=== PATIENT | female | born 1945 | race Caucasian/White ===

== ENCOUNTER 2018-03-03 16:37 | Outpatient (CLI) | payer MEDICARE | END 2018-03-03 16:38 | disposition critical access hospital (66) | LOC: EMS 16:37 | PROVIDERS: ATTEND Surgery | DX: R53.1 Weakness (principal); R19.7 Diarrhea, unspecified; M54.9 Dorsalgia, unspecified | CPT/HCPCS: A0425; A0429 ==

== ENCOUNTER 2018-03-03 16:55 | Inpatient (IN) | payer MEDICARE ==
--- NOTE | 2018-03-03 17:08 | ED Physician Documentation ---
PD HPI Fall - Stated complaint Stated Complaint: WEAKNESS - History obtained from History obtained from: Patient, Family (son), EMS - History of Present Illness Mechanism of injury: Other (Feeling ill for a few days with mild cough. Fell today with Left chest wall pain. Noted to be febrile and hypoxic.) Review of Systems Ten Systems: 10 systems reviewed and negative Constitutional: reports: Fever, Chills, Fatigue Nose: denies: Rhinorrhea / runny nose, Congestion Cardiac: reports: Chest pain / pressure. denies: Palpitations Respiratory: reports: Dyspnea, Cough GI: denies: Abdominal Pain PD PAST MEDICAL HISTORY - Past Medical History Cardiovascular: Atrial fibrillation Endocrine/Autoimmune: HyPOthyroidism GI: GERD : Other Musculoskeletal: Scoliosis - Past Surgical History Past Surgical History: Yes General: Other HEENT: Tonsil/Adenoidectomy - Present Medications Home Medications: Ambulatory Orders Medication Instructions Recorded Confirmed Levothyroxine [Synthroid] 150 mcg PO QDAC 03/25/13 04/24/14 Omeprazole [PriLOSEC] 20 mg PO TID 03/25/13 04/24/14 Carbidopa/Levodopa 25/100 [Sinemet 25 mg ORAL DAILY 04/08/14 04/24/14 25 mg/100 mg] Cyclobenzaprine [Flexeril] 10 mg PO TID PRN #20 tablet 04/08/14 04/24/14 Ferrous Gluconate 54 mg ORAL TID 04/08/14 04/24/14 Furosemide 40 mg ORAL DAILY 04/08/14 04/24/14 Ipratropium/Albuterol Sulfate 3 ml INH DAILY PRN 04/08/14 04/24/14 [Combivent Respimat 20-100 Mcg] LORazepam [Ativan] 0.5 mg ORAL DAILY PRN 04/08/14 04/24/14 Metoprolol Succinate 25 mg ORAL DAILY 04/08/14 04/24/14 Potassium Chloride 10 meq ORAL DAILY 04/08/14 04/24/14 Tolterodine [Detrol LA] 2 mg ORAL DAILY 04/08/14 04/24/14 Warfarin Sodium 3 mg ORAL DAILY 04/08/14 04/24/14 diltiaZEM CD [Cardizem Cd] 180 mg ORAL DAILY 04/08/14 04/24/14 oxyCODONE [Roxicodone] 5 - 10 mg PO Q6H PRN #20 tablet 04/08/14 04/24/14 - Allergies Allergies/Adverse Reactions: Allergies Allergy/AdvReac Type Severity Reaction Status Date / Time strawberry [[place]] AdvReac Intermediate Rash Verified 04/24/14 04:48 hydrocodone bitartrate * AdvReac Emesis Verified 04/24/14 04:48 [From Vicodin] - Social History Does the pt smoke?: No Smoking Status: Never smoker Does the pt drink ETOH?: No Does the pt have substance abuse?: No - Immunizations Immunizations are current?: Yes - POLST Patient has POLST: Yes PD ED PE NORMAL - Vitals Vital signs reviewed: Yes - General General: Alert and oriented X 3, Other (She looks like she has a little bit of labored breathing and she is an incredibly poor dowagers hump.) - HEENT HEENT: PERRL, EOMI - Neck Neck: Supple, no meningeal sign, No bony TTP - Cardiac Cardiac: RRR, No murmur - Respiratory Respiratory: Other (Rhonchorous at the left base) - Abdomen Abdomen: Soft, Non tender - Back Back: No CVA TTP, No spinal TTP - Derm Derm: Normal color, Warm and dry - Extremities Extremities: No edema, No calf tenderness / cord - Neuro Neuro: Alert and oriented X 3, Normal speech Results - Vitals Vitals: Vital Signs - 24 hr 03/03/18 03/03/18 03/03/18 17:00 19:32 19:48 Temperature 38.3 C H 36.7 C Heart Rate 80 104 H 125 H Respiratory 14 29 H 26 H Rate Blood Pressure 114/81 H 90/69 106/69 O2 Saturation 92 94 94 03/03/18 19:56 Temperature Heart Rate 87 Respiratory 23 Rate Blood Pressure 90/75 O2 Saturation 94 Oxygen O2 Source [Without Activity] Nasal cannula O2 Source Nasal cannula - EKG (time done) 2130 Rate: Rate (enter#) (88) Rhythm: Atrial fibrillation Intervals: LBBB (LAFB) Ischemia: Normal ST segments Computer interpretation: Agree with computer - Labs Labs: Laboratory Tests 03/03/18 03/03/18 03/03/18 17:10 17:24 17:24 WBC 7.0 RBC 5.76 H Hgb 15.6 Hct 49.5 H MCV 86.0 MCH 27.1 MCHC 31.4 L RDW 18.4 H Plt Count 146 MPV 8.2 Neut # (Auto) 6.8 H Lymph # (Auto) 0.1 L Stokes # (Auto) 0.1 Eos # (Auto) 0.0 Baso # (Auto) 0.0 Absolute Nucleated RBC 0.01 Total Counted 100 Band Neuts % (Manual) 18 H Abnorm Lymph % (Manual) 0 Nucleated RBC % 0.1 Neutrophils # (Manual) 6.8 H Lymphocytes # (Manual) 0.1 L Monocytes # (Manual) 0.1 Eosinophils # (Manual) 0.1 Basophils # (Manual) 0.0 Platelet Estimate NORMAL (130-450,000) Platelet Morphology NORMAL APPEARANCE RBC Morph Micro Appear 2+ POIKILOCYTOSIS PT INR Sodium 142 Potassium 3.7 Chloride 106 Carbon Dioxide 29 Anion Gap 7.0 BUN 12 Creatinine 0.5 Estimated GFR (MDRD) 122 Glucose 95 Lactic Acid Calcium 10.1 Magnesium Total Bilirubin 2.1 H AST 12 ALT < 10 L Alkaline Phosphatase 52 Total Protein 6.1 L Albumin 3.6 Globulin 2.5 Albumin/Globulin Ratio 1.4 Lipase 19 L Urine Color Urine Clarity Urine pH Ur Specific [place] Urine Protein Urine Glucose (UA) Urine Ketones Urine Occult Blood Urine Nitrite Urine Bilirubin Urine Urobilinogen Ur Leukocyte Esterase Urine RBC Urine WBC Ur Squamous Epith Cells Urine Bacteria Ur Microscopic Review Urine Culture Comments Influenza A (Rapid) Negative Influenza B (Rapid) Negative 03/03/18 03/03/18 03/03/18 17:24 17:24 17:27 WBC RBC Hgb Hct MCV MCH MCHC RDW Plt Count MPV Neut # (Auto) Lymph # (Auto) Stokes # (Auto) Eos # (Auto) Baso # (Auto) Absolute Nucleated RBC Total Counted Band Neuts % (Manual) Abnorm Lymph % (Manual) Nucleated RBC % Neutrophils # (Manual) Lymphocytes # (Manual) Monocytes # (Manual) Eosinophils # (Manual) Basophils # (Manual) Platelet Estimate Platelet Morphology RBC Morph Micro Appear PT 38.6 H INR 3.5 H Sodium Potassium Chloride Carbon Dioxide Anion Gap BUN Creatinine Estimated GFR (MDRD) Glucose Lactic Acid 1.8 Calcium Magnesium 1.7 Total Bilirubin AST ALT Alkaline Phosphatase Total Protein Albumin Globulin Albumin/Globulin Ratio Lipase Urine Color Urine Clarity Urine pH Ur Specific [place] Urine Protein Urine Glucose (UA) Urine Ketones Urine Occult Blood Urine Nitrite Urine Bilirubin Urine Urobilinogen Ur Leukocyte Esterase Urine RBC Urine WBC Ur Squamous Epith Cells Urine Bacteria Ur Microscopic Review Urine Culture Comments Influenza A (Rapid) Influenza B (Rapid) 03/03/18 19:49 WBC RBC Hgb Hct MCV MCH MCHC RDW Plt Count MPV Neut # (Auto) Lymph # (Auto) Stokes # (Auto) Eos # (Auto) Baso # (Auto) Absolute Nucleated RBC Total Counted Band Neuts % (Manual) Abnorm Lymph % (Manual) Nucleated RBC % Neutrophils # (Manual) Lymphocytes # (Manual) Monocytes # (Manual) Eosinophils # (Manual) Basophils # (Manual) Platelet Estimate Platelet Morphology RBC Morph Micro Appear PT INR Sodium Potassium Chloride Carbon Dioxide Anion Gap BUN Creatinine Estimated GFR (MDRD) Glucose Lactic Acid Calcium Magnesium Total Bilirubin AST ALT Alkaline Phosphatase Total Protein Albumin Globulin Albumin/Globulin Ratio Lipase Urine Color DARK YELLOW Urine Clarity CLOUDY Urine pH 5.5 Ur Specific [place] 1.020 Urine Protein 30 H Urine Glucose (UA) NEGATIVE Urine Ketones TRACE Urine Occult Blood SMALL H Urine Nitrite POSITIVE H Urine Bilirubin SMALL H Urine Urobilinogen 2 H Ur Leukocyte Esterase MODERATE H Urine RBC 6-10 H Urine WBC 11-25 H Ur Squamous Epith Cells FEW Squamous Urine Bacteria Many H Ur Microscopic Review INDICATED Urine Culture Comments INDICATED Influenza A (Rapid) Influenza B (Rapid) - Rads (name of study) 2v chest Radiology: EMP read contemporaneously (Difficult study due to patient positioning from her kyphosis but possible retrocardiac infiltrates.) PD MEDICAL DECISION MAKING - ED course ED course: This is a 73-year-old who presents by EMS from home with a mild fall today and generalized weakness over a day with being febrile at home and she is in A. fib with RVR with heart rates up to 160 on arrival on the monitor. Labs suggest against sepsis, she was treated with divided doses of diltiazem with improvement in her rate heart rate down to the 90s. Found to have a UTI. Administered Rocephin. Spoke with Dr. Perkins for admission at 8:20 PM. Departure - Departure Disposition: [facility] DC/Xfer Clinical Impression: UTI (lower urinary tract infection), Atrial fibrillation with RVR, Supratherapeutic INR Back pain Qualifiers: Back pain location: thoracic back pain Chronicity: chronic Back pain laterality: midline Qualified Code(s): M54.6 - Pain in thoracic spine Condition: Stable
[2018-03-03] MEDS ORDERED: diltiaZEM INJ 5 MG/ML VIAL IVP STA ×2 (17:26→19:15)
[2018-03-03 17:34] LABS: BASOPHILS % (AUTO) 0.3 %; EOSINOPHILS % (AUTO) 0.2 %; HGB - HEMOGLOBIN 15.6 g/dL (12.0-16.0); LYMPHOCYTES # (AUTO) 0.1 10^3/uL (1.5-3.5); LYMPHOCYTES % (AUTO) 1.6 %; MEAN CORPUSCULAR HEMOGLOBIN 27.1 pg (27.0-31.0); MEAN CORPUSCULAR HGB CONC 31.4 g/dL (32.0-36.0); MEAN PLATELET VOLUME 8.2 fL (7.9-10.8); MONOCYTES # (AUTO) 0.1 10^3/uL (0.0-1.0); NEUTROPHILS # (AUTO) 6.8 10^3/uL (1.5-6.6); NEUTROPHILS % (AUTO) 96.9 %; PLT - PLATELET COUNT 146 10^3/uL (130-450); RED BLOOD COUNT 5.76 10^6/uL (4.20-5.40); RED CELL DISTRIBUTION WIDTH 18.4 % (12.0-15.0)
[2018-03-03 17:38] LABS: INR 3.5 (0.8-1.2); PT - PROTHROMBIN TIME 38.6 secs (9.9-12.6)
[2018-03-03 17:42] LABS: ABNORMAL LYMPHS % (MANUAL) 0 %
[2018-03-03 17:52] LABS: ALBUMIN 3.6 g/dL (3.2-5.5); ALBUMIN/GLOBULIN RATIO 1.4 (1.0-2.2); ALKALINE PHOSPHATASE 52 IU/L (42-121); ALT ALANINE AMINOTRANSFERASE < 10 IU/L (10-60); AST ASPARTATE AMINOTRANSFERASE 12 IU/L (10-42); BILIRUBIN,TOTAL 2.1 mg/dL (0.2-1.0); BUN - BLOOD UREA NITROGEN 12 mg/dL (6-20); CALCIUM 10.1 mg/dL (8.5-10.3); CARBON DIOXIDE - CO2 29 mmol/L (21-32); CHLORIDE 106 mmol/L (101-111); CREATININE 0.5 mg/dL (0.4-1.0); GFR - MDRD 122 (>89); GLUCOSE 95 mg/dL (70-100); LIPASE 19 U/L (22-51); SODIUM 142 mmol/L (135-145); TOTAL PROTEIN 6.1 g/dL (6.7-8.2)
[2018-03-03 17:59] LABS: BAND NEUTROPHILS % (MANUAL) 18 %; EOSINOPHILS # (MANUAL) 0.1 10^3/uL (0-0.7); LYMPHOCYTES # (MANUAL) 0.1 10^3/uL (1.5-3.5); LYMPHOCYTES % (MANUAL) 1 %; MONOCYTES # (MANUAL) 0.1 10^3/uL (0.0-1.0); NEUTROPHILS # (MANUAL) 6.8 10^3/uL (1.5-6.6); NEUTROPHILS % (MANUAL) 79 %
[2018-03-03 18:00] LABS: PLATELET ESTIMATE, MANUAL NORMAL (130-450,000) (NORMAL); PLATELET MORPHOLOGY NORMAL APPEARANCE (NORMAL)
--- NOTE | 2018-03-03 19:14 | XRAY Report ---
Reason: febrile, hypoxic Procedure Date: 03/03/2018 Accession Number: [id number] / [id number] Procedure: XR - Chest 2 View X-Ray CPT Code: 48274 FULL RESULT: EXAM: CHEST RADIOGRAPHY EXAM DATE: 03/03/2018 06:11 PM. CLINICAL HISTORY: Febrile, hypoxic. COMPARISON: ABDOMEN ACUTE 04/24/2014 5:40 AM. TECHNIQUE: 2 views. FINDINGS: Lungs/Pleura: Decreased lung volumes noted. Retrocardiac opacities are present. Mildly elevated right hemidiaphragm. No large effusions or pneumothorax. Evaluation of the lung apices is limited. Mediastinum: Mild cardiac enlargement noted. Atheromatous plaques of the thoracic arch is noted. Other: Patient's head and chin overlies the lung apex limiting the evaluation. Large paraesophageal hernia. IMPRESSION: 1. Suboptimal patient positioning. 2. Retrocardiac opacities could represent atelectasis or infiltrates. 3. Stable cardiac enlargement and esophageal hernia. RADIA
[2018-03-03 20:02] LABS: GLUCOSE, URINE (UA) NEGATIVE (NEGATIVE); KETONES,URINE (UA) TRACE mg/dL (NEGATIVE); LEUKOCYTE ESTERASE, URINE MODERATE (NEGATIVE); NITRITE,URINE POSITIVE (NEGATIVE); OCCULT BLOOD,URINE SMALL (NEGATIVE); PH,URINE 5.5 PH (5.0-7.5); PROTEIN,URINE 30 mg/dL (NEGATIVE); UROBILINOGEN,URINE 2 E.U./dL (NORMAL)
[2018-03-03 20:18] LABS: BACTERIA,URINE Many /HPF (None Seen); BILIRUBIN,URINE SMALL (NEGATIVE); CLARITY,URINE CLOUDY (CLEAR); ICTOTEST,URINE POSITIVE; SQUAMOUS EPITHELIAL CELL,UR FEW Squamous (<= Few)
[2018-03-03] MEDS ORDERED: cefTRIAXone 1 GM in SODIUM CHLORIDE 0.9% MINIBAG 100 ML IV STA (20:19)
[2018-03-03] MEDS ORDERED: PROCHLORPERAZINE 10 MG/2 ML VIAL IVP PRN (21:09)
[2018-03-03] MEDS ORDERED: CYCLOBENZAPRINE 10 MG TABLET PO PRN (21:12)
[2018-03-03] MEDS ORDERED: MORPHINE 2 MG/ML CARPUJECT IVP STA (21:12)
[2018-03-03] MEDS ORDERED: FERROUS GLUCONATE ORAL SCH (22:00)
[2018-03-03] MEDS: METOPROLOL SUCCINATE 25 MG TABLET PO SCH (22:06)
[2018-03-03] MEDS ORDERED: IPRATROPIUM/ALBUTEROL 3 ML NEB INH PRN (22:14)
[2018-03-03] MEDS: D5NS W/20 MEQ KCL 1,000 ML IV SCH (22:28)
[2018-03-03] MEDS ORDERED: LIDOCAINE PATCH 5% TOP PRN (23:20)
[2018-03-03] MEDS: oxyCODONE 5 MG TABLET PO PRN (23:52)
[2018-03-04] MEDS ORDERED: MIN OIL/DIMETHICON/COCONUT OIL 92 GM TUBE TOP PRN (00:38)
--- NOTE | 2018-03-04 01:13 | HISTORY & PHYSICAL EXAMINATION ---
DATE OF SERVICE: 03/03/2018 Physician: Veronica Perkins MD HISTORY OF PRESENT ILLNESS: This is a 73-year-old white female with a history of severe scoliosis, Parkinson's disease, hypothyroidism, chronic atrial fibrillation on Coumadin. Patient has felt weak and febrile for 1 day and suffered a fall without syncope onto the left side of her body because of the weakness. She was brought into the emergency room and found to have dehydration, urinary tract infection, and was complaining about pain in the areas where she had sustained the fall. X-rays showed no fracture. PAST MEDICAL HISTORY 1. Severe scoliosis. 2. Parkinson's. 3. Hypothyroidism. 4. Chronic atrial fibrillation, on Coumadin. ALLERGIES 1. STRAWBERRIES. 2. HYDROCODONE. MEDICATIONS 1. Oxycodone 5 mg 1-2 tabs q.6 h. p.r.n. pain. 2. Diltiazem CD 180 mg daily. 3. Warfarin 3 mg daily. 4. Detrol LA 2 mg daily. 5. Potassium 10 mEq daily. 6. Lasix 40 mg daily. 7. Prilosec 20 mg t.i.d. 8. Toprol-XL 25 mg daily. 9. Synthroid 150 mcg daily. 10. Ativan 0.5 mg daily p.r.n. 11. Combivent inhaler p.r.n. 12. Iron gluconate 54 mg t.i.d. 13. Flexeril 10 mg t.i.d. p.r.n. 14. Carbidopa/levodopa 25/100 daily. REVIEW OF SYSTEMS: A comprehensive review of systems was performed, and the pertinent positives are in the HPI. Patient is so weak that she answers with grunts or with 1- and 2-word answers only. It is not clear if this is her baseline. FAMILY HISTORY: No inherited diseases. SOCIAL HISTORY: Nonsmoker, nondrinker, no illicit drug use. PHYSICAL EXAMINATION GENERAL: Thin, elderly white female with severe scoliosis, giving her a dowager's hump, and her chin is nearly touching her umbilicus. She is in bed, pillows prop her up. VITAL SIGNS: Blood pressure 90/69, heart rate 104, in atrial fibrillation, fever on admission of 38.3, and O2 saturation 92% on room air. HEENT: Marked dryness of her mucosa. NECK: Probably no JVD, but because of her scoliosis, this is difficult to determine. CHEST: Clear at the anterior bases and lateral bases. HEART: Heart sounds have a 1-2/6 systolic murmur at the upper sternal border. ABDOMEN: Soft, nontender. EXTREMITIES: No edema. SKIN: Severe tenting. NEUROLOGIC: She is rigid, moving all extremities. Flat facies. LABORATORY STUDIES: Normal electrolytes. Normal BUN and creatinine. Lactic acid 1.8, magnesium 1.7, bilirubin 2.1. Normal liver tests. Troponin not detectable. INR excessive at 3.5. White blood count 7 with a left shift, hemoglobin 15.6, platelet count 146. Urinalysis showed specific gravity 1.02, pH of 5.5, small occult blood, positive nitrite, moderate leukocyte esterase, high white blood cells, and many bacteria. Her serology was negative for influenza A and B. CHEST X-RAY: No active disease. ELECTROCARDIOGRAM: Atrial fibrillation with a rapid rate, poor R wave progression. IMPRESSION/DIAGNOSES 1. Atrial fibrillation with rapid ventricular response. 2. Urinary tract infection. 3. Coumadin toxicity. 4. Fall at home. 5. Hypothyroidism history. 6. Parkinson's. 7. Scoliosis. PLAN: Admit patient to a medical/surgical bed on telemetry. Continue with management for rate control. She had received two IV diltiazem boluses in the ER, which have controlled her rate into the 90-110 range but also resulted in low blood pressures in the 90s systolic range. Continue with her oral Cardizem and increase beta trisha dose slightly if blood pressure can tolerate it, to twice a day. Continue with IV hydration for her significant dehydration. Continue with Rocephin, which was started for the UTI, and await urine and blood cultures. Check her INR daily, hold the Coumadin until the INR is below 3, and keep INR between 2 and 3. Check a TSH level regarding an adequate amount or excessive amount of thyroid replacement. Begin OT and PT when HR and BP have stabilized, and continue with pain medications. CODE STATUS: FULL CODE. DEEP VENOUS THROMBOSIS PROPHYLAXIS: Pharmacotherapy (on her Coumadin). ATTESTATION: Patient is expected to be discharged and transferred to another facility within 96 hours: Yes. TD: 03/04/2018 00:08 RACHELLE
[2018-03-04] MEDS: SODIUM CHLORIDE FLUSH 0.9% 10 ML SYRINGE IVP SCH ×3 (02:36→18:12)
[2018-03-04 02:50] LABS: INR 3.3 (0.8-1.2); PT - PROTHROMBIN TIME 36.8 secs (9.9-12.6)
[2018-03-04 03:02] LABS: CALCIUM 9.6 mg/dL (8.5-10.3); CREATININE 0.5 mg/dL (0.4-1.0)
[2018-03-04 03:09] LABS: BASOPHILS % (AUTO) 0.2 %; HGB - HEMOGLOBIN 14.4 g/dL (12.0-16.0); LYMPHOCYTES # (AUTO) 0.2 10^3/uL (1.5-3.5); LYMPHOCYTES % (AUTO) 1.7 %; MEAN CORPUSCULAR HEMOGLOBIN 27.4 pg (27.0-31.0); MEAN CORPUSCULAR HGB CONC 31.6 g/dL (32.0-36.0); MEAN CORPUSCULAR VOLUME 86.7 fL (81.0-99.0); MEAN PLATELET VOLUME 8.5 fL (7.9-10.8); MONOCYTES # (AUTO) 0.7 10^3/uL (0.0-1.0); NEUTROPHILS # (AUTO) 11.2 10^3/uL (1.5-6.6); NEUTROPHILS % (AUTO) 92.1 %; PLT - PLATELET COUNT 124 10^3/uL (130-450); RED BLOOD COUNT 5.27 10^6/uL (4.20-5.40); RED CELL DISTRIBUTION WIDTH 18.4 % (12.0-15.0); WHITE BLOOD COUNT 12.1 x10^3/uL (4.8-10.8)
[2018-03-04] MEDS: METOPROLOL SUCCINATE 25 MG TABLET PO SCH (05:55)
[2018-03-04] MEDS: PANTOPRAZOLE 40 MG TABLET PO SCH (06:49)
[2018-03-04] MEDS: D5NS W/20 MEQ KCL 1,000 ML IV SCH ×2 (06:49→18:12)
[2018-03-04] MEDS ORDERED: LEVOTHYROXINE 75 MCG TABLET PO SCH (07:00)
[2018-03-04] MEDS ORDERED: SODIUM CHLORIDE 0.9% 500 ML IV ONE (07:02)
[2018-03-04] MEDS ORDERED: diltiaZEM CD 180 MG CAPSULE PO SCH (09:00)
[2018-03-04] MEDS ORDERED: CARBIDOPA/LEVODOPA 25 MG/100 MG TABLET PO SCH (09:00)
[2018-03-04] MEDS ORDERED: LORazepam 0.5 MG TABLET PO PRN (09:00)
[2018-03-04] MEDS ORDERED: WARFARIN SODIUM 3 MG ORAL SCH ×2 (09:00→14:00)
[2018-03-04] MEDS: POLYETHYLENE GLYCOL 3350 17 GM PACKET PO SCH (09:12)
[2018-03-04] MEDS: FERROUS GLUCONATE 324 MG TABLET PO SCH ×3 (09:12→18:12)
[2018-03-04] MEDS: TOLTERODINE LA 2 MG CAPSULE PO SCH (09:12)
[2018-03-04] MEDS: oxyCODONE 5 MG TABLET PO PRN ×2 (09:18→20:46)
--- NOTE | 2018-03-04 11:44 | PROVIDER PROGRESS NOTE ---
Subjective - Prog Note Date Prog Note Date: 03/04/18 Prog Note Time: 11:44 - Subjective Pt reports feeling: Improved Subjective: [place] complains of discomfort in her anterior chest related to her fall prior to admission. She states that she is breathing well and can recognize all of her family members. She denies chest pressure, rashes, increased shortness of breath, fevers, chills, or a productive cough. Current Medications - Current Medications Current Medications: Active Medications: Acetaminophen (Tylenol) 650 mg PO Q4HR PRN Albuterol/Ipratropium (Duoneb) 3 ml INH Q4HR PRN Carbidopa/Levodopa (Sinemet 25 Mg/100 Mg) tab PO DAILY [facility] Cyclobenzaprine HCl (Flexeril) 10 mg PO TID PRN Diltiazem HCl (Cardizem Cd) 180 mg PO DAILY RICHIE Ferrous Gluconate (Fergon) 324 mg PO TIDWM RICHIE Cefepime HCl 1 gm/ Sodium (Chloride) 100 mls @ 200 mls/hr IV TID RICHIE Acetaminophen (Ofirmev) 100 mls @ 400 mls/hr IV Q6H RICHIE Potassium Chloride/Dextrose/Sod Cl () 1,000 mls @ 125 mls/hr IV .Q8H RICHIE Levothyroxine Sodium (Synthroid) 100 mcg PO QDAC [facility] Lidocaine (Lidoderm Patch) 1 patch TOP DAILY PRN Lorazepam (Ativan) 0.5 mg PO DAILY PRN Metoprolol Succinate (Toprol Xl) 25 mg PO BID [facility] Mineral Oil (Cavilon) 1 applic TOP PRN PRN Oxycodone HCl (Roxicodone) 5 mg PO Q6H PRN Pantoprazole Sodium (Protonix) 40 mg PO QDAC [facility] Polyethylene Glycol (Miralax) 17 gm PO DAILY [facility] Prochlorperazine Edisylate (Compazine Inj) 10 mg IVP Q6HR PRN Tolterodine Tartrate (Detrol La) 2 mg PO DAILY [facility] HOME meds: Omeprazole [PriLOSEC] 20 mg PO QDAC 03/25/13 Carbidopa/Levodopa 25/100 [Sinemet 25 mg/100 mg] 3 tab PO 0500,1000,1400 04/08/14 Furosemide 40 mg ORAL DAILY 04/08/14 Metoprolol Succinate 25 mg ORAL DAILY 04/08/14 Potassium Chloride 10 meq ORAL 1200 04/08/14 Tolterodine [Detrol LA] 2 mg ORAL DAILY 04/08/14 Warfarin Sodium 3 mg ORAL MOTUWETHFR@0900 04/08/14 diltiaZEM CD [Cardizem Cd] 180 mg ORAL DAILY 04/08/14 Cholecalciferol (Vitamin D3) [Vitamin D3] 3,000 units PO DAILY 03/04/18 Levothyroxine Sodium 100 mcg PO QDAC 03/04/18 Warfarin Sodium 4.5 mg PO SUSA@0900 03/04/18 Objective - Vital Signs/Intake & Output Reviewed Vital Signs: Yes Vital Signs: Vital Signs x48h Temp Pulse Resp BP Pulse Ox 03/04/18 08:04 37.3 C 99 18 103/74 96 03/04/18 05:15 36.9 C 98 16 97/71 95 Intake & Output: Intake & Output 03/01/18 03/02/18 03/03/18 03/04/18 23:59 23:59 23:59 23:59 Intake Total 120 1696.667 Output Total 15 1300 Balance 105 396.667 - Objective General Appearance: positive: Alert, Mild distress Eyes Bilateral: positive: PERRL Eyes: OU Lid inflammation ENT: positive: Pharynx nml, Dry mucous membranes Neck: positive: No JVD, Stiff neck, Other (hyperflexion as it bends forward permantently.) Respiratory: positive: Chest non-tender, No respiratory distress, Rhonchi Cardiovascular: positive: No gallop, Irregularly irregular, Tachycardia, Systolic murmur, Decreased pulse(s) Peripheral Pulses: 1+ Radial (R), 1+ Radial (L) Abdomen: positive: Non-tender, Nml bowel sounds Back: positive: Nml inspection Skin: positive: No rash, Warm, Dry, Pallor Extremities: positive: Pedal edema, Joint swelling Neurologic/Psychiatric: positive: Disoriented to time, Weakness, Sensory loss, Slurred/abnml speech (impaired speech due to body habitous), Depressed mood/affect, Other (baseline mild cognitive delay related to Parkinson's) Reflexes: Bicep (R): 3+, Bicep (L): 3+ - Lab Results Fish Bones: 03/04/18 02:34 03/04/18 02:34 Other Labs: Lab Results x24hrs 03/04/18 03/04/18 03/04/18 Range/Units 08:10 02:34 02:34 WBC 12.1 H (4.8-10.8) x10^3/uL RBC 5.27 (4.20-5.40) 10^6/uL Hgb 14.4 (12.0-16.0) g/dL Hct 45.7 (37.0-47.0) % MCV 86.7 (81.0-99.0) fL MCH 27.4 (27.0-31.0) pg MCHC 31.6 L (32.0-36.0) g/dL RDW 18.4 H (12.0-15.0) % Plt Count 124 L (130-450) 10^3/uL MPV 8.5 (7.9-10.8) fL Neut # (Auto) 11.2 H (1.5-6.6) 10^3/uL Lymph # (Auto) 0.2 L (1.5-3.5) 10^3/uL Boundary # (Auto) 0.7 (0.0-1.0) 10^3/uL Eos # (Auto) 0.0 (0.0-0.7) 10^3/uL Baso # (Auto) 0.0 (0.0-0.1) 10^3/uL Absolute Nucleated RBC 0.03 x10^3/uL Total Counted Band Neuts % (Manual) (0 - 10) % Abnorm Lymph % (Manual) % Nucleated RBC % 0.2 /100WBC Neutrophils # (Manual) (1.5-6.6) 10^3/uL Lymphocytes # (Manual) (1.5-3.5) 10^3/uL Monocytes # (Manual) (0.0-1.0) 10^3/uL Eosinophils # (Manual) (0-0.7) 10^3/uL Basophils # (Manual) (0-0.1) 10^3/uL Platelet Estimate (NORMAL) Platelet Morphology (NORMAL) RBC Morph Micro Appear (NORMAL) PT (9.9-12.6) secs INR (0.8-1.2) Sodium (135-145) mmol/L Potassium (3.5-5.0) mmol/L Chloride (101-111) mmol/L Carbon Dioxide (21-32) mmol/L Anion Gap (6-13) BUN (6-20) mg/dL Creatinine (0.4-1.0) mg/dL Estimated GFR (MDRD) (>89) Glucose (70-100) mg/dL Lactic Acid (0.5-2.2) mmol/L Calcium (8.5-10.3) mg/dL Magnesium (1.7-2.8) mg/dL Total Bilirubin (0.2-1.0) mg/dL AST (10-42) IU/L ALT (10-60) IU/L Alkaline Phosphatase (42-121) IU/L Troponin I 0.23 0.12 (<0.49) ng/mL Total Protein (6.7-8.2) g/dL Albumin (3.2-5.5) g/dL Globulin (2.1-4.2) g/dL Albumin/Globulin Ratio (1.0-2.2) Lipase (22-51) U/L TSH (0.34-5.60) uIU/mL Urine Color Urine Clarity (CLEAR) Urine pH (5.0-7.5) PH Ur Specific [place] (1.002-1.030) Urine Protein (NEGATIVE) mg/dL Urine Glucose (UA) (NEGATIVE) mg/dL Urine Ketones (NEGATIVE) mg/dL Urine Occult Blood (NEGATIVE) Urine Nitrite (NEGATIVE) Urine Bilirubin (NEGATIVE) Urine Urobilinogen (NORMAL) E.U./dL Ur Leukocyte Esterase (NEGATIVE) Urine RBC (0-5) /HPF Urine WBC (0-5) /HPF Ur Squamous Epith Cells (<= Few) Urine Bacteria (None Seen) /HPF Ur Microscopic Review Urine Culture Comments Influenza A (Rapid) (Negative) Influenza B (Rapid) (Negative) 03/04/18 03/04/18 03/03/18 Range/Units 02:34 02:34 Unknown WBC (4.8-10.8) x10^3/uL RBC (4.20-5.40) 10^6/uL Hgb (12.0-16.0) g/dL Hct (37.0-47.0) % MCV (81.0-99.0) fL MCH (27.0-31.0) pg MCHC (32.0-36.0) g/dL RDW (12.0-15.0) % Plt Count (130-450) 10^3/uL MPV (7.9-10.8) fL Neut # (Auto) (1.5-6.6) 10^3/uL Lymph # (Auto) (1.5-3.5) 10^3/uL Boundary # (Auto) (0.0-1.0) 10^3/uL Eos # (Auto) (0.0-0.7) 10^3/uL Baso # (Auto) (0.0-0.1) 10^3/uL Absolute Nucleated RBC x10^3/uL Total Counted Band Neuts % (Manual) (0 - 10) % Abnorm Lymph % (Manual) % Nucleated RBC % /100WBC Neutrophils # (Manual) (1.5-6.6) 10^3/uL Lymphocytes # (Manual) (1.5-3.5) 10^3/uL Monocytes # (Manual) (0.0-1.0) 10^3/uL Eosinophils # (Manual) (0-0.7) 10^3/uL Basophils # (Manual) (0-0.1) 10^3/uL Platelet Estimate (NORMAL) Platelet Morphology (NORMAL) RBC Morph Micro Appear (NORMAL) PT 36.8 H (9.9-12.6) secs INR 3.3 H (0.8-1.2) Sodium 144 (135-145) mmol/L Potassium 3.8 (3.5-5.0) mmol/L Chloride 108 (101-111) mmol/L Carbon Dioxide 31 (21-32) mmol/L Anion Gap 5.0 L (6-13) BUN 16 (6-20) mg/dL Creatinine 0.5 (0.4-1.0) mg/dL Estimated GFR (MDRD) 122 (>89) Glucose 125 H (70-100) mg/dL Lactic Acid (0.5-2.2) mmol/L Calcium 9.6 (8.5-10.3) mg/dL Magnesium (1.7-2.8) mg/dL Total Bilirubin (0.2-1.0) mg/dL AST (10-42) IU/L ALT (10-60) IU/L Alkaline Phosphatase (42-121) IU/L Troponin I (<0.49) ng/mL Total Protein (6.7-8.2) g/dL Albumin (3.2-5.5) g/dL Globulin (2.1-4.2) g/dL Albumin/Globulin Ratio (1.0-2.2) Lipase (22-51) U/L TSH 4.58 (0.34-5.60) uIU/mL Urine Color Urine Clarity (CLEAR) Urine pH (5.0-7.5) PH Ur Specific [place] (1.002-1.030) Urine Protein (NEGATIVE) mg/dL Urine Glucose (UA) (NEGATIVE) mg/dL Urine Ketones (NEGATIVE) mg/dL Urine Occult Blood (NEGATIVE) Urine Nitrite (NEGATIVE) Urine Bilirubin (NEGATIVE) Urine Urobilinogen (NORMAL) E.U./dL Ur Leukocyte Esterase (NEGATIVE) Urine RBC (0-5) /HPF Urine WBC (0-5) /HPF Ur Squamous Epith Cells (<= Few) Urine Bacteria (None Seen) /HPF Ur Microscopic Review Urine Culture Comments Influenza A (Rapid) (Negative) Influenza B (Rapid) (Negative) 03/03/18 03/03/18 03/03/18 Range/Units Unknown 19:49 17:27 WBC (4.8-10.8) x10^3/uL RBC (4.20-5.40) 10^6/uL Hgb (12.0-16.0) g/dL Hct (37.0-47.0) % MCV (81.0-99.0) fL MCH (27.0-31.0) pg MCHC (32.0-36.0) g/dL RDW (12.0-15.0) % Plt Count (130-450) 10^3/uL MPV (7.9-10.8) fL Neut # (Auto) (1.5-6.6) 10^3/uL Lymph # (Auto) (1.5-3.5) 10^3/uL Boundary # (Auto) (0.0-1.0) 10^3/uL Eos # (Auto) (0.0-0.7) 10^3/uL Baso # (Auto) (0.0-0.1) 10^3/uL Absolute Nucleated RBC x10^3/uL Total Counted Band Neuts % (Manual) (0 - 10) % Abnorm Lymph % (Manual) % Nucleated RBC % /100WBC Neutrophils # (Manual) (1.5-6.6) 10^3/uL Lymphocytes # (Manual) (1.5-3.5) 10^3/uL Monocytes # (Manual) (0.0-1.0) 10^3/uL Eosinophils # (Manual) (0-0.7) 10^3/uL Basophils # (Manual) (0-0.1) 10^3/uL Platelet Estimate (NORMAL) Platelet Morphology (NORMAL) RBC Morph Micro Appear (NORMAL) PT (9.9-12.6) secs INR (0.8-1.2) Sodium (135-145) mmol/L Potassium (3.5-5.0) mmol/L Chloride (101-111) mmol/L Carbon Dioxide (21-32) mmol/L Anion Gap (6-13) BUN (6-20) mg/dL Creatinine (0.4-1.0) mg/dL Estimated GFR (MDRD) (>89) Glucose (70-100) mg/dL Lactic Acid (0.5-2.2) mmol/L Calcium (8.5-10.3) mg/dL Magnesium 1.7 (1.7-2.8) mg/dL Total Bilirubin (0.2-1.0) mg/dL AST (10-42) IU/L ALT (10-60) IU/L Alkaline Phosphatase (42-121) IU/L Troponin I < 0.04 (<0.49) ng/mL Total Protein (6.7-8.2) g/dL Albumin (3.2-5.5) g/dL Globulin (2.1-4.2) g/dL Albumin/Globulin Ratio (1.0-2.2) Lipase (22-51) U/L TSH (0.34-5.60) uIU/mL Urine Color DARK YELLOW Urine Clarity CLOUDY (CLEAR) Urine pH 5.5 (5.0-7.5) PH Ur Specific [place] 1.020 (1.002-1.030) Urine Protein 30 H (NEGATIVE) mg/dL Urine Glucose (UA) NEGATIVE (NEGATIVE) mg/dL Urine Ketones TRACE (NEGATIVE) mg/dL Urine Occult Blood SMALL H (NEGATIVE) Urine Nitrite POSITIVE H (NEGATIVE) Urine Bilirubin SMALL H (NEGATIVE) Urine Urobilinogen 2 H (NORMAL) E.U./dL Ur Leukocyte Esterase MODERATE H (NEGATIVE) Urine RBC 6-10 H (0-5) /HPF Urine WBC 11-25 H (0-5) /HPF Ur Squamous Epith Cells FEW Squamous (<= Few) Urine Bacteria Many H (None Seen) /HPF Ur Microscopic Review INDICATED Urine Culture Comments INDICATED Influenza A (Rapid) (Negative) Influenza B (Rapid) (Negative) 03/03/18 03/03/18 03/03/18 Range/Units 17:24 17:24 17:24 WBC (4.8-10.8) x10^3/uL RBC (4.20-5.40) 10^6/uL Hgb (12.0-16.0) g/dL Hct (37.0-47.0) % MCV (81.0-99.0) fL MCH (27.0-31.0) pg MCHC (32.0-36.0) g/dL RDW (12.0-15.0) % Plt Count (130-450) 10^3/uL MPV (7.9-10.8) fL Neut # (Auto) (1.5-6.6) 10^3/uL Lymph # (Auto) (1.5-3.5) 10^3/uL Boundary # (Auto) (0.0-1.0) 10^3/uL Eos # (Auto) (0.0-0.7) 10^3/uL Baso # (Auto) (0.0-0.1) 10^3/uL Absolute Nucleated RBC x10^3/uL Total Counted Band Neuts % (Manual) (0 - 10) % Abnorm Lymph % (Manual) % Nucleated RBC % /100WBC Neutrophils # (Manual) (1.5-6.6) 10^3/uL Lymphocytes # (Manual) (1.5-3.5) 10^3/uL Monocytes # (Manual) (0.0-1.0) 10^3/uL Eosinophils # (Manual) (0-0.7) 10^3/uL Basophils # (Manual) (0-0.1) 10^3/uL Platelet Estimate (NORMAL) Platelet Morphology (NORMAL) RBC Morph Micro Appear (NORMAL) PT 38.6 H (9.9-12.6) secs INR 3.5 H (0.8-1.2) Sodium 142 (135-145) mmol/L Potassium 3.7 (3.5-5.0) mmol/L Chloride 106 (101-111) mmol/L Carbon Dioxide 29 (21-32) mmol/L Anion Gap 7.0 (6-13) BUN 12 (6-20) mg/dL Creatinine 0.5 (0.4-1.0) mg/dL Estimated GFR (MDRD) 122 (>89) Glucose 95 (70-100) mg/dL Lactic Acid 1.8 (0.5-2.2) mmol/L Calcium 10.1 (8.5-10.3) mg/dL Magnesium (1.7-2.8) mg/dL Total Bilirubin 2.1 H (0.2-1.0) mg/dL AST 12 (10-42) IU/L ALT < 10 L (10-60) IU/L Alkaline Phosphatase 52 (42-121) IU/L Troponin I (<0.49) ng/mL Total Protein 6.1 L (6.7-8.2) g/dL Albumin 3.6 (3.2-5.5) g/dL Globulin 2.5 (2.1-4.2) g/dL Albumin/Globulin Ratio 1.4 (1.0-2.2) Lipase 19 L (22-51) U/L TSH (0.34-5.60) uIU/mL Urine Color Urine Clarity (CLEAR) Urine pH (5.0-7.5) PH Ur Specific [place] (1.002-1.030) Urine Protein (NEGATIVE) mg/dL Urine Glucose (UA) (NEGATIVE) mg/dL Urine Ketones (NEGATIVE) mg/dL Urine Occult Blood (NEGATIVE) Urine Nitrite (NEGATIVE) Urine Bilirubin (NEGATIVE) Urine Urobilinogen (NORMAL) E.U./dL Ur Leukocyte Esterase (NEGATIVE) Urine RBC (0-5) /HPF Urine WBC (0-5) /HPF Ur Squamous Epith Cells (<= Few) Urine Bacteria (None Seen) /HPF Ur Microscopic Review Urine Culture Comments Influenza A (Rapid) (Negative) Influenza B (Rapid) (Negative) 12/21/18 12/21/18 Range/Units 17:24 17:10 WBC 7.0 (4.8-10.8) x10^3/uL RBC 5.76 H (4.20-5.40) 10^6/uL Hgb 15.6 (12.0-16.0) g/dL Hct 49.5 H (37.0-47.0) % MCV 86.0 (81.0-99.0) fL MCH 27.1 (27.0-31.0) pg MCHC 31.4 L (32.0-36.0) g/dL RDW 18.4 H (12.0-15.0) % Plt Count 146 (130-450) 10^3/uL MPV 8.2 (7.9-10.8) fL Neut # (Auto) 6.8 H (1.5-6.6) 10^3/uL Lymph # (Auto) 0.1 L (1.5-3.5) 10^3/uL Boundary # (Auto) 0.1 (0.0-1.0) 10^3/uL Eos # (Auto) 0.0 (0.0-0.7) 10^3/uL Baso # (Auto) 0.0 (0.0-0.1) 10^3/uL Absolute Nucleated RBC 0.01 x10^3/uL Total Counted 100 Band Neuts % (Manual) 18 H (0 - 10) % Abnorm Lymph % (Manual) 0 % Nucleated RBC % 0.1 /100WBC Neutrophils # (Manual) 6.8 H (1.5-6.6) 10^3/uL Lymphocytes # (Manual) 0.1 L (1.5-3.5) 10^3/uL Monocytes # (Manual) 0.1 (0.0-1.0) 10^3/uL Eosinophils # (Manual) 0.1 (0-0.7) 10^3/uL Basophils # (Manual) 0.0 (0-0.1) 10^3/uL Platelet Estimate NORMAL (130-450,000) (NORMAL) Platelet Morphology NORMAL APPEARANCE (NORMAL) RBC Morph Micro Appear 2+ POIKILOCYTOSIS (NORMAL) PT (9.9-12.6) secs INR (0.8-1.2) Sodium (135-145) mmol/L Potassium (3.5-5.0) mmol/L Chloride (101-111) mmol/L Carbon Dioxide (21-32) mmol/L Anion Gap (6-13) BUN (6-20) mg/dL Creatinine (0.4-1.0) mg/dL Estimated GFR (MDRD) (>89) Glucose (70-100) mg/dL Lactic Acid (0.5-2.2) mmol/L Calcium (8.5-10.3) mg/dL Magnesium (1.7-2.8) mg/dL Total Bilirubin (0.2-1.0) mg/dL AST (10-42) IU/L ALT (10-60) IU/L Alkaline Phosphatase (42-121) IU/L Troponin I (<0.49) ng/mL Total Protein (6.7-8.2) g/dL Albumin (3.2-5.5) g/dL Globulin (2.1-4.2) g/dL Albumin/Globulin Ratio (1.0-2.2) Lipase (22-51) U/L TSH (0.34-5.60) uIU/mL Urine Color Urine Clarity (CLEAR) Urine pH (5.0-7.5) PH Ur Specific [place] (1.002-1.030) Urine Protein (NEGATIVE) mg/dL Urine Glucose (UA) (NEGATIVE) mg/dL Urine Ketones (NEGATIVE) mg/dL Urine Occult Blood (NEGATIVE) Urine Nitrite (NEGATIVE) Urine Bilirubin (NEGATIVE) Urine Urobilinogen (NORMAL) E.U./dL Ur Leukocyte Esterase (NEGATIVE) Urine RBC (0-5) /HPF Urine WBC (0-5) /HPF Ur Squamous Epith Cells (<= Few) Urine Bacteria (None Seen) /HPF Ur Microscopic Review Urine Culture Comments Influenza A (Rapid) Negative (Negative) Influenza B (Rapid) Negative (Negative) ABX Reporting Has patient been on IV antibiotics over the past 48 hours?: Yes Sepsis Event Note (H) - Evaluation Current Stage of Sepsis: Septic shock Possible source of Sepsis: positive: Genitourinary - Sepsis Criteria Sepsis Criteria: Recorded Heart Rate greater than 90 bpm, Recorded Respiratory Rate greater than 20, WBC count greater than 12,000 or less than 4000, [employer]PORATE TRAVEL [employer]ORDINATOR: altered consciousness (unrelated to primary neuro pathology), SBP less than 90 mmHg, Renal: urine output less than 0.5ml/kg/hr for 2 hours or creatinine gr Assessment/Plan - Problem List (1) Infection due to gram-negative bacteria Impression: The patient's full set of blood cultures are positive showing gram negatives. Her preliminary urine culture indicates e. coli. The patient remains on IV treatment that (2) Complicated UTI (urinary tract infection) Impression: The patient is known to be incontinent at home and frequently has UTIs. She has become very weak at home and actually fell in her bathroom. Today her urine appears gadiel. Plan: Monitor urine output, provide Pure wick for comfort. (3) Anterior chest wall pain Impression: The patient and her family admit to an accidental fall in her bathroom of which she landed onto her anterior chest. Plan: Serial troponins, monitor for worsening. PT evaluation after medically stable. (4) Elevated troponin Impression: The patient is likely having a + troponin due to her RVR and cardiac strain. She has had an echocardiogram and preliminary results show no regional wall motion abnormalities. The patient states that she has anterior chest pain related to her fall, denies any radiation to her jaw, neck, shoulders, arms or posterior chest. She denies dizziness, or nausea today. Plan: Await troponin at 1600, and reorder for the AM. (5) Falls Impression: The patient has suffered from an increased number of falls without injury. For this fall, she landed on her anterior chest that is tender with palpation. Plan: Continue fall precautions. Qualifiers: Encounter type: subsequent encounter Qualified Code(s): W19.XXXD - Unspecified fall, subsequent encounter (6) Compression fracture Impression: The patient has known compression fractures that has sped up the progression of her profound kyphosis. 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 She now has profound kyphosis with evidence of progressive Parkinson's disease. Plan: Supportive cares, pain medications as needed. Scheduled IV tylenol while acutely ill. (7) Parkinson disease, symptomatic Impression: The patient's Parkinson's disease has more rapidly progressed (8) Hypotension Impression: The patient is prescribed lasix, diltiazem, and metoprolol at home, which has been continued here. Given her septic shock she has been barely WNLs with her blood pressure. B/P has been in the 90-100's systolic. Plan: Monitor vital signs, follow parameters. Consider digoxin if HR is still greater than 120. Qualifiers: Hypotension type: hypotension due to hypovolemia Qualified Code(s): I95.89 - Other hypotension; E86.1 - Hypovolemia
[2018-03-04] MEDS: ACETAMINOPHEN 325 MG TABLET PO PRN (14:32)
[2018-03-04] MEDS: CEFEPIME 1 GM in SODIUM CHLORIDE 0.9% MINIBAG 100 ML IV SCH ×2 (15:00→21:59)
[2018-03-04] MEDS ORDERED: ACETAMINOPHEN 1,000 MG/100 ML 100 ML IV SCH (17:00)
[2018-03-04] MEDS ORDERED: METOPROLOL SUCCINATE 25 MG TABLET PO SCH ×2 (20:13→21:00)
[2018-03-04] MEDS ORDERED: LEVALBUTEROL 1.25 MG/3 ML NEB INH PRN (20:14)
[2018-03-04] MEDS ORDERED: DIGOXIN 500 MCG/2 ML AMP IVP SCH ×2 (20:14→23:30)
[2018-03-04] MEDS: ACETAMINOPHEN 1,000 MG/100 ML 100 ML IV SCH (20:59)
[2018-03-04] MEDS ORDERED: cefTRIAXone 1 GM in SODIUM CHLORIDE 0.9% MINIBAG 100 ML IV SCH (21:00)
[2018-03-04] MEDS: SODIUM CHLORIDE FLUSH 0.9% 10 ML SYRINGE IVP PRN (22:50)
[2018-03-05] MEDS ORDERED: diltiaZEM INJ 5 MG/ML VIAL IVP SCH ×2 (00:31→08:00)
[2018-03-05] MEDS: SODIUM CHLORIDE FLUSH 0.9% 10 ML SYRINGE IVP SCH ×3 (00:50→17:06)
[2018-03-05] MEDS: SODIUM CHLORIDE FLUSH 0.9% 10 ML SYRINGE IVP PRN (01:02)
[2018-03-05] MEDS: ACETAMINOPHEN 1,000 MG/100 ML 100 ML IV SCH ×5 (03:18→21:00)
[2018-03-05] MEDS: D5NS W/20 MEQ KCL 1,000 ML IV SCH ×3 (03:18→16:05)
[2018-03-05] MEDS: ACETAMINOPHEN 325 MG TABLET PO PRN (05:35)
[2018-03-05 06:16] LABS: INR 2.3 (0.8-1.2); PT - PROTHROMBIN TIME 25.8 secs (9.9-12.6)
[2018-03-05 06:20] LABS: BASOPHILS % (AUTO) 0.2 %; EOSINOPHILS % (AUTO) 0.2 %; HGB - HEMOGLOBIN 14.1 g/dL (12.0-16.0); LYMPHOCYTES # (AUTO) 0.4 10^3/uL (1.5-3.5); LYMPHOCYTES % (AUTO) 5.4 %; MEAN CORPUSCULAR HEMOGLOBIN 27.6 pg (27.0-31.0); MEAN CORPUSCULAR HGB CONC 32.1 g/dL (32.0-36.0); MEAN CORPUSCULAR VOLUME 85.9 fL (81.0-99.0); MEAN PLATELET VOLUME 8.5 fL (7.9-10.8); MONOCYTES # (AUTO) 0.6 10^3/uL (0.0-1.0); MONOCYTES % (AUTO) 8.5 %; NEUTROPHILS # (AUTO) 6.5 10^3/uL (1.5-6.6); NEUTROPHILS % (AUTO) 85.7 %; PLT - PLATELET COUNT 78 10^3/uL (130-450); RED BLOOD COUNT 5.13 10^6/uL (4.20-5.40); RED CELL DISTRIBUTION WIDTH 18.2 % (12.0-15.0); WHITE BLOOD COUNT 7.5 x10^3/uL (4.8-10.8)
[2018-03-05 06:26] LABS: CALCIUM 9.6 mg/dL (8.5-10.3); CREATININE 0.6 mg/dL (0.4-1.0)
[2018-03-05 06:34] LABS: DIGOXIN 1.3 ng/mL
[2018-03-05] MEDS ORDERED: LEVOTHYROXINE 100 MCG TABLET PO SCH (07:00)
[2018-03-05] MEDS: CEFEPIME 1 GM in SODIUM CHLORIDE 0.9% MINIBAG 100 ML IV SCH (07:24)
[2018-03-05] MEDS: PANTOPRAZOLE 40 MG TABLET PO SCH (07:36)
[2018-03-05] MEDS ORDERED: METOPROLOL SUCCINATE 25 MG TABLET PO SCH (08:00)
[2018-03-05] MEDS ORDERED: CARBIDOPA/LEVODOPA 25 MG/100 MG TABLET PO SCH (09:00)
[2018-03-05] MEDS ORDERED: ONDANSETRON 4 MG/2 ML VIAL IVP PRN (09:26)
[2018-03-05] MEDS ORDERED: PROMETHAZINE 25 MG/1 ML VIAL IM PRN (09:26)
[2018-03-05] MEDS ORDERED: SODIUM CHLORIDE 0.9% 500 ML IV ONE (09:29)
[2018-03-05] MEDS: METOPROLOL 5 MG/5 ML VIAL IVP SCH ×3 (09:34→21:03)
[2018-03-05] MEDS: POLYETHYLENE GLYCOL 3350 17 GM PACKET PO SCH (09:36)
[2018-03-05] MEDS: SACCHAROMYCES BOULARDII 250 MG CAPSULE PO SCH ×2 (09:36→17:06)
[2018-03-05] MEDS: FERROUS GLUCONATE 324 MG TABLET PO SCH ×3 (09:36→17:05)
[2018-03-05] MEDS: TOLTERODINE LA 2 MG CAPSULE PO SCH (09:37)
[2018-03-05] MEDS ORDERED: diltiaZEM INJ 125 MG in DEXTROSE 5% 100 ML IV SCH (10:00)
[2018-03-05] MEDS: PIPERACILLIN/TAZOBACTAM 3.375 GM in SODIUM CHLORIDE 0.9% MINIBAG 100 ML IV SCH ×2 (12:40→17:15)
[2018-03-05] MEDS: CARBIDOPA/LEVODOPA 25 MG/100 MG TABLET PO SCH (14:32)
[2018-03-05] MEDS ORDERED: D5NS W/20 MEQ KCL 1,000 ML IV SCH (21:41)
[2018-03-05] MEDS ORDERED: METOPROLOL 5 MG/5 ML VIAL IVP SCH (22:00)
[2018-03-05] MEDS ORDERED: WARFARIN 5 MG TABLET PO ONE (22:00)
[2018-03-05] MEDS ORDERED: LORazepam 2 MG/ML VIAL IVP PRN (22:11)
[2018-03-05] MEDS: NYSTATIN POWDER 15 GM TOP SCH (22:29)
[2018-03-05] MEDS: PANTOPRAZOLE 40 MG VIAL IVP SCH (22:30)
[2018-03-06] MEDS: PIPERACILLIN/TAZOBACTAM 3.375 GM in SODIUM CHLORIDE 0.9% MINIBAG 100 ML IV SCH ×3 (00:10→12:41)
[2018-03-06] MEDS: SODIUM CHLORIDE FLUSH 0.9% 10 ML SYRINGE IVP SCH ×4 (00:10→23:09)
[2018-03-06] MEDS: CARBIDOPA/LEVODOPA 25 MG/100 MG TABLET PO SCH ×3 (04:40→14:04)
[2018-03-06 05:01] LABS: BASOPHILS % (AUTO) 0.4 %; EOSINOPHILS % (AUTO) 0.4 %; HGB - HEMOGLOBIN 13.7 g/dL (12.0-16.0); LYMPHOCYTES # (AUTO) 0.5 10^3/uL (1.5-3.5); LYMPHOCYTES % (AUTO) 8.5 %; MEAN CORPUSCULAR HEMOGLOBIN 27.5 pg (27.0-31.0); MEAN CORPUSCULAR HGB CONC 31.5 g/dL (32.0-36.0); MEAN CORPUSCULAR VOLUME 87.2 fL (81.0-99.0); MEAN PLATELET VOLUME 8.5 fL (7.9-10.8); MONOCYTES # (AUTO) 0.6 10^3/uL (0.0-1.0); MONOCYTES % (AUTO) 10.4 %; NEUTROPHILS # (AUTO) 4.4 10^3/uL (1.5-6.6); NEUTROPHILS % (AUTO) 80.3 %; PLT - PLATELET COUNT 84 10^3/uL (130-450); RED BLOOD COUNT 4.98 10^6/uL (4.20-5.40); RED CELL DISTRIBUTION WIDTH 17.6 % (12.0-15.0); WHITE BLOOD COUNT 5.4 x10^3/uL (4.8-10.8)
[2018-03-06 05:14] LABS: ALBUMIN 3.1 g/dL (3.2-5.5); ALBUMIN/GLOBULIN RATIO 1.2 (1.0-2.2); BILIRUBIN,TOTAL 1.8 mg/dL (0.2-1.0); CALCIUM 9.5 mg/dL (8.5-10.3); CREATININE 0.5 mg/dL (0.4-1.0); MAGNESIUM 1.6 mg/dL (1.7-2.8); PHOSPHORUS 1.7 mg/dL (2.5-4.6); TOTAL PROTEIN 5.7 g/dL (6.7-8.2)
[2018-03-06] MEDS ORDERED: MAGNESIUM SULFATE 2 GRAM 2 GM/50 ML BAG IV ONE (06:00)
[2018-03-06] MEDS ORDERED: LEVOTHYROXINE 100 MCG VIAL IVP SCH (07:00)
[2018-03-06] MEDS: ACETAMINOPHEN 1,000 MG/100 ML 100 ML IV SCH (07:59)
[2018-03-06] MEDS ORDERED: POTASSIUM PHOSPHATE 15 MMOL in SODIUM CHLORIDE 0.9% 250 ML IV ONE (08:00)
[2018-03-06] MEDS: PANTOPRAZOLE 40 MG VIAL IVP SCH (08:26)
[2018-03-06] MEDS ORDERED: diltiaZEM INJ 125 MG in DEXTROSE 5% 100 ML IV SCH (09:00)
[2018-03-06] MEDS ORDERED: ENOXAPARIN 60 MG/0.6 ML SYRINGE SUBQ SCH (09:00)
--- NOTE | 2018-03-06 09:05 | XRAY Report ---
Reason: Eval for CHF Procedure Date: 03/06/2018 Accession Number: [id number] / [id number] Procedure: XR - Chest 1 View X-Ray CPT Code: 11365 FULL RESULT: EXAM: CHEST RADIOGRAPHY EXAM DATE: 03/06/2018 08:42 AM. CLINICAL HISTORY: Evaluate for CHF. COMPARISON: 03/03/2018. TECHNIQUE: 1 view. FINDINGS: This study is markedly limited by positioning and greater than 50% of lung is obscured by overlying structures. Lungs/Pleura: The visualized portions of the left upper lung demonstrate no large pneumothorax or consolidation. Small or moderate-sized pleural effusion cannot be assessed. The right lung is not visualized. Mediastinum: Within the meaningful limitations of this radiograph the cardiomediastinal silhouette appears unchanged. Other: None. IMPRESSION: Limited radiograph with no meaningful interval change. RADIA
[2018-03-06] MEDS ORDERED: METOPROLOL SUCCINATE 50 MG TABLET PO SCH (11:00)
[2018-03-06] MEDS: diltiaZEM CD 180 MG CAPSULE PO SCH (11:38)
[2018-03-06] MEDS: NYSTATIN POWDER 15 GM TOP SCH ×2 (12:42→20:53)
[2018-03-06] MEDS: levoFLOXacin 750 MG/150 ML 750 MG/150 ML BAG IV SCH (13:18)
[2018-03-06] MEDS ORDERED: WARFARIN 5 MG TABLET PO SCH (14:00)
[2018-03-06] MEDS: SENNA 8.6 MG TABLET PO SCH (14:05)
[2018-03-06] MEDS: POLYETHYLENE GLYCOL 3350 17 GM PACKET PO SCH (14:05)
[2018-03-06] MEDS: WARFARIN 1 MG TABLET PO SCH (14:05)
--- NOTE | 2018-03-06 16:46 | PROVIDER PROGRESS NOTE ---
Assessment/Plan - Problem List (1) Atrial fibrillation with RVR Assessment/Plan: Transferred to ICU for dilt drip as patient had persistently elevated HR in the 130s this am despite PO rate control meds Continue PO metoprolol and dilt Patient febrile which maybe contributing to the tachycardia Will give tylenol and IVFs Tele monitoring Trops stable at 0.20 Echo showed EF of 35-40% CHAD2 score is 2 patient on coumadin Coumadin held for elevated INR of 3.5 (2) Bacteremia due to Escherichia coli Assessment/Plan: Source is urinary Awaiting susceptibilities and repeat cx Fever this am Change cefepime to zosyn Monitor for sepsis (3) Complicated UTI (urinary tract infection) Assessment/Plan: Cause of bacteremia Urine cx and blood cx growing ecoli Change cefepime to zosyn and await susceptibilities of blood cx (4) Metabolic encephalopathy Assessment/Plan: Patient is lethargic and not at her baseline mentation likely secondary to ongoing infection with bacteremia Continue treatment of infection with IV abx MOnitor closely (5) Chronic systolic CHF (congestive heart failure), NYHA class 1 Assessment/Plan: EF of 35-40% Hypoxic requiring 5L with a fib rvr Patient being given IVF given fever and ongoing infection Will be careful with IVFs Patient on metoprolol but no RICARDO inh Will consider adding metoprolol prior to discharge Tele Monitor closely (6) Elevated troponin Assessment/Plan: The patient is likely having a + troponin due to her RVR and cardiac strain. She has had an echocardiogram and preliminary results show no regional wall motion abnormalities. The patient states that she has anterior chest pain related to her fall, denies any radiation to her jaw, neck, shoulders, arms or posterior chest. Trop stable - Current Meds Current Meds: Current Medications Generic Name Dose Route Start Last Admin Trade Name Freq PRN Reason Stop Dose Admin Carbidopa/Levodopa 3 tab 03/05/18 14:00 03/06/18 14:04 Sinemet 25 Mg/100 Mg PO 3 tab 0500,1000,1400 RICHIE Administration Diltiazem HCl 180 mg 03/06/18 11:00 03/06/18 11:38 Cardizem Cd PO 180 mg DAILY RICHIE Administration Enoxaparin Sodium 50 mg 03/06/18 09:00 03/06/18 08:12 Lovenox SUBQ Not Given BID RICHIE Potassium Chloride/Dextrose/Sod Cl 1,000 mls @ 40 mls/hr 03/05/18 21:41 03/06/18 08:00 IV 03/06/18 17:34 40 mls/hr .Q25H RICHIE Administration Levofloxacin 750 mg in 150 mls @ 100 mls/hr 03/06/18 13:00 03/06/18 13:18 Levaquin 750 Mg/150 Ml IV 100 mls/hr Q24H RICHIE Administration Lidocaine 1 patch 03/03/18 23:20 03/03/18 23:52 Lidoderm Patch TOP 1 patch DAILY PRN Administration PAIN Metoprolol Succinate 50 mg 03/06/18 11:00 03/06/18 11:38 Toprol Xl PO 50 mg DAILY RICHIE Administration Nystatin 1 applic 03/05/18 22:15 03/06/18 12:42 Nystop TOP 1 applic BID RICHIE Administration Polyethylene Glycol 17 gm 03/06/18 13:00 03/06/18 14:05 Miralax PO Not Given DAILY RICHIE Senna 8.6 - 17.2 mg 03/06/18 13:00 03/06/18 14:05 Senokot PO 8.6 mg DAILY RICHIE Administration Sodium Chloride 10 ml 03/03/18 21:09 03/05/18 01:02 Normal Saline Flush 0.9% IVP 10 ml PRN PRN Administration NEEDED PER PROVIDER ORDERS Sodium Chloride 10 ml 03/04/18 01:00 03/06/18 09:30 Normal Saline Flush 0.9% IVP 10 ml 0100,0900,1700 RICHIE Administration Warfarin Sodium 3 mg 03/06/18 14:00 03/06/18 14:05 Coumadin PO 3 mg QDWARFARIN RICHIE Administration - Lab Result Lab results reviewed: Yes Fish Bone Diagrams: 03/06/18 04:39 03/06/18 04:39 - EKG Results EKG Interpreted Independently: Yes EKG Comparison: Unchanged from prior EKG - Diagnostic Imaging Results Diagnostic Imaging Results: Final report reviewed - Additional Planning Condition/Complexity: Critical My Orders: My Active Orders 03/06/18 11:00 Metoprolol Succinate [Toprol Xl] 50 mg PO DAILY diltiaZEM CD [Cardizem Cd] 180 mg PO DAILY 03/06/18 13:00 Polyethylene Glycol 3350 [Miralax] 17 gm PO DAILY Senna [Senokot] 8.6 - 17.2 mg PO DAILY levoFLOXacin 750 MG/150 ML [Levaquin 750 mg/150 ml] 750 mg in 150 ml IV Q24H 03/06/18 14:00 Warfarin [Coumadin] 3 mg PO QDWARFARIN 03/06/18 14:12 Vital Signs [RC] Q4HR 03/06/18 Dinner Regular Diet [DIET] 03/07/18 05:00 COMPREHENSIVE METABOLIC PANEL [CHEM] DAILYLAB MAGNESIUM [CHEM] DAILYLAB PHOSPHORUS [CHEM] DAILYLAB 03/07/18 07:00 Levothyroxine [Synthroid] 100 mcg PO QDAC Pantoprazole [Protonix] 40 mg PO QDAC 03/08/18 05:00 COMPREHENSIVE METABOLIC PANEL [CHEM] DAILYLAB MAGNESIUM [CHEM] DAILYLAB PHOSPHORUS [CHEM] DAILYLAB 03/09/18 05:00 COMPREHENSIVE METABOLIC PANEL [CHEM] DAILYLAB 03/10/18 05:00 COMPREHENSIVE METABOLIC PANEL [CHEM] DAILYLAB 03/11/18 05:00 COMPREHENSIVE METABOLIC PANEL [CHEM] DAILYLAB Consult/Specialty: PT Plan Discussed with:: Patient, Family Time Spent: 31-60 minutes Subjective - Subjective Patient Reports: Other (Patient is lethargic secondary to infection. Being transferred to ICU due to a fib rvr. Patient looks ill.) Nursing Reports: No Complaints Objective Vital Signs: Vital Signs - 24 hr 03/05/18 03/05/18 03/05/18 17:00 18:00 19:00 Temperature 37.5 C 37.3 C Heart Rate [ 86 90 89 Monitoring electrodes] Respiratory 16 18 12 Rate Blood Pressure Blood Pressure [Left Brachial artery] Blood Pressure 158/99 H 154/97 H 166/105 H [Right Brachial artery] O2 Saturation 94 94 96 03/05/18 03/05/18 03/05/18 20:00 21:00 21:03 Temperature 36.1 C L Heart Rate [ 75 82 Monitoring electrodes] Respiratory 14 12 Rate Blood Pressure 151/103 H Blood Pressure [Left Brachial artery] Blood Pressure 146/92 H 151/103 H [Right Brachial artery] O2 Saturation 94 95 03/05/18 03/05/18 03/05/18 22:00 22:02 23:00 Temperature Heart Rate [ 76 78 Monitoring electrodes] Respiratory 16 19 Rate Blood Pressure 140/94 H Blood Pressure [Left Brachial artery] Blood Pressure 146/97 H 154/98 H [Right Brachial artery] O2 Saturation 96 100 03/06/18 03/06/18 03/06/18 00:00 01:00 02:00 Temperature 37.2 C Heart Rate [ 82 94 81 Monitoring electrodes] Respiratory 18 13 21 Rate Blood Pressure Blood Pressure [Left Brachial artery] Blood Pressure 160/98 H 159/94 H 135/79 H [Right Brachial artery] O2 Saturation 97 93 94 03/06/18 03/06/18 03/06/18 03:00 04:00 05:00 Temperature 37.2 C Heart Rate [ 103 H 82 92 Monitoring electrodes] Respiratory 16 23 13 Rate Blood Pressure Blood Pressure [Left Brachial artery] Blood Pressure 155/97 H 164/103 H 165/116 H [Right Brachial artery] O2 Saturation 90 L 98 95 03/06/18 03/06/18 03/06/18 06:00 07:00 07:43 Temperature 37.3 C Heart Rate [ 87 87 89 Monitoring electrodes] Respiratory 24 20 22 Rate Blood Pressure Blood Pressure [Left Brachial artery] Blood Pressure 155/101 H 160/97 H 160/97 H [Right Brachial artery] O2 Saturation 98 93 92 03/06/18 03/06/18 03/06/18 09:00 10:00 11:00 Temperature 37.2 C Heart Rate [ 94 80 78 Monitoring electrodes] Respiratory 23 25 H 26 H Rate Blood Pressure Blood Pressure [Left Brachial artery] Blood Pressure 150/100 H 138/86 H 141/87 H [Right Brachial artery] O2 Saturation 98 95 94 03/06/18 03/06/18 03/06/18 12:00 13:00 14:00 Temperature 37.6 C H Heart Rate [ 76 77 61 Monitoring electrodes] Respiratory 35 H 28 H 21 Rate Blood Pressure Blood Pressure [Left Brachial artery] Blood Pressure 141/87 H 128/77 116/79 [Right Brachial artery] O2 Saturation 92 93 94 03/06/18 03/06/18 15:00 16:15 Temperature 37.3 C Heart Rate [ 62 67 Monitoring electrodes] Respiratory 26 H 20 Rate Blood Pressure Blood Pressure 119/72 [Left Brachial artery] Blood Pressure 110/79 [Right Brachial artery] O2 Saturation 94 96 Oxygen O2 Source [Without Activity] Nasal cannula O2 Source Blow By I&O (Last 24 Hrs): Intake and Output Totals x24h 03/04/18 03/05/18 03/06/18 23:59 23:59 23:59 Intake Total 3644.584 3049.833 1133.708 Output Total 5997 021 9145 Balance 3018.450 1914.833 -926.292 General: Other (Lethargic) HEENT: Atraumatic, PERRLA, EOMI, Other (Dry mucus membranes) Neck: Supple, No JVD, No thyromegaly, +2 carotid pulse wo bruit, No LAD Lymphatic: no adenopathy Neuro: Non Focal, Other (Lethargic) Cardiovascular: No murmurs, Other (Tachycardic with irregular rhythm) Respiratory: Chest non-tender, No respiratory distress, Rales (Bases) Abdomen: Normal bowel sounds, Soft, No tenderness, No hepatospenomegaly Extremities: No clubbing, No cyanosis, Normal pulses, Other (Mild edema) Skin: No rashes, No breakdown - Results Results: Laboratory Results WBC 5.4 x10^3/uL (4.8-10.8) 03/06/18 04:39 RBC 4.98 10^6/uL (4.20-5.40) 03/06/18 04:39 Hgb 13.7 g/dL (12.0-16.0) 03/06/18 04:39 Hct 43.5 % (37.0-47.0) 03/06/18 04:39 MCV 87.2 fL (81.0-99.0) 03/06/18 04:39 MCH 27.5 pg (27.0-31.0) 03/06/18 04:39 MCHC 31.5 g/dL (32.0-36.0) L 03/06/18 04:39 RDW 17.6 % (12.0-15.0) H 03/06/18 04:39 Plt Count 84 10^3/uL (130-450) L 03/06/18 04:39 MPV 8.5 fL (7.9-10.8) 03/06/18 04:39 Neut # (Auto) 4.4 10^3/uL (1.5-6.6) 03/06/18 04:39 Lymph # (Auto) 0.5 10^3/uL (1.5-3.5) L 03/06/18 04:39 [place]ama # (Auto) 0.6 10^3/uL (0.0-1.0) 03/06/18 04:39 Eos # (Auto) 0.0 10^3/uL (0.0-0.7) 03/06/18 04:39 Baso # (Auto) 0.0 10^3/uL (0.0-0.1) 03/06/18 04:39 Absolute Nucleated RBC 0.00 x10^3/uL 03/06/18 04:39 Total Counted 100 03/03/18 17:24 Band Neuts % (Manual) 18 % (0-10) H 03/03/18 17:24 Abnorm Lymph % (Manual) 0 % 03/03/18 17:24 Nucleated RBC % 0.1 /100WBC 03/06/18 04:39 Neutrophils # (Manual) 6.8 10^3/uL (1.5-6.6) H 03/03/18 17:24 Lymphocytes # (Manual) 0.1 10^3/uL (1.5-3.5) L 03/03/18 17:24 Monocytes # (Manual) 0.1 10^3/uL (0.0-1.0) 03/03/18 17:24 Eosinophils # (Manual) 0.1 10^3/uL (0-0.7) 03/03/18 17:24 Basophils # (Manual) 0.0 10^3/uL (0-0.1) 03/03/18 17:24 Platelet Estimate NORMAL (130-450,000) (NORMAL) 03/03/18 17:24 Platelet Morphology NORMAL APPEARANCE (NORMAL) 03/03/18 17:24 RBC Morph Micro Appear 2+ ANISOCYTOSIS (NORMAL) 2+ POIKILOCYTOSIS (NORMAL) 03/03/18 17:24 RBC Morph Micro Appear 2+ ANISOCYTOSIS (NORMAL) 2+ POIKILOCYTOSIS (NORMAL) 03/03/18 17:24 PT 25.8 secs (9.9-12.6) H 03/05/18 05:36 INR 2.3 (0.8-1.2) H 03/05/18 05:36 Sodium 138 mmol/L (135-145) 03/06/18 04:39 Potassium 4.0 mmol/L (3.5-5.0) 03/06/18 04:39 Chloride 111 mmol/L (101-111) 03/06/18 04:39 Carbon Dioxide 25 mmol/L (21-32) 03/06/18 04:39 Anion Gap 2.0 (6-13) L 03/06/18 04:39 BUN 13 mg/dL (6-20) 03/06/18 04:39 Creatinine 0.5 mg/dL (0.4-1.0) 03/06/18 04:39 Estimated GFR (MDRD) 122 (>89) 03/06/18 04:39 Glucose 98 mg/dL (70-100) 03/06/18 04:39 Lactic Acid 1.8 mmol/L (0.5-2.2) 03/03/18 17:24 Calcium 9.5 mg/dL (8.5-10.3) 03/06/18 04:39 Phosphorus 1.7 mg/dL (2.5-4.6) L 03/06/18 04:39 Magnesium 1.6 mg/dL (1.7-2.8) L 03/06/18 04:39 Total Bilirubin 1.8 mg/dL (0.2-1.0) H 03/06/18 04:39 AST 20 IU/L (10-42) 03/06/18 04:39 ALT 10 IU/L (10-60) 03/06/18 04:39 Alkaline Phosphatase 44 IU/L (42-121) 03/06/18 04:39 Total Creatine Kinase 709 IU/L (22-269) H 03/04/18 16:25 Troponin I 0.20 ng/mL (<0.49) 03/04/18 16:25 B-Natriuretic Peptide 493 pg/mL (5-100) H 03/06/18 04:39 Total Protein 5.7 g/dL (6.7-8.2) L 03/06/18 04:39 Albumin 3.1 g/dL (3.2-5.5) L 03/06/18 04:39 Globulin 2.6 g/dL (2.1-4.2) 03/06/18 04:39 Albumin/Globulin Ratio 1.2 (1.0-2.2) 03/06/18 04:39 Lipase 19 U/L (22-51) L 03/03/18 17:24 TSH 4.58 uIU/mL (0.34-5.60) 03/03/18 Unknown Urine Color DARK YELLOW 03/03/18 19:49 Urine Clarity CLOUDY (CLEAR) 03/03/18 19:49 Urine pH 5.5 PH (5.0-7.5) 03/03/18 19:49 Ur Specific [place] 1.020 (1.002-1.030) 03/03/18 19:49 Urine Protein 30 mg/dL (NEGATIVE) H 03/03/18 19:49 Urine Glucose (UA) NEGATIVE mg/dL (NEGATIVE) 03/03/18 19:49 Urine Ketones TRACE mg/dL (NEGATIVE) 03/03/18 19:49 Urine Occult Blood SMALL (NEGATIVE) H 03/03/18 19:49 Urine Nitrite POSITIVE (NEGATIVE) H 03/03/18 19:49 Urine Bilirubin SMALL (NEGATIVE) H 03/03/18 19:49 Urine Urobilinogen 2 E.U./dL (NORMAL) H 03/03/18 19:49 Ur Leukocyte Esterase MODERATE (NEGATIVE) H 03/03/18 19:49 Urine RBC 6-10 /HPF (0-5) H 03/03/18 19:49 Urine WBC 11-25 /HPF (0-5) H 03/03/18 19:49 Ur Squamous Epith Cells FEW Squamous (<= Few) 03/03/18 19:49 Urine Bacteria Many /HPF (None Seen) H 03/03/18 19:49 Ur Microscopic Review INDICATED 03/03/18 19:49 Urine Culture Comments INDICATED 03/03/18 19:49 Last Dose Date UNK 03/05/18 05:36 Last Dose Time UNK 03/05/18 05:36 Digoxin 1.3 ng/mL 03/05/18 05:36 Influenza A (Rapid) Negative (Negative) 03/03/18 17:10 Influenza B (Rapid) Negative (Negative) 03/03/18 17:10 - Procedures Procedures: Procedures INSERT GASTRIC TUBE NEC (03/25/13) PACKED CELL TRANSFUSION (03/25/13) Sepsis Event Note (H) - Evaluation Current Stage of Sepsis: Septic shock Possible source of Sepsis: positive: Genitourinary - Sepsis Criteria Sepsis Criteria: Recorded Heart Rate greater than 90 bpm, Recorded Respiratory Rate greater than 20, WBC count greater than 12,000 or less than 4000, [employer]: altered consciousness (unrelated to primary neuro pathology), SBP less than 90 mmHg, Renal: urine output less than 0.5ml/kg/hr for 2 hours or creatinine gr ABX Reporting Has patient been on IV antibiotics over the past 48 hours?: No Current Medications - Current Medications Current Medications: Active Medications Generic Name Dose Route Start Last Admin Trade Name Freq PRN Reason Stop Dose Admin Carbidopa/Levodopa 3 tab 03/05/18 14:00 03/06/18 14:04 Sinemet 25 Mg/100 Mg PO 3 tab 0500,1000,1400 RICHIE Administration Diltiazem HCl 180 mg 03/06/18 11:00 03/06/18 11:38 Cardizem Cd PO 180 mg DAILY RICHIE Administration Enoxaparin Sodium 50 mg 03/06/18 09:00 03/06/18 08:12 Lovenox SUBQ Not Given BID RICHIE Potassium Chloride/Dextrose/Sod Cl 1,000 mls @ 40 mls/hr 03/05/18 21:41 03/06/18 08:00 IV 03/06/18 17:34 40 mls/hr .Q25H RICHIE Administration Levofloxacin 750 mg in 150 mls @ 100 mls/hr 03/06/18 13:00 03/06/18 13:18 Levaquin 750 Mg/150 Ml IV 100 mls/hr Q24H RICHIE Administration Ibuprofen 600 mg 03/05/18 09:26 Motrin PO Q6HR PRN Pain 1 to 4 Levalbuterol HCl 1.25 mg 03/04/18 20:14 Xopenex INH Q4H PRN Shortness of Air/Wheezing Levothyroxine Sodium 100 mcg 03/07/18 07:00 Synthroid PO QDAC RICHIE Lidocaine 1 patch 03/03/18 23:20 03/03/18 23:52 Lidoderm Patch TOP 1 patch DAILY PRN Administration PAIN Lorazepam 0.5 mg 03/05/18 22:11 Ativan Inj (Vial) IVP Q6H PRN Anxiety Metoprolol Succinate 50 mg 03/06/18 11:00 03/06/18 11:38 Toprol Xl PO 50 mg DAILY RICHIE Administration Mineral Oil 1 applic 03/04/18 00:38 Cavilon TOP PRN PRN Skin Care Nystatin 1 applic 03/05/18 22:15 03/06/18 12:42 Nystop TOP 1 applic BID RICHIE Administration Ondansetron HCl 4 mg 03/05/18 09:26 Zofran Inj IVP Q6HR PRN Nausea / Vomiting Pantoprazole Sodium 40 mg 03/07/18 07:00 Protonix PO QDAC [facility] Polyethylene Glycol 17 gm 03/06/18 13:00 03/06/18 14:05 Miralax PO Not Given DAILY [facility] Prochlorperazine Edisylate 10 mg 03/03/18 21:09 Compazine Inj IVP Q6HR PRN Nausea / Vomiting Promethazine HCl 25 mg 03/05/18 09:26 Phenergan Inj IM Q6HR PRN Nausea / Vomiting Senna 8.6 - 17.2 mg 03/06/18 13:00 03/06/18 14:05 Senokot PO 8.6 mg DAILY RICHIE Administration Sodium Chloride 10 ml 03/03/18 21:09 03/05/18 01:02 Normal Saline Flush 0.9% IVP 10 ml PRN PRN Administration NEEDED PER PROVIDER ORDERS Sodium Chloride 10 ml 03/04/18 01:00 03/06/18 09:30 Normal Saline Flush 0.9% IVP 10 ml 0100,0900,1700 RICHIE Administration Warfarin Sodium 3 mg 03/06/18 14:00 03/06/18 14:05 Coumadin PO 3 mg QDWARFARIN RICHIE Administration Omeprazole [PriLOSEC] 20 mg PO QDAC 03/25/13 Carbidopa/Levodopa 25/100 [Sinemet 25 mg/100 mg] 3 tab PO 0500,1000,1400 Furosemide 40 mg ORAL DAILY 04/08/14 Metoprolol Succinate 25 mg ORAL DAILY 04/08/14 Potassium Chloride 10 meq ORAL 1200 04/08/14 Tolterodine [Detrol LA] 2 mg ORAL DAILY 04/08/14 Warfarin Sodium 3 mg ORAL MOTUWETHFR@0900 04/08/14 diltiaZEM CD [Cardizem Cd] 180 mg ORAL DAILY 04/08/14 Cholecalciferol (Vitamin D3) [Vitamin D3] 3,000 units PO DAILY 03/04/18 Levothyroxine Sodium 100 mcg PO QDAC 03/04/18 Warfarin Sodium 4.5 mg PO SUSA@0900 03/04/18
--- NOTE | 2018-03-06 17:27 | PROVIDER PROGRESS NOTE ---
Assessment/Plan - Problem List (1) Atrial fibrillation with RVR Assessment/Plan: Weaned off dilt drip HR improved with PO metoprolol and dilt Tele monitoring Trops stable at 0.20 Echo showed EF of 35-40% CHAD2 score is 2 patient on coumadin Restart coumadin as INR is now 2.3 Transfer to med/surg (2) Bacteremia due to Escherichia coli Assessment/Plan: Source is urinary Repeat cx negative E coli susceptible to levaquin will change zosyn to IV levaquin WBC improved, no fevers, mentation improved Appears to be improving Will need 14 days of abx will switch to PO abx if patient continues to be stable (3) Complicated UTI (urinary tract infection) Assessment/Plan: Cause of bacteremia Urine cx and blood cx growing ecoli E coli susceptible to levaquin will change zosyn to IV levaquin (4) Metabolic encephalopathy Assessment/Plan: Resolved Patients mentation back to baseline (5) Chronic systolic CHF (congestive heart failure), NYHA class 1 Assessment/Plan: EF of 35-40% Hypoxic requiring 5L with a fib rvr Patient being given IVF given fever and ongoing infection Will be careful with IVFs Patient on metoprolol but no RICARDO inh Will consider adding metoprolol prior to discharge Tele Monitor closely (6) Elevated troponin Assessment/Plan: The patient is likely having a + troponin due to her RVR and cardiac strain. She has had an echocardiogram and preliminary results show no regional wall motion abnormalities. The patient states that she has anterior chest pain related to her fall, denies any radiation to her jaw, neck, shoulders, arms or posterior chest. Trop stable Reorder PT - Current Meds Current Meds: Current Medications Generic Name Dose Route Start Last Admin Trade Name Freq PRN Reason Stop Dose Admin Carbidopa/Levodopa 3 tab 03/05/18 14:00 03/06/18 14:04 Sinemet 25 Mg/100 Mg PO 3 tab 0500,1000,1400 RICHIE Administration Diltiazem HCl 180 mg 03/06/18 11:00 03/06/18 11:38 Cardizem Cd PO 180 mg DAILY RICHIE Administration Enoxaparin Sodium 50 mg 03/06/18 09:00 03/06/18 08:12 Lovenox SUBQ Not Given BID RICHIE Potassium Chloride/Dextrose/Sod Cl 1,000 mls @ 40 mls/hr 03/05/18 21:41 12/24/18 08:00 IV 03/06/18 17:34 40 mls/hr .Q25H RICHIE Administration Levofloxacin 750 mg in 150 mls @ 100 mls/hr 03/06/18 13:00 03/06/18 13:18 Levaquin 750 Mg/150 Ml IV 100 mls/hr Q24H RICHIE Administration Lidocaine 1 patch 03/03/18 23:20 03/03/18 23:52 Lidoderm Patch TOP 1 patch DAILY PRN Administration PAIN Metoprolol Succinate 50 mg 03/06/18 11:00 03/06/18 11:38 Toprol Xl PO 50 mg DAILY RICHIE Administration Nystatin 1 applic 03/05/18 22:15 03/06/18 12:42 Nystop TOP 1 applic BID RICHIE Administration Polyethylene Glycol 17 gm 03/06/18 13:00 03/06/18 14:05 Miralax PO Not Given DAILY RICHIE Senna 8.6 - 17.2 mg 03/06/18 13:00 03/06/18 14:05 Senokot PO 8.6 mg DAILY RICHIE Administration Sodium Chloride 10 ml 03/03/18 21:09 03/05/18 01:02 Normal Saline Flush 0.9% IVP 10 ml PRN PRN Administration NEEDED PER PROVIDER ORDERS Sodium Chloride 10 ml 03/04/18 01:00 03/06/18 09:30 Normal Saline Flush 0.9% IVP 10 ml 0100,0900,1700 RICHIE Administration Warfarin Sodium 3 mg 03/06/18 14:00 03/06/18 14:05 Coumadin PO 3 mg QDWARFARIN RICHIE Administration - Lab Result Lab results reviewed: Yes Fish Bone Diagrams: 03/06/18 04:39 03/06/18 04:39 - Diagnostic Imaging Results Diagnostic Imaging Results: Final report reviewed - Additional Planning Condition/Complexity: Guarded My Orders: My Active Orders 03/06/18 11:00 Metoprolol Succinate [Toprol Xl] 50 mg PO DAILY diltiaZEM CD [Cardizem Cd] 180 mg PO DAILY 03/06/18 13:00 Polyethylene Glycol 3350 [Miralax] 17 gm PO DAILY Senna [Senokot] 8.6 - 17.2 mg PO DAILY levoFLOXacin 750 MG/150 ML [Levaquin 750 mg/150 ml] 750 mg in 150 ml IV Q24H 03/06/18 14:00 Warfarin [Coumadin] 3 mg PO QDWARFARIN 03/06/18 14:12 Vital Signs [RC] Q4HR 03/06/18 Dinner Regular Diet [DIET] 03/07/18 05:00 COMPREHENSIVE METABOLIC PANEL [CHEM] DAILYLAB MAGNESIUM [CHEM] DAILYLAB PHOSPHORUS [CHEM] DAILYLAB 03/07/18 07:00 Levothyroxine [Synthroid] 100 mcg PO QDAC Pantoprazole [Protonix] 40 mg PO QDAC 03/08/18 05:00 COMPREHENSIVE METABOLIC PANEL [CHEM] DAILYLAB MAGNESIUM [CHEM] DAILYLAB PHOSPHORUS [CHEM] DAILYLAB 03/09/18 05:00 COMPREHENSIVE METABOLIC PANEL [CHEM] DAILYLAB 03/10/18 05:00 COMPREHENSIVE METABOLIC PANEL [CHEM] DAILYLAB 03/11/18 05:00 COMPREHENSIVE METABOLIC PANEL [CHEM] DAILYLAB Plan Discussed with:: Patient Time Spent: 31-60 minutes Subjective - Subjective Patient Reports: Feeling Better, Other (Patient is more alert and awake. SHe has severe kyphosis. She feels better and eating today. Fevers resolved.) Nursing Reports: No Complaints Objective Vital Signs: Vital Signs - 24 hr 03/05/18 03/05/18 03/05/18 18:00 19:00 20:00 Temperature 37.3 C 36.1 C L Heart Rate [ 90 89 75 Monitoring electrodes] Respiratory 18 12 14 Rate Blood Pressure Blood Pressure [Left Brachial artery] Blood Pressure 154/97 H 166/105 H 146/92 H [Right Brachial artery] O2 Saturation 94 96 94 03/05/18 03/05/18 03/05/18 21:00 21:03 22:00 Temperature Heart Rate [ 82 76 Monitoring electrodes] Respiratory 12 16 Rate Blood Pressure 151/103 H Blood Pressure [Left Brachial artery] Blood Pressure 151/103 H 146/97 H [Right Brachial artery] O2 Saturation 95 96 03/05/18 03/05/18 03/06/18 22:02 23:00 00:00 Temperature 37.2 C Heart Rate [ 78 82 Monitoring electrodes] Respiratory 19 18 Rate Blood Pressure 140/94 H Blood Pressure [Left Brachial artery] Blood Pressure 154/98 H 160/98 H [Right Brachial artery] O2 Saturation 100 97 03/06/18 03/06/18 03/06/18 01:00 02:00 03:00 Temperature Heart Rate [ 94 81 103 H Monitoring electrodes] Respiratory 13 21 16 Rate Blood Pressure Blood Pressure [Left Brachial artery] Blood Pressure 159/94 H 135/79 H 155/97 H [Right Brachial artery] O2 Saturation 93 94 90 L 03/06/18 03/06/18 03/06/18 04:00 05:00 06:00 Temperature 37.2 C Heart Rate [ 82 92 87 Monitoring electrodes] Respiratory 23 13 24 Rate Blood Pressure Blood Pressure [Left Brachial artery] Blood Pressure 164/103 H 165/116 H 155/101 H [Right Brachial artery] O2 Saturation 98 95 98 03/06/18 03/06/18 03/06/18 07:00 07:43 09:00 Temperature 37.3 C Heart Rate [ 87 89 94 Monitoring electrodes] Respiratory 20 22 23 Rate Blood Pressure Blood Pressure [Left Brachial artery] Blood Pressure 160/97 H 160/97 H 150/100 H [Right Brachial artery] O2 Saturation 93 92 98 03/06/18 03/06/18 03/06/18 10:00 11:00 12:00 Temperature 37.2 C Heart Rate [ 80 78 76 Monitoring electrodes] Respiratory 25 H 26 H 35 H Rate Blood Pressure Blood Pressure [Left Brachial artery] Blood Pressure 138/86 H 141/87 H 141/87 H [Right Brachial artery] O2 Saturation 95 94 92 03/06/18 03/06/18 03/06/18 13:00 14:00 15:00 Temperature 37.6 C H Heart Rate [ 77 61 62 Monitoring electrodes] Respiratory 28 H 21 26 H Rate Blood Pressure Blood Pressure [Left Brachial artery] Blood Pressure 128/77 116/79 110/79 [Right Brachial artery] O2 Saturation 93 94 94 03/06/18 16:15 Temperature 37.3 C Heart Rate [ 67 Monitoring electrodes] Respiratory 20 Rate Blood Pressure Blood Pressure 119/72 [Left Brachial artery] Blood Pressure [Right Brachial artery] O2 Saturation 96 Oxygen O2 Source [Without Activity] Nasal cannula O2 Source Blow By I&O (Last 24 Hrs): Intake and Output Totals x24h 03/04/18 03/05/18 03/06/18 23:59 23:59 23:59 Intake Total 3644.584 3049.833 1133.708 Output Total 8352 847 2136 Balance 2128.986 7489.833 -926.292 General: Alert, Oriented x3, Cooperative, Other (Severe kyphosis) HEENT: Atraumatic, PERRLA, EOMI, Other (Dry mucus membranes) Neck: Supple, No JVD, No thyromegaly, +2 carotid pulse wo bruit, No LAD Lymphatic: no adenopathy Neuro: Alert, Non Focal, CN 2-12 Grossly Intact, Oriented Times 3 Cardiovascular: No murmurs, Other (Irregular) Respiratory: Chest non-tender, No respiratory distress, Rales (Bases) Abdomen: Normal bowel sounds, Soft, No tenderness, No hepatospenomegaly Extremities: No clubbing, No cyanosis, Normal pulses, Other (Mild edema) Skin: No rashes, No breakdown - Results Results: Laboratory Results WBC 5.4 x10^3/uL (4.8-10.8) 03/06/18 04:39 RBC 4.98 10^6/uL (4.20-5.40) 03/06/18 04:39 Hgb 13.7 g/dL (12.0-16.0) 03/06/18 04:39 Hct 43.5 % (37.0-47.0) 03/06/18 04:39 MCV 87.2 fL (81.0-99.0) 03/06/18 04:39 MCH 27.5 pg (27.0-31.0) 03/06/18 04:39 MCHC 31.5 g/dL (32.0-36.0) L 03/06/18 04:39 RDW 17.6 % (12.0-15.0) H 03/06/18 04:39 Plt Count 84 10^3/uL (130-450) L 03/06/18 04:39 MPV 8.5 fL (7.9-10.8) 03/06/18 04:39 Neut # (Auto) 4.4 10^3/uL (1.5-6.6) 03/06/18 04:39 Lymph # (Auto) 0.5 10^3/uL (1.5-3.5) L 03/06/18 04:39 [place] # (Auto) 0.6 10^3/uL (0.0-1.0) 03/06/18 04:39 Eos # (Auto) 0.0 10^3/uL (0.0-0.7) 03/06/18 04:39 Baso # (Auto) 0.0 10^3/uL (0.0-0.1) 03/06/18 04:39 Absolute Nucleated RBC 0.00 x10^3/uL 03/06/18 04:39 Total Counted 100 03/03/18 17:24 Band Neuts % (Manual) 18 % (0-10) H 03/03/18 17:24 Abnorm Lymph % (Manual) 0 % 03/03/18 17:24 Nucleated RBC % 0.1 /100WBC 03/06/18 04:39 Neutrophils # (Manual) 6.8 10^3/uL (1.5-6.6) H 03/03/18 17:24 Lymphocytes # (Manual) 0.1 10^3/uL (1.5-3.5) L 03/03/18 17:24 Monocytes # (Manual) 0.1 10^3/uL (0.0-1.0) 03/03/18 17:24 Eosinophils # (Manual) 0.1 10^3/uL (0-0.7) 03/03/18 17:24 Basophils # (Manual) 0.0 10^3/uL (0-0.1) 03/03/18 17:24 Platelet Estimate NORMAL (130-450,000) (NORMAL) 03/03/18 17:24 Platelet Morphology NORMAL APPEARANCE (NORMAL) 03/03/18 17:24 RBC Morph Micro Appear 2+ ANISOCYTOSIS (NORMAL) 2+ POIKILOCYTOSIS (NORMAL) 03/03/18 17:24 RBC Morph Micro Appear 2+ ANISOCYTOSIS (NORMAL) 2+ POIKILOCYTOSIS (NORMAL) 03/03/18 17:24 PT 25.8 secs (9.9-12.6) H 03/05/18 05:36 INR 2.3 (0.8-1.2) H 03/05/18 05:36 Sodium 138 mmol/L (135-145) 03/06/18 04:39 Potassium 4.0 mmol/L (3.5-5.0) 03/06/18 04:39 Chloride 111 mmol/L (101-111) 03/06/18 04:39 Carbon Dioxide 25 mmol/L (21-32) 03/06/18 04:39 Anion Gap 2.0 (6-13) L 03/06/18 04:39 BUN 13 mg/dL (6-20) 03/06/18 04:39 Creatinine 0.5 mg/dL (0.4-1.0) 03/06/18 04:39 Estimated GFR (MDRD) 122 (>89) 03/06/18 04:39 Glucose 98 mg/dL (70-100) 03/06/18 04:39 Lactic Acid 1.8 mmol/L (0.5-2.2) 03/03/18 17:24 Calcium 9.5 mg/dL (8.5-10.3) 03/06/18 04:39 Phosphorus 1.7 mg/dL (2.5-4.6) L 03/06/18 04:39 Magnesium 1.6 mg/dL (1.7-2.8) L 03/06/18 04:39 Total Bilirubin 1.8 mg/dL (0.2-1.0) H 03/06/18 04:39 AST 20 IU/L (10-42) 03/06/18 04:39 ALT 10 IU/L (10-60) 03/06/18 04:39 Alkaline Phosphatase 44 IU/L (42-121) 03/06/18 04:39 Total Creatine Kinase 709 IU/L (22-269) H 03/04/18 16:25 Troponin I 0.20 ng/mL (<0.49) 03/04/18 16:25 B-Natriuretic Peptide 493 pg/mL (5-100) H 03/06/18 04:39 Total Protein 5.7 g/dL (6.7-8.2) L 03/06/18 04:39 Albumin 3.1 g/dL (3.2-5.5) L 03/06/18 04:39 Globulin 2.6 g/dL (2.1-4.2) 03/06/18 04:39 Albumin/Globulin Ratio 1.2 (1.0-2.2) 03/06/18 04:39 Lipase 19 U/L (22-51) L 03/03/18 17:24 TSH 4.58 uIU/mL (0.34-5.60) 03/03/18 Unknown Urine Color DARK YELLOW 03/03/18 19:49 Urine Clarity CLOUDY (CLEAR) 03/03/18 19:49 Urine pH 5.5 PH (5.0-7.5) 03/03/18 19:49 Ur Specific [place] 1.020 (1.002-1.030) 03/03/18 19:49 Urine Protein 30 mg/dL (NEGATIVE) H 03/03/18 19:49 Urine Glucose (UA) NEGATIVE mg/dL (NEGATIVE) 03/03/18 19:49 Urine Ketones TRACE mg/dL (NEGATIVE) 03/03/18 19:49 Urine Occult Blood SMALL (NEGATIVE) H 03/03/18 19:49 Urine Nitrite POSITIVE (NEGATIVE) H 03/03/18 19:49 Urine Bilirubin SMALL (NEGATIVE) H 03/03/18 19:49 Urine Urobilinogen 2 E.U./dL (NORMAL) H 03/03/18 19:49 Ur Leukocyte Esterase MODERATE (NEGATIVE) H 03/03/18 19:49 Urine RBC 6-10 /HPF (0-5) H 03/03/18 19:49 Urine WBC 11-25 /HPF (0-5) H 03/03/18 19:49 Ur Squamous Epith Cells FEW Squamous (<= Few) 03/03/18 19:49 Urine Bacteria Many /HPF (None Seen) H 03/03/18 19:49 Ur Microscopic Review INDICATED 03/03/18 19:49 Urine Culture Comments INDICATED 03/03/18 19:49 Last Dose Date UNK 03/05/18 05:36 Last Dose Time UNK 03/05/18 05:36 Digoxin 1.3 ng/mL 03/05/18 05:36 Influenza A (Rapid) Negative (Negative) 03/03/18 17:10 Influenza B (Rapid) Negative (Negative) 03/03/18 17:10 - Procedures Procedures: Procedures INSERT GASTRIC TUBE NEC (03/25/13) PACKED CELL TRANSFUSION (03/25/13) Sepsis Event Note (H) - Evaluation Current Stage of Sepsis: Septic shock Possible source of Sepsis: positive: Genitourinary - Sepsis Criteria Sepsis Criteria: Recorded Heart Rate greater than 90 bpm, Recorded Respiratory Rate greater than 20, WBC count greater than 12,000 or less than 4000, [employer]: altered consciousness (unrelated to primary neuro pathology), SBP less than 90 mmHg, Renal: urine output less than 0.5ml/kg/hr for 2 hours or creatinine gr ABX Reporting Has patient been on IV antibiotics over the past 48 hours?: Yes Current Medications - Current Medications Current Medications: Active Medications Generic Name Dose Route Start Last Admin Trade Name Freq PRN Reason Stop Dose Admin Carbidopa/Levodopa 3 tab 03/05/18 14:00 03/06/18 14:04 Sinemet 25 Mg/100 Mg PO 3 tab 0500,1000,1400 RICHIE Administration Diltiazem HCl 180 mg 03/06/18 11:00 03/06/18 11:38 Cardizem Cd PO 180 mg DAILY RICHIE Administration Enoxaparin Sodium 50 mg 03/06/18 09:00 03/06/18 08:12 Lovenox SUBQ Not Given BID RICHIE Potassium Chloride/Dextrose/Sod Cl 1,000 mls @ 40 mls/hr 03/05/18 21:41 03/06/18 08:00 IV 03/06/18 17:34 40 mls/hr .Q25H RICHIE Administration Levofloxacin 750 mg in 150 mls @ 100 mls/hr 03/06/18 13:00 03/06/18 13:18 Levaquin 750 Mg/150 Ml IV 100 mls/hr Q24H RICHIE Administration Ibuprofen 600 mg 03/05/18 09:26 Motrin PO Q6HR PRN Pain 1 to 4 Levalbuterol HCl 1.25 mg 03/04/18 20:14 Xopenex INH Q4H PRN Shortness of Air/Wheezing Levothyroxine Sodium 100 mcg 03/07/18 07:00 Synthroid PO QDAC RICHIE Lidocaine 1 patch 03/03/18 23:20 03/03/18 23:52 Lidoderm Patch TOP 1 patch DAILY PRN Administration PAIN Lorazepam 0.5 mg 03/05/18 22:11 Ativan Inj (Vial) IVP Q6H PRN Anxiety Metoprolol Succinate 50 mg 03/06/18 11:00 03/06/18 11:38 Toprol Xl PO 50 mg DAILY RICHIE Administration Mineral Oil 1 applic 03/04/18 00:38 Cavilon TOP PRN PRN Skin Care Nystatin 1 applic 03/05/18 22:15 03/06/18 12:42 Nystop TOP 1 applic BID RICHIE Administration Ondansetron HCl 4 mg 03/05/18 09:26 Zofran Inj IVP Q6HR PRN Nausea / Vomiting Pantoprazole Sodium 40 mg 03/07/18 07:00 Protonix PO QDAC [facility] Polyethylene Glycol 17 gm 03/06/18 13:00 03/06/18 14:05 Miralax PO Not Given DAILY [facility] Prochlorperazine Edisylate 10 mg 03/03/18 21:09 Compazine Inj IVP Q6HR PRN Nausea / Vomiting Promethazine HCl 25 mg 03/05/18 09:26 Phenergan Inj IM Q6HR PRN Nausea / Vomiting Senna 8.6 - 17.2 mg 03/06/18 13:00 03/06/18 14:05 Senokot PO 8.6 mg DAILY RICHIE Administration Sodium Chloride 10 ml 03/03/18 21:09 03/05/18 01:02 Normal Saline Flush 0.9% IVP 10 ml PRN PRN Administration NEEDED PER PROVIDER ORDERS Sodium Chloride 10 ml 03/04/18 01:00 03/06/18 09:30 Normal Saline Flush 0.9% IVP 10 ml 0100,0900,1700 RICHIE Administration Warfarin Sodium 3 mg 03/06/18 14:00 03/06/18 14:05 Coumadin PO 3 mg QDWARFARIN RICHIE Administration Omeprazole [PriLOSEC] 20 mg PO QDAC 03/25/13 Carbidopa/Levodopa 25/100 [Sinemet 25 mg/100 mg] 3 tab PO 0500,1000,1400 04/08/14 Furosemide 40 mg ORAL DAILY 04/08/14 Metoprolol Succinate 25 mg ORAL DAILY 04/08/14 Potassium Chloride 10 meq ORAL 1200 04/08/14 Tolterodine [Detrol LA] 2 mg ORAL DAILY 04/08/14 Warfarin Sodium 3 mg ORAL MOTUWETHFR@0900 04/08/14 diltiaZEM CD [Cardizem Cd] 180 mg ORAL DAILY 04/08/14 Cholecalciferol (Vitamin D3) [Vitamin D3] 3,000 units PO DAILY 03/04/18 Levothyroxine Sodium 100 mcg PO QDAC 03/04/18 Warfarin Sodium 4.5 mg PO SUSA@0900 03/04/18
[2018-03-06] MEDS: METOPROLOL SUCCINATE 50 MG TABLET PO SCH (23:06)
[2018-03-06] MEDS: IBUPROFEN 600 MG TABLET PO PRN (23:09)
[2018-03-07] MEDS ORDERED: HALOPERIDOL 5 MG/ML VIAL IVP SCH (01:08)
[2018-03-07 05:10] LABS: BASOPHILS % (AUTO) 0.3 %; EOSINOPHILS # (AUTO) 0.1 10^3/uL (0.0-0.7); EOSINOPHILS % (AUTO) 1.9 %; HGB - HEMOGLOBIN 13.2 g/dL (12.0-16.0); LYMPHOCYTES # (AUTO) 0.8 10^3/uL (1.5-3.5); LYMPHOCYTES % (AUTO) 14.3 %; MEAN CORPUSCULAR HEMOGLOBIN 27.3 pg (27.0-31.0); MEAN CORPUSCULAR HGB CONC 31.9 g/dL (32.0-36.0); MEAN CORPUSCULAR VOLUME 85.6 fL (81.0-99.0); MEAN PLATELET VOLUME 8.5 fL (7.9-10.8); MONOCYTES # (AUTO) 0.5 10^3/uL (0.0-1.0); MONOCYTES % (AUTO) 9.8 %; NEUTROPHILS # (AUTO) 3.9 10^3/uL (1.5-6.6); NEUTROPHILS % (AUTO) 73.7 %; PLT - PLATELET COUNT 99 10^3/uL (130-450); RED BLOOD COUNT 4.82 10^6/uL (4.20-5.40); RED CELL DISTRIBUTION WIDTH 17.5 % (12.0-15.0); WHITE BLOOD COUNT 5.3 x10^3/uL (4.8-10.8)
[2018-03-07 05:18] LABS: ALBUMIN 2.7 g/dL (3.2-5.5); ALBUMIN/GLOBULIN RATIO 1.1 (1.0-2.2); ALKALINE PHOSPHATASE 41 IU/L (42-121); ALT ALANINE AMINOTRANSFERASE < 10 IU/L (10-60); AST ASPARTATE AMINOTRANSFERASE 14 IU/L (10-42); BILIRUBIN,TOTAL 1.4 mg/dL (0.2-1.0); BUN - BLOOD UREA NITROGEN 16 mg/dL (6-20); CALCIUM 9.4 mg/dL (8.5-10.3); CARBON DIOXIDE - CO2 26 mmol/L (21-32); CHLORIDE 106 mmol/L (101-111); CREATININE 0.5 mg/dL (0.4-1.0); GFR - MDRD 122 (>89); GLUCOSE 80 mg/dL (70-100); MAGNESIUM 1.8 mg/dL (1.7-2.8); PHOSPHORUS 1.9 mg/dL (2.5-4.6); SODIUM 137 mmol/L (135-145); TOTAL PROTEIN 5.2 g/dL (6.7-8.2)
[2018-03-07] MEDS: CARBIDOPA/LEVODOPA 25 MG/100 MG TABLET PO SCH ×3 (07:37→12:46)
[2018-03-07] MEDS: PANTOPRAZOLE 40 MG TABLET PO SCH (09:00)
[2018-03-07] MEDS: METOPROLOL SUCCINATE 50 MG TABLET PO SCH ×2 (09:00→20:54)
[2018-03-07] MEDS: diltiaZEM CD 180 MG CAPSULE PO SCH (09:01)
[2018-03-07] MEDS: SODIUM CHLORIDE FLUSH 0.9% 10 ML SYRINGE IVP SCH ×3 (09:01→23:52)
[2018-03-07] MEDS: SENNA 8.6 MG TABLET PO SCH (09:01)
[2018-03-07] MEDS: WARFARIN 1 MG TABLET PO SCH (09:01)
[2018-03-07] MEDS: LEVOTHYROXINE 100 MCG TABLET PO SCH (09:01)
[2018-03-07] MEDS: POLYETHYLENE GLYCOL 3350 17 GM PACKET PO SCH (09:01)
[2018-03-07] MEDS: NYSTATIN POWDER 15 GM TOP SCH ×2 (09:02→20:54)
--- NOTE | 2018-03-07 11:55 | PROVIDER PROGRESS NOTE ---
Assessment/Plan - Problem List (1) Atrial fibrillation with RVR Assessment/Plan: Weaned off dilt drip HR elevated last night up to 120s therefore increased metoprolol dose to BID and continued dilt Tele monitoring Trops stable at 0.20 Echo showed EF of 35-40% CHAD2 score is 2 patient on coumadin Restarted coumadin Stable this am (2) Bacteremia due to Escherichia coli Assessment/Plan: Source is urinary Repeat cx negative E coli susceptible to levaquin will changed zosyn to IV levaquin WBC improved, no fevers, mentation improved Appears to be improving Will need 14 days of abx will switch to PO abx if patient continues to be stable but will continue with IV abx while patient is hospitalized Patient is very weak and needs a PT evaluation (3) Complicated UTI (urinary tract infection) Assessment/Plan: Cause of bacteremia Urine cx and blood cx growing ecoli E coli susceptible to levaquin will changed zosyn to IV levaquin (4) Metabolic encephalopathy Assessment/Plan: Secondary to infection Improved with treatment of infection Patient had sundowning last night and was given haldol and ativan Drowsy this am but arousible and able to answer questions (5) Chronic systolic CHF (congestive heart failure), NYHA class 1 Assessment/Plan: EF of 35-40% Was hypoxic requiring 5L with a fib rvr now down to RA Patient on metoprolol and added RICARDO inh today Tele Monitor closely (6) Elevated troponin Assessment/Plan: The patient is likely having a + troponin due to her RVR and cardiac strain. She has had an echocardiogram and preliminary results show no regional wall motion abnormalities. The patient states that she has anterior chest pain related to her fall, denies any radiation to her jaw, neck, shoulders, arms or posterior chest. Trop stable Possible discharge tomorrow will likely need SNF pending PT evaluation. - Current Meds Current Meds: Current Medications Generic Name Dose Route Start Last Admin Trade Name Freq PRN Reason Stop Dose Admin Carbidopa/Levodopa 3 tab 03/05/18 14:00 03/07/18 09:00 Sinemet 25 Mg/100 Mg PO 3 tab 0500,1000,1400 RICHIE Administration Diltiazem HCl 180 mg 03/06/18 11:00 03/07/18 09:01 Cardizem Cd PO 180 mg DAILY RICHIE Administration Levofloxacin 750 mg in 150 mls @ 100 mls/hr 03/06/18 13:00 03/06/18 14:50 Levaquin 750 Mg/150 Ml IV Infused Q24H RICHIE Infusion Ibuprofen 600 mg 03/05/18 09:26 03/06/18 23:09 Motrin PO 600 mg Q6HR PRN Administration Pain 1 to 4 Levothyroxine Sodium 100 mcg 03/07/18 07:00 03/07/18 09:01 Synthroid PO 100 mcg QDAC RICHIE Administration Lidocaine 1 patch 03/03/18 23:20 03/03/18 23:52 Lidoderm Patch TOP 1 patch DAILY PRN Administration PAIN Lorazepam 0.5 mg 03/05/18 22:11 03/07/18 00:40 Ativan Inj (Vial) IVP 0.5 mg Q6H PRN Administration Anxiety Metoprolol Succinate 50 mg 03/06/18 23:00 03/07/18 09:00 Toprol Xl PO 50 mg BID RICHIE Administration Nystatin 1 applic 03/05/18 22:15 03/07/18 09:02 Nystop TOP 1 applic BID RICHIE Administration Pantoprazole Sodium 40 mg 03/07/18 07:00 03/07/18 09:00 Protonix PO 40 mg QDAC RICHIE Administration Polyethylene Glycol 17 gm 03/06/18 13:00 03/07/18 09:01 Miralax PO 17 gm DAILY RICHIE Administration Senna 8.6 - 17.2 mg 03/06/18 13:00 03/07/18 09:01 Senokot PO 17.2 mg DAILY RICHIE Administration Sodium Chloride 10 ml 03/03/18 21:09 03/05/18 01:02 Normal Saline Flush 0.9% IVP 10 ml PRN PRN Administration NEEDED PER PROVIDER ORDERS Sodium Chloride 10 ml 03/04/18 01:00 03/07/18 09:01 Normal Saline Flush 0.9% IVP 10 ml 0100,0900,1700 RICHIE Administration Warfarin Sodium 3 mg 03/06/18 14:00 03/07/18 09:01 Coumadin PO 3 mg QDWARFARIN RICHIE Administration - Lab Result Lab results reviewed: Yes Fish Bone Diagrams: 03/07/18 04:48 03/07/18 04:48 - EKG Results EKG Interpreted Independently: Yes - Diagnostic Imaging Results Diagnostic Imaging Results: Final report reviewed - Additional Planning Condition/Complexity: Improved My Orders: My Active Orders 03/06/18 11:00 [email or web address] CD [Cardizem Cd] 180 mg PO DAILY 03/06/18 13:00 Polyethylene Glycol 3350 [Miralax] 17 gm PO DAILY Senna [Senokot] 8.6 - 17.2 mg PO DAILY levoFLOXacin 750 MG/150 ML [Levaquin 750 mg/150 ml] 750 mg in 150 ml IV Q24H 03/06/18 14:00 Warfarin [Coumadin] 3 mg PO QDWARFARIN 03/06/18 14:12 Vital Signs [RC] Q4HR 03/06/18 Dinner Regular Diet [DIET] 03/07/18 07:00 Levothyroxine [Synthroid] 100 mcg PO QDAC Pantoprazole [Protonix] 40 mg PO QDAC 03/08/18 05:00 COMPREHENSIVE METABOLIC PANEL [CHEM] DAILYLAB MAGNESIUM [CHEM] DAILYLAB PHOSPHORUS [CHEM] DAILYLAB 03/09/18 05:00 COMPREHENSIVE METABOLIC PANEL [CHEM] DAILYLAB 03/10/18 05:00 COMPREHENSIVE METABOLIC PANEL [CHEM] DAILYLAB 03/11/18 05:00 COMPREHENSIVE METABOLIC PANEL [CHEM] DAILYLAB Consult/Specialty: PT Plan Discussed with:: Patient Subjective - Subjective Patient Reports: Other (Drowsy this am but arousable and answers questions appropriately. Denies any pain or complaints.) Nursing Reports: No Complaints, Confused Objective Vital Signs: Vital Signs - 24 hr 03/06/18 03/06/18 03/06/18 12:00 13:00 14:00 Temperature 37.6 C H Heart Rate [ 76 77 61 Monitoring electrodes] Respiratory 35 H 28 H 21 Rate Blood Pressure [Left Brachial artery] Blood Pressure 141/87 H 128/77 116/79 [Right Brachial artery] O2 Saturation 92 93 94 03/06/18 03/06/18 03/06/18 15:00 16:15 19:06 Temperature 37.3 C 37.2 C Heart Rate [ 62 67 71 Monitoring electrodes] Respiratory 26 H 20 20 Rate Blood Pressure 119/72 123/83 H [Left Brachial artery] Blood Pressure 110/79 [Right Brachial artery] O2 Saturation 94 96 94 03/07/18 03/07/18 03/07/18 00:09 04:59 05:00 Temperature 37.3 C Heart Rate [ 99 85 Monitoring electrodes] Respiratory 25 H 27 H Rate Blood Pressure 121/83 H 129/84 H [Left Brachial artery] Blood Pressure [Right Brachial artery] O2 Saturation 92 90 L 03/07/18 07:46 Temperature 36.4 C L Heart Rate [ 92 Monitoring electrodes] Respiratory 25 H Rate Blood Pressure 140/95 H [Left Brachial artery] Blood Pressure [Right Brachial artery] O2 Saturation 93 Oxygen O2 Source [Without Activity] Nasal cannula O2 Source Room air I&O (Last 24 Hrs): Intake and Output Totals x24h 03/05/18 03/06/18 03/07/18 23:59 23:59 23:59 Intake Total 3049.833 3250.667 240 Output Total 978 2460 Balance 2071.833 790.667 240 General: Oriented x3, Cooperative, Other (Drowsy, severe kyphosis) HEENT: Atraumatic, PERRLA, EOMI, Mucous membr. moist/pink Neck: Supple, No JVD, No thyromegaly, +2 carotid pulse wo bruit, No LAD Lymphatic: no adenopathy Neuro: Non Focal, CN 2-12 Grossly Intact, Oriented Times 3 Cardiovascular: Other (Irregularly, irregular) Respiratory: Chest non-tender, No respiratory distress, Breath sounds nml Abdomen: Normal bowel sounds, Soft, No tenderness, No hepatospenomegaly Extremities: No clubbing, No cyanosis, No edema, Normal pulses Skin: No rashes, No breakdown - Results Results: Laboratory Results WBC 5.3 x10^3/uL (4.8-10.8) 03/07/18 04:48 RBC 4.82 10^6/uL (4.20-5.40) 03/07/18 04:48 Hgb 13.2 g/dL (12.0-16.0) 03/07/18 04:48 Hct 41.3 % (37.0-47.0) 03/07/18 04:48 MCV 85.6 fL (81.0-99.0) 03/07/18 04:48 MCH 27.3 pg (27.0-31.0) 03/07/18 04:48 MCHC 31.9 g/dL (32.0-36.0) L 03/07/18 04:48 RDW 17.5 % (12.0-15.0) H 03/07/18 04:48 Plt Count 99 10^3/uL (130-450) L 03/07/18 04:48 MPV 8.5 fL (7.9-10.8) 03/07/18 04:48 Neut # (Auto) 3.9 10^3/uL (1.5-6.6) 03/07/18 04:48 Lymph # (Auto) 0.8 10^3/uL (1.5-3.5) L 03/07/18 04:48 [place] # (Auto) 0.5 10^3/uL (0.0-1.0) 03/07/18 04:48 Eos # (Auto) 0.1 10^3/uL (0.0-0.7) 03/07/18 04:48 Baso # (Auto) 0.0 10^3/uL (0.0-0.1) 03/07/18 04:48 Absolute Nucleated RBC 0.00 x10^3/uL 03/07/18 04:48 Total Counted 100 03/03/18 17:24 Band Neuts % (Manual) 18 % (0-10) H 03/03/18 17:24 Abnorm Lymph % (Manual) 0 % 03/03/18 17:24 Nucleated RBC % 0.0 /100WBC 03/07/18 04:48 Neutrophils # (Manual) 6.8 10^3/uL (1.5-6.6) H 03/03/18 17:24 Lymphocytes # (Manual) 0.1 10^3/uL (1.5-3.5) L 03/03/18 17:24 Monocytes # (Manual) 0.1 10^3/uL (0.0-1.0) 03/03/18 17:24 Eosinophils # (Manual) 0.1 10^3/uL (0-0.7) 03/03/18 17:24 Basophils # (Manual) 0.0 10^3/uL (0-0.1) 03/03/18 17:24 Platelet Estimate NORMAL (130-450,000) (NORMAL) 03/03/18 17:24 Platelet Morphology NORMAL APPEARANCE (NORMAL) 03/03/18 17:24 RBC Morph Micro Appear 2+ ANISOCYTOSIS (NORMAL) 2+ POIKILOCYTOSIS (NORMAL) 03/03/18 17:24 RBC Morph Micro Appear 2+ ANISOCYTOSIS (NORMAL) 2+ POIKILOCYTOSIS (NORMAL) 03/03/18 17:24 PT 25.8 secs (9.9-12.6) H 03/05/18 05:36 INR 2.3 (0.8-1.2) H 03/05/18 05:36 Sodium 137 mmol/L (135-145) 03/07/18 04:48 Potassium 4.0 mmol/L (3.5-5.0) 03/07/18 04:48 Chloride 106 mmol/L (101-111) 03/07/18 04:48 Carbon Dioxide 26 mmol/L (21-32) 03/07/18 04:48 Anion Gap 5.0 (6-13) L 03/07/18 04:48 BUN 16 mg/dL (6-20) 03/07/18 04:48 Creatinine 0.5 mg/dL (0.4-1.0) 03/07/18 04:48 Estimated GFR (MDRD) 122 (>89) 03/07/18 04:48 Glucose 80 mg/dL (70-100) 03/07/18 04:48 Lactic Acid 1.8 mmol/L (0.5-2.2) 03/03/18 17:24 Calcium 9.4 mg/dL (8.5-10.3) 03/07/18 04:48 Phosphorus 1.9 mg/dL (2.5-4.6) L 03/07/18 04:48 Magnesium 1.8 mg/dL (1.7-2.8) 03/07/18 04:48 Total Bilirubin 1.4 mg/dL (0.2-1.0) H 03/07/18 04:48 AST 14 IU/L (10-42) 03/07/18 04:48 ALT < 10 IU/L (10-60) L 03/07/18 04:48 Alkaline Phosphatase 41 IU/L (42-121) L 03/07/18 04:48 Total Creatine Kinase 709 IU/L (22-269) H 03/04/18 16:25 Troponin I 0.20 ng/mL (<0.49) 03/04/18 16:25 B-Natriuretic Peptide 493 pg/mL (5-100) H 03/06/18 04:39 Total Protein 5.2 g/dL (6.7-8.2) L 03/07/18 04:48 Albumin 2.7 g/dL (3.2-5.5) L 03/07/18 04:48 Globulin 2.5 g/dL (2.1-4.2) 03/07/18 04:48 Albumin/Globulin Ratio 1.1 (1.0-2.2) 03/07/18 04:48 Lipase 19 U/L (22-51) L 03/03/18 17:24 TSH 4.58 uIU/mL (0.34-5.60) 03/03/18 Unknown Urine Color DARK YELLOW 03/03/18 19:49 Urine Clarity CLOUDY (CLEAR) 03/03/18 19:49 Urine pH 5.5 PH (5.0-7.5) 03/03/18 19:49 Ur Specific [place] 1.020 (1.002-1.030) 03/03/18 19:49 Urine Protein 30 mg/dL (NEGATIVE) H 03/03/18 19:49 Urine Glucose (UA) NEGATIVE mg/dL (NEGATIVE) 03/03/18 19:49 Urine Ketones TRACE mg/dL (NEGATIVE) 03/03/18 19:49 Urine Occult Blood SMALL (NEGATIVE) H 03/03/18 19:49 Urine Nitrite POSITIVE (NEGATIVE) H 03/03/18 19:49 Urine Bilirubin SMALL (NEGATIVE) H 03/03/18 19:49 Urine Urobilinogen 2 E.U./dL (NORMAL) H 03/03/18 19:49 Ur Leukocyte Esterase MODERATE (NEGATIVE) H 03/03/18 19:49 Urine RBC 6-10 /HPF (0-5) H 03/03/18 19:49 Urine WBC 11-25 /HPF (0-5) H 03/03/18 19:49 Ur Squamous Epith Cells FEW Squamous (<= Few) 03/03/18 19:49 Urine Bacteria Many /HPF (None Seen) H 03/03/18 19:49 Ur Microscopic Review INDICATED 03/03/18 19:49 Urine Culture Comments INDICATED 03/03/18 19:49 Last Dose Date UNK 03/05/18 05:36 Last Dose Time UNK 03/05/18 05:36 Digoxin 1.3 ng/mL 03/05/18 05:36 Influenza A (Rapid) Negative (Negative) 03/03/18 17:10 Influenza B (Rapid) Negative (Negative) 03/03/18 17:10 - Procedures Procedures: Procedures INSERT GASTRIC TUBE NEC (03/25/13) PACKED CELL TRANSFUSION (03/25/13) Sepsis Event Note (H) - Evaluation Current Stage of Sepsis: Septic shock Possible source of Sepsis: positive: Genitourinary - Sepsis Criteria Sepsis Criteria: Recorded Heart Rate greater than 90 bpm, Recorded Respiratory Rate greater than 20, WBC count greater than 12,000 or less than 4000, RETURN TO FACTORY CLERK: altered consciousness (unrelated to primary neuro pathology), SBP less than 90 mmHg, Renal: urine output less than 0.5ml/kg/hr for 2 hours or creatinine gr ABX Reporting Has patient been on IV antibiotics over the past 48 hours?: Yes Current Medications - Current Medications Current Medications: Active Medications Generic Name Dose Route Start Last Admin Trade Name Freq PRN Reason Stop Dose Admin Carbidopa/Levodopa 3 tab 03/05/18 14:00 03/07/18 09:00 Sinemet 25 Mg/100 Mg PO 3 tab 0500,1000,1400 RICHIE Administration Diltiazem HCl 180 mg 03/06/18 11:00 03/07/18 09:01 Cardizem Cd PO 180 mg DAILY RICHIE Administration Levofloxacin 750 mg in 150 mls @ 100 mls/hr 03/06/18 13:00 03/06/18 14:50 Levaquin 750 Mg/150 Ml IV Infused Q24H RICHIE Infusion Ibuprofen 600 mg 03/05/18 09:26 03/06/18 23:09 Motrin PO 600 mg Q6HR PRN Administration Pain 1 to 4 Levalbuterol HCl 1.25 mg 03/04/18 20:14 Xopenex INH Q4H PRN Shortness of Air/Wheezing Levothyroxine Sodium 100 mcg 03/07/18 07:00 03/07/18 09:01 Synthroid PO 100 mcg QDAC RICHIE Administration Lidocaine 1 patch 03/03/18 23:20 03/03/18 23:52 Lidoderm Patch TOP 1 patch DAILY PRN Administration PAIN Lisinopril 5 mg 03/07/18 12:00 Zestril PO DAILY RICHIE Lorazepam 0.5 mg 03/05/18 22:11 03/07/18 00:40 Ativan Inj (Vial) IVP 0.5 mg Q6H PRN Administration Anxiety Metoprolol Succinate 50 mg 03/06/18 23:00 03/07/18 09:00 Toprol Xl PO 50 mg BID RICHIE Administration Mineral Oil 1 applic 03/04/18 00:38 [place] TOP PRN PRN Skin Care Nystatin 1 applic 03/05/18 22:15 03/07/18 09:02 Nystop TOP 1 applic BID RICHIE Administration Ondansetron HCl 4 mg 03/05/18 09:26 Zofran Inj IVP Q6HR PRN Nausea / Vomiting Pantoprazole Sodium 40 mg 03/07/18 07:00 03/07/18 09:00 Protonix PO 40 mg QDAC RICHIE Administration Polyethylene Glycol 17 gm 03/06/18 13:00 03/07/18 09:01 Miralax PO 17 gm DAILY RICHIE Administration Prochlorperazine Edisylate 10 mg 03/03/18 21:09 Compazine Inj IVP Q6HR PRN Nausea / Vomiting Promethazine HCl 25 mg 03/05/18 09:26 Phenergan Inj IM Q6HR PRN Nausea / Vomiting Senna 8.6 - 17.2 mg 03/06/18 13:00 03/07/18 09:01 Senokot PO 17.2 mg DAILY RICHIE Administration Sodium Chloride 10 ml 03/03/18 21:09 03/05/18 01:02 Normal Saline Flush 0.9% IVP 10 ml PRN PRN Administration NEEDED PER PROVIDER ORDERS Sodium Chloride 10 ml 03/04/18 01:00 03/07/18 09:01 Normal Saline Flush 0.9% IVP 10 ml 0100,0900,1700 RICHIE Administration Warfarin Sodium 3 mg 03/06/18 14:00 03/07/18 09:01 Coumadin PO 3 mg QDWARFARIN RICHIE Administration Omeprazole [PriLOSEC] 20 mg PO QDAC 03/25/13 Carbidopa/Levodopa 25/100 [Sinemet 25 mg/100 mg] 3 tab PO 0500,1000,1400 5 Furosemide 40 mg ORAL DAILY 04/08/14 Metoprolol Succinate 25 mg ORAL DAILY 04/08/14 Potassium Chloride 10 meq ORAL 1200 04/08/14 Tolterodine [Detrol LA] 2 mg ORAL DAILY 04/08/14 Warfarin Sodium 3 mg ORAL MOTUWETHFR@0900 04/08/14 diltiaZEM CD [Cardizem Cd] 180 mg ORAL DAILY 04/08/14 Cholecalciferol (Vitamin D3) [Vitamin D3] 3,000 units PO DAILY 03/04/18 Levothyroxine Sodium 100 mcg PO QDAC 03/04/18 Warfarin Sodium 4.5 mg PO SUSA@0900 03/04/18
[2018-03-07] MEDS: levoFLOXacin 750 MG/150 ML 750 MG/150 ML BAG IV SCH (12:16)
[2018-03-07] MEDS: LISINOPRIL 5 MG TABLET PO SCH (12:16)
[2018-03-07] MEDS ORDERED: SODIUM CHLORIDE 0.9% 1,000 ML IV SCH (14:00)
[2018-03-07] MEDS: IBUPROFEN 600 MG TABLET PO PRN ×2 (14:52→20:53)
[2018-03-08] MEDS: CARBIDOPA/LEVODOPA 25 MG/100 MG TABLET PO SCH ×2 (05:20→10:21)
[2018-03-08] MEDS: LEVOTHYROXINE 100 MCG TABLET PO SCH (05:46)
[2018-03-08] MEDS: PANTOPRAZOLE 40 MG TABLET PO SCH (05:46)
[2018-03-08] MEDS: IBUPROFEN 600 MG TABLET PO PRN (05:46)
[2018-03-08 06:00] LABS: INR 2.6 (0.8-1.2)
[2018-03-08 06:08] LABS: ALBUMIN 2.8 g/dL (3.2-5.5); ALBUMIN/GLOBULIN RATIO 1.2 (1.0-2.2); ALKALINE PHOSPHATASE 44 IU/L (42-121); ALT ALANINE AMINOTRANSFERASE < 10 IU/L (10-60); AST ASPARTATE AMINOTRANSFERASE 12 IU/L (10-42); BILIRUBIN,TOTAL 1.6 mg/dL (0.2-1.0); BUN - BLOOD UREA NITROGEN 13 mg/dL (6-20); CALCIUM 9.2 mg/dL (8.5-10.3); CARBON DIOXIDE - CO2 26 mmol/L (21-32); CHLORIDE 107 mmol/L (101-111); CREATININE 0.4 mg/dL (0.4-1.0); GFR - MDRD 157 (>89); GLUCOSE 77 mg/dL (70-100); MAGNESIUM 1.6 mg/dL (1.7-2.8); PHOSPHORUS 1.8 mg/dL (2.5-4.6); SODIUM 138 mmol/L (135-145); TOTAL PROTEIN 5.2 g/dL (6.7-8.2)
[2018-03-08] MEDS ORDERED: CALCIUM ACETATE 667 MG CAPSULE PO STA (07:07)
[2018-03-08] MEDS ORDERED: MAGNESIUM OXIDE 400 MG TABLET PO SCH (08:00)
[2018-03-08] MEDS: diltiaZEM CD 180 MG CAPSULE PO SCH (10:14)
[2018-03-08] MEDS: LISINOPRIL 5 MG TABLET PO SCH (10:15)
[2018-03-08] MEDS: METOPROLOL SUCCINATE 50 MG TABLET PO SCH (10:16)
[2018-03-08] MEDS: NYSTATIN POWDER 15 GM TOP SCH (10:17)
[2018-03-08] MEDS: SENNA 8.6 MG TABLET PO SCH (10:17)
[2018-03-08] MEDS: POLYETHYLENE GLYCOL 3350 17 GM PACKET PO SCH (10:18)
[2018-03-08] MEDS: SODIUM CHLORIDE FLUSH 0.9% 10 ML SYRINGE IVP SCH (10:18)
--- NOTE | 2018-03-08 11:44 | Discharge Plan ---
Discharge Plan Disposition: Home, Self Care Condition: Fair Prescriptions: Levofloxacin [Levaquin] 750 mg PO DAILY #9 tablet Metoprolol Succinate [Toprol Xl] 50 mg PO BID #60 tablet Diet: Low Sodium (Restrict sodium to 2 grams a day and fluid restrict fluid intake to 2 liters a day) Activity Restrictions: Activity as Tolerated Shower Restrictions: No Driving Restrictions: No Assistance Devices: Wheelchair Weight Bearing: Full Weight Instruction Topics: Digoxin injection Additional Instructions or Follow Up instructions: You came to the emergency department because you had a fever, or feeling weak and had a fall at home. You were found to have an infection in your urine. Unfortunately the infection spread to your bloodstream and you required hospitalization and treatment with IV antibiotics. While you were here your heart rate also became uncontrolled and you required a IV drip in the intensive care unit. Luckily with treatment of your infection it appears that you are doing much better. You will be able to discharge to home today with your family. He will need to continue taking antibiotics once a day with oral Levaquin. He will continue this until March 18, 2017. We have also increased her dose of your metoprolol from 25 mg once a day to 50 mg twice a day. This will help to control your heart rate. You will likely need additional help at home as you are very weak and we did recommend that you go to a rehab facility for further physical therapy but you elected to go home with the help of your son and your . No Smoking: If you smoke, Please STOP! Call for help. Follow-up with: Michel Thomas DO [Primary Care Provider] -
--- NOTE | 2018-03-08 12:50 | DISCHARGE SUMMARY ---
Discharge Summary Admit Date: 03/03/18 Discharge Date: 03/08/18 Discharging Provider: Oleg Adams MD Primary Care Provider: Michel Thomas MD Code Status: Attempt Resuscitation Condition at Discharge: Fair Discharge Disposition: 01 Home, Self Care - DIAGNOSES Admission Diagnoses: 1. Atrial fibrillation with rapid ventricular response 2. Urinary tract infection 3. Supratherapeutic INR 4. Fall at home 5. Hypothyroidism 6. Parkinson's disease 7. Scoliosis Discharge Diagnoses with Status of Each Condition: 1. Atrial fibrillation with rapid ventricular response: Stable 2. Bacteremia due to E. coli: Stable 3. Comp located urinary tract infection: Stable 4. Metabolic encephalopathy: Resolved 5. Chronic systolic congestive heart failure NYHA class I: Stable 6. Elevated troponin: Stable - HPI History of Present Illness: Patient is a 73-year-old female with a past medical history of severe scoliosis, Parkinson's disease, hypothyroidism, chronic atrial fibrillation on Coumadin who presented to the emergency department due to generalized weakness and fever for 1 day. The patient also suffered a fall without syncope onto the left side of her body because of generalized weakness. She was brought into the emergency room and found to be dehydrated, with a urinary tract infection and was complaining of pain in the areas where she had sustained a fall. The x-ray showed no fracture. The patient was also found to have atrial fibrillation with a rapid ventricular response. The patient's troponin was mildly elevated. The patient was initially admitted to the medical [facility]. - HOSPITAL COURSE Hospital Course: After admission the patient's blood cultures came back positive for E. coli and the patient became increasingly lethargic with increasing tachycardia and went into atrial fibrillation with rapid ventricular response. The patient required transferring to the intensive care unit for a diltiazem drip. The patient re sponded well to diltiazem and we titrated up patient's dose of metoprolol up to 50 mg twice daily and continued on her oral diltiazem with which the patient did have improvement and was able to be weaned off the diltiazem drip. The patient's echocardiogram did show that the patient has systolic congestive heart failure with an ejection fraction of 35% and moderate pulmonary hypertension with a PA pressure of 47 mmHg. The patient's troponin was mildly elevated at 0.23 but remains stable. The patient was treated with IV antibiotics to which she responded well. The patient's repeat blood cultures were negative. Both the patient's urine and blood cultures both grew out E. coli which was hastings susceptible. The patient's antibiotics were de-escalated to IV Levaquin and the patient was discharged home on oral Levaquin. The patient had significant improvement over the course of her hospitalization and was more alert and awake at the time of discharge. The patient did continue to be weak and was seen by physical therapy who did recommend correction facility for subacute rehab however the patient's family wanted to take the patient home. The social media campaign manager did arrange for patient to have in-home caregivers and the patient already had a bedside commode at home. The patient was reluctantly discharged home with her and son to care for her. The patient was discharged home with oral antibiotics to treat bacteremia. She will require oral Levaquin for a total of 14 days from her negative blood culture and will complete treatment on March 18, 2018. The patient also had her metoprolol dose increased from 25 mg daily to 50 mg twice daily to better control her atrial fibrillation. The patient was also started on lisinopril for her systolic heart failure and this will be continued at home. The patient was in stable condition at the time of discharge. - ALLERGIES Allergies/Adverse Reactions: Allergies Allergy/AdvReac Type Severity Reaction Status Date / Time strawberry [[place]] AdvReac Intermediate Rash Verified 04/24/14 04:48 hydrocodone bitartrate * AdvReac Emesis Verified 04/24/14 04:48 [From Vicodin] - MEDICATIONS Home Medications: Ambulatory Orders Medication Instructions Recorded Confirmed Omeprazole [PriLOSEC] 20 mg PO QDAC 03/25/13 03/04/18 Carbidopa/Levodopa 25/100 [Sinemet 3 tab PO 0500,1000,1400 04/08/14 03/04/18 25 mg/100 mg] Furosemide 40 mg ORAL DAILY 04/08/14 03/04/18 Potassium Chloride 10 meq ORAL 1200 04/08/14 03/04/18 Tolterodine [Detrol LA] 2 mg ORAL DAILY 04/08/14 03/04/18 Warfarin Sodium 3 mg ORAL MOTUWETHFR@0900 04/08/14 03/04/18 diltiaZEM CD [Cardizem Cd] 180 mg ORAL DAILY 04/08/14 03/04/18 Cholecalciferol (Vitamin D3) 3,000 units PO DAILY 03/04/18 03/04/18 [Vitamin D3] Levothyroxine Sodium 100 mcg PO QDAC 03/04/18 03/04/18 Warfarin Sodium 4.5 mg PO SUSA@0900 03/04/18 03/04/18 Levofloxacin [Levaquin] 750 mg PO DAILY #9 tablet 03/08/18 Metoprolol Succinate [Toprol Xl] 50 mg PO BID #60 tablet 03/08/18 - PHYSICAL EXAM AT DISCHARGE General Appearance: positive: No acute distress, Alert, Other (Patient has severe kyphosis and scoliosis) Eyes Bilateral: positive: Normal inspection, PERRL, EOMI, No lid inflammation, Conjunctivae nml, No scleral icterus ENT: positive: ENT inspection nml, Pharynx nml, No signs of dehydration. negative: Purulent nasal drainage, Pharyngeal erythema, Oral lesions Neck: positive: Nml inspection, Thyroid nml, No JVD. negative: Trachea midline, Lymphadenopathy (R), Lymphadenopathy (L), Stiff neck Respiratory: positive: Chest non-tender, No respiratory distress, Breath sounds nml. negative: Wheezes, Rales, Rhonchi Cardiovascular: positive: Irregularly irregular, Systolic murmur Peripheral Pulses: positive: 2+ Abdomen: positive: Non-tender, No organomegaly, Nml bowel sounds, No distention. negative: Guarding, Rebound, Hepatomegaly Back: positive: Nml inspection. negative: CVA tenderness (R), CVA tenderness (L) Skin: positive: Color nml, No rash, Warm. negative: Diaphoresis, Pallor, Skin rash Extremities: positive: Non-tender, Full ROM, Nml appearance, No pedal edema Neurologic/Psychiatric: positive: Oriented x3, CN's nml (2-12), Motor nml, Sensation nml, Mood/affect nml - LABS Result Diagrams: 03/07/18 04:48 03/08/18 05:20 Other Lab Results: Laboratory Results WBC 5.3 x10^3/uL (4.8-10.8) 03/07/18 04:48 RBC 4.82 10^6/uL (4.20-5.40) 03/07/18 04:48 Hgb 13.2 g/dL (12.0-16.0) 03/07/18 04:48 Hct 41.3 % (37.0-47.0) 03/07/18 04:48 MCV 85.6 fL (81.0-99.0) 03/07/18 04:48 MCH 27.3 pg (27.0-31.0) 03/07/18 04:48 MCHC 31.9 g/dL (32.0-36.0) L 03/07/18 04:48 RDW 17.5 % (12.0-15.0) H 03/07/18 04:48 Plt Count 99 10^3/uL (130-450) L 03/07/18 04:48 MPV 8.5 fL (7.9-10.8) 03/07/18 04:48 Neut # (Auto) 3.9 10^3/uL (1.5-6.6) 03/07/18 04:48 Lymph # (Auto) 0.8 10^3/uL (1.5-3.5) L 03/07/18 04:48 [place] # (Auto) 0.5 10^3/uL (0.0-1.0) 03/07/18 04:48 Eos # (Auto) 0.1 10^3/uL (0.0-0.7) 03/07/18 04:48 Baso # (Auto) 0.0 10^3/uL (0.0-0.1) 03/07/18 04:48 Absolute Nucleated RBC 0.00 x10^3/uL 03/07/18 04:48 Total Counted 100 03/03/18 17:24 Band Neuts % (Manual) 18 % (0-10) H 03/03/18 17:24 Abnorm Lymph % (Manual) 0 % 03/03/18 17:24 Nucleated RBC % 0.0 /100WBC 03/07/18 04:48 Neutrophils # (Manual) 6.8 10^3/uL (1.5-6.6) H 03/03/18 17:24 Lymphocytes # (Manual) 0.1 10^3/uL (1.5-3.5) L 03/03/18 17:24 Monocytes # (Manual) 0.1 10^3/uL (0.0-1.0) 03/03/18 17:24 Eosinophils # (Manual) 0.1 10^3/uL (0-0.7) 03/03/18 17:24 Basophils # (Manual) 0.0 10^3/uL (0-0.1) 03/03/18 17:24 Platelet Estimate NORMAL (130-450,000) (NORMAL) 03/03/18 17:24 Platelet Morphology NORMAL APPEARANCE (NORMAL) 03/03/18 17:24 RBC Morph Micro Appear 2+ ANISOCYTOSIS (NORMAL) 2+ POIKILOCYTOSIS (NORMAL) 03/03/18 17:24 RBC Morph Micro Appear 2+ ANISOCYTOSIS (NORMAL) 2+ POIKILOCYTOSIS (NORMAL) 03/03/18 17:24 PT 29.0 secs (9.9-12.6) H 03/08/18 05:20 INR 2.6 (0.8-1.2) H 03/08/18 05:20 Sodium 138 mmol/L (135-145) 03/08/18 05:20 Potassium 3.9 mmol/L (3.5-5.0) 03/08/18 05:20 Chloride 107 mmol/L (101-111) 03/08/18 05:20 Carbon Dioxide 26 mmol/L (21-32) 03/08/18 05:20 Anion Gap 5.0 (6-13) L 03/08/18 05:20 BUN 13 mg/dL (6-20) 03/08/18 05:20 Creatinine 0.4 mg/dL (0.4-1.0) 03/08/18 05:20 Estimated GFR (MDRD) 157 (>89) 03/08/18 05:20 Glucose 77 mg/dL (70-100) 03/08/18 05:20 Lactic Acid 1.8 mmol/L (0.5-2.2) 03/03/18 17:24 Calcium 9.2 mg/dL (8.5-10.3) 03/08/18 05:20 Phosphorus 1.8 mg/dL (2.5-4.6) L 03/08/18 05:20 Magnesium 1.6 mg/dL (1.7-2.8) L 03/08/18 05:20 Total Bilirubin 1.6 mg/dL (0.2-1.0) H 03/08/18 05:20 AST 12 IU/L (10-42) 03/08/18 05:20 ALT < 10 IU/L (10-60) L 03/08/18 05:20 Alkaline Phosphatase 44 IU/L (42-121) 03/08/18 05:20 Total Creatine Kinase 709 IU/L (22-269) H 03/04/18 16:25 Troponin I 0.20 ng/mL (<0.49) 03/04/18 16:25 B-Natriuretic Peptide 493 pg/mL (5-100) H 03/06/18 04:39 Total Protein 5.2 g/dL (6.7-8.2) L 03/08/18 05:20 Albumin 2.8 g/dL (3.2-5.5) L 03/08/18 05:20 Globulin 2.4 g/dL (2.1-4.2) 03/08/18 05:20 Albumin/Globulin Ratio 1.2 (1.0-2.2) 03/08/18 05:20 Lipase 19 U/L (22-51) L 03/03/18 17:24 TSH 4.58 uIU/mL (0.34-5.60) 03/03/18 Unknown Urine Color DARK YELLOW 03/03/18 19:49 Urine Clarity CLOUDY (CLEAR) 03/03/18 19:49 Urine pH 5.5 PH (5.0-7.5) 03/03/18 19:49 Ur Specific [place] 1.020 (1.002-1.030) 03/03/18 19:49 Urine Protein 30 mg/dL (NEGATIVE) H 03/03/18 19:49 Urine Glucose (UA) NEGATIVE mg/dL (NEGATIVE) 03/03/18 19:49 Urine Ketones TRACE mg/dL (NEGATIVE) 03/03/18 19:49 Urine Occult Blood SMALL (NEGATIVE) H 03/03/18 19:49 Urine Nitrite POSITIVE (NEGATIVE) H 03/03/18 19:49 Urine Bilirubin SMALL (NEGATIVE) H 03/03/18 19:49 Urine Urobilinogen 2 E.U./dL (NORMAL) H 03/03/18 19:49 Ur Leukocyte Esterase MODERATE (NEGATIVE) H 03/03/18 19:49 Urine RBC 6-10 /HPF (0-5) H 03/03/18 19:49 Urine WBC 11-25 /HPF (0-5) H 03/03/18 19:49 Ur Squamous Epith Cells FEW Squamous (<= Few) 03/03/18 19:49 Urine Bacteria Many /HPF (None Seen) H 03/03/18 19:49 Ur Microscopic Review INDICATED 03/03/18 19:49 Urine Culture Comments INDICATED 03/03/18 19:49 Last Dose Date UNK 03/05/18 05:36 Last Dose Time UNK 03/05/18 05:36 Digoxin 1.3 ng/mL 03/05/18 05:36 Influenza A (Rapid) Negative (Negative) 03/03/18 17:10 Influenza B (Rapid) Negative (Negative) 03/03/18 17:10 - DIAGNOSTIC IMAGING Diagnostic Imaging Results: Final report reviewed Diagnostic Imaging Results Comments: Chest x-ray 03/03/2018 Impression: 1. Suboptimal patient positioning. 2. Retrocardiac opacity could represent atelectasis or infiltrates. 3. Stable cardiac enlargement and esophageal hernia Chest x-ray 03/06/2018 Impression: Limited radiography with no meaningful interval change. - SEPSIS Current Stage of Sepsis: Septic shock Possible source of Sepsis: Genitourinary Sepsis Criteria: Recorded Heart Rate greater than 90 bpm, Recorded Respiratory Rate greater than 20, WBC count greater than 12,000 or less than 4000, BLANCHING MACHINE OPERATOR: altered consciousness (unrelated to primary neuro pathology), SBP less than 90 mmHg, Renal: urine output less than 0.5ml/kg/hr for 2 hours or creatinine gr - FOLLOW UP Follow Up: Patient was admitted for generalized weakness and lethargy with a fall at home. She was found to have bacteremia with E. coli due to urinary tract infection. The patient was treated with IV antibiotics during hospitalization the patient did develop atrial fibrillation with a rapid ventricular rate for which she had her metoprolol dose adjusted and was initially placed on a diltiazem drip in the ICU. The patient eventually recovered and was stabilized. The patient was ex tremely weak and would have benefited from rehab however the patient's family refused and decided they wanted to take the patient home with in-home caregivers. The social work was able to assist the family in finding resources and the patient was discharged home. The patient will continue on oral antibiotics with Levaquin until 03/18/2018. The patient will also have her metoprolol dose increased to 50 mg twice daily for control of her atrial fibrillation. The patient had lisinopril added for treatment of her systolic heart failure. The patient will follow up with her primary care physician once she is completed treatment. - TIME SPENT Time Spent in Discharge (Minutes): 45
[2018-03-08 13:12] VITALS: BP 119/76
== END 2018-03-08 13:15 | disposition home or self-care (01) | DRG 871 ==
LOC: EDUNIT# → ED 16:55 → MS2 21:09 → ICU 03-05 10:10 → MS2 03-07 05:53
PROVIDERS: ADMIT Internal Medicine; ATTEND Internal Medicine
DX: A41.9 Sepsis, unspecified organism (principal); M54.6 Pain in thoracic spine; G93.41 Metabolic encephalopathy; R65.21 Severe sepsis with septic shock; N39.0 Urinary tract infection, site not specified; R78.81 Bacteremia; I50.22 Chronic systolic (congestive) heart failure; I48.2 Chronic atrial fibrillation; Z79.01 Long term (current) use of anticoagulants; W18.30XA Fall on same level, unspecified, initial encounter; E03.9 Hypothyroidism, unspecified; G20 Parkinson's disease; M41.9 Scoliosis, unspecified; B96.20 Unspecified Escherichia coli [E. coli] as the cause of diseases classified elsewhere; E86.0 Dehydration; I27.20 Pulmonary hypertension, unspecified; R32 Unspecified urinary incontinence; R07.89 Other chest pain; I95.9 Hypotension, unspecified; R09.02 Hypoxemia
CPT/HCPCS: 36415; 51701; 71045; 71046; 80048; 80053; 80162; 81001; 81003; 82550; 83605; 83690; 83735; 83880; 84100; 84443; 84484; 85025; 85610; 87040; 87077; 87086; 87150; 87181; 87275; 87276; 93005; 93306; 96365; 96375; 96376; 99285

== ENCOUNTER 2018-03-09 18:13 | Outpatient (CLI) | payer MEDICARE | END 2018-03-09 18:14 | disposition critical access hospital (66) | LOC: EMS 18:13 | PROVIDERS: ATTEND Surgery | DX: R10.9 Unspecified abdominal pain (principal) | CPT/HCPCS: A0425; A0429 ==

== ENCOUNTER 2018-03-09 18:29 | Inpatient (IN) | payer MEDICARE ==
[2018-03-09] MEDS ORDERED: ONDANSETRON 4 MG/2 ML VIAL IVP STA (18:45)
--- NOTE | 2018-03-09 18:47 | ED Physician Documentation ---
PD HPI DYSPNEA - Stated complaint Stated Complaint: SOA - Chief complaint Chief Complaint: Resp - History obtained from History obtained from: Patient, Family, EMS - History of Present Illness Timing - onset: Today (This is a 73-year-old woman who was admitted to the hospital and released yesterday due to E. coli bacteremia due to UTI. She is still on levofloxacin. She is a history of atrial fibrillation on warfarin. All day today she has been short of breath with left-sided mid chest pain. There is no cough. She has been nauseous. She denies pedal edema or calf pain.) Review of Systems Ten Systems: 10 systems reviewed and negative Constitutional: denies: Fever, Chills Throat: denies: Dental pain / toothache, Sore throat Cardiac: reports: Chest pain / pressure. denies: Palpitations Respiratory: reports: Dyspnea. denies: Cough PD PAST MEDICAL HISTORY - Past Medical History Cardiovascular: Atrial fibrillation Endocrine/Autoimmune: HyPOthyroidism GI: GERD : Other Musculoskeletal: Scoliosis - Past Surgical History Past Surgical History: Yes General: Other HEENT: Tonsil/Adenoidectomy - Present Medications Home Medications: Ambulatory Orders Medication Instructions Recorded Confirmed RX: Omeprazole [PriLOSEC] 20 mg PO QDAC 03/25/13 03/04/18 RX: Carbidopa/Levodopa 25/100 3 tab PO 0500,1000,1400 04/08/14 03/04/18 [Sinemet 25 mg/100 mg] RX: Furosemide 40 mg ORAL DAILY 04/08/14 03/04/18 RX: Potassium Chloride 10 meq ORAL 1200 04/08/14 03/04/18 RX: Tolterodine [Detrol LA] 2 mg ORAL DAILY 04/08/14 03/04/18 RX: Warfarin Sodium 3 mg ORAL MOTUWETHFR@0900 04/08/14 03/04/18 RX: diltiaZEM CD [Cardizem Cd] 180 mg ORAL DAILY 04/08/14 03/04/18 RX: Cholecalciferol (Vitamin D3) 3,000 units PO DAILY 03/04/18 03/04/18 [Vitamin D3] RX: Levothyroxine Sodium 100 mcg PO QDAC 03/04/18 03/04/18 RX: Warfarin Sodium 4.5 mg PO SUSA@0900 03/04/18 03/04/18 Levofloxacin [Levaquin] 750 mg PO DAILY #9 tablet 03/08/18 RX: Lisinopril [Prinivil] 5 mg PO DAILY #60 tablet 03/08/18 RX: Metoprolol Succinate [Toprol 50 mg PO BID #60 tablet 03/08/18 Xl] - Allergies Allergies/Adverse Reactions: Allergies Allergy/AdvReac Type Severity Reaction Status Date / Time strawberry [[place]] AdvReac Intermediate Rash Verified 03/09/18 18:41 hydrocodone bitartrate * AdvReac Emesis Verified 03/09/18 18:41 [From Vicodin] - Social History Does the pt smoke?: No Smoking Status: Never smoker Does the pt drink ETOH?: No Does the pt have substance abuse?: No - Family History Family history: reports: Non contributory - Immunizations Immunizations are current?: Yes - POLST Patient has POLST: Yes PD ED PE NORMAL - Vitals Vital signs reviewed: Yes - General General: Alert and oriented X 3, Other (She appears breathless and uncomfor table) - HEENT HEENT: PERRL, EOMI - Neck Neck: Supple, no meningeal sign, No bony TTP - Cardiac Cardiac: Other (Irregularly irregular without murmur) - Respiratory Respiratory: Other (Tachypneic and decreased at the left base) - Abdomen Abdomen: Soft, Non tender - Back Back: Other (Very significant dowager's hump/kyphosis) - Extremities Extremities: No edema, No calf tenderness / cord - Neuro Neuro: Alert and oriented X 3, Normal speech Results - Vitals Vitals: Vital Signs - 24 hr 03/09/18 03/09/18 03/09/18 18:37 19:05 19:06 Temperature 36.9 C Heart Rate 89 85 Respiratory 25 H 16 Rate Blood Pressure 125/98 H 103/74 O2 Saturation 91 L 85 L 96 03/09/18 03/09/18 03/09/18 19:30 20:24 21:00 Temperature Heart Rate 100 99 90 Respiratory 24 28 H 24 Rate Blood Pressure 104/71 122/81 H 106/82 H O2 Saturation 99 99 98 03/09/18 03/09/18 21:07 21:30 Temperature Heart Rate 90 108 H Respiratory 28 H 24 Rate Blood Pressure 106/82 H 108/71 O2 Saturation 99 98 Oxygen O2 Source [Without Activity] Nasal cannula O2 Source Nasal cannula Oxygen Flow Rate 3 - EKG (time done) 1839 Rate: Rate (enter#) (105) Rhythm: Atrial fibrillation [place]: Normal QRS: Normal Ischemia: Q waves (inferior). No: ST elevation c/w ischemia Computer interpretation: Agree with computer - Labs Labs: Laboratory Tests 03/09/18 03/09/18 03/09/18 18:57 18:57 18:57 WBC 5.7 RBC 4.93 Hgb 13.4 Hct 42.1 MCV 85.4 MCH 27.2 MCHC 31.9 L RDW 17.6 H Plt Count 180 MPV 8.8 Neut # (Auto) 4.5 Lymph # (Auto) 0.5 L [place] # (Auto) 0.6 Eos # (Auto) 0.1 Baso # (Auto) 0.0 Absolute Nucleated RBC 0.00 Nucleated RBC % 0.0 Manual Slide Review Indicated Platelet Estimate NORMAL (130-450,000) Platelet Morphology RARE GIANT PLATELETS RBC Morph Micro Appear OVALOCYTES PT 19.7 H INR 1.8 H Sodium 137 Potassium 3.8 Chloride 103 Carbon Dioxide 31 Anion Gap 3.0 L BUN 12 Creatinine 0.3 L Estimated GFR (MDRD) 219 Glucose 90 Calcium 9.3 Total Bilirubin 1.4 H AST < 10 L ALT < 10 L Alkaline Phosphatase 43 Total Creatine Kinase 81 Troponin I Total Protein 5.3 L Albumin 3.1 L Globulin 2.2 Albumin/Globulin Ratio 1.4 Lipase 20 L 03/09/18 18:57 WBC RBC Hgb Hct MCV MCH MCHC RDW Plt Count MPV Neut # (Auto) Lymph # (Auto) [place] # (Auto) Eos # (Auto) Baso # (Auto) Absolute Nucleated RBC Nucleated RBC % Manual Slide Review Platelet Estimate Platelet Morphology RBC Morph Micro Appear PT INR Sodium Potassium Chloride Carbon Dioxide Anion Gap BUN Creatinine Estimated GFR (MDRD) Glucose Calcium Total Bilirubin AST ALT Alkaline Phosphatase Total Creatine Kinase Troponin I < 0.04 Total Protein Albumin Globulin Albumin/Globulin Ratio Lipase - Rads (name of study) CT PA Radiology: EMP read contemporaneously (No obvious PE, left lower lobe pneumonia or aspiration with small right lower lobe pneumonia as well and bilateral pleural effusions. Hiatal hernia) PD MEDICAL DECISION MAKING - ED course ED course: This is a 73-year-old woman who was just discharged from the hospital now presents with hypoxemia and respiratory compromise with the decreased breath sounds in the left base and CT imaging showing left lower lobe pneumonia/aspiration with small pleural effusions. She does have an oxygen requirement and I spoke with Dr. Hawkins for admission at 9:30 PM. Departure - Departure Disposition: [facility] DC/Xfer Clinical Impression: Pneumonia Qualifiers: Pneumonia type: aspiration pneumonia Aspiration pneumonia type: unspecified Laterality: left Lung location: lower lobe of lung Qualified Code(s): J69.0 - Pneumonitis due to inhalation of food and vomit Condition: Serious
[2018-03-09 19:16] LABS: ALBUMIN 3.1 g/dL (3.2-5.5); ALBUMIN/GLOBULIN RATIO 1.4 (1.0-2.2); ALKALINE PHOSPHATASE 43 IU/L (42-121); ALT ALANINE AMINOTRANSFERASE < 10 IU/L (10-60); AST ASPARTATE AMINOTRANSFERASE < 10 IU/L (10-42); BILIRUBIN,TOTAL 1.4 mg/dL (0.2-1.0); BUN - BLOOD UREA NITROGEN 12 mg/dL (6-20); CALCIUM 9.3 mg/dL (8.5-10.3); CARBON DIOXIDE - CO2 31 mmol/L (21-32); CHLORIDE 103 mmol/L (101-111); CK- CREATINE KINASE 81 IU/L (22-269); CREATININE 0.3 mg/dL (0.4-1.0); GFR - MDRD 219 (>89); GLUCOSE 90 mg/dL (70-100); LIPASE 20 U/L (22-51); SODIUM 137 mmol/L (135-145); TOTAL PROTEIN 5.3 g/dL (6.7-8.2)
[2018-03-09 19:17] LABS: BASOPHILS % (AUTO) 0.7 %; EOSINOPHILS # (AUTO) 0.1 10^3/uL (0.0-0.7); EOSINOPHILS % (AUTO) 1.5 %; HGB - HEMOGLOBIN 13.4 g/dL (12.0-16.0); LYMPHOCYTES # (AUTO) 0.5 10^3/uL (1.5-3.5); LYMPHOCYTES % (AUTO) 9.2 %; MEAN CORPUSCULAR HEMOGLOBIN 27.2 pg (27.0-31.0); MEAN CORPUSCULAR HGB CONC 31.9 g/dL (32.0-36.0); MEAN CORPUSCULAR VOLUME 85.4 fL (81.0-99.0); MEAN PLATELET VOLUME 8.8 fL (7.9-10.8); MONOCYTES # (AUTO) 0.6 10^3/uL (0.0-1.0); NEUTROPHILS # (AUTO) 4.5 10^3/uL (1.5-6.6); NEUTROPHILS % (AUTO) 77.6 %; PLT - PLATELET COUNT 180 10^3/uL (130-450); RED BLOOD COUNT 4.93 10^6/uL (4.20-5.40); RED CELL DISTRIBUTION WIDTH 17.6 % (12.0-15.0); WHITE BLOOD COUNT 5.7 x10^3/uL (4.8-10.8)
[2018-03-09 19:22] LABS: INR 1.8 (0.8-1.2); PT - PROTHROMBIN TIME 19.7 secs (9.9-12.6)
[2018-03-09] MEDS ORDERED: IOVERSOL 320 100 ML VIAL IVP ONE ×3 (19:38→21:34)
[2018-03-09] MEDS ORDERED: ACETAMINOPHEN 325 MG TABLET PO STA (19:38)
[2018-03-09 19:56] LABS: PLATELET ESTIMATE, MANUAL NORMAL (130-450,000) (NORMAL); PLATELET MORPHOLOGY RARE GIANT PLATELETS (NORMAL); RBC MORPHOLOGY (MULTIPLE) OVALOCYTES (NORMAL)
--- NOTE | 2018-03-09 21:20 | CT Report ---
Reason: dyspnea Procedure Date: 03/09/2018 Accession Number: [id number] / [id number] Procedure: CT - Chest Angio (PE) CPT Code: FULL RESULT: EXAM: CT ANGIOGRAM CHEST EXAM DATE: 03/09/2018 08:00 PM. CLINICAL HISTORY: Dyspnea. COMPARISON: 04/18/2014. TECHNIQUE: Routine helical imaging was performed through the chest in the pulmonary arterial phase. IV Contrast: OPTI 320 80mL. Reconstructions: Coronal 3-D MIP reconstructions.Sagittal and coronal. In accordance with CT protocol optimization, one or more of the following dose reduction techniques were utilized for this exam: automated exposure control, adjustment of mA and/or KV based on patient size, or use of iterative reconstructive technique. FINDINGS: Pulmonary Arteries: Diagnostic quality: Severely limited due to motion artifact. No central, lobar or proximal segmental pulmonary emboli identified. Enlarged central pulmonary arteries. RV/LV is within normal limits. Dilated right atrium. Small amount of contrast refluxes into the IV . No bowing of the interventricular septum. Lungs/Pleura: Dense low attenuation consolidation in the basilar left lower lobe. Patchy right lower lobe consolidation. There is atelectasis in the lingula. Small bilateral pleural effusions. No pneumothorax. Mediastinum: The heart is enlarged. There is an extremely large hiatal hernia that contains the entire stomach and multiple bowel loops. Thoracic Aorta: Atherosclerosis. No aneurysm. Upper Abdomen: Unremarkable. Other: None. IMPRESSION: 1. Significantly limited exam due to motion artifact. No central pulmonary emboli. 2. Left lower lobe pneumonia or aspiration with near complete consolidation of the basilar left lower lobe. Probable additional pneumonia in the right lower lobe. Small bilateral pleural effusions. 3. Extremely large hiatal hernia contains the stomach and multiple bowel loops. 4. Cardiomegaly. Enlarged pulmonary arteries. RADIA
[2018-03-09] MEDS ORDERED: AMPICILLIN/SULBACTAM 3 GM in SODIUM CHLORIDE 0.9% MINIBAG 100 ML IV STA (21:25)
[2018-03-09] MEDS ORDERED: LORazepam 2 MG/ML VIAL IVP STA (21:28)
[2018-03-09] MEDS ORDERED: ZOLPIDEM 5 MG TABLET PO PRN (21:47)
[2018-03-09] MEDS ORDERED: PROCHLORPERAZINE 10 MG/2 ML VIAL IVP PRN (21:47)
[2018-03-09] MEDS ORDERED: GENTAMICIN PER PHARMACY IV PRN (22:00)
[2018-03-09] MEDS ORDERED: SODIUM CHLORIDE 0.9% IV PRN (22:00)
[2018-03-09] MEDS ORDERED: VANCOMYCIN PER PHARMACY 0.0001 GM in SODIUM CHLORIDE 0.9% 250 ML IV PRN (22:00)
[2018-03-09] MEDS ORDERED: VANCOMYCIN INJ 1 GM in SODIUM CHLORIDE 0.9% 250 ML IV ONE (23:00)
--- NOTE | 2018-03-09 23:51 | HISTORY & PHYSICAL EXAMINATION ---
Chief Complaint - Chief Complaint Chief Complaint: Shortness of breath History of Present Illness - Admitted From Admitted From:: Emergency department - History Obtained From Records Reviewed: Emergency department records, as well as records from previous admission History obtained from: Patient, Family members at bedside, Dr. Rodriguez, ED physician Exam Limitations: Patient can be difficult to understand at times and had mild confusion But - History of Present Illness HPI Comment/Other: Patient is a 73-year-old female with past medical history of severe kyphosis, atrial fibrillation, CHF, who was recently discharged from the hospital yesterday due to a complicated urinary tract infection. She returned home on oral antibiotics including Levaquin, and developed shortness of breath yesterday and significantly worsened today. Following is the HPI from the discharge summary by Dr. Adams: "After admission the patient's blood cultures came back positive for E. coli and the patient became increasingly lethargic with increasing tachycardia and went into atrial fibrillation with rapid ventricular response. The patient required transferring to the intensive care unit for a diltiazem drip. The patient responded well to diltiazem and we titrated up patient's dose of metoprolol up to 50 mg twice daily and continued on her oral diltiazem with which the patient did have improvement and was able to be weaned off the diltiazem drip. The patient's echocardiogram did show that the patient has systolic congestive heart failure with an ejection fraction of 35% and moderate pulmonary hypertension with a PA pressure of 47 mmHg. The patient's troponin was mildly elevated at 0.23 but remains stable. The patient was treated with IV antibiotics to which she responded well. The patient's repeat blood cultures were negative. Both the patient's urine and blood cultures both grew out E. coli which was hastings susceptible. The patient's antibiotics were de-escalated to IV Levaquin and the patient was discharged home on oral Levaquin. The patient had significant improvement over the course of her hospitalization and was more alert and awake at the time of discharge. The patient did continue to be weak and was seen by physical therapy who did recommend [facility] facility for subacute rehab however the patient's family wanted to take the patient home. The elementary school social worker did arrange for patient to have in-home caregivers and the patient already had a bedside commode at home. The patient was reluctantly discharged home with her and son to care for her. The patient was discharged home with oral antibiotics to treat bacteremia. She will require oral Levaquin for a total of 14 days from her negative blood culture and will complete treatment on March 18, 2018. The patient also had her metoprolol dose increased from 25 mg daily to 50 mg twice daily to better control her atrial fibrillation. The patient was also started on lisinopril for her systolic heart failure and this will be cont inued at home. The patient was in stable condition at the time of discharge." Patient states that she had a mild intermittent cough when she would try to speak but otherwise did not have any other respiratory symptoms such as persistent coughing, sputum production, congestion. She did not have fever or chills. She does continue however to complain of cramping in the suprapubic area and in fact states that from her point of view this is the main reason why she returned to the hospital despite her shortness of breath. In the emergency room evaluation was primarily focused on the shortness of breath and this led to a CT scan with PE protocol to rule out a pulmonary embolus given the recent hospital stay, and fortunately this did not show a PE however it did show a quite impressive consolidation of almost the entire left lower lung with some infection in the right side. She was not showing any signs of sepsis, blood pressure and heart rate relatively at her baseline, white blood cell count is fairly normal, though she did have a hypoxia originally of saturations in the 80s before she was put on 3 L by nasal cannula. Due to the pneumonia seen on the CT scan, blood cultures were ordered and patient was given a single dose of Rocephin and azithromycin and hospitalist service was called to admit patient. History - Past Medical History Cardiovascular: reports: Congestive heart failure, Hypertension, Atrial fibril lation Neuro: reports: Parkinson's Endocrine/Autoimmune: reports: HyPOthyroidism GI: reports: GERD : reports: Other Musculoskeletal: reports: Scoliosis MRSA Hx?: No - Past Surgical History General: reports: Other HEENT: reports: Tonsil/Adenoidectomy - Family & Social History Family History Comment/Other: Patient is unable to provide Living arrangement: At home Living Situation: With family - Substance History Use: Uses substance without health or social issues: NONE Use Issues: Intoxication - POLST Patient has POLST: Yes POLST Status: Full Code Meds/Allgy - Home Medications Home Medications: Ambulatory Orders Medication Instructions Recorded Confirmed Omeprazole [PriLOSEC] 20 mg PO QDAC 03/25/13 03/04/18 Carbidopa/Levodopa 25/100 [Sinemet 3 tab PO 0500,1000,1400 04/08/14 03/04/18 25 mg/100 mg] Furosemide 40 mg ORAL DAILY 04/08/14 03/04/18 Potassium Chloride 10 meq ORAL 1200 04/08/14 03/04/18 Tolterodine [Detrol LA] 2 mg ORAL DAILY 04/08/14 03/04/18 Warfarin Sodium 3 mg ORAL MOTUWETHFR@0900 04/08/14 03/04/18 diltiaZEM CD [Cardizem Cd] 180 mg ORAL DAILY 04/08/14 03/04/18 Cholecalciferol (Vitamin D3) 3,000 units PO DAILY 03/04/18 03/04/18 [Vitamin D3] Levothyroxine Sodium 100 mcg PO QDAC 03/04/18 03/04/18 Warfarin Sodium 4.5 mg PO SUSA@0900 03/04/18 03/04/18 Levofloxacin [Levaquin] 750 mg PO DAILY #9 tablet 03/08/18 Lisinopril [Prinivil] 5 mg PO DAILY #60 tablet 03/08/18 Metoprolol Succinate [Toprol Xl] 50 mg PO BID #60 tablet 03/08/18 - Allergies Allergies/Adverse Reactions: Allergies Allergy/AdvReac Type Severity Reaction Status Date / Time strawberry [[place]] AdvReac Intermediate Rash Verified 03/09/18 18:41 hydrocodone bitartrate * AdvReac Emesis Verified 03/09/18 18:41 [From Vicodin] Review of Systems - Constitutional Constitutional: reports: Fatigue. denies: Fever, Diaphoresis, Night sweats - Ears, Nose & Throat Ears, Nose & Throat: denies: Nasal discharge, Nosebleeds, Nasal obstruction, Nasal congestion - Cardiovascular Cariovascular: denies: Irregular heart rate, Palpitations, Chest pain - Respiratory Respiratory: reports: Orthopnea, SOB at rest, SOB with exertion. denies: Cough, Sputum production, Wheezing, Hemoptysis - Gastrointestinal Gastrointestinal: reports: Constipation. denies: Abdominal pain - Genitourinary Genitourinary: reports: Other (Suprapubic cramping). denies: Dysuria, Frequency, Urgency - Musculoskeletal Musculoskeletal: reports: Back pain. denies: Muscle pain - All Other Systems All Other Systems: reports: Reviewed and negative Prior Level of Functionality: Patient does require some assistance at home and does not ambulate very well due to the severe kyphosis Exam - Vital Signs Reviewed Vital Signs: Yes Vital Signs: Vital Signs x48h Temp Pulse Resp BP Pulse Ox 03/09/18 22:47 36.6 C 96 24 114/70 99 03/09/18 22:11 88 28 H 109/76 97 03/09/18 21:30 108 H 24 108/71 98 03/09/18 21:07 90 28 H 106/82 H 99 03/09/18 21:00 90 24 106/82 H 98 03/09/18 20:24 99 28 H 122/81 H 99 03/09/18 19:30 100 24 104/71 99 03/09/18 19:06 96 03/09/18 19:05 85 16 103/74 85 L 03/09/18 18:37 36.9 C 89 25 H 125/98 H 91 L Vital Signs - 24 hr 03/09/18 03/09/18 03/09/18 18:37 19:05 19:06 Temperature 36.9 C Heart Rate 89 85 Heart Rate [ Brachial] Respiratory 25 H 16 Rate Blood Pressure 125/98 H 103/74 Blood Pressure [Brachial artery] O2 Saturation 91 L 85 L 96 03/09/18 03/09/18 03/09/18 19:30 20:24 21:00 Temperature Heart Rate 100 99 90 Heart Rate [ Brachial] Respiratory 24 28 H 24 Rate Blood Pressure 104/71 122/81 H 106/82 H Blood Pressure [Brachial artery] O2 Saturation 99 99 98 03/09/18 03/09/18 03/09/18 21:07 21:30 22:11 Temperature Heart Rate 90 108 H 88 Heart Rate [ Brachial] Respiratory 28 H 24 28 H Rate Blood Pressure 106/82 H 108/71 109/76 Blood Pressure [Brachial artery] O2 Saturation 99 98 97 03/09/18 03/10/18 22:47 00:04 Temperature 36.6 C 36.9 C Heart Rate 96 Heart Rate [ 79 Brachial] Respiratory 24 20 Rate Blood Pressure 114/70 Blood Pressure 110/78 [Brachial artery] O2 Saturation 99 97 - Physical Exam General Appearance: positive: No acute distress Eyes Bilateral: positive: Normal inspection ENT: positive: ENT inspection nml Neck: positive: Nml inspection, Thyroid nml Respiratory: positive: Chest non-tender, Other (Diminished breath sounds throughout primarily due to poor patient effort) Cardiovascular: positive: Regular rate & rhythm, No murmur, No gallop, Irregularly irregular Peripheral Pulses: positive: 2+ Abdomen: positive: Other (Tenderness in the suprapubic and epigastric regions) Skin: positive: Color nml Extremities: positive: Nml appearance, No pedal edema Neurologic/Psychiatric: positive: Oriented x3, CN's nml (2-12), Motor nml, Depressed mood/affect Conclusion/Plan - Problem List (1) Aspiration pneumonia of left lung Conclusion/Plan: Patient has an impressive amount of consolidation in the left lower lung representing probable aspiration pneumonia. Patient will be admitted on triple antibiotic regimen due to recent hospital stay so she will be treated with hospital acquired pneumonia protocol though it certainly possible this is not hospital related. However it is just difficult to rule out and patient is relatively high risk and given that she has no prior oxygen requirement history and desatted into the mid 80s, for now I would like to start aggressively for the first 24 hours with triple antibiotic coverage including Zosyn, gentamicin (given that she had previously been on Levaquin we would need to consider this a treatment failure since she became worse )and vancomycin. Pending clinical course if she improves significantly we can narrow antibiotic regimen. Would like to wean off oxygen prior to discharge. Will determine based on her strengthening if she can go home again or is better suited for sniff placement. (2) Complicated UTI (urinary tract infection) Conclusion/Plan: Patient was treated on oral Levaquin at discharge which is appropriate based on the sensitivities and cultures for the urinary tract infection. I think the antibiotic for UTI is working despite the fact that she is having cramping because she was only discharged yesterday, however because of the pneumonia, I am going to change the Levaquin and replace this with gentamicin based on hospital-acquired pneumonia protocol and with the triple antibiotic coverage for the pneumonia she should have more than adequate coverage for UTI. (3) Infection due to gram-negative bacteria Conclusion/Plan: Patient was previously positive with gram-negative bacteria on a prior hospitalization however this had resolved with the most recent blood cultures no growth. Given the pneumonia she will be on triple antibiotic coverage but will monitor for signs of bacteremia and change course if necessary. (4) Kyphosis deformity of spine Conclusion/Plan: This is probably increasing her probability of aspiration but unfortunately there is not a great solution for this. Patient will remain to be at high risk for aspiration pneumonia. Qualifiers: Spinal region: cervical (5) Parkinson disease, symptomatic Conclusion/Plan: Also a risk factor for aspiration pneumonia, patient is otherwise however well controlled is much as can be expected with her Parkinson's and will continue her current medications. - Lab Results Lab results reviewed: Yes Fish Bones: 03/09/18 18:57 03/09/18 18:57 - Diagnostic Imaging Results Diagnostic Imaging Results: positive: Final report reviewed, Read independently - EKG Results EKG Interpreted Independently: Yes EKG Comparison: Unchanged from prior EKG Core Measures - Anticipated LOS I expect patient to be DC'd or transferred within 96 hours.: Yes - DVT/VTE - Prophylaxis VTE/DVT Device ordered at admit?: Yes
[2018-03-10] MEDS: METOPROLOL SUCCINATE 50 MG TABLET PO SCH ×2 (00:23→08:27)
[2018-03-10] MEDS ORDERED: GENTAMICIN IV SCH (01:00)
[2018-03-10] MEDS ORDERED: SODIUM CHLORIDE 0.9% IV SCH (01:00)
[2018-03-10] MEDS: PIPERACILLIN/TAZOBACTAM 4.5 GM in SODIUM CHLORIDE 0.9% MINIBAG 100 ML IV SCH ×4 (02:12→20:11)
[2018-03-10] MEDS ORDERED: SODIUM CHLORIDE 0.9% MINIBAG 100 ML IV ONE (03:16)
[2018-03-10] MEDS: SODIUM CHLORIDE FLUSH 0.9% 10 ML SYRINGE IVP PRN ×5 (03:19→13:40)
[2018-03-10] MEDS: IBUPROFEN 600 MG TABLET PO PRN (03:44)
[2018-03-10] MEDS: SODIUM CHLORIDE FLUSH 0.9% 10 ML SYRINGE IVP SCH ×3 (04:00→16:54)
[2018-03-10 05:12] LABS: HGB - HEMOGLOBIN 12.7 g/dL (12.0-16.0); MEAN CORPUSCULAR HGB CONC 33.2 g/dL (32.0-36.0); MEAN CORPUSCULAR VOLUME 84.3 fL (81.0-99.0); MEAN PLATELET VOLUME 8.5 fL (7.9-10.8); RED BLOOD COUNT 4.52 10^6/uL (4.20-5.40); RED CELL DISTRIBUTION WIDTH 17.2 % (12.0-15.0); WHITE BLOOD COUNT 4.9 x10^3/uL (4.8-10.8)
[2018-03-10 05:13] LABS: CALCIUM 8.9 mg/dL (8.5-10.3); CREATININE 0.4 mg/dL (0.4-1.0)
[2018-03-10] MEDS: CARBIDOPA/LEVODOPA 25 MG/100 MG TABLET PO SCH ×3 (06:36→14:12)
[2018-03-10] MEDS: LEVOTHYROXINE 100 MCG TABLET PO SCH (06:36)
[2018-03-10] MEDS: PANTOPRAZOLE 40 MG VIAL IVP SCH (06:37)
[2018-03-10] MEDS: POLYETHYLENE GLYCOL 3350 17 GM PACKET PO SCH (08:26)
[2018-03-10] MEDS: TOLTERODINE LA 2 MG CAPSULE PO SCH (08:27)
[2018-03-10] MEDS: LISINOPRIL 5 MG TABLET PO SCH (08:27)
[2018-03-10] MEDS: DOCUSATE SODIUM 100 MG CAPSULE PO SCH (08:27)
[2018-03-10] MEDS: FUROSEMIDE 40 MG TABLET PO SCH (08:27)
[2018-03-10] MEDS: ACETAMINOPHEN 325 MG TABLET PO PRN ×2 (08:27→16:41)
[2018-03-10] MEDS: CHOLECALCIFEROL 1,000 UNIT TABLET PO SCH (08:27)
[2018-03-10] MEDS: diltiaZEM CD 180 MG CAPSULE PO SCH (08:27)
[2018-03-10] MEDS: ENOXAPARIN 40 MG/0.4 ML SYRINGE SUBQ SCH (08:28)
[2018-03-10] MEDS ORDERED: WARFARIN SODIUM 3 MG ORAL SCH (09:00)
[2018-03-10] MEDS ORDERED: CHOLECALCIFEROL 3000 UNIT PO SCH (09:00)
[2018-03-10] MEDS: VANCOMYCIN INJ 1 GM in SODIUM CHLORIDE 0.9% 250 ML IV SCH (11:21)
[2018-03-10] MEDS: POTASSIUM CHLORIDE 10 MEQ CAPSULE PO SCH (11:21)
--- NOTE | 2018-03-10 13:34 | PROVIDER PROGRESS NOTE ---
Assessment/Plan - Problem List (1) HCAP (healthcare-associated pneumonia) Assessment/Plan: Patient has an impressive amount of consolidation in the left lower lung representing probable aspiration pneumonia. Patient will be admitted on triple antibiotic regimen due to recent hospital stay so she will be treated with hospital acquired pneumonia protocol though it certainly possible this is not hospital related. However it is just difficult to rule out and patient is relatively high risk and given that she has no prior oxygen requirement history and desaturated into the mid 80s, for now I would like to start aggressively for the first 24 hours with triple antibiotic coverage including Zosyn, gentamicin (given that she had previously been on Levaquin we would Patient is more alert and slightly improved since last night Plan: Continue IV Vanco, zosyn and gentamycin Swallow evaluation PT evaluation Will likely need SNF Repeat CXR in a few days (2) Complicated UTI (urinary tract infection) Conclusion/Plan: Patient was treated on oral Levaquin at discharge which is appropriate based on the sensitivities and cultures for the urinary tract infection. I think the antibiotic for UTI is working despite the fact that she is having cramping because she was only discharged yesterday, however because of the pneumonia, I am going to change the Levaquin and replace this with gentamicin based on hospital-acquired pneumonia protocol and with the triple antibiotic coverage for the pneumonia she should have more than adequate coverage for UTI. Patients treatment for UTI to continue till 03/18/18 secondary to bacteremia. (3) Infection due to gram-negative bacteria Conclusion/Plan: Patient was previously positive with gram-negative bacteria on a prior hospitalization however this had resolved with the most recent blood cultures no growth. Given the pneumonia she will be on triple antibiotic coverage but will monitor for signs of bacteremia and change course if necessary. Continue till 03/18/18 (4) Kyphosis deformity of spine Conclusion/Plan: This is probably increasing her probability of aspiration but unfortunately there is not a great solution for this. Patient will remain to be at high risk for aspiration pneumonia. Also likely causes restrictive lung disease and atelectasis. Qualifiers: Spinal region: cervical (5) Parkinson disease, symptomatic Conclusion/Plan: Also a risk factor for aspiration pneumonia, patient is otherwise however well controlled is much as can be expected with her Parkinson's and will continue her current medications. (6) Atrial Fibrillation Conclusion/Plan: Continued metoprolol and Diltiazem Patient had a 2-second pause last night. Continue telemetry monitoring if patient continues to have pauses we will need to decrease the dose of metoprolol. Continue Coumadin as patient's INR is 1.8. Patient's heart rate is well controlled. (7) Chronic Systolic Heart Failure Conclusion/Plan: Patient will be continued on optimal treatment for systolic heart failure with metoprolol, lisinopril. Patient's ejection fraction is 35%. We will consider starting patient on spironolactone in the future however the patient's blood pressure is borderline low at this time. Patient does not appear to be in CHF exacerbation however we will need to be cautious about giving the patient fluid. - Current Meds Current Meds: Current Medications Generic Name Dose Route Start Last Admin Trade Name Freq PRN Reason Stop Dose Admin Acetaminophen 650 mg 03/09/18 21:47 03/10/18 08:27 Tylenol PO 650 mg Q4HR PRN Administration Fever Carbidopa/Levodopa 3 tab 03/10/18 05:00 03/10/18 11:21 Sinemet 25 Mg/100 Mg PO 3 tab 0500,1000,1400 RICHIE Administration Cholecalciferol 3,000 unit 03/10/18 09:00 03/10/18 08:27 Vitamin D3 PO 3,000 unit DAILY RICHIE Administration Diltiazem HCl 180 mg 03/10/18 09:00 03/10/18 08:27 Cardizem Cd PO 180 mg DAILY RICHIE Administration Docusate Sodium 100 mg 03/10/18 09:00 03/10/18 08:27 Colace 100mg Capsule PO 100 mg DAILY RICHIE Administration Enoxaparin Sodium 40 mg 03/10/18 09:00 03/10/18 08:28 Lovenox SUBQ 40 mg DAILY RICHIE Administration Furosemide 40 mg 03/10/18 09:00 03/10/18 08:27 Lasix PO 40 mg DAILY RICHIE Administration Vancomycin HCl 1 gm/ Sodium 250 mls @ 167 mls/hr 03/10/18 12:00 03/10/18 11:21 Chloride IV 167 mls/hr Q12H RICHIE Administration Ibuprofen 600 mg 03/09/18 21:47 03/10/18 03:44 Motrin PO 600 mg Q6HR PRN Administration Pain 1 to 4 Levothyroxine Sodium 100 mcg 03/10/18 07:00 03/10/18 06:36 Synthroid PO 100 mcg QDAC RICHIE Administration Lisinopril 5 mg 03/10/18 09:00 03/10/18 08:27 Zestril PO 5 mg DAILY RICHIE Administration Metoprolol Succinate 50 mg 03/09/18 22:00 03/10/18 08:27 Toprol Xl PO 50 mg BID RICHIE Administration Pantoprazole Sodium 40 mg 03/10/18 07:00 03/10/18 06:37 Protonix IVP 40 mg QDAC RICHIE Administration Polyethylene Glycol 17 gm 03/10/18 09:00 03/10/18 08:26 Miralax PO 17 gm DAILY RICHIE Administration Potassium Chloride 10 meq 03/10/18 12:00 03/10/18 11:21 Micro-K PO 10 meq 1200 RICHIE Administration Prochlorperazine Edisylate 10 mg 03/09/18 21:47 03/10/18 03:47 Compazine Inj IVP 10 mg Q6HR PRN Administration Nausea / Vomiting Sodium Chloride 10 ml 03/09/18 21:47 03/10/18 08:28 Normal Saline Flush 0.9% IVP 10 ml PRN PRN Administration NEEDED PER PROVIDER ORDERS Sodium Chloride 10 ml 03/10/18 01:00 03/10/18 06:37 Normal Saline Flush 0.9% IVP 10 ml 0100,0900,1700 RICHIE Administration Tolterodine Tartrate 2 mg 03/10/18 09:00 03/10/18 08:27 Detrol La PO 2 mg DAILY RICHIE Administration - Lab Result Lab results reviewed: Yes Fish Bone Diagrams: 03/10/18 04:35 03/10/18 04:35 Other Lab Results: Laboratory Results WBC 4.9 x10^3/uL (4.8-10.8) 03/10/18 04:35 RBC 4.52 10^6/uL (4.20-5.40) 03/10/18 04:35 Hgb 12.7 g/dL (12.0-16.0) 03/10/18 04:35 Hct 38.1 % (37.0-47.0) 03/10/18 04:35 MCV 84.3 fL (81.0-99.0) 03/10/18 04:35 MCH 28.0 pg (27.0-31.0) 03/10/18 04:35 MCHC 33.2 g/dL (32.0-36.0) 03/10/18 04:35 RDW 17.2 % (12.0-15.0) H 03/10/18 04:35 Plt Count 154 10^3/uL (130-450) 03/10/18 04:35 MPV 8.5 fL (7.9-10.8) 03/10/18 04:35 Neut # (Auto) 4.5 10^3/uL (1.5-6.6) 03/09/18 18:57 Lymph # (Auto) 0.5 10^3/uL (1.5-3.5) L 03/09/18 18:57 [place] # (Auto) 0.6 10^3/uL (0.0-1.0) 03/09/18 18:57 Eos # (Auto) 0.1 10^3/uL (0.0-0.7) 03/09/18 18:57 Baso # (Auto) 0.0 10^3/uL (0.0-0.1) 03/09/18 18:57 Absolute Nucleated RBC 0.00 x10^3/uL 03/09/18 18:57 Nucleated RBC % 0.0 /100WBC 03/09/18 18:57 Manual Slide Review Indicated 03/09/18 18:57 Platelet Estimate NORMAL (130-450,000) (NORMAL) 03/09/18 18:57 Platelet Morphology RARE GIANT PLATELETS (NORMAL) 03/09/18 18:57 RBC Morph Micro Appear OVALOCYTES (NORMAL) 03/09/18 18:57 PT 19.7 secs (9.9-12.6) H 03/09/18 18:57 INR 1.8 (0.8-1.2) H 03/09/18 18:57 Sodium 137 mmol/L (135-145) 03/10/18 04:35 Potassium 3.6 mmol/L (3.5-5.0) 03/10/18 04:35 Chloride 104 mmol/L (101-111) 03/10/18 04:35 Carbon Dioxide 30 mmol/L (21-32) 03/10/18 04:35 Anion Gap 3.0 (6-13) L 03/10/18 04:35 BUN 11 mg/dL (6-20) 03/10/18 04:35 Creatinine 0.4 mg/dL (0.4-1.0) 03/10/18 04:35 Estimated GFR (MDRD) 157 (>89) 03/10/18 04:35 Glucose 90 mg/dL (70-100) 03/10/18 04:35 Calcium 8.9 mg/dL (8.5-10.3) 03/10/18 04:35 Total Bilirubin 1.4 mg/dL (0.2-1.0) H 03/09/18 18:57 AST < 10 IU/L (10-42) L 03/09/18 18:57 ALT < 10 IU/L (10-60) L 03/09/18 18:57 Alkaline Phosphatase 43 IU/L (42-121) 03/09/18 18:57 Total Creatine Kinase 81 IU/L (22-269) 03/09/18 18:57 Troponin I < 0.04 ng/mL (<0.49) 03/09/18 18:57 B-Natriuretic Peptide 279 pg/mL (5-100) H 03/10/18 04:35 Total Protein 5.3 g/dL (6.7-8.2) L 03/09/18 18:57 Albumin 3.1 g/dL (3.2-5.5) L 03/09/18 18:57 Globulin 2.2 g/dL (2.1-4.2) 03/09/18 18:57 Albumin/Globulin Ratio 1.4 (1.0-2.2) 03/09/18 18:57 Lipase 20 U/L (22-51) L 03/09/18 18:57 - Diagnostic Imaging Results Diagnostic Imaging Results: Final report reviewed - Additional Planning Condition/Complexity: Guarded My Orders: My Active Orders 03/10/18 Clinical Swallow Eval w/Modified ST [ST] Routine Evaluate and Treat PT [PT] Routine 03/10/18 12:00 Saccharomyces Boulardii [Florastor] 250 mg PO BIDWM Consult/Specialty: PT, Other (Speech) Plan Discussed with:: Patient, Family, Spouse Time Spent: 31-60 minutes Subjective - Subjective Patient Reports: Other (Lethargic this am. She is requiring O2. She is kyphotic. No fevers overnight.) Nursing Reports: No Complaints Objective Vital Signs: Vital Signs - 24 hr 03/09/18 03/09/18 03/09/18 18:37 19:05 19:06 Temperature 36.9 C Heart Rate 89 85 Heart Rate [ Brachial] Respiratory 25 H 16 Rate Blood Pressure 125/98 H 103/74 Blood Pressure [Brachial artery] O2 Saturation 91 L 85 L 96 03/09/18 03/09/18 03/09/18 19:30 20:24 21:00 Temperature Heart Rate 100 99 90 Heart Rate [ Brachial] Respiratory 24 28 H 24 Rate Blood Pressure 104/71 122/81 H 106/82 H Blood Pressure [Brachial artery] O2 Saturation 99 99 98 03/09/18 03/09/18 03/09/18 21:07 21:30 22:11 Temperature Heart Rate 90 108 H 88 Heart Rate [ Brachial] Respiratory 28 H 24 28 H Rate Blood Pressure 106/82 H 108/71 109/76 Blood Pressure [Brachial artery] O2 Saturation 99 98 97 03/09/18 03/10/18 03/10/18 22:47 00:04 05:50 Temperature 36.6 C 36.9 C 36.9 C Heart Rate 96 Heart Rate [ 79 66 Brachial] Respiratory 24 20 20 Rate Blood Pressure 114/70 Blood Pressure 110/78 95/60 [Brachial artery] O2 Saturation 99 97 95 03/10/18 03/10/18 07:39 11:13 Temperature 36.3 C L 36.2 C L Heart Rate Heart Rate [ 86 68 Brachial] Respiratory 20 18 Rate Blood Pressure Blood Pressure 113/76 103/77 [Brachial artery] O2 Saturation 97 96 Oxygen O2 Source [Without Activity] Nasal cannula O2 Source Nasal cannula Oxygen Flow Rate 3 I&O (Last 24 Hrs): Intake and Output Totals x24h 03/08/18 03/09/18 03/10/18 23:59 23:59 23:59 Intake Total 100 812 Balance 100 812 General: Other (Lethargic with severe kyphosis) HEENT: Atraumatic, PERRLA, EOMI, Other (Dry mucus membranes) Neck: Supple, No JVD, No thyromegaly, +2 carotid pulse wo bruit, No LAD Lymphatic: no adenopathy Neuro: Non Focal, CN 2-12 Grossly Intact Cardiovascular: No murmurs, Other (Irregularly irregular) Respiratory: Chest non-tender, No respiratory distress, Rhonchi (Bilateral worse on the left) Abdomen: Normal bowel sounds, Soft, No tenderness, No hepatospenomegaly Extremities: No clubbing, No cyanosis, No edema, Normal pulses Skin: No rashes, No breakdown - Results Results: Laboratory Results WBC 4.9 x10^3/uL (4.8-10.8) 03/10/18 04:35 RBC 4.52 10^6/uL (4.20-5.40) 03/10/18 04:35 Hgb 12.7 g/dL (12.0-16.0) 03/10/18 04:35 Hct 38.1 % (37.0-47.0) 03/10/18 04:35 MCV 84.3 fL (81.0-99.0) 03/10/18 04:35 MCH 28.0 pg (27.0-31.0) 03/10/18 04:35 MCHC 33.2 g/dL (32.0-36.0) 03/10/18 04:35 RDW 17.2 % (12.0-15.0) H 03/10/18 04:35 Plt Count 154 10^3/uL (130-450) 03/10/18 04:35 MPV 8.5 fL (7.9-10.8) 03/10/18 04:35 Neut # (Auto) 4.5 10^3/uL (1.5-6.6) 03/09/18 18:57 Lymph # (Auto) 0.5 10^3/uL (1.5-3.5) L 03/09/18 18:57 [place] # (Auto) 0.6 10^3/uL (0.0-1.0) 03/09/18 18:57 Eos # (Auto) 0.1 10^3/uL (0.0-0.7) 03/09/18 18:57 Baso # (Auto) 0.0 10^3/uL (0.0-0.1) 03/09/18 18:57 Absolute Nucleated RBC 0.00 x10^3/uL 03/09/18 18:57 Nucleated RBC % 0.0 /100WBC 03/09/18 18:57 Manual Slide Review Indicated 03/09/18 18:57 Platelet Estimate NORMAL (130-450,000) (NORMAL) 03/09/18 18:57 Platelet Morphology RARE GIANT PLATELETS (NORMAL) 03/09/18 18:57 RBC Morph Micro Appear OVALOCYTES (NORMAL) 03/09/18 18:57 PT 19.7 secs (9.9-12.6) H 03/09/18 18:57 INR 1.8 (0.8-1.2) H 03/09/18 18:57 Sodium 137 mmol/L (135-145) 03/10/18 04:35 Potassium 3.6 mmol/L (3.5-5.0) 03/10/18 04:35 Chloride 104 mmol/L (101-111) 03/10/18 04:35 Carbon Dioxide 30 mmol/L (21-32) 03/10/18 04:35 Anion Gap 3.0 (6-13) L 03/10/18 04:35 BUN 11 mg/dL (6-20) 03/10/18 04:35 Creatinine 0.4 mg/dL (0.4-1.0) 03/10/18 04:35 Estimated GFR (MDRD) 157 (>89) 03/10/18 04:35 Glucose 90 mg/dL (70-100) 03/10/18 04:35 Calcium 8.9 mg/dL (8.5-10.3) 03/10/18 04:35 Total Bilirubin 1.4 mg/dL (0.2-1.0) H 03/09/18 18:57 AST < 10 IU/L (10-42) L 03/09/18 18:57 ALT < 10 IU/L (10-60) L 03/09/18 18:57 Alkaline Phosphatase 43 IU/L (42-121) 03/09/18 18:57 Total Creatine Kinase 81 IU/L (22-269) 03/09/18 18:57 Troponin I < 0.04 ng/mL (<0.49) 03/09/18 18:57 B-Natriuretic Peptide 279 pg/mL (5-100) H 03/10/18 04:35 Total Protein 5.3 g/dL (6.7-8.2) L 03/09/18 18:57 Albumin 3.1 g/dL (3.2-5.5) L 03/09/18 18:57 Globulin 2.2 g/dL (2.1-4.2) 03/09/18 18:57 Albumin/Globulin Ratio 1.4 (1.0-2.2) 03/09/18 18:57 Lipase 20 U/L (22-51) L 03/09/18 18:57 - Procedures Procedures: Procedures INSERT GASTRIC TUBE NEC (03/25/13) PACKED CELL TRANSFUSION (03/25/13) ABX Reporting Has patient been on IV antibiotics over the past 48 hours?: No Current Medications - Current Medications Current Medications: Active Medications Generic Name Dose Route Start Last Admin Trade Name Freq PRN Reason Stop Dose Admin Acetaminophen 650 mg 03/09/18 21:47 03/10/18 08:27 Tylenol PO 650 mg Q4HR PRN Administration Fever Carbidopa/Levodopa 3 tab 03/10/18 05:00 03/10/18 11:21 Sinemet 25 Mg/100 Mg PO 3 tab 0500,1000,1400 RICHIE Administration Cholecalciferol 3,000 unit 03/10/18 09:00 03/10/18 08:27 Vitamin D3 PO 3,000 unit DAILY RICHIE Administration Diltiazem HCl 180 mg 03/10/18 09:00 03/10/18 08:27 Cardizem Cd PO 180 mg DAILY RICHIE Administration Docusate Sodium 100 mg 03/10/18 09:00 03/10/18 08:27 Colace 100mg Capsule PO 100 mg DAILY RICHIE Administration Enoxaparin Sodium 40 mg 03/10/18 09:00 03/10/18 08:28 Lovenox SUBQ 40 mg DAILY RICHIE Administration Furosemide 40 mg 03/10/18 09:00 03/10/18 08:27 Lasix PO 40 mg DAILY RICHIE Administration Vancomycin HCl 1 gm/ Sodium 250 mls @ 167 mls/hr 03/10/18 12:00 03/10/18 12:51 Chloride IV Infused Q12H RICHIE Titration Piperacillin Sod/Tazobactam 100 mls @ 200 mls/hr 03/10/18 14:00 Sod 4.5 gm/ Sodium Chloride IV Q6H [facility] Gentamicin Sulfate 370 mg/ 109.25 mls @ 100 mls/hr 03/10/18 16:00 Sodium Chloride IV Q24H [facility] Ibuprofen 600 mg 03/09/18 21:47 03/10/18 03:44 Motrin PO 600 mg Q6HR PRN Administration Pain 1 to 4 Levothyroxine Sodium 100 mcg 03/10/18 07:00 03/10/18 06:36 Synthroid PO 100 mcg QDAC [facility] Administration Lisinopril 5 mg 03/10/18 09:00 03/10/18 08:27 Zestril PO 5 mg DAILY RICHIE Administration Metoprolol Succinate 50 mg 03/09/18 22:00 03/10/18 08:27 Toprol Xl PO 50 mg BID RICHIE Administration Pantoprazole Sodium 40 mg 03/10/18 07:00 03/10/18 06:37 Protonix IVP 40 mg QDAC [facility] Administration Polyethylene Glycol 17 gm 03/10/18 09:00 03/10/18 08:26 Miralax PO 17 gm DAILY [facility] Administration Potassium Chloride 10 meq 03/10/18 12:00 03/10/18 11:21 Micro-K PO 10 meq 1200 [facility] Administration Prochlorperazine Edisylate 10 mg 03/09/18 21:47 03/10/18 03:47 Compazine Inj IVP 10 mg Q6HR PRN Administration Nausea / Vomiting Saccharomyces Boulardii 250 mg 03/10/18 12:00 Florastor PO BIDWM [facility] Sodium Chloride 10 ml 03/09/18 21:47 03/10/18 13:40 Normal Saline Flush 0.9% IVP 10 ml PRN PRN Administration NEEDED PER PROVIDER ORDERS Sodium Chloride 10 ml 03/10/18 01:00 03/10/18 06:37 Normal Saline Flush 0.9% IVP 10 ml 0100,0900,1700 [facility] Administration Tolterodine Tartrate 2 mg 03/10/18 09:00 03/10/18 08:27 Detrol La PO 2 mg DAILY [facility] Administration Warfarin Sodium 3 mg 03/10/18 14:00 Coumadin PO [id number] [facility] Warfarin Sodium 4.5 mg 03/11/18 14:00 Coumadin PO [email or web address] [facility] Zolpidem Tartrate 5 mg 03/09/18 21:47 Ambien PO QPM PRN Insomnia Omeprazole [PriLOSEC] 20 mg PO QDAC 03/25/13 Carbidopa/Levodopa 25/100 [Sinemet 25 mg/100 mg] 3 tab PO 0500,1000,1400 01/26/15 Furosemide 40 mg ORAL DAILY 04/08/14 Potassium Chloride 10 meq ORAL 1200 04/08/14 Tolterodine [Detrol LA] 2 mg ORAL DAILY 04/08/14 Warfarin Sodium 3 mg ORAL [id number]@0900 04/08/14 [id number] CD [Cardizem Cd] 180 mg ORAL DAILY 04/08/14 Cholecalciferol (Vitamin D3) [Vitamin D3] 3,000 units PO DAILY 03/04/18 Levothyroxine Sodium 100 mcg PO QDAC 03/04/18 Warfarin Sodium 4.5 mg PO SUSA@0900 03/04/18
[2018-03-10] MEDS: SACCHAROMYCES BOULARDII 250 MG CAPSULE PO SCH ×2 (14:12→16:41)
[2018-03-10] MEDS: WARFARIN 1 MG TABLET PO SCH (14:13)
[2018-03-10] MEDS ORDERED: GENTAMICIN 370 MG in SODIUM CHLORIDE 0.9% 100ML 100 ML IV SCH (16:00)
[2018-03-10] MEDS ORDERED: SACCHAROMYCES BOULARDII 250 MG CAPSULE PO SCH (17:00)
[2018-03-10] MEDS: METOPROLOL SUCCINATE 25 MG TABLET PO SCH (20:11)
[2018-03-10] MEDS ORDERED: VANCOMYCIN INJ 1 GM in SODIUM CHLORIDE 0.9% 250 ML IV SCH (23:00)
[2018-03-11] MEDS: VANCOMYCIN INJ 1 GM in SODIUM CHLORIDE 0.9% 250 ML IV SCH ×3 (00:38→23:41)
[2018-03-11] MEDS: SODIUM CHLORIDE FLUSH 0.9% 10 ML SYRINGE IVP SCH ×4 (00:38→23:41)
[2018-03-11 01:44] LABS: GENTAMICIN,RANDOM 8.1 ug/mL
[2018-03-11] MEDS: PIPERACILLIN/TAZOBACTAM 4.5 GM in SODIUM CHLORIDE 0.9% MINIBAG 100 ML IV SCH ×4 (02:18→21:03)
[2018-03-11 05:25] LABS: HGB - HEMOGLOBIN 12.9 g/dL (12.0-16.0); MEAN CORPUSCULAR HEMOGLOBIN 27.5 pg (27.0-31.0); MEAN CORPUSCULAR HGB CONC 31.8 g/dL (32.0-36.0); MEAN CORPUSCULAR VOLUME 86.5 fL (81.0-99.0); MEAN PLATELET VOLUME 8.5 fL (7.9-10.8); RED BLOOD COUNT 4.69 10^6/uL (4.20-5.40); RED CELL DISTRIBUTION WIDTH 17.4 % (12.0-15.0); WHITE BLOOD COUNT 5.4 x10^3/uL (4.8-10.8)
[2018-03-11 05:34] LABS: CALCIUM 9.3 mg/dL (8.5-10.3); CREATININE 0.4 mg/dL (0.4-1.0)
[2018-03-11] MEDS: IBUPROFEN 600 MG TABLET PO PRN (06:17)
[2018-03-11] MEDS: LEVOTHYROXINE 100 MCG TABLET PO SCH (06:17)
[2018-03-11] MEDS: CARBIDOPA/LEVODOPA 25 MG/100 MG TABLET PO SCH ×3 (06:17→14:11)
[2018-03-11] MEDS: PANTOPRAZOLE 40 MG VIAL IVP SCH (06:18)
[2018-03-11] MEDS: SODIUM CHLORIDE FLUSH 0.9% 10 ML SYRINGE IVP PRN (06:18)
[2018-03-11] MEDS ORDERED: WARFARIN SODIUM 4.5 MG PO SCH (09:00)
[2018-03-11] MEDS: ENOXAPARIN 40 MG/0.4 ML SYRINGE SUBQ SCH (09:05)
[2018-03-11] MEDS: POLYETHYLENE GLYCOL 3350 17 GM PACKET PO SCH (09:05)
[2018-03-11] MEDS: LISINOPRIL 5 MG TABLET PO SCH (09:06)
[2018-03-11] MEDS: FUROSEMIDE 40 MG TABLET PO SCH (09:07)
[2018-03-11] MEDS: diltiaZEM CD 180 MG CAPSULE PO SCH (09:07)
[2018-03-11] MEDS: DOCUSATE SODIUM 100 MG CAPSULE PO SCH (09:07)
[2018-03-11] MEDS: METOPROLOL SUCCINATE 25 MG TABLET PO SCH ×2 (09:07→21:03)
[2018-03-11] MEDS: CHOLECALCIFEROL 1,000 UNIT TABLET PO SCH (09:07)
[2018-03-11] MEDS: TOLTERODINE LA 2 MG CAPSULE PO SCH (09:07)
[2018-03-11] MEDS: SACCHAROMYCES BOULARDII 250 MG CAPSULE PO SCH ×2 (09:07→17:34)
[2018-03-11 11:50] LABS: VANCOMYCIN,TROUGH 15.9 ug/mL (10.0-20.0)
[2018-03-11] MEDS: POTASSIUM CHLORIDE 10 MEQ CAPSULE PO SCH (12:25)
[2018-03-11] MEDS: ACETAMINOPHEN 325 MG TABLET PO PRN ×2 (12:26→16:18)
--- NOTE | 2018-03-11 13:13 | PROVIDER PROGRESS NOTE ---
Assessment/Plan - Problem List (1) HCAP (healthcare-associated pneumonia) Assessment/Plan: Patient has an impressive amount of consolidation in the left lower lung representing probable aspiration pneumonia. Patient will be admitted on triple antibiotic regimen due to recent hospital stay so she will be treated with hospital acquired pneumonia protocol though it certainly possible this is not hospital related. However it is just difficult to rule out and patient is relatively high risk and given that she has no prior oxygen requirement history and desaturated into the mid 80s, for now I would like to start aggressively for the first 24 hours with triple antibiotic coverage including Zosyn, gentamicin (given that she had previously been on Levaquin we would Improving slowly but still requiring O2 at 2L and still weak and drowsy Plan: Continue IV Vanco, zosyn and gentamycin day 3 Swallow evaluation showed dysphagia and patients diet was changed accordingly Patient will likely need 1-2 days more of IV abx then will be sent to a SNF Repeat CXR in a few days (2) Dysphagia Conclusion/Plan: Patient was assessed by speech therapy and they recommended a chemical soft diet, with nectar thick liquids, all medications with whole applesauce and aggressive oral care. Patient's dysphagia is likely secondary to Parkinson's (3) Complicated UTI (urinary tract infection) Conclusion/Plan: Patient was treated on oral Levaquin at discharge which is appropriate based on the sensitivities and cultures for the urinary tract infection. I think the antibiotic for UTI is working despite the fact that she is having cramping because she was only discharged yesterday, however because of the pneumonia, I am going to change the Levaquin and replace this with gentamicin based on hospital-acquired pneumonia protocol and with the triple antibiotic coverage for the pneumonia she should have more than adequate coverage for UTI. Patients treatment for UTI to continue till 03/18/18 secondary to bacteremia. (4) Infection due to gram-negative bacteria Conclusion/Plan: Patient was previously positive with gram-negative bacteria on a prior hospitalization however this had resolved with the most recent blood cultures no growth. Given the pneumonia she will be on triple antibiotic coverage but will monitor for signs of bacteremia and change course if necessary. Continue till 03/18/18 (5) Kyphosis deformity of spine Conclusion/Plan: This is probably increasing her probability of aspiration but unfortunately there is not a great solution for this. Patient will remain to be at high risk for aspiration pneumonia. Also likely causes restrictive lung disease and atelectasis. Qualifiers: Spinal region: cervical (6) Parkinson disease, symptomatic Conclusion/Plan: Patient does have dysphasia and her diet was changed accordingly. She will continue on her home Parkinson's medications. (7) Atrial Fibrillation Conclusion/Plan: Patient's metoprolol dose was decreased to 25 mg twice daily due to pause on telemetry. Patient's heart rate is now well controlled and she will be continued on current dose of diltiazem and metoprolol. The patient was continued on home dose of Coumadin and will continue to monitor her INR. (8) Chronic Systolic Heart Failure Conclusion/Plan: Patient will be continued on optimal treatment for systolic heart failure with metoprolol, lisinopril. Patient's ejection fraction is 35%. We will consider starting patient on spironolactone in the future however the patient's blood pressure is borderline low at this time. Patient does not appear to be in CHF exacerbation however we will need to be cautious about giving the patient fluid. - Current Meds Current Meds: Current Medications Generic Name Dose Route Start Last Admin Trade Name Freq PRN Reason Stop Dose Admin Acetaminophen 650 mg 03/09/18 21:47 03/11/18 12:26 Tylenol PO 650 mg Q4HR PRN Administration Fever Carbidopa/Levodopa 3 tab 03/10/18 05:00 03/11/18 10:28 Sinemet 25 Mg/100 Mg PO 3 tab 0500,1000,1400 RICHIE Administration Cholecalciferol 3,000 unit 03/10/18 09:00 03/11/18 09:07 Vitamin D3 PO 3,000 unit DAILY RICHIE Administration Diltiazem HCl 180 mg 03/10/18 09:00 03/11/18 09:07 Cardizem Cd PO 180 mg DAILY RICHIE Administration Docusate Sodium 100 mg 03/10/18 09:00 03/11/18 09:07 Colace 100mg Capsule PO 100 mg DAILY RICHIE Administration Enoxaparin Sodium 40 mg 03/10/18 09:00 03/11/18 09:05 Lovenox SUBQ 40 mg DAILY RICHIE Administration Furosemide 40 mg 03/10/18 09:00 03/11/18 09:07 Lasix PO 40 mg DAILY RICHIE Administration Vancomycin HCl 1 gm/ Sodium 250 mls @ 167 mls/hr 03/10/18 12:00 03/11/18 12:26 Chloride IV 167 mls/hr Q12H RICHIE Administration Piperacillin Sod/Tazobactam 100 mls @ 200 mls/hr 03/10/18 14:00 03/11/18 11:04 Sod 4.5 gm/ Sodium Chloride IV Infused Q6H RICHIE Infusion Ibuprofen 600 mg 03/09/18 21:47 03/11/18 06:17 Motrin PO 600 mg Q6HR PRN Administration Pain 1 to 4 Levothyroxine Sodium 100 mcg 03/10/18 07:00 03/11/18 06:17 Synthroid PO 100 mcg QDAC RICHIE Administration Lisinopril 5 mg 03/10/18 09:00 03/11/18 09:06 Zestril PO 5 mg DAILY RICHIE Administration Metoprolol Succinate 25 mg 03/10/18 21:00 03/11/18 09:07 Toprol Xl PO 25 mg BID RICHIE Administration Pantoprazole Sodium 40 mg 03/10/18 07:00 03/11/18 06:18 Protonix IVP 40 mg QDAC RICHIE Administration Polyethylene Glycol 17 gm 03/10/18 09:00 03/11/18 09:05 Miralax PO 17 gm DAILY RICHIE Administration Potassium Chloride 10 meq 03/10/18 12:00 03/11/18 12:25 Micro-K PO 10 meq 1200 RICHIE Administration Prochlorperazine Edisylate 10 mg 03/09/18 21:47 03/10/18 03:47 Compazine Inj IVP 10 mg Q6HR PRN Administration Nausea / Vomiting Saccharomyces Boulardii 250 mg 03/10/18 12:00 03/11/18 09:07 Florastor PO 250 mg BIDWM RICHIE Administration Sodium Chloride 10 ml 03/09/18 21:47 03/11/18 06:18 Normal Saline Flush 0.9% IVP 10 ml PRN PRN Administration NEEDED PER PROVIDER ORDERS Sodium Chloride 10 ml 03/10/18 01:00 03/11/18 09:02 Normal Saline Flush 0.9% IVP 10 ml 0100,0900,1700 RICHIE Administration Tolterodine Tartrate 2 mg 03/10/18 09:00 03/11/18 09:07 Detrol La PO 2 mg DAILY RICHIE Administration Warfarin Sodium 3 mg 03/10/18 14:00 03/10/18 14:13 Coumadin PO 3 mg [id number] [facility] Administration - Lab Result Lab results reviewed: Yes Fish Bone Diagrams: 03/11/18 05:00 03/11/18 05:00 - Diagnostic Imaging Results Diagnostic Imaging Results: Final report reviewed - Additional Planning Condition/Complexity: Guarded My Orders: My Active Orders 03/10/18 16:32 Oral Care - Nursing [RC] BID 03/10/18 21:00 Metoprolol Succinate [Toprol Xl] 25 mg PO BID 03/11/18 Breakfast Soft Mechanical Diet [DIET] Consult/Specialty: PT Plan Discussed with:: Patient, Family Time Spent: 31-60 minutes Subjective - Subjective Patient Reports: Cough (Present through the night), Fever (No fevers), Shortness of Breath (Improved), Other (She is lethargic but easily arousable) Nursing Reports: No Complaints Objective Vital Signs: Vital Signs - 24 hr 03/10/18 03/10/18 03/10/18 15:55 16:51 18:51 Temperature 36.3 C L 36.4 C L Heart Rate [ 65 70 Brachial] Respiratory 24 18 Rate Blood Pressure 90/60 [Brachial artery] Blood Pressure 89/61 L 95/65 [Right Brachial artery] O2 Saturation 96 97 03/11/18 03/11/18 03/11/18 00:00 04:28 07:15 Temperature 36.9 C 37.2 C 37.0 C Heart Rate [ 77 73 70 Brachial] Respiratory 16 18 18 Rate Blood Pressure [Brachial artery] Blood Pressure 116/68 110/74 115/68 [Right Brachial artery] O2 Saturation 98 96 93 03/11/18 12:35 Temperature 36.2 C L Heart Rate [ 89 Brachial] Respiratory 18 Rate Blood Pressure [Brachial artery] Blood Pressure 98/60 [Right Brachial artery] O2 Saturation 96 Oxygen O2 Source [Without Activity] Nasal cannula O2 Source Nasal cannula Oxygen Flow Rate 3 I&O (Last 24 Hrs): Intake and Output Totals x24h 03/09/18 03/10/18 03/11/18 23:59 23:59 23:59 Intake Total 100 1591.25 510 Output Total 850 350 Balance 100 741.25 160 General: Alert, Oriented x3, Cooperative, Other (Lethargic at first, severe kyph osis) HEENT: Atraumatic, PERRLA, EOMI, Mucous membr. moist/pink Neck: Supple, No JVD, No thyromegaly, +2 carotid pulse wo bruit, No LAD Lymphatic: no adenopathy Neuro: Alert, Non Focal, CN 2-12 Grossly Intact, Oriented Times 3 Cardiovascular: No murmurs, Other (Irregularly, irregular) Respiratory: Chest non-tender, No respiratory distress, Rhonchi (Bilateral lower lungs) Abdomen: Normal bowel sounds, Soft, No tenderness, No hepatospenomegaly Extremities: No clubbing, No cyanosis, No edema, Normal pulses Skin: No rashes, No breakdown - Results Results: Laboratory Results WBC 5.4 x10^3/uL (4.8-10.8) 03/11/18 05:00 RBC 4.69 10^6/uL (4.20-5.40) 03/11/18 05:00 Hgb 12.9 g/dL (12.0-16.0) 03/11/18 05:00 Hct 40.6 % (37.0-47.0) 03/11/18 05:00 MCV 86.5 fL (81.0-99.0) 03/11/18 05:00 MCH 27.5 pg (27.0-31.0) 03/11/18 05:00 MCHC 31.8 g/dL (32.0-36.0) L 03/11/18 05:00 RDW 17.4 % (12.0-15.0) H 03/11/18 05:00 Plt Count 209 10^3/uL (130-450) 03/11/18 05:00 MPV 8.5 fL (7.9-10.8) 03/11/18 05:00 Neut # (Auto) 4.5 10^3/uL (1.5-6.6) 03/09/18 18:57 Lymph # (Auto) 0.5 10^3/uL (1.5-3.5) L 03/09/18 18:57 Izard # (Auto) 0.6 10^3/uL (0.0-1.0) 03/09/18 18:57 Eos # (Auto) 0.1 10^3/uL (0.0-0.7) 03/09/18 18:57 Baso # (Auto) 0.0 10^3/uL (0.0-0.1) 03/09/18 18:57 Absolute Nucleated RBC 0.00 x10^3/uL 03/09/18 18:57 Nucleated RBC % 0.0 /100WBC 03/09/18 18:57 Manual Slide Review Indicated 03/09/18 18:57 Platelet Estimate NORMAL (130-450,000) (NORMAL) 03/09/18 18:57 Platelet Morphology RARE GIANT PLATELETS (NORMAL) 03/09/18 18:57 RBC Morph Micro Appear OVALOCYTES (NORMAL) 03/09/18 18:57 PT 19.7 secs (9.9-12.6) H 03/09/18 18:57 INR 1.8 (0.8-1.2) H 03/09/18 18:57 Sodium 139 mmol/L (135-145) 03/11/18 05:00 Potassium 3.7 mmol/L (3.5-5.0) 03/11/18 05:00 Chloride 103 mmol/L (101-111) 03/11/18 05:00 Carbon Dioxide 32 mmol/L (21-32) 03/11/18 05:00 Anion Gap 4.0 (6-13) L 03/11/18 05:00 BUN 11 mg/dL (6-20) 03/11/18 05:00 Creatinine 0.4 mg/dL (0.4-1.0) 03/11/18 05:00 Estimated GFR (MDRD) 157 (>89) 03/11/18 05:00 Glucose 90 mg/dL (70-100) 03/11/18 05:00 Calcium 9.3 mg/dL (8.5-10.3) 03/11/18 05:00 Total Bilirubin 1.4 mg/dL (0.2-1.0) H 03/09/18 18:57 AST < 10 IU/L (10-42) L 03/09/18 18:57 ALT < 10 IU/L (10-60) L 03/09/18 18:57 Alkaline Phosphatase 43 IU/L (42-121) 03/09/18 18:57 Total Creatine Kinase 81 IU/L (22-269) 03/09/18 18:57 Troponin I < 0.04 ng/mL (<0.49) 03/09/18 18:57 B-Natriuretic Peptide 279 pg/mL (5-100) H 03/10/18 04:35 Total Protein 5.3 g/dL (6.7-8.2) L 03/09/18 18:57 Albumin 3.1 g/dL (3.2-5.5) L 03/09/18 18:57 Globulin 2.2 g/dL (2.1-4.2) 03/09/18 18:57 Albumin/Globulin Ratio 1.4 (1.0-2.2) 03/09/18 18:57 Lipase 20 U/L (22-51) L 03/09/18 18:57 Last Dose Date 03/11/18 03/11/18 11:17 Last Dose Time 0210 03/11/18 11:17 Random Gentamicin 8.1 ug/mL 03/11/18 01:20 Vancomycin Trough 15.9 ug/mL (10.0-20.0) 03/11/18 11:17 - Procedures Procedures: Procedures INSERT GASTRIC TUBE NEC (03/25/13) PACKED CELL TRANSFUSION (03/25/13) ABX Reporting Has patient been on IV antibiotics over the past 48 hours?: No Current Medications - Current Medications Current Medications: Active Medications Generic Name Dose Route Start Last Admin Trade Name Freq PRN Reason Stop Dose Admin Acetaminophen 650 mg 03/09/18 21:47 03/11/18 12:26 Tylenol PO 650 mg Q4HR PRN Administration Fever Carbidopa/Levodopa 3 tab 03/10/18 05:00 03/11/18 10:28 Sinemet 25 Mg/100 Mg PO 3 tab 0500,1000,1400 RICHIE Administration Cholecalciferol 3,000 unit 03/10/18 09:00 03/11/18 09:07 Vitamin D3 PO 3,000 unit DAILY RICHIE Administration Diltiazem HCl 180 mg 03/10/18 09:00 03/11/18 09:07 Cardizem Cd PO 180 mg DAILY RICHIE Administration Docusate Sodium 100 mg 03/10/18 09:00 03/11/18 09:07 Colace 100mg Capsule PO 100 mg DAILY RICHIE Administration Enoxaparin Sodium 40 mg 03/10/18 09:00 03/11/18 09:05 Lovenox SUBQ 40 mg DAILY RICHIE Administration Furosemide 40 mg 03/10/18 09:00 03/11/18 09:07 Lasix PO 40 mg DAILY RICHIE Administration Vancomycin HCl 1 gm/ Sodium 250 mls @ 167 mls/hr 03/10/18 12:00 03/11/18 12:26 Chloride IV 167 mls/hr Q12H RICHIE Administration Piperacillin Sod/Tazobactam 100 mls @ 200 mls/hr 03/10/18 14:00 03/11/18 11:04 Sod 4.5 gm/ Sodium Chloride IV Infused Q6H RICHIE Infusion Gentamicin Sulfate 370 mg/ 109.25 mls @ 100 mls/hr 03/12/18 05:00 Sodium Chloride IV Q36H RICHIE Ibuprofen 600 mg 03/09/18 21:47 03/11/18 06:17 Motrin PO 600 mg Q6HR PRN Administration Pain 1 to 4 Levothyroxine Sodium 100 mcg 03/10/18 07:00 03/11/18 06:17 Synthroid PO 100 mcg QDAC RICHIE Administration Lisinopril 5 mg 03/10/18 09:00 03/11/18 09:06 Zestril PO 5 mg DAILY RICHIE Administration Metoprolol Succinate 25 mg 03/10/18 21:00 03/11/18 09:07 Toprol Xl PO 25 mg BID RICHIE Administration Pantoprazole Sodium 40 mg 03/10/18 07:00 03/11/18 06:18 Protonix IVP 40 mg QDAC RICHIE Administration Polyethylene Glycol 17 gm 03/10/18 09:00 03/11/18 09:05 Miralax PO 17 gm DAILY RICHIE Administration Potassium Chloride 10 meq 03/10/18 12:00 03/11/18 12:25 Micro-K PO 10 meq 1200 RICHIE Administration Prochlorperazine Edisylate 10 mg 03/09/18 21:47 03/10/18 03:47 Compazine Inj IVP 10 mg Q6HR PRN Administration Nausea / Vomiting Saccharomyces Boulardii 250 mg 03/10/18 12:00 03/11/18 09:07 Florastor PO 250 mg BIDWM RICHIE Administration Sodium Chloride 10 ml 03/09/18 21:47 03/11/18 06:18 Normal Saline Flush 0.9% IVP 10 ml PRN PRN Administration NEEDED PER PROVIDER ORDERS Sodium Chloride 10 ml 03/10/18 01:00 03/11/18 09:02 Normal Saline Flush 0.9% IVP 10 ml 0100,0900,1700 RICHIE Administration Tolterodine Tartrate 2 mg 03/10/18 09:00 03/11/18 09:07 Detrol La PO 2 mg DAILY RICHIE Administration Warfarin Sodium 3 mg 03/10/18 14:00 03/10/18 14:13 Coumadin PO 3 mg [id number] RICHIE Administration Warfarin Sodium 4.5 mg 03/11/18 14:00 Coumadin PO SuSa@1400 [facility] Zolpidem Tartrate 5 mg 03/09/18 21:47 Ambien PO QPM PRN Insomnia Omeprazole [PriLOSEC] 20 mg PO QDAC 03/25/13 Carbidopa/Levodopa 25/100 [Sinemet 25 mg/100 mg] 3 tab PO 0500,1000,1400 04/08/14 Furosemide 40 mg ORAL DAILY 04/08/14 Potassium Chloride 10 meq ORAL 1200 04/08/14 Tolterodine [Detrol LA] 2 mg ORAL DAILY 04/08/14 Warfarin Sodium 3 mg ORAL [id number]@0900 04/08/14 diltiaZEM CD [Cardizem Cd] 180 mg ORAL DAILY 04/08/14 Cholecalciferol (Vitamin D3) [Vitamin D3] 3,000 units PO DAILY 03/04/18 Levothyroxine Sodium 100 mcg PO QDAC 03/04/18 Warfarin Sodium 4.5 mg PO SUSA@0900 03/04/18
[2018-03-11] MEDS: WARFARIN 1 MG TABLET PO SCH (14:09)
[2018-03-12] MEDS: PIPERACILLIN/TAZOBACTAM 4.5 GM in SODIUM CHLORIDE 0.9% MINIBAG 100 ML IV SCH ×2 (02:15→08:18)
[2018-03-12] MEDS: ACETAMINOPHEN 325 MG TABLET PO PRN ×2 (02:15→15:53)
[2018-03-12 04:40] LABS: HGB - HEMOGLOBIN 11.8 g/dL (12.0-16.0); MEAN CORPUSCULAR HEMOGLOBIN 27.9 pg (27.0-31.0); MEAN CORPUSCULAR HGB CONC 32.7 g/dL (32.0-36.0); MEAN CORPUSCULAR VOLUME 85.2 fL (81.0-99.0); MEAN PLATELET VOLUME 7.7 fL (7.9-10.8); RED BLOOD COUNT 4.25 10^6/uL (4.20-5.40); RED CELL DISTRIBUTION WIDTH 16.7 % (12.0-15.0); WHITE BLOOD COUNT 3.8 x10^3/uL (4.8-10.8)
[2018-03-12] MEDS: CARBIDOPA/LEVODOPA 25 MG/100 MG TABLET PO SCH ×3 (04:41→15:18)
[2018-03-12 04:49] LABS: CALCIUM 9.1 mg/dL (8.5-10.3); CREATININE 0.5 mg/dL (0.4-1.0)
[2018-03-12] MEDS ORDERED: GENTAMICIN 370 MG in SODIUM CHLORIDE 0.9% 100ML 100 ML IV SCH (05:00)
[2018-03-12] MEDS: SODIUM CHLORIDE FLUSH 0.9% 10 ML SYRINGE IVP PRN (06:20)
[2018-03-12] MEDS: LEVOTHYROXINE 100 MCG TABLET PO SCH (06:20)
[2018-03-12] MEDS: PANTOPRAZOLE 40 MG VIAL IVP SCH (06:20)
[2018-03-12] MEDS: METOPROLOL SUCCINATE 25 MG TABLET PO SCH ×2 (08:25→20:14)
[2018-03-12] MEDS: LISINOPRIL 5 MG TABLET PO SCH (08:25)
[2018-03-12] MEDS: CHOLECALCIFEROL 1,000 UNIT TABLET PO SCH (08:25)
[2018-03-12] MEDS: FUROSEMIDE 40 MG TABLET PO SCH (08:25)
[2018-03-12] MEDS: SACCHAROMYCES BOULARDII 250 MG CAPSULE PO SCH ×2 (08:25→17:19)
[2018-03-12] MEDS: DOCUSATE SODIUM 100 MG CAPSULE PO SCH (08:25)
[2018-03-12] MEDS: TOLTERODINE LA 2 MG CAPSULE PO SCH (08:25)
[2018-03-12] MEDS: ENOXAPARIN 40 MG/0.4 ML SYRINGE SUBQ SCH (08:26)
[2018-03-12] MEDS: diltiaZEM CD 180 MG CAPSULE PO SCH (08:26)
[2018-03-12] MEDS: POLYETHYLENE GLYCOL 3350 17 GM PACKET PO SCH (08:32)
[2018-03-12] MEDS: SODIUM CHLORIDE FLUSH 0.9% 10 ML SYRINGE IVP SCH ×2 (08:33→17:05)
--- NOTE | 2018-03-12 09:14 | PROVIDER PROGRESS NOTE ---
Assessment/Plan - Problem List (1) HCAP (healthcare-associated pneumonia) Assessment/Plan: Patient has an impressive amount of consolidation in the left lower lung representing probable aspiration pneumonia. Patient will be admitted on triple antibiotic regimen due to recent hospital stay so she will be treated with hospital acquired pneumonia protocol though it certainly possible this is not hospital related. However it is just difficult to rule out and patient is relatively high risk and given that she has no prior oxygen requirement history and desaturated into the mid 80s, she was started on triple antibiotic coverage including Zosyn, gentamicin and vanco. Much more alert today and appears much improved Still on 2L of O2 will try to wean Plan: Continue IV Vanco, zosyn and gentamycin day 4 De-escalate abx today to Augmentin PO as patients urine and blood cx were both susceptible to augmentin and this would also be good coverage for pneumonia Swallow evaluation showed dysphagia and patients diet was changed accordingly Repeat CXR today Likely SNF tomorrow COntinue PT (2) Dysphagia Conclusion/Plan: Patient was assessed by speech therapy and they recommended a chemical soft diet, with nectar thick liquids, all medications with whole applesauce and aggressive oral care. Patient's dysphagia is likely secondary to Parkinson's (3) Complicated UTI (urinary tract infection) Conclusion/Plan: De-escalate abx today to Augmentin PO as patients urine and blood cx were both susceptible to augmentin and this would also be good coverage for pneumonia Patients treatment for UTI to continue till 03/18/18 secondary to bacteremia. (4) Infection due to gram-negative bacteria Conclusion/Plan: De-escalate abx today to Augmentin PO as patients urine and blood cx were both susceptible to augmentin and this would also be good coverage for pneumonia Continue till 03/18/18 (5) Kyphosis deformity of spine Conclusion/Plan: This is probably increasing her probability of aspiration but unfortunately there is not a great solution for this. Patient will remain to be at high risk for aspiration pneumonia. Also likely causes restrictive lung disease and atelectasis. Qualifiers: Spinal region: cervical (6) Parkinson disease, symptomatic Conclusion/Plan: Patient does have dysphagia and her diet was changed accordingly. She will continue on her home Parkinson's medications. (7) Atrial Fibrillation Conclusion/Plan: HR well controlled on metoprolol and diltiazem Continue coumadin (8) Chronic Systolic Heart Failure Conclusion/Plan: Patient will be continued on optimal treatment for systolic heart failure with metoprolol, lisinopril. Patient's ejection fraction is 35%. We will consider starting patient on spironolactone in the future however the patient's blood pressure is borderline low at this time. Patient does not appear to be in CHF exacerbation however we will need to be cautious about giving the patient fluid. - Current Meds Current Meds: Current Medications Generic Name Dose Route Start Last Admin Trade Name Freq PRN Reason Stop Dose Admin Acetaminophen 650 mg 03/09/18 21:47 03/12/18 02:15 Tylenol PO 650 mg Q4HR PRN Administration Fever Carbidopa/Levodopa 3 tab 03/10/18 05:00 03/12/18 04:41 Sinemet 25 Mg/100 Mg PO 3 tab 0500,1000,1400 RICHIE Administration Cholecalciferol 3,000 unit 03/10/18 09:00 03/12/18 08:25 Vitamin D3 PO 3,000 unit DAILY RICHIE Administration Diltiazem HCl 180 mg 03/10/18 09:00 03/12/18 08:26 Cardizem Cd PO 180 mg DAILY RICHIE Administration Docusate Sodium 100 mg 03/10/18 09:00 03/12/18 08:25 Colace 100mg Capsule PO 100 mg DAILY RICHIE Administration Enoxaparin Sodium 40 mg 03/10/18 09:00 03/12/18 08:26 Lovenox SUBQ 40 mg DAILY RICHIE Administration Furosemide 40 mg 03/10/18 09:00 03/12/18 08:25 Lasix PO 40 mg DAILY RICHIE Administration Vancomycin HCl 1 gm/ Sodium 250 mls @ 167 mls/hr 03/10/18 12:00 03/12/18 01:25 Chloride IV Infused Q12H RICHIE Infusion Piperacillin Sod/Tazobactam 100 mls @ 200 mls/hr 03/10/18 14:00 03/12/18 08:18 Sod 4.5 gm/ Sodium Chloride IV 200 mls/hr Q6H RICHIE Administration Gentamicin Sulfate 370 mg/ 109.25 mls @ 100 mls/hr 03/12/18 05:00 03/12/18 06:20 Sodium Chloride IV Infused Q36H RICHIE Infusion Ibuprofen 600 mg 03/09/18 21:47 03/11/18 06:17 Motrin PO 600 mg Q6HR PRN Administration Pain 1 to 4 Levothyroxine Sodium 100 mcg 03/10/18 07:00 03/12/18 06:20 Synthroid PO 100 mcg QDAC RICHIE Administration Lisinopril 5 mg 03/10/18 09:00 03/12/18 08:25 Zestril PO 5 mg DAILY RICHIE Administration Metoprolol Succinate 25 mg 03/10/18 21:00 03/12/18 08:25 Toprol Xl PO 25 mg BID RICHIE Administration Pantoprazole Sodium 40 mg 03/10/18 07:00 03/12/18 06:20 Protonix IVP 40 mg QDAC RICHIE Administration Polyethylene Glycol 17 gm 03/10/18 09:00 03/12/18 08:32 Miralax PO 17 gm DAILY RICHIE Administration Potassium Chloride 10 meq 03/10/18 12:00 03/11/18 12:25 Micro-K PO 10 meq 1200 RICHIE Administration Prochlorperazine Edisylate 10 mg 03/09/18 21:47 03/10/18 03:47 Compazine Inj IVP 10 mg Q6HR PRN Administration Nausea / Vomiting Saccharomyces Boulardii 250 mg 03/10/18 12:00 03/12/18 08:25 Florastor PO 250 mg BIDWM RICHIE Administration Sodium Chloride 10 ml 03/09/18 21:47 03/12/18 06:20 Normal Saline Flush 0.9% IVP 10 ml PRN PRN Administration NEEDED PER PROVIDER ORDERS Sodium Chloride 10 ml 03/10/18 01:00 03/12/18 08:33 Normal Saline Flush 0.9% IVP 10 ml 0100,0900,1700 RICHIE Administration Tolterodine Tartrate 2 mg 03/10/18 09:00 03/12/18 08:25 Detrol La PO 2 mg DAILY RICHIE Administration Warfarin Sodium 3 mg 03/10/18 14:00 03/10/18 14:13 Coumadin PO 3 mg [id number]@1400 RICHIE Administration Warfarin Sodium 4.5 mg 03/11/18 14:00 03/11/18 14:09 Coumadin PO 4.5 mg SuSa@1400 [facility] Administration - Lab Result Lab results reviewed: Yes Fish Bone Diagrams: 03/12/18 04:25 03/12/18 04:25 - Diagnostic Imaging Results Diagnostic Imaging Results: Final report reviewed - Additional Planning Condition/Complexity: Improved My Orders: My Active Orders 03/12/18 08:00 Potassium Chlor 10 Meq/100 ml [Potassium Chloride] 10 meq in 100 ml IV Q1H Consult/Specialty: PT Plan Discussed with:: Patient, Family Time Spent: 31-60 minutes Subjective - Subjective Patient Reports: Feeling Better, Resting Comfortably, Cough (Improved), Shortness of Breath (Improved), Other (No fevers overnight) Nursing Reports: No Complaints Objective Vital Signs: Vital Signs - 24 hr 03/11/18 03/11/18 03/11/18 12:35 15:59 18:12 Temperature 36.2 C L 36.9 C 36.9 C Heart Rate 108 H Heart Rate [ 89 108 H Brachial] Respiratory 18 24 24 Rate Blood Pressure 98/60 104/75 [Right Brachial artery] O2 Saturation 96 96 96 03/11/18 03/11/18 03/12/18 20:34 23:50 05:00 Temperature 36.8 C 36.7 C 36.8 C Heart Rate Heart Rate [ 73 86 61 Brachial] Respiratory 24 18 18 Rate Blood Pressure 105/64 104/70 108/57 L [Right Brachial artery] O2 Saturation 97 98 95 03/12/18 07:45 Temperature 36.9 C Heart Rate Heart Rate [ 99 Brachial] Respiratory 22 Rate Blood Pressure 111/67 [Right Brachial artery] O2 Saturation 95 Oxygen O2 Source [Without Activity] Nasal cannula O2 Source Nasal cannula Oxygen Flow Rate 3 I&O (Last 24 Hrs): Intake and Output Totals x24h 03/10/18 03/11/18 03/12/18 23:59 23:59 23:59 Intake Total 1591.25 1170 459.25 Output Total 850 1450 600 Balance 741.25 -280 -140.75 General: Alert, Oriented x3, Cooperative, No acute distress, Other (Severe kyphosis) HEENT: Atraumatic, PERRLA, EOMI, Mucous membr. moist/pink Neck: Supple, No JVD, No thyromegaly, +2 carotid pulse wo bruit, No LAD Lymphatic: no adenopathy Neuro: Alert, Non Focal, CN 2-12 Grossly Intact, Oriented Times 3 Cardiovascular: Other (Irregularly irregular) Respiratory: Chest non-tender, Rales (Bases), Rhonchi (LEft worse than right) Abdomen: Normal bowel sounds, Soft, No tenderness, No hepatospenomegaly Extremities: No clubbing, No cyanosis, No edema, Normal pulses Skin: No rashes, No breakdown - Results Results: Laboratory Results WBC 3.8 x10^3/uL (4.8-10.8) L 03/12/18 04:25 RBC 4.25 10^6/uL (4.20-5.40) 03/12/18 04:25 Hgb 11.8 g/dL (12.0-16.0) L 03/12/18 04:25 Hct 36.2 % (37.0-47.0) L 03/12/18 04:25 MCV 85.2 fL (81.0-99.0) 03/12/18 04:25 MCH 27.9 pg (27.0-31.0) 03/12/18 04:25 MCHC 32.7 g/dL (32.0-36.0) 03/12/18 04:25 RDW 16.7 % (12.0-15.0) H 03/12/18 04:25 Plt Count 184 10^3/uL (130-450) 03/12/18 04:25 MPV 7.7 fL (7.9-10.8) L 03/12/18 04:25 Neut # (Auto) 4.5 10^3/uL (1.5-6.6) 03/09/18 18:57 Lymph # (Auto) 0.5 10^3/uL (1.5-3.5) L 03/09/18 18:57 [place] # (Auto) 0.6 10^3/uL (0.0-1.0) 03/09/18 18:57 Eos # (Auto) 0.1 10^3/uL (0.0-0.7) 03/09/18 18:57 Baso # (Auto) 0.0 10^3/uL (0.0-0.1) 03/09/18 18:57 Absolute Nucleated RBC 0.00 x10^3/uL 03/09/18 18:57 Nucleated RBC % 0.0 /100WBC 03/09/18 18:57 Manual Slide Review Indicated 03/09/18 18: Platelet Estimate NORMAL (130-450,000) (NORMAL) 03/09/18 18:57 Platelet Morphology RARE GIANT PLATELETS (NORMAL) 03/09/18 18:57 RBC Morph Micro Appear OVALOCYTES (NORMAL) 03/09/18 18:57 PT 19.7 secs (9.9-12.6) H 03/09/18 18:57 INR 1.8 (0.8-1.2) H 03/09/18 18:57 Sodium 140 mmol/L (135-145) 03/12/18 04:25 Potassium 3.1 mmol/L (3.5-5.0) L 03/12/18 04:25 Chloride 100 mmol/L (101-111) L 03/12/18 04:25 Carbon Dioxide 35 mmol/L (21-32) H 03/12/18 04:25 Anion Gap 5.0 (6-13) L 03/12/18 04:25 BUN 10 mg/dL (6-20) 03/12/18 04:25 Creatinine 0.5 mg/dL (0.4-1.0) 03/12/18 04:25 Estimated GFR (MDRD) 122 (>89) 03/12/18 04:25 Glucose 84 mg/dL (70-100) 03/12/18 04:25 Calcium 9.1 mg/dL (8.5-10.3) 03/12/18 04:25 Total Bilirubin 1.4 mg/dL (0.2-1.0) H 03/09/18 18:57 AST < 10 IU/L (10-42) L 03/09/18 18:57 ALT < 10 IU/L (10-60) L 03/09/18 18:57 Alkaline Phosphatase 43 IU/L (42-121) 03/09/18 18:57 Total Creatine Kinase 81 IU/L (22-269) 03/09/18 18:57 Troponin I < 0.04 ng/mL (<0.49) 03/09/18 18:57 B-Natriuretic Peptide 279 pg/mL (5-100) H 03/10/18 04:35 Total Protein 5.3 g/dL (6.7-8.2) L 03/09/18 18:57 Albumin 3.1 g/dL (3.2-5.5) L 03/09/18 18:57 Globulin 2.2 g/dL (2.1-4.2) 03/09/18 18:57 Albumin/Globulin Ratio 1.4 (1.0-2.2) 03/09/18 18:57 Lipase 20 U/L (22-51) L 03/09/18 18:57 Last Dose Date 03/11/18 03/11/18 11:17 Last Dose Time 0210 03/11/18 11:17 Random Gentamicin 8.1 ug/mL 03/11/18 01:20 Vancomycin Trough 15.9 ug/mL (10.0-20.0) 03/11/18 11:17 - Procedures Procedures: Procedures INSERT GASTRIC TUBE NEC (03/25/13) PACKED CELL TRANSFUSION (03/25/13) ABX Reporting Has patient been on IV antibiotics over the past 48 hours?: Yes Current Medications - Current Medications Current Medications: Active Medications Generic Name Dose Route Start Last Admin Trade Name Freq PRN Reason Stop Dose Admin Acetaminophen 650 mg 03/09/18 21:47 03/12/18 02:15 Tylenol PO 650 mg Q4HR PRN Administration Fever Carbidopa/Levodopa 3 tab 03/10/18 05:00 03/12/18 04:41 Sinemet 25 Mg/100 Mg PO 3 tab 0500,1000,1400 RICHIE Administration Cholecalciferol 3,000 unit 03/10/18 09:00 03/12/18 08:25 Vitamin D3 PO 3,000 unit DAILY RICHIE Administration Diltiazem HCl 180 mg 03/10/18 09:00 03/12/18 08:26 Cardizem Cd PO 180 mg DAILY RICHIE Administration Docusate Sodium 100 mg 03/10/18 09:00 03/12/18 08:25 Colace 100mg Capsule PO 100 mg DAILY RICHIE Administration Enoxaparin Sodium 40 mg 03/10/18 09:00 03/12/18 08:26 Lovenox SUBQ 40 mg DAILY RICHIE Administration Furosemide 40 mg 03/10/18 09:00 03/12/18 08:25 Lasix PO 40 mg DAILY RICHIE Administration Vancomycin HCl 1 gm/ Sodium 250 mls @ 167 mls/hr 03/10/18 12:00 03/12/18 01:25 Chloride IV Infused Q12H RICHIE Infusion Piperacillin Sod/Tazobactam 100 mls @ 200 mls/hr 03/10/18 14:00 03/12/18 08:18 Sod 4.5 gm/ Sodium Chloride IV 200 mls/hr Q6H RICHIE Administration Gentamicin Sulfate 370 mg/ 109.25 mls @ 100 mls/hr 03/12/18 05:00 03/12/18 06:20 Sodium Chloride IV Infused Q36H RICHIE Infusion Potassium Chloride 10 meq in 100 mls @ 100 mls/hr 03/12/18 08:00 Potassium Chloride IV 03/12/18 13:59 Q1H RICHIE Ibuprofen 600 mg 03/09/18 21:47 03/11/18 06:17 Motrin PO 600 mg Q6HR PRN Administration Pain 1 to 4 Levothyroxine Sodium 100 mcg 03/10/18 07:00 03/12/18 06:20 Synthroid PO 100 mcg QDAC RICHIE Administration Lisinopril 5 mg 03/10/18 09:00 03/12/18 08:25 Zestril PO 5 mg DAILY RICHIE Administration Metoprolol Succinate 25 mg 03/10/18 21:00 03/12/18 08:25 Toprol Xl PO 25 mg BID RICHIE Administration Pantoprazole Sodium 40 mg 03/10/18 07:00 03/12/18 06:20 Protonix IVP 40 mg QDAC RICHIE Administration Polyethylene Glycol 17 gm 03/10/18 09:00 03/12/18 08:32 Miralax PO 17 gm DAILY RICHIE Administration Potassium Chloride 10 meq 03/10/18 12:00 03/11/18 12:25 Micro-K PO 10 meq 1200 RICHIE Administration Prochlorperazine Edisylate 10 mg 03/09/18 21:47 03/10/18 03:47 Compazine Inj IVP 10 mg Q6HR PRN Administration Nausea / Vomiting Saccharomyces Boulardii 250 mg 03/10/18 12:00 03/12/18 08:25 Florastor PO 250 mg BIDWM RICHIE Administration Sodium Chloride 10 ml 03/09/18 21:47 03/12/18 06:20 Normal Saline Flush 0.9% IVP 10 ml PRN PRN Administration NEEDED PER PROVIDER ORDERS Sodium Chloride 10 ml 03/10/18 01:00 03/12/18 08:33 Normal Saline Flush 0.9% IVP 10 ml 0100,0900,1700 RICHIE Administration Tolterodine Tartrate 2 mg 03/10/18 09:00 03/12/18 08:25 Detrol La PO 2 mg DAILY RICHIE Administration Warfarin Sodium 3 mg 03/10/18 14:00 03/10/18 14:13 Coumadin PO 3 mg [id number]@1400 RICHIE Administration Warfarin Sodium 4.5 mg 03/11/18 14:00 03/11/18 14:09 Coumadin PO 4.5 mg SuSa@1400 RICHIE Administration Zolpidem Tartrate 5 mg 03/09/18 21:47 Ambien PO QPM PRN Insomnia Omeprazole [PriLOSEC] 20 mg PO QDAC 03/25/13 Carbidopa/Levodopa 25/100 [Sinemet 25 mg/100 mg] 3 tab PO 0500,1000,1400 04/08/14 Furosemide 40 mg ORAL DAILY 04/08/14 Potassium Chloride 10 meq ORAL 1200 04/08/14 Tolterodine [Detrol LA] 2 mg ORAL DAILY 04/08/14 Warfarin Sodium 3 mg ORAL MOTUWETHFR@0900 04/08/14 diltiaZEM CD [Cardizem Cd] 180 mg ORAL DAILY 04/08/14 Cholecalciferol (Vitamin D3) [Vitamin D3] 3,000 units PO DAILY 03/04/18 Levothyroxine Sodium 100 mcg PO QDAC 03/04/18 Warfarin Sodium 4.5 mg PO SUSA@0900 03/04/18
[2018-03-12] MEDS: POTASSIUM CHLOR 10 MEQ/100 ML 10 MEQ/100 ML BAG IV SCH ×6 (09:20→15:54)
[2018-03-12] MEDS: POTASSIUM CHLORIDE 10 MEQ CAPSULE PO SCH (11:47)
--- NOTE | 2018-03-12 11:54 | XRAY Report ---
Reason: Follow up on pneumonia Procedure Date: 03/12/2018 Accession Number: [id number] / [id number] Procedure: XR - Chest 1 View X-Ray CPT Code: 68423 FULL RESULT: EXAM: CHEST RADIOGRAPHY EXAM DATE: 03/12/2018 09:50 AM. CLINICAL HISTORY: Follow up on pneumonia. COMPARISON: CHEST 1 VIEW 03/06/2018 8:26 AM CHEST ANGIO 03/09/2018 8:00 PM CHEST 2 VIEW 03/03/2018 6:11 PM. TECHNIQUE: 1 view. FINDINGS: Lungs/Pleura: There is a large hiatal hernia noted resulting in decreased volume of the left lung. The lung volumes are relatively low overall. There is opacity in the left lung base. No pneumothorax. Mediastinum: The cardiac and mediastinal silhouettes are likely stable. Other: None. IMPRESSION: 1. There is redemonstration of the large hiatal hernia. 2. There is opacity in the left lung base corresponding with pleural fluid and consolidation on the prior chest CT and likely without significant interval change. RADIA
[2018-03-12] MEDS: AMOX/CLAV 875 MG/125 MG TABLET PO SCH ×2 (13:00→20:14)
[2018-03-12] MEDS ORDERED: MAGNESIUM HYDROXIDE 2,400 MG/30 ML UDC PO ONE (13:24)
[2018-03-12] MEDS: WARFARIN 1 MG TABLET PO SCH (15:17)
[2018-03-12] MEDS: SENNA 8.6 MG TABLET PO SCH (20:14)
[2018-03-13] MEDS: SODIUM CHLORIDE FLUSH 0.9% 10 ML SYRINGE IVP SCH ×2 (00:51→08:46)
[2018-03-13] MEDS: ZINC OXIDE 20% OINT 28.35 GM TUBE TOP SCH ×2 (00:51→08:46)
[2018-03-13] MEDS: CARBIDOPA/LEVODOPA 25 MG/100 MG TABLET PO SCH ×3 (04:58→14:03)
[2018-03-13 06:09] LABS: INR 2.5 (0.8-1.2)
[2018-03-13] MEDS: PANTOPRAZOLE 40 MG VIAL IVP SCH (06:31)
[2018-03-13] MEDS: ACETAMINOPHEN 325 MG TABLET PO PRN (06:31)
[2018-03-13] MEDS: LEVOTHYROXINE 100 MCG TABLET PO SCH (06:31)
[2018-03-13] MEDS: SODIUM CHLORIDE FLUSH 0.9% 10 ML SYRINGE IVP PRN ×2 (06:32→06:36)
[2018-03-13] MEDS: diltiaZEM CD 180 MG CAPSULE PO SCH (08:45)
[2018-03-13] MEDS: FUROSEMIDE 40 MG TABLET PO SCH (08:45)
[2018-03-13] MEDS: POLYETHYLENE GLYCOL 3350 17 GM PACKET PO SCH (08:45)
[2018-03-13] MEDS: SACCHAROMYCES BOULARDII 250 MG CAPSULE PO SCH (08:45)
[2018-03-13] MEDS: CHOLECALCIFEROL 1,000 UNIT TABLET PO SCH (08:45)
[2018-03-13] MEDS: DOCUSATE SODIUM 100 MG CAPSULE PO SCH (08:45)
[2018-03-13] MEDS: TOLTERODINE LA 2 MG CAPSULE PO SCH (08:45)
[2018-03-13] MEDS: SENNA 8.6 MG TABLET PO SCH (08:45)
[2018-03-13] MEDS: METOPROLOL SUCCINATE 25 MG TABLET PO SCH (08:45)
[2018-03-13] MEDS: LISINOPRIL 5 MG TABLET PO SCH (08:45)
[2018-03-13] MEDS: AMOX/CLAV 875 MG/125 MG TABLET PO SCH (08:45)
[2018-03-13] MEDS: ENOXAPARIN 40 MG/0.4 ML SYRINGE SUBQ SCH (08:46)
--- NOTE | 2018-03-13 08:57 | Discharge Plan ---
"Discharge Plan for SNF / [facility] - Discharge Plan And Transition Orders Disposition: 03 SNF DC/Xfer Condition: Fair Allergies and Adverse Reactions: Allergies Allergy/AdvReac Type Severity Reaction Status Date / Time strawberry [Cayucos] AdvReac Intermediate Rash Verified 03/09/18 18:41 hydrocodone bitartrate * AdvReac Emesis Verified 03/09/18 18:41 [From Vicodin] - SNF / [facility] Transition Orders Admit to (Facility): [facility] Under the care of (Name): Dr. Maine Kilgore Discharge Diagnosis: 1. Healthcare associated pneumonia 2. Dysphasia 3. Complicated UTI 4. Infection due to gram-negative bacteria 5. Kyphosis deformity of spine 6. Parkinson's disease, symptomatic 7. Atrial fibrillation 8. Chronic systolic heart failure Medicare Certification Statement: I certify that [facility] sn[facility] care is medically necessary on a continuing basis for any of the conditions for which she/he is receiving care during hospitalization. Notify PCP of admission and forward orders to primary provider for signature. Weight on admission and: Weekly Call PCP immediately if weight increases by: 2.5 kg Other Notification Orders: Call PCP immediately if patient develops dyspnea, chest pain/tightness or edema. House Bowel Program: Yes Additional Bowel Program Orders: If no BM after 2 days, nurse may give M.O.M. 30ml PO PRN and/or ducolax Supp 1 FL and/or DK 250mg P.O., and/or senna 1-2 tabs PO. On day 3 nurse may give repeat above order until residents constipation is resolved. Annual Influenza Vaccine (between Nov 12 and June 11): Yes Two-step PPD per [facility] [phone] or approved exception documents: Yes Treatments & Other Orders: 1. Physical therapy and occupational therapy. 2. Continue antibiotics till 03/18/2017. 3. Soft mechanical diet Oxygen Orders: Continue 2 L of oxygen by nasal cannula 24 hours Lab Tests or X-ray Orders: Repeat chest x-ray after patient has completed treatment with antibiotics Medication Orders: PLEASE REFER TO THE DISCHARGE MEDICATION LIST. Insulin Orders?: No - Diet Type: No added salt Texture: Mech soft Liquids: [place] thick (Meds with applesauce and aggressive oral care) May have monthly special meal: No - Therapies | Activity Therapy: Evaluation | Treat if indicated: PT, OT, Swallowing / ST Rehabilitation Potential: Maximize functional status Activity: Activity as Tolerated Weight Bearing: Full Weight Assistance Devices: Wheelchair, Walker Follow Up: Follow-up chest x-ray once antibiotics completed. Follow-up with primary care once rehab is completed."
[2018-03-13] MEDS: POTASSIUM CHLORIDE 10 MEQ CAPSULE PO SCH (11:59)
--- NOTE | 2018-03-13 12:48 | DISCHARGE SUMMARY ---
Discharge Summary Admit Date: 03/09/18 Discharge Date: 03/13/18 Discharging Provider: Oleg Adams MD Primary Care Provider: Michel Thomas MD Code Status: Attempt Resuscitation Condition at Discharge: Fair Discharge Disposition: 03 SNF DC/Xfer Discharge Facility Name: [facility] - DIAGNOSES Admission Diagnoses: 1. Aspiration pneumonia of left lung 2. Complicated urinary tract infection 3. Infection due to gram-negative bacteria 4. Kyphosis deformity of spine 5. Parkinson's disease, symptomatic Discharge Diagnoses with Status of Each Condition: 1. Acute respiratory failure with hypoxia: Guarded 2. Healthcare associated pneumonia: Improving 3. Dysphagia: Stable 4. Complicated urinary tract infection: Stable 5. Bacteremia with E. coli: Stable 6. Kyphosis deformity of spine: Stable 7. Parkinson's disease, symptomatic: Stable 8. Atrial fibrillation: Stable 9. Chronic systolic heart failure: Stable - HPI History of Present Illness: Patient is a 73-year-old female with past medical history of severe kyphosis, atrial fibrillation, CHF, who was recently discharged from the hospital yesterday due to a complicated urinary tract infection. She returned home on oral antibiotics including Levaquin, and developed shortness of breath yesterday and significantly worsened today. Following is the HPI from the discharge summary by Dr. Adams: "After admission the patient's blood cultures came back positive for E. coli and the patient became increasingly lethargic with increasing tachycardia and went into atrial fibrillation with rapid ventricular response. The patient required transferring to the intensive care unit for a diltiazem drip. The patient responded well to diltiazem and we titrated up patient's dose of metoprolol up to 50 mg twice daily and continued on her oral diltiazem with which the patient did have improvement and was able to be weaned off the diltiazem drip. The patient's echocardiogram did show that the patient has systolic congestive heart failure with an ejection fraction of 35% and moderate pulmonary hypertension with a PA pressure of 47 mmHg. The patient's troponin was mildly elevated at 0.23 but remains stable. The patient was treated with IV antibiotics to which she responded well. The patient's repeat blood cultures were negative. Both the patient's urine and blood cultures both grew out E. coli which was hastings susceptible. The patient's antibiotics were de-escalated to IV Levaquin and the patient was discharged home on oral Levaquin. The patient had significant improvement over the course of her hospitalization and was more alert and awake at the time of discharge. The patient did continue to be weak and was seen by physical therapy who did recommend long-term facility for subacute rehab however the patient's family wanted to take the patient home. The social science research assistant did arrange for patient to have in-home caregivers and the patient already had a bedside commode at home. The patient was reluctantly discharged home with her and son to care for her. The patient was discharged home with oral antibiotics to treat bacteremia. She will require oral Levaquin for a total of 14 days from her negative blood culture and will complete treatment on March 18, 2018. The patient also had her metoprolol dose increased from 25 mg daily to 50 mg twice daily to better control her atrial fibrillation. The patient was also started on lisinopril for her systolic heart failure and this will be continued at home. The patient was in stable condition at the time of discharge." Patient states that she had a mild intermittent cough when she would try to speak but otherwise did not have any other respiratory symptoms such as persistent coughing, sputum production, congestion. She did not have fever or chills. She does continue however to complain of cramping in the suprapubic area and in fact states that from her point of view this is the main reason why she returned to the hospital despite her shortness of breath. In the emergency room evaluation was primarily focused on the shortness of breath and this led to a CT scan with PE protocol to rule out a pulmonary embolus given the recent hospital stay, and fortunately this did not show a PE however it did show a quite impressive consolidation of almost the entire left lower lung with some infection in the right side. She was not showing any signs of sepsis, blood pressure and heart rate relatively at her baseline, white blood cell count is fairly normal, though she did have a hypoxia originally of saturations in the 80s before she was put on 3 L by nasal cannula. Due to the pneumonia seen on the CT scan, blood cultures were ordered and patient was given a single dose of Rocephin and azithromycin and hospitalist service was called to admit patient. - HOSPITAL COURSE Hospital Course: (1) Acute respiratory failure with hypoxia Assessment/Plan: Secondary to healthcare associated pneumonia. Patient on 2 L of oxygen and could not be weaned off prior to discharge to long-term facility. Patient initially treated with IV vancomycin, Zosyn and gentamicin for 4 days and the escalated to oral Augmentin which patient will continue till 03/18/2018 Patient continued on supplemental oxygen at discharge will need 2 L at rest and with exertion. (2) HCAP (healthcare-associated pneumonia) Assessment/Plan: Patient has an impressive amount of consolidation in the left lower lung representing probable aspiration pneumonia. Patient will be admitted on triple antibiotic regimen due to recent hospital stay so she will be treated with hospital acquired pneumonia protocol though it certainly possible this is not hospital related. However it is just difficult to rule out and patient is relatively high risk and given that she has no prior oxygen requirement history and desaturated into the mid 80s, she was started on triple antibiotic coverage including Zosyn, gentamicin and vanco. Patient received 4 days of IV vancomycin, Zosyn and gentamicin and then antibiotic was de-escalated to Augmentin which the patient will continue till 03/18/2018 Patient continued to require 2 L of oxygen and was discharged to long-term facility with oxygen Patient had significant improvement in her symptoms and was stable at the time of discharge. (3) Dysphagia Conclusion/Plan: Patient was assessed by speech therapy and they recommended a chemical soft diet, with nectar thick liquids, all medications with whole applesauce and aggressive oral care. Patient's dysphagia is likely secondary to Parkinson's Continue with above diet at long-term facility (4) Complicated UTI (urinary tract infection) Conclusion/Plan: De-escalated abx to Augmentin PO as patients urine and blood cx were both susceptible to augmentin and this would also be good coverage for pneumonia Patients treatment for UTI to continue till 03/18/18 secondary to bacteremia. (4) Infection due to gram-negative bacteria Conclusion/Plan: De-escalate abx to Augmentin PO as patients urine and blood cx were both susceptible to augmentin and this would also be good coverage for pneumonia Continue till 03/18/18 (5) Kyphosis deformity of spine Conclusion/Plan: This is probably increasing her probability of aspiration but unfortunately there is not a great solution for this. Patient will remain to be at high risk for aspiration pneumonia. Also likely causes restrictive lung disease and atelectasis. Stable Qualifiers: Spinal region: cervical (6) Parkinson disease, symptomatic Conclusion/Plan: Patient does have dysphagia and her diet was changed accordingly. She will continue on her home Parkinson's medications. (7) Atrial Fibrillation Conclusion/Plan: HR well controlled on metoprolol and diltiazem Continued coumadin INR 2.5 Check INR weekly (8) Chronic Systolic Heart Failure Conclusion/Plan: Patient will be continued on optimal treatment for systolic heart failure with metoprolol, lisinopril. Patient's ejection fraction is 35%. Stable Patient was assessed by physical therapy who recommended continued PT at long-term facility. Patient was discharged to [facility] for further physical therapy. She will continue on antibiotics and attempt will be made to maximize her functional ability. - ALLERGIES Allergies/Adverse Reactions: Allergies Allergy/AdvReac Type Severity Reaction Status Date / Time strawberry [[place]] AdvReac Intermediate Rash Verified 03/09/18 18:41 hydrocodone bitartrate * AdvReac Emesis Verified 03/09/18 18:41 [From Vicodin] - MEDICATIONS Home Medications: Ambulatory Orders Medication Instructions Recorded Confirmed Omeprazole [PriLOSEC] 20 mg PO QDAC 03/25/13 03/10/18 Carbidopa/Levodopa 25/100 [Sinemet 3 tab PO 0500,1000,1400 04/08/14 03/10/18 25 mg/100 mg] Furosemide 40 mg ORAL DAILY 04/08/14 03/10/18 Potassium Chloride 10 meq ORAL 1200 04/08/14 03/10/18 Tolterodine [Detrol LA] 2 mg ORAL DAILY 04/08/14 03/10/18 Warfarin Sodium 3 mg ORAL MOTUWETHFR@0900 04/08/14 03/10/18 diltiaZEM CD [Cardizem Cd] 180 mg ORAL DAILY 04/08/14 03/10/18 Cholecalciferol (Vitamin D3) 3,000 units PO DAILY 03/04/18 03/10/18 [Vitamin D3] Levothyroxine Sodium 100 mcg PO QDAC 03/04/18 03/10/18 Warfarin Sodium 4.5 mg PO SUSA@0900 03/04/18 03/10/18 Lisinopril [Prinivil] 5 mg PO DAILY #60 tablet 03/08/18 03/10/18 Metoprolol Succinate [Toprol Xl] 50 mg PO BID #60 tablet 03/08/18 03/10/18 Amox/Clav 875/125 [Augmentin 1 tab PO BID #10 tablet 03/13/18 875/125] - PHYSICAL EXAM AT DISCHARGE General Appearance: positive: No acute distress, Alert, Other (Severe kyphosis) Eyes Bilateral: positive: Normal inspection, PERRL, EOMI, No lid inflammation, Conjunctivae nml, No scleral icterus ENT: positive: ENT inspection nml, Pharynx nml, No signs of dehydration. negative: Purulent nasal drainage, Pharyngeal erythema, Oral lesions Neck: positive: Nml inspection, Thyroid nml, No JVD, Trachea midline. negative: Thyromegaly, Lymphadenopathy (R), Lymphadenopathy (L), Stiff neck, Carotid bruit, Tracheal deviation Respiratory: positive: Chest non-tender, No respiratory distress, Rhonchi (Left lung improved). negative: Wheezes, Rales Cardiovascular: positive: No murmur, No gallop, Irregularly irregular Peripheral Pulses: positive: 2+ Abdomen: positive: Non-tender, No organomegaly, Nml bowel sounds, No distention. negative: Guarding, Rebound, Hepatomegaly Back: positive: Nml inspection. negative: CVA tenderness (R), CVA tenderness (L) Skin: positive: Color nml, No rash, Warm. negative: Diaphoresis, Pallor, Skin r josh Extremities: positive: Non-tender, Full ROM, Nml appearance, No pedal edema Neurologic/Psychiatric: positive: Oriented x3, CN's nml (2-12), Motor nml, Sensation nml, Mood/affect nml - LABS Result Diagrams: 03/12/18 04:25 03/12/18 04:25 Other Lab Results: Laboratory Results WBC 3.8 x10^3/uL (4.8-10.8) L 03/12/18 04:25 RBC 4.25 10^6/uL (4.20-5.40) 03/12/18 04:25 Hgb 11.8 g/dL (12.0-16.0) L 03/12/18 04:25 Hct 36.2 % (37.0-47.0) L 03/12/18 04:25 MCV 85.2 fL (81.0-99.0) 03/12/18 04:25 MCH 27.9 pg (27.0-31.0) 03/12/18 04:25 MCHC 32.7 g/dL (32.0-36.0) 03/12/18 04:25 RDW 16.7 % (12.0-15.0) H 03/12/18 04:25 Plt Count 184 10^3/uL (130-450) 03/12/18 04:25 MPV 7.7 fL (7.9-10.8) L 03/12/18 04:25 Neut # (Auto) 4.5 10^3/uL (1.5-6.6) 03/09/18 18:57 Lymph # (Auto) 0.5 10^3/uL (1.5-3.5) L 03/09/18 18:57 Todd # (Auto) 0.6 10^3/uL (0.0-1.0) 03/09/18 18:57 Eos # (Auto) 0.1 10^3/uL (0.0-0.7) 03/09/18 18:57 Baso # (Auto) 0.0 10^3/uL (0.0-0.1) 03/09/18 18:57 Absolute Nucleated RBC 0.00 x10^3/uL 03/09/18 18:57 Nucleated RBC % 0.0 /100WBC 03/09/18 18:57 Manual Slide Review Indicated 03/09/18 18:57 Platelet Estimate NORMAL (130-450,000) (NORMAL) 03/09/18 18:57 Platelet Morphology RARE GIANT PLATELETS (NORMAL) 03/09/18 18:57 RBC Morph Micro Appear OVALOCYTES (NORMAL) 03/09/18 18:57 PT 28.0 secs (9.9-12.6) H 03/13/18 06:00 INR 2.5 (0.8-1.2) H 03/13/18 06:00 Sodium 140 mmol/L (135-145) 03/12/18 04:25 Potassium 3.1 mmol/L (3.5-5.0) L 03/12/18 04:25 Chloride 100 mmol/L (101-111) L 03/12/18 04:25 Carbon Dioxide 35 mmol/L (21-32) H 03/12/18 04:25 Anion Gap 5.0 (6-13) L 03/12/18 04:25 BUN 10 mg/dL (6-20) 03/12/18 04:25 Creatinine 0.5 mg/dL (0.4-1.0) 03/12/18 04:25 Estimated GFR (MDRD) 122 (>89) 03/12/18 04:25 Glucose 84 mg/dL (70-100) 03/12/18 04:25 Calcium 9.1 mg/dL (8.5-10.3) 03/12/18 04:25 Total Bilirubin 1.4 mg/dL (0.2-1.0) H 03/09/18 18:57 AST < 10 IU/L (10-42) L 03/09/18 18:57 ALT < 10 IU/L (10-60) L 03/09/18 18:57 Alkaline Phosphatase 43 IU/L (42-121) 03/09/18 18:57 Total Creatine Kinase 81 IU/L (22-269) 03/09/18 18:57 Troponin I < 0.04 ng/mL (<0.49) 03/09/18 18:57 B-Natriuretic Peptide 279 pg/mL (5-100) H 03/10/18 04:35 Total Protein 5.3 g/dL (6.7-8.2) L 03/09/18 18:57 Albumin 3.1 g/dL (3.2-5.5) L 03/09/18 18:57 Globulin 2.2 g/dL (2.1-4.2) 03/09/18 18:57 Albumin/Globulin Ratio 1.4 (1.0-2.2) 03/09/18 18:57 Lipase 20 U/L (22-51) L 03/09/18 18:57 Last Dose Date 03/11/18 03/11/18 11:17 Last Dose Time 02103/11/18 11:17 Random Gentamicin 8.1 ug/mL 03/11/18 01:20 Vancomycin Trough 15.9 ug/mL (10.0-20.0) 03/11/18 11:17 - DIAGNOSTIC IMAGING Diagnostic Imaging Results: Final report reviewed Diagnostic Imaging Results Comments: Chest/thorax CTA Impression: 1. Significantly limited exam due to motion artifact. No central pulmonary emboli. 2. Left lower lobe pneumonia or aspiration with near complete consolidation of the basilar left lower lobe. Probable additional pneumonia in the right lower lobe. Small bilateral pleural effusions. 3. Extremely large hiatal hernia containing the stomach and multiple bowel loops. 4. Cardiomegaly enlarged pulmonary arteries. Chest x-ray impression: 1. There is redemonstration of the large hiatal hernia. 2. There is opacity in the left lung base corresponding with pleural fluid and consolidation on the prior chest CT and likely without significant interval change. Echocardiogram 03/03/2018 Impression: 1. Normal left ventricular size and moderate global hypokinesis, EF 35%. The left atrium is severely dilated. 2. Moderate pulmonary hypertension, PA systolic pressure 47 mmHg, mildly dilated right ventricle with mildly reduced function. 3. Moderately sclerotic aortic valve. Mild mitral annular calcification with mild mitral regurgitation. 4. Atrial fibrillation noted throughout. - FOLLOW UP Follow Up: The patient is being discharged to [facility] nursing facility for physical therapy. Patient will also continue Augmentin for 6 more days until 03/18/2018 to complete treatment for healthcare associated pneumonia, complicated UTI with bacteremia. The patient was found to have dysphasia and will need to be on a soft mechanical diet with nectar thick liquids. - TIME SPENT Time Spent in Discharge (Minutes): 45
[2018-03-13] MEDS: WARFARIN 1 MG TABLET PO SCH (14:03)
[2018-03-13 14:07] VITALS: BP 97/68
== END 2018-03-13 14:45 | DRG 177 ==
LOC: EDUNIT# → ED 18:29 → MS2 21:47
PROVIDERS: ADMIT Family Medicine Sports Medicine; ATTEND Internal Medicine
DX: J69.0 Pneumonitis due to inhalation of food and vomit (principal); R09.02 Hypoxemia; J96.01 Acute respiratory failure with hypoxia; N39.0 Urinary tract infection, site not specified; R78.81 Bacteremia; I50.22 Chronic systolic (congestive) heart failure; I11.0 Hypertensive heart disease with heart failure; Y95 Nosocomial condition; G20 Parkinson's disease; R47.02 Dysphasia; R13.10 Dysphagia, unspecified; B96.20 Unspecified Escherichia coli [E. coli] as the cause of diseases classified elsewhere; I48.91 Unspecified atrial fibrillation; I27.20 Pulmonary hypertension, unspecified; M40.202 Unspecified kyphosis, cervical region; E03.9 Hypothyroidism, unspecified; K21.9 Gastro-esophageal reflux disease without esophagitis; Z79.01 Long term (current) use of anticoagulants; Z79.899 Other long term (current) drug therapy
CPT/HCPCS: 36415; 71045; 71275; 80048; 80053; 80170; 80202; 82550; 83690; 83880; 84484; 85025; 85027; 85610; 93005; 96374; 99284; 99285

== ENCOUNTER 2018-06-12 06:39 | Outpatient (CLI) | payer MEDICARE | END 2018-06-12 06:40 | disposition critical access hospital (66) | LOC: EMS 06:39 | PROVIDERS: ATTEND Surgery | DX: M25.552 Pain in left hip (principal); M54.9 Dorsalgia, unspecified; M79.603 Pain in arm, unspecified; R07.9 Chest pain, unspecified; W01.0XXA Fall on same level from slipping, tripping and stumbling without subsequent striking against object, initial encounter; Y92.002 Bathroom of unspecified non-institutional (private) residence as the place of occurrence of the external cause | CPT/HCPCS: A0425; A0429 ==

== ENCOUNTER 2018-06-12 07:00 | Emergency (ER) | payer MEDICARE ==
[2018-06-12 07:06] VITALS: BP 181/116
--- NOTE | 2018-06-12 07:33 | ED Physician Documentation ---
PD HPI Fall - Stated complaint Stated Complaint: GLF - Chief complaint Chief Complaint: Back Pain - History obtained from History obtained from: Patient, EMS - History of Present Illness Mechanism of injury: Tripped Fall distance: Standing position Where injury occurred: Home Timing - onset: Today Injury(ies) location: Back, Right Upper Extremity Quality of pain: Pain Associated symptoms: No: LOC, AMS, Amnesia, Seizures, Ear drainage, Nasal drainage, Neck pain, Weakness, Paresthesias, Dyspnea, Nausea / vomiting, Hematemesis, Abdominal distension Symptoms improve with: Rest Worsens with: Movement, Palpation Contributing factors: Anticoagulated Similar symptoms before: Has not had sx before Recently seen: Not recently seen - Additional information Additional information: 73-year-old female with history of Parkinson's disease, CHF, atrial fibrillation and a recent history of pneumonia and urinary tract infection was in her bathroom today when she tripped and fell into the dog dish of water. She complains of pain in her lower back and in her right shoulder. Across her clavicle. She states she was not otherwise ill prior to the fall. She denies any recent fever or cough. Review of Systems Constitutional: denies: Fever, Chills, Myalgias Eyes: denies: Decreased vision Ears: denies: Ear pain Nose: denies: Congestion Throat: denies: Sore throat Cardiac: denies: Chest pain / pressure, Palpitations Respiratory: denies: Dyspnea, Cough GI: denies: Abdominal Pain, Nausea, Vomiting : reports: Incontinent. denies: Dysuria, Frequency Skin: denies: Rash Musculoskeletal: denies: Neck pain, Back pain, Extremity pain Neurologic: denies: Generalized weakness, Focal weakness, Numbness PD PAST MEDICAL HISTORY - Past Medical History Cardiovascular: Congestive heart failure Neuro: Parkinson's Endocrine/Autoimmune: HyPOthyroidism GI: GERD : Other Musculoskeletal: Scoliosis - Past Surgical History Past Surgical History: Yes General: Other HEENT: Tonsil/Adenoidectomy - Present Medications Home Medications: Ambulatory Orders Medication Instructions Recorded Confirmed Omeprazole [PriLOSEC] 20 mg PO QDAC 03/25/13 06/12/18 Carbidopa/Levodopa 25/100 [Sinemet 3 tab PO 0500,1000,1400 04/08/14 06/12/18 25 mg/100 mg] Furosemide 40 mg ORAL DAILY 04/08/14 06/12/18 Potassium Chloride 10 meq ORAL 1200 04/08/14 06/12/18 Tolterodine [Detrol LA] 1 mg ORAL BID 04/08/14 06/12/18 Warfarin Sodium 0.5 mg ORAL MOTUWETHFR@0900 04/08/14 06/12/18 diltiaZEM CD [Cardizem Cd] 180 mg ORAL DAILY 04/08/14 06/12/18 Cholecalciferol (Vitamin D3) 2,000 - 4,000 units PO DAILY 03/04/18 06/12/18 [Vitamin D3] Levothyroxine Sodium 100 mcg PO QDAC 03/04/18 06/12/18 Warfarin Sodium 4.5 mg PO SUSA@0900 03/04/18 06/12/18 Lisinopril [Prinivil] 2.5 mg PO DAILY 06/12/18 06/12/18 Metoprolol Succinate [Toprol Xl] 25 mg PO DAILY 06/12/18 06/12/18 Midodrine HCl 2.5 mg PO TID 06/12/18 06/12/18 Nitrofurantoin Monohyd/M-Cryst 100 mg PO BID #14 capsule 06/12/18 [Macrobid 100 mg Capsule] Oxycodone HCl/Acetaminophen 1 - 2 each PO Q6H PRN #14 tablet 06/12/18 [Percocet 5-325 mg Tablet] - Allergies Allergies/Adverse Reactions: Allergies Allergy/AdvReac Type Severity Reaction Status Date / Time strawberry [[place]] AdvReac Intermediate Rash Verified 03/09/18 18:41 hydrocodone bitartrate * AdvReac Emesis Verified 03/09/18 18:41 [From Vicodin] - Social History Does the pt smoke?: No Smoking Status: Never smoker Does the pt drink ETOH?: No Does the pt have substance abuse?: No - Immunizations Immunizations are current?: Yes - POLST Patient has POLST: Yes POLST Status: Full Code PD ED PE NORMAL - Vitals Vital signs reviewed: Yes (hypertensive ) - General General: No acute distress, Well developed/nourished, Other (small kyphotic 73y/o female with a broad smile is interactive and does not appear to be indistress. ) - HEENT HEENT: Atraumatic, PERRL, EOMI - Neck Neck: Supple, no meningeal sign, No bony TTP - Cardiac Cardiac: Other (irregulalry irregular 2/6holosystolic murmer at LSB) - Respiratory Respiratory: No respiratory distress, Other (diminished breath sounds. The left breast is edematous and erythematous without pain or drianage. ) - Abdomen Abdomen: Soft, Non tender - Back Back: No CVA TTP, No spinal TTP, Other (There is lumbar tenderness to palpation at the mid to lower lumbar spine. ) - Derm Derm: Normal color, Warm and dry, No rash - Extremities Extremities: No deformity, No edema - Neuro Neuro: Alert and oriented X 3, anesthesia assistant 2-12 intact, No motor deficit, No sensory deficit, Normal speech Eye Opening: Spontaneous Motor: Obeys Commands Verbal: Oriented GCS Score: 15 - Psych Psych: Normal mood, Normal affect Results - Vitals Vitals: Vital Signs - 24 hr 06/12/18 07:03 Temperature 36.7 C Heart Rate 96 Respiratory 18 Rate Blood Pressure 181/116 H O2 Saturation 92 Oxygen O2 Source [] Nasal cannula O2 Source Room air - Labs Labs: Microbiology 06/12/18 07:30 Urine Culture - Preliminary Urine,Catheterized CULTURE IN PROGRESS. RESULTS TO FOLLOW. Laboratory Tests 06/12/18 06/12/18 07:30 07:41 Whole Blood INR 3.6 H Urine Color YELLOW Urine Clarity CLEAR Urine pH 7.0 Ur Specific Alfred 1.010 Urine Protein TRACE Urine Glucose (UA) NEGATIVE Urine Ketones NEGATIVE Urine Occult Blood MODERATE H Urine Nitrite POSITIVE H Urine Bilirubin NEGATIVE Urine Urobilinogen 0.2 (NORMAL) Ur Leukocyte Esterase SMALL H Urine RBC 6-10 H Urine WBC >25 H Ur Squamous Epith Cells RARE Squamous Urine Bacteria Moderate H Ur Microscopic Review INDICATED Urine Culture Comments INDICATED - Rads (name of study) Lumbar spine Radiology: Prelim report reviewed (Impression: 1. Severe T12 compression deformity new in the interval with associated thoracolumbar kyphosis. Mild superior endplate L3 compression deformity, stable. 2. Mild to moderate degenerative changes of the lumbar spine.), EMP read indepedently, See rad report shoulder right Radiology: Prelim report reviewed (Impression: 1. No acute osseous abnormalities. Normal alignment.), EMP read indepedently, See rad report Procedures - IVC sono (time) 0730 Bedside IVC sono: IVC measures (cm) (1.45), IVC collapsed c insp (cm) (0.86), Euvolemia PD MEDICAL DECISION MAKING - ED course Complexity details: reviewed old records, reviewed results, re-evaluated patient, considered differential, d/w patient, d/w family ED course: 73-year-old female with a fall in her home has injured her lower back and her right shoulder. She has UTI on evaluation of the urine and she is administered IM rocephin. Her INR Is 3.6 today and we will hold her dose of coumadin today and recheck the INR tomorrow. Departure - Departure Disposition: Home, Self Care Clinical Impression: UTI (lower urinary tract infection) Shoulder contusion Qualifiers: Encounter type: initial encounter Laterality: right Qualified Code(s): S40.011A - Contusion of right shoulder, initial encounter Lumbar contusion Qualifiers: Encounter type: initial encounter Qualified Code(s): S30.0XXA - Contusion of lower back and pelvis, initial encounter Condition: Stable Instructions: ED Sprain Strain Lumbar, ED Contusion Back, ED Contusion Upper Ext, ED UTI Cystitis Female Follow-Up: Michel Thomas DO [Primary Care Provider] - Prescriptions: Nitrofurantoin Monohyd/M-Cryst [Macrobid 100 mg Capsule] 100 mg PO BID #14 capsule Oxycodone HCl/Acetaminophen [Percocet 5-325 mg Tablet] 1 - 2 each PO Q6H PRN #14 tablet PRN Reason: pain
[2018-06-12 07:47] LABS: BILIRUBIN,URINE NEGATIVE (NEGATIVE); GLUCOSE, URINE (UA) NEGATIVE (NEGATIVE); KETONES,URINE (UA) NEGATIVE (NEGATIVE); LEUKOCYTE ESTERASE, URINE SMALL (NEGATIVE); NITRITE,URINE POSITIVE (NEGATIVE); OCCULT BLOOD,URINE MODERATE (NEGATIVE); PROTEIN,URINE TRACE mg/dL (NEGATIVE); UROBILINOGEN,URINE 0.2 (NORMAL) E.U./dL (NORMAL)
[2018-06-12 08:04] LABS: BACTERIA,URINE Moderate /HPF (None Seen); CLARITY,URINE CLEAR (CLEAR); SQUAMOUS EPITHELIAL CELL,UR RARE Squamous (<= Few)
[2018-06-12] MEDS ORDERED: cefTRIAXone 1 GM VIAL IM STA (08:51)
[2018-06-12] MEDS ORDERED: LIDOCAINE 1% 2 ML VIAL MC ONE (08:51)
--- NOTE | 2018-06-12 09:44 | XRAY Report ---
Reason: fall right distal clavical pain Procedure Date: 06/12/2018 Accession Number: [id number] / [id number] Procedure: XR - Clavicle RT CPT Code: FULL RESULT: EXAM: RIGHT CLAVICLE RADIOGRAPHY EXAM DATE: 06/12/2018 09:04 AM. CLINICAL HISTORY: Fall right distal clavicle pain. COMPARISON: None. TECHNIQUE: 2 views. FINDINGS: Bones: No acute fracture or bony lesion. Bones appear demineralized. Joints: Normal alignment. No dislocation. Mild degenerative changes. Soft Tissues: Right lung is clear. IMPRESSION: 1. No acute osseous abnormalities. Normal alignment. RADIA
--- NOTE | 2018-06-12 10:52 | XRAY Report ---
Reason: fall lumbar contusion Procedure Date: 06/12/2018 Accession Number: [id number] / [id number] Procedure: XR - Lumbar Spine 2 View CPT Code: FULL RESULT: EXAM: LUMBOSACRAL SPINE RADIOGRAPHY EXAM DATE: 06/12/2018 07:44 AM. CLINICAL HISTORY: Fall, lower back pain. COMPARISONS: 04/08/2014. TECHNIQUE: 2 views. FINDINGS: Alignment: Thoracolumbar kyphosis Bones: Five [id number] lumbar vertebral bodies are present. Marked compression deformity of T12 his present. Superior endplate compression of L3 again evident. Degenerative spurring. No new acute osseous abnormalities are identified. Disks: Mild to moderate disk space narrowing present throughout the lumbar spine greatest at L4-L5 and L5-S1 Facets: Mild to moderate lumbar facet arthropathy. Sacroiliac Joints: Mild degenerative changes. Soft Tissues: Vascular calcifications. No bowel obstruction. IMPRESSION: 1. Severe T12 compression deformity new in the interval with associated thoracolumbar kyphosis. Mild superior endplate L3 compression deformity, stable. 2. Mild to moderate degenerative changes of the lumbar spine. RADIA
== END 2018-06-12 11:04 | disposition home or self-care (01) ==
LOC: ED 07:00
DX: S30.0XXA Contusion of lower back and pelvis, initial encounter (principal); S40.011A Contusion of right shoulder, initial encounter; W01.0XXA Fall on same level from slipping, tripping and stumbling without subsequent striking against object, initial encounter; Y92.002 Bathroom of unspecified non-institutional (private) residence as the place of occurrence of the external cause; N39.0 Urinary tract infection, site not specified; R79.1 Abnormal coagulation profile; G20 Parkinson's disease; I48.91 Unspecified atrial fibrillation; Z79.01 Long term (current) use of anticoagulants; I50.9 Heart failure, unspecified; M47.816 Spondylosis without myelopathy or radiculopathy, lumbar region; M40.205 Unspecified kyphosis, thoracolumbar region
CPT/HCPCS: 72100; 81001; 81003; 85610; 87086; 87181; 96372; 99283

== ENCOUNTER 2019-06-07 16:55 | Outpatient (CLI) | payer MEDICARE | END 2019-06-07 23:59 | disposition critical access hospital (66) | LOC: EMS 16:55 | PROVIDERS: ATTEND Surgery | DX: R06.02 Shortness of breath (principal) | CPT/HCPCS: A0425; A0429 ==

== ENCOUNTER 2019-06-07 17:11 | Emergency (ER) | payer MEDICARE ==
--- NOTE | 2019-06-07 17:26 | ED Physician Documentation ---
History of Present Illness - Stated complaint Stated Complaint: SOA - History obtained from History obtained from: Patient (74-year-old female patient comes in today via EMS for chief complaint of shortness of breath. Upon arrival with EMS her oxygen saturation was 88%, after placing 4 L nasal cannula she is up to low to mid 90s. Patient states that she had an appointment with her PCP etta For what she describes as a scratchy throat. She felt better today before her appoi ntment so she called and canceled the appointment when the PCPs office asked why she was coming in she told about the scratchy throat, they advised her to be seen in the ER for possible testing for the Covid virus. She denies any fevers, chills, nausea, vomiting, diarrhea, headache, cough. She does admit to some constipation intermittently over the last few days, but she said this is normal for her. also having some dysuria for a "few days". She admits to having Parkinson's, atrial fibrillation, and CHF.) Review of Systems Constitutional: denies: Fever, Chills, Fatigue, Weight Loss, Sweats Eyes: reports: Reviewed and negative Ears: reports: Reviewed and negative Nose: denies: Rhinorrhea / runny nose, Congestion, Sinus pressure / pain Throat: denies: Sore throat Cardiac: denies: Chest pain / pressure, Palpitations, Pedal edema Respiratory: denies: Dyspnea, Cough, Wheezing GI: reports: Abdominal Pain, Constipation. denies: Nausea, Vomiting, Diarrhea : reports: Dysuria Skin: denies: Rash, Lesions Neurologic: reports: Other (Parkinson's) PD PAST MEDICAL HISTORY - Past Medical History Cardiovascular: Congestive heart failure Neuro: Parkinson's Endocrine/Autoimmune: HyPOthyroidism GI: GERD : Other HEENT: None Musculoskeletal: Scoliosis - Past Surgical History Past Surgical History: Yes General: Other HEENT: Tonsil/Adenoidectomy - Present Medications Home Medications: Ambulatory Orders Medication Instructions Recorded Confirmed Omeprazole [PriLOSEC] 20 mg PO QDAC 03/25/13 06/12/18 Carbidopa/Levodopa 25/100 [Sinemet 3 tab PO 0500,1000,1400 04/08/14 06/12/18 25 mg/100 mg] Furosemide 40 mg ORAL DAILY 04/08/14 06/12/18 Potassium Chloride 10 meq ORAL 1200 04/08/14 06/12/18 Tolterodine [Detrol LA] 1 mg ORAL BID 04/08/14 06/12/18 Warfarin Sodium 0.5 mg ORAL MOTUWETHFR@0900 04/08/14 06/12/18 diltiaZEM CD [Cardizem Cd] 180 mg ORAL DAILY 04/08/14 06/12/18 Cholecalciferol (Vitamin D3) 2,000 - 4,000 units PO DAILY 03/04/18 06/12/18 [Vitamin D3] Levothyroxine Sodium 100 mcg PO QDAC 03/04/18 06/12/18 Warfarin Sodium 4.5 mg PO SUSA@0900 03/04/18 06/12/18 Lisinopril [Prinivil] 2.5 mg PO DAILY 06/12/18 06/12/18 Metoprolol Succinate [Toprol Xl] 25 mg PO DAILY 06/12/18 06/12/18 Midodrine HCl 2.5 mg PO TID 06/12/18 06/12/18 Nitrofurantoin Monohyd/M-Cryst 100 mg PO BID #14 capsule 06/12/18 [Macrobid 100 mg Capsule] Oxycodone HCl/Acetaminophen 1 - 2 each PO Q6H PRN #14 tablet 06/12/18 [Percocet 5-325 mg Tablet] Nitrofurantoin Monohyd/M-Cryst 100 mg PO BID #10 capsule 06/07/19 [Nitrofurantoin [place]-Mcr 100 mg] Nitrofurantoin [Macrobid] 100 mg PO BID #10 capsule 06/07/19 - Allergies Allergies/Adverse Reactions: Allergies Allergy/AdvReac Type Severity Reaction Status Date / Time strawberry [[place]] AdvReac Intermediate Rash Verified 06/07/19 17:25 hydrocodone bitartrate * AdvReac Emesis Verified 06/07/19 17:25 [From Vicodin] - Social History Does the pt smoke?: No Smoking Status: Never smoker Does the pt drink ETOH?: No Does the pt have substance abuse?: No - Immunizations Immunizations are current?: Yes - POLST Patient has POLST: Yes POLST Status: Full Code PD ED PE NORMAL - General General: Alert and oriented X 3, No acute distress - HEENT HEENT: Atraumatic, PERRL, EOMI, Ears normal, Moist mucous membranes, Pharynx benign - Neck Neck: No adenopathy - Cardiac Cardiac: No murmur, No gallop - Respiratory Respiratory: No respiratory distress - Abdomen Abdomen: Non distended, No organomegaly. No: Non tender - Derm Derm: Normal color, Warm and dry, No rash - Extremities Extremities: No deformity, No edema PD ED PE EXPANDED - Respiratory Respiratory: Rales (Bibasilar), Decreased breath sounds Results - Vitals Vitals: Vital Signs - 24 hr 06/07/19 06/07/19 06/07/19 17:18 17:58 18:32 Temperature 36.8 C Heart Rate 65 93 78 Respiratory 16 17 16 Rate Blood Pressure 136/98 H 124/91 H 106/83 H O2 Saturation 97 94 94 Oxygen O2 Source [] Nasal cannula O2 Source Room air - Labs Labs: Laboratory Tests 06/07/19 06/07/19 06/07/19 17:40 17:40 17:40 WBC 4.3 L RBC 5.27 Hgb 14.8 Hct 48.7 H MCV 92.4 MCH 28.1 MCHC 30.4 L RDW 17.1 H Plt Count 152 MPV 9.3 Neut # (Auto) 3.5 Lymph # (Auto) 0.3 L [place] # (Auto) 0.4 Eos # (Auto) 0.0 Baso # (Auto) 0.0 Absolute Nucleated RBC 0.00 Nucleated RBC % 0.0 PT > 120.0 H* INR > 10.0 H* Sodium 139 Potassium 3.8 Chloride 95 L Carbon Dioxide 34 H Anion Gap 10.0 BUN 15 Creatinine 0.6 Estimated GFR (MDRD) 98 Glucose 89 Calcium 10.6 H Troponin I High Sens B-Natriuretic Peptide Urine Color Urine Clarity Urine pH Ur Specific [place] Urine Protein Urine Glucose (UA) Urine Ketones Urine Occult Blood Urine Nitrite Urine Bilirubin Urine Urobilinogen Ur Leukocyte Esterase Urine RBC Urine WBC Ur Squamous Epith Cells Urine Bacteria Ur Microscopic Review Urine Culture Comments 06/07/19 06/07/19 06/07/19 17:40 17:40 17:40 WBC RBC Hgb Hct MCV MCH MCHC RDW Plt Count MPV Neut # (Auto) Lymph # (Auto) [place] # (Auto) Eos # (Auto) Baso # (Auto) Absolute Nucleated RBC Nucleated RBC % PT INR Sodium Potassium Chloride Carbon Dioxide Anion Gap BUN Creatinine Estimated GFR (MDRD) Glucose Calcium Troponin I High Sens 7.4 B-Natriuretic Peptide 460 H Urine Color YELLOW Urine Clarity HAZY Urine pH 6.5 Ur Specific [place] 1.015 Urine Protein TRACE Urine Glucose (UA) NEGATIVE Urine Ketones NEGATIVE Urine Occult Blood LARGE H Urine Nitrite POSITIVE H Urine Bilirubin NEGATIVE Urine Urobilinogen 1 (NORMAL) Ur Leukocyte Esterase MODERATE H Urine RBC TNTC H Urine WBC 6-10 H Ur Squamous Epith Cells NONE SEEN Urine Bacteria Many H Ur Microscopic Review INDICATED Urine Culture Comments INDICATED - Rads (name of study) No standard instances Radiology: Final report received (Large hiatal hernia. No acute pulmonary abnormality seen) PD MEDICAL DECISION MAKING - ED course Complexity details: reviewed results, re-evaluated patient, d/w patient Departure - Departure Disposition: 01 Home, Self Care Clinical Impression: Hypoxia, UTI (urinary tract infection), bacterial Condition: Good Instructions: ED Afib, ED UTI Cystitis Female Prescriptions: Nitrofurantoin [Macrobid] 100 mg PO BID #10 capsule Nitrofurantoin Monohyd/M-Cryst [Nitrofurantoin [place]-Mcr 100 mg] 100 mg PO BID #10 capsule Comments: I want you to call your primary care provider tomorrow, set up an appointment to be seen to get your INR checked. Your INR today in the emergency room was 10. You were given 2 mg of vitamin K orally to reverse the effects of the Coumadin a little bit. You need to have the INR checked and to get your Coumadin dose adjusted by your primary care provider.
[2019-06-07 17:48] LABS: BASOPHILS % (AUTO) 0.7 %; EOSINOPHILS % (AUTO) 0.9 %; HGB - HEMOGLOBIN 14.8 g/dL (12.0-16.0); LYMPHOCYTES # (AUTO) 0.3 10^3/uL (1.5-3.5); MEAN CORPUSCULAR HEMOGLOBIN 28.1 pg (27.0-31.0); MEAN CORPUSCULAR HGB CONC 30.4 g/dL (32.0-36.0); MEAN CORPUSCULAR VOLUME 92.4 fL (81.0-99.0); MEAN PLATELET VOLUME 9.3 fL (7.9-10.8); MONOCYTES # (AUTO) 0.4 10^3/uL (0.0-1.0); MONOCYTES % (AUTO) 8.5 %; NEUTROPHILS # (AUTO) 3.5 10^3/uL (1.5-6.6); NEUTROPHILS % (AUTO) 81.4 %; PLT - PLATELET COUNT 152 10^3/uL (130-450); RED BLOOD COUNT 5.27 10^6/uL (4.20-5.40); RED CELL DISTRIBUTION WIDTH 17.1 % (12.0-15.0); WHITE BLOOD COUNT 4.3 x10^3/uL (4.8-10.8)
[2019-06-07 17:58] LABS: CALCIUM 10.6 mg/dL (8.5-10.3); CREATININE 0.6 mg/dL (0.4-1.0)
[2019-06-07 18:03] LABS: INR > 10.0 (0.8-1.2); PT - PROTHROMBIN TIME > 120.0 secs (9.9-12.6)
[2019-06-07] MEDS ORDERED: PHYTONADIONE 10 MG/ML AMP PO ONE (18:07)
[2019-06-07] MEDS ORDERED: CHERRY SYRUP 10 ML UDC PO ONE (18:07)
--- NOTE | 2019-06-07 18:07 | XRAY Report ---
Reason: chest pain Procedure Date: 06/07/2019 Accession Number: [id number] / [id number] Procedure: XR - Chest 1 View X-Ray CPT Code: 91041 Final Report FULL RESULT: EXAM: CHEST RADIOGRAPHY EXAM DATE: 06/07/2019 05:43 PM. CLINICAL HISTORY: Chest pain. COMPARISON: CHEST 1 VIEW 03/12/2018 9:38 AM CHEST ANGIO 03/09/2018 7:54 PM. TECHNIQUE: 1 view. FINDINGS: Lungs/Pleura: No dense consolidation. No large effusion or pneumothorax. No pulmonary edema. Mediastinum: Enlarged cardiac silhouette. Redemonstration of large hiatal hernia. Other: None. IMPRESSION: Large hiatal hernia. No acute radiographic pulmonary abnormalities. RADIA
[2019-06-07 18:13] LABS: BILIRUBIN,URINE NEGATIVE (NEGATIVE); GLUCOSE, URINE (UA) NEGATIVE (NEGATIVE); KETONES,URINE (UA) NEGATIVE (NEGATIVE); LEUKOCYTE ESTERASE, URINE MODERATE (NEGATIVE); NITRITE,URINE POSITIVE (NEGATIVE); OCCULT BLOOD,URINE LARGE (NEGATIVE); PH,URINE 6.5 PH (5.0-7.5); PROTEIN,URINE TRACE mg/dL (NEGATIVE); UROBILINOGEN,URINE 1 (NORMAL) E.U./dL (NORMAL)
[2019-06-07 18:14] LABS: CLARITY,URINE HAZY (CLEAR)
[2019-06-07 18:22] LABS: BACTERIA,URINE Many /HPF (None Seen); RBC,URINE TNTC /HPF (0-5); SQUAMOUS EPITHELIAL CELL,UR NONE SEEN (<= Few)
[2019-06-07 18:33] VITALS: BP 106/83
== END 2019-06-07 18:59 | disposition home or self-care (01) ==
LOC: EDUNIT# → ED 17:11
DX: R79.1 Abnormal coagulation profile (principal); R09.02 Hypoxemia; N39.0 Urinary tract infection, site not specified; B96.89 Other specified bacterial agents as the cause of diseases classified elsewhere; G20 Parkinson's disease
CPT/HCPCS: 36415; 71045; 80048; 81001; 83880; 84484; 85025; 85610; 87077; 87086; 87181; 93005; 99284; A9270; 81003

== ENCOUNTER 2019-09-16 08:41 | Outpatient (CLI) | payer MEDICARE | END 2019-09-16 08:42 | disposition critical access hospital (66) | LOC: EMS 08:41 | PROVIDERS: ATTEND Surgery | DX: R53.1 Weakness (principal); R46.4 Slowness and poor responsiveness; R09.89 Other specified symptoms and signs involving the circulatory and respiratory systems | CPT/HCPCS: A0425; A0427 ==

== ENCOUNTER 2019-09-16 08:58 | Inpatient (IN) | payer MEDICARE ==
--- NOTE | 2019-09-16 09:17 | ED Physician Documentation ---
PD HPI CHEST PAIN - Stated complaint Stated Complaint: WEAKNESS - Chief complaint Chief Complaint: General - History obtained from History obtained from: Patient, EMS - History of Present Illness Timing - onset: How many days ago (Has had general weakness for the last few days and then abruptly worse this morning while on the toilet and felt too weak to be able to get up.) Timing - onset during: Light activity Timing - details: Gradual onset (of general weakness, with notable worsening about an hour ago) Quality: Pressure, Other (feeling of heart rate fast this morning) Location: Substernal Associated symptoms: Feeling faint / dizzy, General Weakness, Palpitations. No: Shortness of air, Nausea, Cough Similar symptoms before: Diagnosis (atrial fib. and has felt this weak with illness/UTI in the past) Recently seen: Not recently seen Review of Systems Constitutional: denies: Fever, Chills, Myalgias Nose: denies: Rhinorrhea / runny nose, Congestion Throat: denies: Sore throat Cardiac: reports: Palpitations. denies: Pedal edema, Calf pain Respiratory: reports: Dyspnea. denies: Cough GI: reports: Nausea. denies: Abdominal Pain, Vomiting, Diarrhea : reports: Incontinent Neurologic: reports: Generalized weakness. denies: Focal weakness, Numbness, Altered mental status PD PAST MEDICAL HISTORY - Past Medical History Past Medical History: Yes Cardiovascular: Congestive heart failure, Atrial fibrillation (she is not sure if chronic versus paroxysmal) Respiratory: None Neuro: Parkinson's Endocrine/Autoimmune: HyPOthyroidism GI: GERD BLADDER BLOWER: None : None, Other HEENT: None Psych: None Musculoskeletal: Scoliosis Derm: None Other Past Medical History: DDD Kyphosis - Past Surgical History Past Surgical History: Yes General: Other HEENT: Tonsil/Adenoidectomy - Present Medications Home Medications: Ambulatory Orders Medication Instructions Recorded Confirmed Carbidopa/Levodopa 25/100 [Sinemet 3 tab PO 0500,1000,1400 04/08/14 09/16/19 25 mg/100 mg] Furosemide 40 mg PO DAILY 04/08/14 09/16/19 Cholecalciferol (Vitamin D3) 2,000 units PO DAILY 03/04/18 09/16/19 [Vitamin D3] Levothyroxine Sodium 100 mcg PO 1630 03/04/18 09/16/19 Lisinopril [Prinivil] 2.5 mg PO DAILY 06/12/18 09/16/19 Metoprolol Succinate [Toprol Xl] 25 mg PO 1200 06/12/18 09/16/19 Diltiazem HCl [Diltiazem 24Hr ER] 120 mg PO DAILY 09/16/19 09/16/19 Omeprazole 20 mg PO QPM 09/16/19 09/16/19 Potassium Chloride [Klor-Con 10] 10 meq PO 1200 09/16/19 09/16/19 Warfarin Sodium [Coumadin] 4 mg PO 1700 09/16/19 09/16/19 - Allergies Allergies/Adverse Reactions: Allergies Allergy/AdvReac Type Severity Reaction Status Date / Time strawberry [[place]] AdvReac Intermediate Rash Verified 06/07/19 17:25 hydrocodone bitartrate * AdvReac Emesis Verified 06/07/19 17:25 [From Vicodin] - Social History Does the pt smoke?: No Smoking Status: Never smoker Does the pt drink ETOH?: No Does the pt have substance abuse?: No - Immunizations Immunizations are current?: Yes - POLST Patient has POLST: Yes POLST Status: Full Code PD ED PE NORMAL - Vitals Vital signs reviewed: Yes - General General: Alert and oriented X 3, No acute distress. No: Well developed/nourished (frail and kyphotic; appears generally weak) - HEENT HEENT: Moist mucous membranes, Pharynx benign - Neck Neck: Supple, no meningeal sign, No adenopathy - Cardiac Cardiac: No: RRR (irregular and fast rate of 150s.) - Respiratory Respiratory: Clear bilaterally - Abdomen Abdomen: Normal bowel sounds, Soft, Non distended, No organomegaly - Back Back: No CVA TTP - Derm Derm: Normal color, Warm and dry - Extremities Extremities: No tenderness to palpate, No edema, No calf tenderness / cord - Neuro Neuro: Alert and oriented X 3, No motor deficit, Normal speech (weak voiced) Eye Opening: Spontaneous Motor: Obeys Commands Verbal: Oriented GCS Score: 15 Results - Vitals Vitals: Vital Signs - 24 hr 09/16/19 09/16/19 09/16/19 09:00 09:08 09:51 Temperature 37 C Heart Rate 150 H 152 H 118 H Respiratory 25 H Rate Blood Pressure 92/76 89/64 L 98/72 O2 Saturation 96 09/16/19 11:08 Temperature Heart Rate 116 H Respiratory Rate Blood Pressure 98/70 O2 Saturation Oxygen O2 Source [Without Activity] Nasal cannula O2 Source Nasal cannula - EKG (time done) 09:03 Rate: Rate (enter#) (153) Rhythm: Atrial fibrillation QRS: LVH Ischemia: Normal ST segments. No: ST elevation c/w ischemia, ST depression - Labs Labs: Laboratory Tests 09/16/19 09/16/19 09/16/19 09:31 09:31 09:31 WBC 10.1 RBC 5.23 Hgb 14.3 Hct 47.3 H MCV 90.4 MCH 27.3 MCHC 30.2 L RDW 16.1 H Plt Count 141 MPV 9.7 Neut # (Auto) 9.1 H Lymph # (Auto) 0.2 L [place] # (Auto) 0.7 Eos # (Auto) 0.0 Baso # (Auto) 0.0 Absolute Nucleated RBC 0.00 Nucleated RBC % 0.0 PT INR Sodium 137 Potassium 3.6 Chloride 96 L Carbon Dioxide 32 Anion Gap 9.0 BUN 22 H Creatinine 0.7 Estimated GFR (MDRD) 82 L Glucose 111 H Calcium 10.3 Magnesium 1.7 Total Bilirubin 1.7 H AST < 10 L ALT < 10 L Alkaline Phosphatase 59 Troponin I High Sens 6.2 B-Natriuretic Peptide Total Protein 5.9 L Albumin 3.8 Globulin 2.1 Albumin/Globulin Ratio 1.8 Lipase 25 TSH Urine Color Urine Clarity Urine pH Ur Specific [place] Urine Protein Urine Glucose (UA) Urine Ketones Urine Occult Blood Urine Nitrite Urine Bilirubin Urine Urobilinogen Ur Leukocyte Esterase Urine RBC Urine WBC Urine WBC Clumps Ur Squamous Epith Cells Urine Bacteria Ur Microscopic Review Urine Culture Comments 09/16/19 09/16/19 09/16/19 09:31 09:31 09:31 WBC RBC Hgb Hct MCV MCH MCHC RDW Plt Count MPV Neut # (Auto) Lymph # (Auto) [place] # (Auto) Eos # (Auto) Baso # (Auto) Absolute Nucleated RBC Nucleated RBC % PT 53.6 H INR 5.2 H* Sodium Potassium Chloride Carbon Dioxide Anion Gap BUN Creatinine Estimated GFR (MDRD) Glucose Calcium Magnesium Total Bilirubin AST ALT Alkaline Phosphatase Troponin I High Sens B-Natriuretic Peptide 381 H Total Protein Albumin Globulin Albumin/Globulin Ratio Lipase TSH 3.61 Urine Color Urine Clarity Urine pH Ur Specific [place] Urine Protein Urine Glucose (UA) Urine Ketones Urine Occult Blood Urine Nitrite Urine Bilirubin Urine Urobilinogen Ur Leukocyte Esterase Urine RBC Urine WBC Urine WBC Clumps Ur Squamous Epith Cells Urine Bacteria Ur Microscopic Review Urine Culture Comments 09/16/19 11:00 WBC RBC Hgb Hct MCV MCH MCHC RDW Plt Count MPV Neut # (Auto) Lymph # (Auto) [place] # (Auto) Eos # (Auto) Baso # (Auto) Absolute Nucleated RBC Nucleated RBC % PT INR Sodium Potassium Chloride Carbon Dioxide Anion Gap BUN Creatinine Estimated GFR (MDRD) Glucose Calcium Magnesium Total Bilirubin AST ALT Alkaline Phosphatase Troponin I High Sens B-Natriuretic Peptide Total Protein Albumin Globulin Albumin/Globulin Ratio Lipase TSH Urine Color YELLOW Urine Clarity CLOUDY Urine pH 5.0 Ur Specific [place] 1.015 Urine Protein 100 H Urine Glucose (UA) NEGATIVE Urine Ketones 15 H Urine Occult Blood MODERATE H Urine Nitrite NEGATIVE Urine Bilirubin NEGATIVE Urine Urobilinogen 1 (NORMAL) Ur Leukocyte Esterase MODERATE H Urine RBC 11-25 H Urine WBC >25 H Urine WBC Clumps PRESENT Ur Squamous Epith Cells NONE SEEN Urine Bacteria Few Ur Microscopic Review INDICATED Urine Culture Comments INDICATED - Rads (name of study) chest xray Radiology: Prelim report reviewed (no acute process noted), See rad report PD MEDICAL DECISION MAKING - ED course Complexity details: considered differential (Mild hypotensive and fast afib. Given Diltiazem to lower HR and did not have effect on the B. Also given IV fluids as does not seem to be in failure. Will look for infection/illness. ), d/w patient Departure - Departure Disposition: 66 [facility] DC/Xfer Clinical Impression: Atrial fibrillation with rapid ventricular response, General weakness UTI (urinary tract infection) Qualifiers: Urinary tract infection type: site unspecified Hematuria presence: without hematuria Qualified Code(s): N39.0 - Urinary tract infection, site not specified Hypotension Qualifiers: Hypotension type: unspecified hypotension type Qualified Code(s): I95.9 - Hypotension, unspecified Condition: Stable Record reviewed to determine appropriate education?: Yes Discharge Date/Time: 09/16/19 12:49
[2019-09-16] MEDS ORDERED: SODIUM CHLORIDE 0.9% 500 ML IV STA ×2 (09:32→10:29)
[2019-09-16] MEDS ORDERED: DILTIAZEM 50 MG/10 ML VIAL IVP ONE ×3 (09:35→20:47)
[2019-09-16 09:39] LABS: BASOPHILS % (AUTO) 0.4 %; EOSINOPHILS % (AUTO) 0.1 %; HGB - HEMOGLOBIN 14.3 g/dL (12.0-16.0); LYMPHOCYTES # (AUTO) 0.2 10^3/uL (1.5-3.5); LYMPHOCYTES % (AUTO) 2.1 %; MEAN CORPUSCULAR HEMOGLOBIN 27.3 pg (27.0-31.0); MEAN CORPUSCULAR HGB CONC 30.2 g/dL (32.0-36.0); MEAN CORPUSCULAR VOLUME 90.4 fL (81.0-99.0); MEAN PLATELET VOLUME 9.7 fL (7.9-10.8); MONOCYTES # (AUTO) 0.7 10^3/uL (0.0-1.0); MONOCYTES % (AUTO) 6.6 %; NEUTROPHILS # (AUTO) 9.1 10^3/uL (1.5-6.6); NEUTROPHILS % (AUTO) 90.3 %; PLT - PLATELET COUNT 141 10^3/uL (130-450); RED BLOOD COUNT 5.23 10^6/uL (4.20-5.40); RED CELL DISTRIBUTION WIDTH 16.1 % (12.0-15.0); WHITE BLOOD COUNT 10.1 x10^3/uL (4.8-10.8)
[2019-09-16 09:53] LABS: PT - PROTHROMBIN TIME 53.6 secs (9.9-12.6)
[2019-09-16 09:55] LABS: ALBUMIN 3.8 g/dL (3.2-5.5); ALBUMIN/GLOBULIN RATIO 1.8 (1.0-2.2); ALKALINE PHOSPHATASE 59 IU/L (42-121); ALT ALANINE AMINOTRANSFERASE < 10 IU/L (10-60); AST ASPARTATE AMINOTRANSFERASE < 10 IU/L (10-42); BILIRUBIN,TOTAL 1.7 mg/dL (0.2-1.0); BUN - BLOOD UREA NITROGEN 22 mg/dL (6-20); CALCIUM 10.3 mg/dL (8.5-10.3); CARBON DIOXIDE - CO2 32 mmol/L (21-32); CHLORIDE 96 mmol/L (101-111); CREATININE 0.7 mg/dL (0.4-1.0); GLUCOSE 111 mg/dL (70-100); LIPASE 25 U/L (22-51); MAGNESIUM 1.7 mg/dL (1.7-2.8); SODIUM 137 mmol/L (135-145); TOTAL PROTEIN 5.9 g/dL (6.7-8.2)
[2019-09-16 09:56] LABS: INR 5.2 (0.8-1.2)
--- NOTE | 2019-09-16 10:16 | XRAY Report ---
PROCEDURE: Chest 1 View X-Ray INDICATIONS: Chest pain TECHNIQUE: One view of the chest was acquired. COMPARISON: 06/07/2019 FINDINGS: Surgical changes and devices: None. Lungs and pleura: The right upper and middle lung field is obscured by the patient's mandible and sku ll. No gross infiltrates identified. Mediastinum: Mediastinal contours appear normal. Heart size is normal. Bones and chest wall: No suspicious bony lesions. Overlying soft tissues appear unremarkable. IMPRESSION: Suboptimal chest film with no gross infiltrates identified. Reviewed by: Tutu Hdez MD on 09/16/2019 9:15 AM ERX Approved by: Tutu Hdez MD on 09/16/2019 9:15 AM REX Station ID: [id number]
[2019-09-16 11:13] LABS: GLUCOSE, URINE (UA) NEGATIVE (NEGATIVE); KETONES,URINE (UA) 15 mg/dL (NEGATIVE); LEUKOCYTE ESTERASE, URINE MODERATE (NEGATIVE); NITRITE,URINE NEGATIVE (NEGATIVE); OCCULT BLOOD,URINE MODERATE (NEGATIVE); PROTEIN,URINE 100 mg/dL (NEGATIVE); UROBILINOGEN,URINE 1 (NORMAL) E.U./dL (NORMAL)
[2019-09-16 11:16] LABS: CLARITY,URINE CLOUDY (CLEAR)
[2019-09-16 11:20] LABS: BILIRUBIN,URINE NEGATIVE (NEGATIVE); ICTOTEST,URINE NEGATIVE
[2019-09-16] MEDS ORDERED: cefTRIAXone 1 GM VIAL IVP STA (11:28)
[2019-09-16 11:30] LABS: WBC CLUMPS,URINE PRESENT
[2019-09-16 11:31] LABS: BACTERIA,URINE Few /HPF (None Seen); SQUAMOUS EPITHELIAL CELL,UR NONE SEEN (<= Few)
[2019-09-16] MEDS ORDERED: LACTATED RINGERS 1,000 ML IV STA ×2 (11:41→11:51)
[2019-09-16] MEDS ORDERED: ONDANSETRON ODT 4 MG TABLET TL PRN (11:44)
[2019-09-16] MEDS ORDERED: SODIUM CHLORIDE FLUSH 0.9% 10 ML SYRINGE IVP PRN (11:44)
[2019-09-16] MEDS ORDERED: SODIUM CHLORIDE 0.9% 1,000 ML IV SCH (12:00)
--- NOTE | 2019-09-16 12:52 | PHARMACY PROGRESS NOTE ---
- Best Possible Medication History Admit Date and Time: 09/16/19 1144 Processed by: Pharmacy Medication History completed: Yes Patient Interview: Pt unable to participate Secondary Source(s): Spouse/Significant other, Pharmacy records, Insurance re cords As the person ultimately responsible for medication therapy, providers are able to order a medication from an existing home medication list in [facility] via the "Reconcile Routine" prior to Confirmation of that medication by student support advisor. Such practice is discouraged except when the physician, in their clinical judgment, deems that a medical need exists for a medication without regard to pr evious use.
[2019-09-16] MEDS: CIPROFLOXACIN 250 MG TABLET PO SCH ×2 (13:14→20:12)
--- NOTE | 2019-09-16 16:23 | HISTORY & PHYSICAL EXAMINATION ---
Chief Complaint - Chief Complaint Chief Complaint: Severe weakness <Monika Pate - Last Filed: 09/16/19 17:13> History of Present Illness - Admitted From Admitted From:: Home via EMS - History Obtained From Records Reviewed: [facility] History obtained from: Patient and spouse <Monika Pate - Last Filed: 09/16/19 17:13> - History of Present Illness HPI Comment/Other: The patient is a 74 yo female admitted via ED for severe weakness, afib w/ RVR, hypotension and UTI confirmed via UA. The pt received 2 doses of 10mg diltiazem in ED for Afib with RVR, HR in 150s. The pt reports feeling generalized weakness which has been progressively worsening for approximately one week. This morning she sat on the toilet, noted feeling dizzy and was unable to get up, despite assistance from her . She reports feeling as though she wants to sleep all day for several days and has noted worsening weakness while ambulating. She lives at home with her , son, and mother. Mother has a significant medical history of CHF and Afib. Her son and assist her daily with dressing, ambulating and other self-care tasks. She reports feeling SOB upon exertion, general dyspnea, wheezing, and occasional palpitations. Past hx significant for PNA w/ hospital admission x2 in Feb 2018. PE significant for generalized pale, cold skin throughout with poor turgor on extremities, arrhythmic heart sounds, and weak peripheral pulses. At the time of admission she is reporting generalized pain from EMS travel and movement from gurney to bed. (Monika Pate) History - Past Medical History Cardiovascular: reports: Congestive heart failure, Atrial fibrillation (Afib with RVR) Respiratory: reports: None, Shortness of breath Neuro: reports: Parkinson's Endocrine/Autoimmune: reports: HyPOthyroidism GI: reports: GERD HYDRAULIC JACK OPERATOR: reports: None : reports: None, Other (Recurring UTI) HEENT: reports: None Psych: reports: None Musculoskeletal: reports: Scoliosis Derm: reports: None MRSA Hx?: No Other Past Medical History: DDD Kyphosis - Past Surgical History General: reports: Other (umbilical hernia repair) /HYDRAULIC JACK OPERATOR: reports: Dilation and currettage HEENT: reports: Tonsil/Adenoidectomy - Family & Social History Family History: Mother: Alive and Well Family History Comment/Other: Pt lives at home with mother, and son. Mother has a hx of Afib and CHF. Pt has 4 sons, all live within [place]. Father's medical history unknown. Living arrangement: At home Living Situation: With spouse/s.o., With family Social History Notes: Denies tobacco, alcohol, or recreational drug use. - Substance History Use: Uses substance without health or social issues: NONE - POLST Patient has POLST: Yes POLST Status: Full Code <Monika Pate - Last Filed: 09/16/19 17:13> Meds/Allgy <Monika Pate - Last Filed: 09/16/19 17:13> <Triny Smith - Last Filed: 09/16/19 17:25> - Home Medications Home Medications: Ambulatory Orders Medication Instructions Recorded Confirmed Carbidopa/Levodopa 25/100 [Sinemet 3 tab PO 0500,1000,1400 04/08/14 09/16/19 25 mg/100 mg] Furosemide 40 mg PO DAILY 04/08/14 09/16/19 Cholecalciferol (Vitamin D3) 2,000 units PO DAILY 03/04/18 09/16/19 [Vitamin D3] Levothyroxine Sodium 100 mcg PO 1630 03/04/18 09/16/19 Lisinopril [Prinivil] 2.5 mg PO DAILY 06/12/18 09/16/19 Metoprolol Succinate [Toprol Xl] 25 mg PO 1200 06/12/18 09/16/19 Diltiazem HCl [Diltiazem 24Hr ER] 120 mg PO DAILY 09/16/19 09/16/19 Omeprazole 20 mg PO QPM 09/16/19 09/16/19 Potassium Chloride [Klor-Con 10] 10 meq PO 1200 09/16/19 09/16/19 Warfarin Sodium [Coumadin] 4 mg PO 1700 09/16/19 09/16/19 - Allergies Allergies/Adverse Reactions: Allergies Allergy/AdvReac Type Severity Reaction Status Date / Time strawberry [[place]] AdvReac Intermediate Rash Verified 06/07/19 17:25 hydrocodone bitartrate * AdvReac Emesis Verified 06/07/19 17:25 [From Vicodin] Review of Systems - Constitutional Constitutional: reports: Fatigue, Malaise, Weakness - Eyes Eyes: reports: Blurred vision - Ears, Nose & Throat Ears, Nose & Throat: reports: Dentures - Cardiovascular Cariovascular: reports: Irregular heart rate (Afib, palpitations are occasional, dyspnea and ambulation intolerance have increased over the week.), Palpitations, Exertional dyspnea, Decr. exercise tolerance - Respiratory Respiratory: reports: Cough, Wheezing, SOB with exertion - Gastrointestinal Gastrointestinal: reports: Other (Pt reports having a BM every 2-3 days, occasionally hard and large amount. Reports eating three meals a day and consuming equivalant to 1 can of soda per day and 2 large bottles of water per day.) - Genitourinary Genitourinary: reports: Frequency, Urgency (Pt reports voiding 5 times a day as her normal, at least once a day having urgency. Otherwise continent.) - Musculoskeletal Musculoskeletal: reports: Back pain, Other (Difficulty ambulating, reports utilizing a walker and assistance from or son to ambulate.) - Integumentary Integumentary: reports: Dryness, Other (Extremities chronically cold) - Neurological Neurological: reports: General weakness, Headache (Reports headache daily which she attributes to being tired.) <Monika Pate - Last Filed: 09/16/19 17:13> <Monika Pate - Last Filed: 09/16/19 17:13> Prior Level of Functionality: Pt utilizes walker to ambulate at home as well as assistance from and son for ADLs and some aspects of self-care. (Monika Pate) Exam - Vital Signs Reviewed Vital Signs: Yes - Physical Exam General Appearance: positive: No acute distress, Alert Eyes Bilateral: positive: Normal inspection, PERRL ENT: positive: ENT inspection nml Neck: positive: Other (Pt has extensive scoliosis and kyphosis preventing her from extending her neck. Constantly in curled foward positioning.) Respiratory: positive: No respiratory distress, Breath sounds nml, Wheezes, Other (Pt had mild non-productive cough during assessment, utilizing 2LPM via NC for supplemental O2.) Cardiovascular: positive: Irregularly irregular (Auscultated irregular rhythm. Pt is mildly hypotensive.), Tachycardia (Occasional tachycardia with her Afib.) Peripheral Pulses: positive: 1+ (Pulses barely palpable in all extremities.) Abdomen: positive: Non-tender, Nml bowel sounds Back: positive: Other (Kyphosis) Skin: positive: Dry, Pallor (Pt generally pale, skin turgor poor.) Extremities: positive: Non-tender, Other (Limited ROM due to weakness and generalized pain.) Neurologic/Psychiatric: positive: Oriented x3, Sensation nml <Monika Pate - Last Filed: 09/16/19 17:13> - Vital Signs Vital Signs: Vital Signs x48h Temp Pulse Pulse Resp BP BP Pulse Ox 09/16/19 16:00 37.4 C 117 H 13 93/63 96 09/16/19 15:00 102 H 23 89/59 L 99 09/16/19 14:00 36.6 C 101 H 28 H 92/75 99 09/16/19 13:28 92 24 100/67 96 09/16/19 11:08 116 H 98/70 09/16/19 09:51 118 H 98/72 Conclusion/Plan - Problem List (1) Atrial fibrillation with RVR Conclusion/Plan: Resumed home meds: Cardizem and metoprolol Place on continuous monitor (2) Hypotension Conclusion/Plan: Held home med: Lisinopril NS @100ml/hr Qualifiers: Hypotension type: unspecified hypotension type Qualified Code(s): I95.9 - Hypotension, unspecified (3) UTI (urinary tract infection) Conclusion/Plan: Ordered Ciprofloxacin 500mg PO BID NS @100ml/hr Qualifiers: Urinary tract infection type: site unspecified Hematuria presence: without hematuria Qualified Code(s): N39.0 - Urinary tract infection, site not specified (4) General weakness Conclusion/Plan: NS @100ml/hr Encourage PO intake and rest Ambulate only with assistance PT consult placed (5) Supratherapeutic INR Conclusion/Plan: Hold home med: Coumadin Daily coags (6) Hypothyroid Conclusion/Plan: Resume home med: Synthroid (7) Chronic back pain Conclusion/Plan: Acetaminophen 650mg PO q4hr PRN for mild-moderate pain Oxycodone 5mg PO q4hr PRN for moderate-severe pain - Lab Results Fish Bones: 09/16/19 09:31 09/16/19 09:31 - Diagnostic Imaging Results Diagnostic Imaging Results: positive: See rad report - EKG Results EKG Interpreted Independently: No <Monika Pate - Last Filed: 09/16/19 17:13> - Problem List (1) Atrial fibrillation with RVR Conclusion/Plan: Patient seen and examined with separate encounter from student. Agree with documentation of student history and physical. Patient was last admitted in February 2018 for her pneumonia. Finally discharged after extensive rehab February 2019. In 2019 no hospitalizations. This is her first hospitalization since February 2018. All urine cultures document E. coli in her chart. As such we will treat for presumptive UTI from E. coli. At this time we think infection cause destabilization of her heart rate. Which then led to A. fib with RVR. A. fib is chronic. Anticoagulated. Rate controlled. Last echocardiogram was February 2018 where she had normal left ventricular size with moderate global hypokinesis. Ejection fraction 35%. Left atrium severely dilated. Moderate pulmonary hypertension with a PASP of 47 mmHg. Mildly dilated right ventricle with reduced function. Moderate sclerotic aortic valve. Mild mitral regurgitation. As we hospitalize her and hydrate her, will be judicious with IV fluids to avoid acute systolic heart failure. I can see how heart rate increase would have destabilized her. (2) UTI (urinary tract infection) Qualifiers: Urinary tract infection type: site unspecified Hematuria presence: without hematuria Qualified Code(s): N39.0 - Urinary tract infection, site not specified - Lab Results Lab results reviewed: Yes Fish Bones: 09/16/19 09:31 09/16/19 09:31 <Triny Smith - Last Filed: 09/16/19 17:25> - EKG Results EKG Findings: Atrial fibrilation with rapid ventricular rate. HR in ED: 150s (Monika Pate) Core Measures - Anticipated LOS I expect patient to be DC'd or transferred within 96 hours.: Yes - DVT/VTE - Prophylaxis VTE/DVT Device ordered at admit?: Yes <Monika Pate - Last Filed: 09/16/19 17:13>
[2019-09-16] MEDS: PANTOPRAZOLE 40 MG TABLET PO SCH (17:00)
[2019-09-16] MEDS: SACCHAROMYCES BOULARDII 250 MG CAPSULE PO SCH (17:01)
[2019-09-16] MEDS: SODIUM CHLORIDE FLUSH 0.9% 10 ML SYRINGE IVP SCH ×2 (17:17→20:14)
[2019-09-16] MEDS: diltiaZEM CD 120 MG CAPSULE PO SCH (17:32)
[2019-09-16] MEDS: ACETAMINOPHEN 325 MG TABLET PO PRN ×2 (18:39→22:21)
[2019-09-16] MEDS: ONDANSETRON 4 MG/2 ML VIAL IVP PRN (20:10)
[2019-09-16] MEDS: ZINC OXIDE 20% OINT 30 GM TUBE TOP PRN (20:10)
[2019-09-16] MEDS: SODIUM CHLORIDE 0.9% 1,000 ML IV SCH (20:15)
[2019-09-16] MEDS: DIGOXIN 500 MCG/2 ML AMP IVP SCH (20:15)
[2019-09-16] MEDS: NYSTATIN POWDER 15 GM TOP SCH (21:22)
[2019-09-17] MEDS: oxyCODONE 5 MG TABLET PO PRN (01:44)
[2019-09-17] MEDS: ZINC OXIDE 20% OINT 30 GM TUBE TOP PRN (01:59)
[2019-09-17] MEDS: DIGOXIN 500 MCG/2 ML AMP IVP SCH ×3 (02:51→14:53)
[2019-09-17] MEDS: SODIUM CHLORIDE 0.9% 1,000 ML IV SCH ×2 (02:52→18:11)
[2019-09-17 05:02] LABS: BASOPHILS % (AUTO) 0.2 %; HGB - HEMOGLOBIN 12.7 g/dL (12.0-16.0); LYMPHOCYTES # (AUTO) 0.5 10^3/uL (1.5-3.5); LYMPHOCYTES % (AUTO) 5.5 %; MEAN CORPUSCULAR HEMOGLOBIN 27.7 pg (27.0-31.0); MEAN CORPUSCULAR HGB CONC 29.7 g/dL (32.0-36.0); MEAN CORPUSCULAR VOLUME 93.2 fL (81.0-99.0); MONOCYTES # (AUTO) 0.8 10^3/uL (0.0-1.0); MONOCYTES % (AUTO) 9.7 %; NEUTROPHILS # (AUTO) 7.1 10^3/uL (1.5-6.6); NEUTROPHILS % (AUTO) 84.1 %; PLT - PLATELET COUNT 121 10^3/uL (130-450); RED BLOOD COUNT 4.59 10^6/uL (4.20-5.40); RED CELL DISTRIBUTION WIDTH 16.4 % (12.0-15.0); WHITE BLOOD COUNT 8.4 x10^3/uL (4.8-10.8)
[2019-09-17] MEDS: CARBIDOPA/LEVODOPA 25 MG/100 MG TABLET PO SCH ×5 (05:04→18:10)
[2019-09-17 05:09] LABS: CALCIUM 9.9 mg/dL (8.5-10.3); CREATININE 0.6 mg/dL (0.4-1.0)
[2019-09-17] MEDS: PANTOPRAZOLE 40 MG TABLET PO SCH (06:55)
[2019-09-17] MEDS: SACCHAROMYCES BOULARDII 250 MG CAPSULE PO SCH ×2 (08:00→15:56)
[2019-09-17] MEDS ORDERED: diltiaZEM CD 120 MG CAPSULE PO SCH (09:00)
[2019-09-17] MEDS: CIPROFLOXACIN 250 MG TABLET PO SCH ×2 (09:47→20:30)
[2019-09-17] MEDS: SODIUM CHLORIDE FLUSH 0.9% 10 ML SYRINGE IVP SCH ×3 (09:48→23:36)
[2019-09-17] MEDS: CHOLECALCIFEROL 25 MCG TABLET PO SCH (09:59)
[2019-09-17] MEDS: diltiaZEM CD 120 MG CAPSULE PO SCH (10:01)
[2019-09-17] MEDS: NYSTATIN POWDER 15 GM TOP SCH ×2 (10:11→20:30)
[2019-09-17] MEDS: METOPROLOL SUCCINATE 50 MG TABLET PO SCH (12:13)
[2019-09-17] MEDS ORDERED: FUROSEMIDE 20 MG/2 ML VIAL IVP STA (15:40)
[2019-09-17] MEDS: LEVOTHYROXINE 100 MCG TABLET PO SCH (15:56)
--- NOTE | 2019-09-17 18:22 | PROVIDER PROGRESS NOTE ---
Subjective - Prog Note Date Prog Note Date: 09/17/19 Prog Note Time: 18:21 - Subjective Subjective: Over the course of the day she is done well. She has been hypotensive with low urine output but otherwise has no complaints. She denies chest pain, cough. She states that "I am okay considering". More than anything else she just feels "tired". She denies chest pain, shortness of breath, abdominal pain. Current Medications - Current Medications Current Medications: Active Medications Acetaminophen (Tylenol) 650 mg PO Q4HR PRN PRN Reason: Pain 1 to 4 Last Admin: 09/16/19 22:21 Dose: 650 mg Documented by: Carbidopa/Levodopa (Sinemet 25 Mg/100 Mg) 3 tab PO 0500 [facility] Carbidopa/Levodopa (Sinemet 25 Mg/100 Mg) 2 tab PO 1000,1400,1900 [facility] Last Admin: 09/17/19 18:10 Dose: 2 tab Documented by: Cholecalciferol (Vitamin D3) 50 mcg PO DAILY [facility] Last Admin: 09/17/19 09:59 Dose: 50 mcg Documented by: Ciprofloxacin (Cipro) 500 mg PO BID [facility] Stop: 09/22/19 21:01 Last Admin: 09/17/19 09:47 Dose: 500 mg Documented by: Diltiazem HCl (Cardizem Cd) 120 mg PO DAILY [facility] Last Admin: 09/17/19 10:01 Dose: 120 mg Documented by: Sodium Chloride (Normal Saline 0.9%) 1,000 mls @ 85 mls/hr IV .[id number] [facility] Last Admin: 09/17/19 18:11 Dose: 85 mls/hr Documented by: Levothyroxine Sodium (Synthroid) 100 mcg PO 1630 [facility] Last Admin: 09/17/19 15:56 Dose: 100 mcg Documented by: Metoprolol Succinate (Toprol Xl) 25 mg PO 1200 [facility] Last Admin: 09/17/19 12:13 Dose: 25 mg Documented by: Multi-Ingredient Ointment (Zinc Oxide) 1 applic TOP PRN PRN PRN Reason: Skin Care Last Admin: 09/17/19 01:59 Dose: 1 applic Documented by: Nystatin (Nystop) 1 applic TOP BID [facility] Last Admin: 09/17/19 10:11 Dose: 1 applic Documented by: Ondansetron HCl (Zofran Odt) 4 mg TL Q6HR PRN PRN Reason: Nausea / Vomiting Ondansetron HCl (Zofran Inj) 4 mg IVP Q6HR PRN PRN Reason: Nausea / Vomiting Last Admin: 09/16/19 20:10 Dose: 4 mg Documented by: Oxycodone HCl (Roxicodone) 5 mg PO Q4HR PRN PRN Reason: Pain 5 to 7 Last Admin: 09/17/19 01:44 Dose: 5 mg Documented by: Pantoprazole Sodium (Protonix) 40 mg PO QDAC [facility] Last Admin: 09/17/19 06:55 Dose: 40 mg Documented by: Saccharomyces Boulardii (Florastor) 250 mg PO BIDWM [facility] Last Admin: 09/17/19 15:56 Dose: 250 mg Documented by: Sodium Chloride (Normal Saline Flush 0.9%) 10 ml IVP PRN PRN PRN Reason: NEEDED PER PROVIDER ORDERS Sodium Chloride (Normal Saline Flush 0.9%) 10 ml IVP 0100,0900,1700 [facility] Last Admin: 09/17/19 15:57 Dose: Not Given Documented by: Carbidopa/Levodopa 25/100 [Sinemet 25 mg/100 mg] 3 tab PO 0500 04/08/14 Furosemide 40 mg PO DAILY 04/08/14 Cholecalciferol (Vitamin D3) [Vitamin D3] 2,000 units PO DAILY 03/04/18 Levothyroxine Sodium 100 mcg PO 1630 03/04/18 Lisinopril [Prinivil] 2.5 mg PO DAILY 06/12/18 Metoprolol Succinate [Toprol Xl] 25 mg PO 1200 06/12/18 Diltiazem HCl [Diltiazem 24Hr ER] 120 mg PO DAILY 09/16/19 Omeprazole 20 mg PO QPM 09/16/19 Potassium Chloride [Klor-Con 10] 10 meq PO 1200 09/16/19 Warfarin Sodium [Coumadin] 4 mg PO 1700 09/16/19 Carbidopa/Levodopa [Carbidopa-Levodopa 25-100 Tab] 2 tab PO 1000,1400,1900 09/17/19 Objective - Vital Signs/Intake & Output Reviewed Vital Signs: Yes Vital Signs: Vital Signs Temp Pulse Pulse Resp BP Pulse Ox 09/17/19 16:14 37.1 C 88 22 96/62 98 09/17/19 14:53 76 Intake & Output: Intake & Output 09/14/19 09/15/19 09/16/19 09/17/19 23:59 23:59 23:59 23:59 Intake Total 4110.75 1808.667 Output Total 150 200 Balance 3960.75 1608.667 - Objective General Appearance: positive: No acute distress, Alert, Other (Elderly white female with partial alopecia diffusely, hunched over posture with chin on her chest due to kyphoscoliosis) Eyes Bilateral: positive: PERRL, Other (No eyelashes or minimal eyelashes) ENT: positive: Pharynx nml Neck: positive: No JVD (But difficult to assess with her chin on her chest), Stiff neck (Chronic and unchanged. She is frozen in position.) Respiratory: positive: Chest non-tender, No respiratory distress, Rhonchi. negative: Wheezes, Rales Cardiovascular: positive: Regular rate & rhythm, Systolic murmur. negative: Gallop/S4, Friction rub Abdomen: positive: Non-tender, No organomegaly, Nml bowel sounds, No distention Skin: positive: Warm, Dry Extremities: positive: No pedal edema Neurologic/Psychiatric: positive: Oriented x3, CN's nml (2-12). negative: Motor nml (Face has bradykinesia. Very slight resting tremors at rest with both hands. Moderate cogwheel rigidity of upper extremities. Legs are so stiff I cannot really bend them and flex them at the knees very well.) - Lab Results Fish Bones: 09/17/19 04:34 09/17/19 04:34 Other Labs: Lab Results x24hrs 09/17/19 09/17/19 09/16/19 Range/Units 04:34 04:34 13:00 WBC 8.4 (4.8-10.8) x10^3/uL RBC 4.59 (4.20-5.40) 10^6/uL Hgb 12.7 (12.0-16.0) g/dL Hct 42.8 (37.0-47.0) % MCV 93.2 (81.0-99.0) fL MCH 27.7 (27.0-31.0) pg MCHC 29.7 L (32.0-36.0) g/dL RDW 16.4 H (12.0-15.0) % Plt Count 121 L (130-450) 10^3/uL MPV 10.0 (7.9-10.8) fL Neut # (Auto) 7.1 H (1.5-6.6) 10^3/uL Lymph # (Auto) 0.5 L (1.5-3.5) 10^3/uL [place] # (Auto) 0.8 (0.0-1.0) 10^3/uL Eos # (Auto) 0.0 (0.0-0.7) 10^3/uL Baso # (Auto) 0.0 (0.0-0.1) 10^3/uL Absolute Nucleated RBC 0.00 x10^3/uL Nucleated RBC % 0.0 /100WBC Sodium 136 (135-145) mmol/L Potassium 4.5 (3.5-5.0) mmol/L Chloride 101 (101-111) mmol/L Carbon Dioxide 28 (21-32) mmol/L Anion Gap 7.0 (6-13) BUN 21 H (6-20) mg/dL Creatinine 0.6 (0.4-1.0) mg/dL Estimated GFR (MDRD) 98 (>89) Glucose 92 (70-100) mg/dL Calcium 9.9 (8.5-10.3) mg/dL Nasal Screen MRSA (PCR) NEGATIVE (NEGATIVE) Assessment/Plan - Problem List (1) General weakness Impression: [facility] to be induced from her A. fib with RVR which was in turn induced from possible infection from UTI. Plan: She will see physical therapy today. Since we do not know how strong she will be when she is ready to be discharged, we will check a Kovic test. Not because we think she has COVID but because retirement facilities are requiring this before the patient is transferred. (2) Atrial fibrillation with RVR Impression: With a low blood pressure. Heart rate is relatively controlled. She will be lowest 50 but as high as 90. Metoprolol and Cardizem have been resumed.With the low blood pressure we did think about [place], troponin was -September 15 and EKG was stable. (3) UTI (urinary tract infection) Impression: Preliminary culture shows gram-negative jamie. Day #2 of Cipro 500 mg twice daily p.o. Qualifiers: Urinary tract infection type: acute cystitis Hematuria presence: without hematuria Qualified Code(s): N30.00 - Acute cystitis without hematuria (4) Supratherapeutic INR Impression: Coumadin being held. Recheck INR tomorrow morning. (5) Parkinson disease, symptomatic Impression: Pharmacy reconciled her medications. They have been changed to how she takes them at home. I would recommend that she be seen by palliative care in the outpatient setting. I am leaving the service today, and will be [facility] make recommendation that Dr. Thomas/Dr. Grier make a palliative care referral.
[2019-09-17] MEDS: ONDANSETRON 4 MG/2 ML VIAL IVP PRN (23:40)
[2019-09-18] MEDS: SODIUM CHLORIDE 0.9% 1,000 ML IV SCH (03:51)
[2019-09-18] MEDS: CARBIDOPA/LEVODOPA 25 MG/100 MG TABLET PO SCH ×5 (04:59→18:54)
[2019-09-18 06:07] LABS: BASOPHILS % (AUTO) 0.3 %; EOSINOPHILS % (AUTO) 0.3 %; HGB - HEMOGLOBIN 12.3 g/dL (12.0-16.0); LYMPHOCYTES # (AUTO) 0.5 10^3/uL (1.5-3.5); LYMPHOCYTES % (AUTO) 7.6 %; MEAN CORPUSCULAR HEMOGLOBIN 28.3 pg (27.0-31.0); MEAN CORPUSCULAR HGB CONC 29.6 g/dL (32.0-36.0); MEAN CORPUSCULAR VOLUME 95.6 fL (81.0-99.0); MEAN PLATELET VOLUME 10.6 fL (7.9-10.8); MONOCYTES # (AUTO) 0.8 10^3/uL (0.0-1.0); MONOCYTES % (AUTO) 12.9 %; NEUTROPHILS % (AUTO) 78.6 %; PLT - PLATELET COUNT 129 10^3/uL (130-450); RED BLOOD COUNT 4.35 10^6/uL (4.20-5.40); RED CELL DISTRIBUTION WIDTH 15.9 % (12.0-15.0); WHITE BLOOD COUNT 6.4 x10^3/uL (4.8-10.8)
[2019-09-18 06:08] LABS: INR 2.7 (0.8-1.2); PT - PROTHROMBIN TIME 29.1 secs (9.9-12.6)
[2019-09-18 06:11] LABS: CALCIUM 10.3 mg/dL (8.5-10.3); CREATININE 0.5 mg/dL (0.4-1.0)
[2019-09-18] MEDS: PANTOPRAZOLE 40 MG TABLET PO SCH (06:29)
[2019-09-18] MEDS: SACCHAROMYCES BOULARDII 250 MG CAPSULE PO SCH ×2 (07:57→16:53)
[2019-09-18] MEDS: CHOLECALCIFEROL 25 MCG TABLET PO SCH (07:57)
[2019-09-18] MEDS: diltiaZEM CD 120 MG CAPSULE PO SCH (07:57)
[2019-09-18] MEDS: CIPROFLOXACIN 250 MG TABLET PO SCH ×2 (07:57→20:09)
[2019-09-18] MEDS: SODIUM CHLORIDE FLUSH 0.9% 10 ML SYRINGE IVP SCH ×2 (08:01→20:10)
[2019-09-18] MEDS: NYSTATIN POWDER 15 GM TOP SCH ×2 (08:01→20:10)
--- NOTE | 2019-09-18 10:09 | PROVIDER PROGRESS NOTE ---
Assessment/Plan - Problem List (1) General weakness Assessment/Plan: Patient still present generalized weakness, it could be combination of patient has systolic heart failure, acute urinary tract infection and atrial fibrillation with RVR. We will hold intravenous IV fluids, we will do echo study today, we will continue physical therapist and occupational therapist, We will treat urinary tract infection with antibiotics. per physical therapist and occupational therapist recommendation patient to have home health physical/Occupation therapist and nursing home aide, patient declined for d/c to SNF. (2)systolic heart failure Patient had an echo study on 2018 which show patient had 35% of EF with mild right heart abnormal pressure. We will do a new echo study. We will continue metoprolol, We will hold intravenous IV fluids,We will continue alarm security or surveillance monitor patient. Since the patient does not present respiratory distress now, And patient blood pressure is slightly low, then we will hold lisinopril and Lasix. (3) Atrial fibrillation with RVR Impression: Heart rate is relatively controlled after Resume of home medication Cardizem and metoprolol. She will be lowest HR 50 but as high as 90. We will order telemetry. Patient had a troponin test which was negative, and the EKG was stable (4) UTI (urinary tract infection) Impression: UA culture shows gram-negative jamie. continue Day #2 of Cipro 500 mg twice daily p.o. (5) Supratherapeutic INR Impression: Coumadin being held. Recheck INR tomorrow morning.Today INR in high is 2.7, we will continue hold Coumadin, we will check PT and and INR daily (6) Parkinson disease, symptomatic Impression: Continue home medication Sinemet, I agree patient would be seen palliative care in the outpatient setting. we will put in the discharge summary and PCP referral to be follow-up by palliative care - Current Meds Current Meds: Current Medications Generic Name Dose Route Start Last Admin Trade Name Freq PRN Reason Stop Dose Admin Acetaminophen 650 mg 09/16/19 11:44 09/16/19 22:21 Tylenol PO 650 mg Q4HR PRN Administration Pain 1 to 4 Carbidopa/Levodopa 3 tab 09/17/19 10:16 09/18/19 04:59 Sinemet 25 Mg/100 Mg PO 3 tab 0500 RICHIE Administration Carbidopa/Levodopa 2 tab 09/17/19 10:00 09/17/19 18:10 Sinemet 25 Mg/100 Mg PO 2 tab 1000,1400,1900 RICHIE Administration Cholecalciferol 50 mcg 09/17/19 09:00 09/18/19 07:57 Vitamin D3 PO 50 mcg DAILY RICHIE Administration Ciprofloxacin 500 mg 09/16/19 12:00 09/18/19 07:57 Cipro PO 09/22/19 21:01 500 mg BID RICHIE Administration Diltiazem HCl 120 mg 09/16/19 17:15 09/18/19 07:57 Cardizem Cd PO 120 mg DAILY RICHIE Administration Levothyroxine Sodium 100 mcg 09/17/19 16:30 09/17/19 15:56 Synthroid PO 100 mcg 1630 RICHIE Administration Metoprolol Succinate 25 mg 09/17/19 12:00 09/17/19 12:13 Toprol Xl PO 25 mg 1200 RICHIE Administration Multi-Ingredient Ointment 1 applic 09/16/19 19:12 09/17/19 01:59 Zinc Oxide TOP 1 applic PRN PRN Administration Skin Care Nystatin 1 applic 09/16/19 21:00 09/18/19 08:01 Nystop TOP 1 applic BID RICHIE Administration Ondansetron HCl 4 mg 09/16/19 11:44 09/17/19 23:40 Zofran Inj IVP 4 mg Q6HR PRN Administration Nausea / Vomiting Oxycodone HCl 5 mg 09/16/19 11:44 09/17/19 01:44 Roxicodone PO 5 mg Q4HR PRN Administration Pain 5 to 7 Pantoprazole Sodium 40 mg 09/16/19 17:00 09/18/19 06:29 Protonix PO 40 mg QDAC RICHIE Administration Saccharomyces Boulardii 250 mg 09/16/19 17:00 09/18/19 07:57 Florastor PO 250 mg BIDWM RICHIE Administration Sodium Chloride 10 ml 09/16/19 17:00 09/18/19 08:01 Normal Saline Flush 0.9% IVP Not Given 0100,0900,1700 [facility] - Lab Result Fish Bone Diagrams: 09/18/19 05:33 09/18/19 05:33 - Additional Planning My Orders: My Active Orders 09/18/19 Home Health Referral [CONS] Routine 09/18/19 08:24 Echo Transthoracic Complete [ECHO] Stat 09/18/19 08:27 Telemetry- [RC] Q4HR 09/18/19 08:36 Out of bed 3+ hours today [RC] TID 09/19/19 05:00 CMP [COMPREHENSIVE METABOLIC PANEL] [CHEM] DAILYLAB PT WITH INR [COAG] DAILYLAB 09/20/19 05:00 CMP [COMPREHENSIVE METABOLIC PANEL] [CHEM] DAILYLAB PT WITH INR [COAG] DAILYLAB 09/21/19 05:00 CMP [COMPREHENSIVE METABOLIC PANEL] [CHEM] DAILYLAB PT WITH INR [COAG] DAILYLAB 09/22/19 05:00 CMP [COMPREHENSIVE METABOLIC PANEL] [CHEM] DAILYLAB PT WITH INR [COAG] DAILYLAB Subjective - Subjective Patient Reports: Feeling Better Objective Vital Signs: Vital Signs - 24 hr 09/17/19 09/17/19 09/17/19 10:49 11:00 11:05 Temperature 36.4 C L Heart Rate Heart Rate [ 75 75 Activity] Heart Rate [ Brachial] Heart Rate [ 75 Monitoring electrodes] Heart Rate [ Radial] Heart Rate [ 50 L 90 Supine] Respiratory 24 Rate Blood Pressure 107/69 107/69 [Activity] Blood Pressure 102/73 [Right Brachial artery] Blood Pressure 84/72 L 97/72 [Supine] O2 Saturation 95 09/17/19 09/17/19 09/17/19 11:15 12:06 14:15 Temperature 36.9 C Heart Rate 99 Heart Rate [ Activity] Heart Rate [ Brachial] Heart Rate [ 82 Monitoring electrodes] Heart Rate [ 86 Radial] Heart Rate [ Supine] Respiratory 25 H 20 Rate Blood Pressure [Activity] Blood Pressure 103/80 115/71 [Right Brachial artery] Blood Pressure [Supine] O2 Saturation 94 96 98 09/17/19 09/17/19 09/17/19 14:53 16:00 16:14 Temperature 37.1 C Heart Rate 76 Heart Rate [ Activity] Heart Rate [ Brachial] Heart Rate [ 88 Monitoring electrodes] Heart Rate [ Radial] Heart Rate [ Supine] Respiratory 22 Rate Blood Pressure [Activity] Blood Pressure 96/62 [Right Brachial artery] Blood Pressure [Supine] O2 Saturation 83 L 98 09/17/19 09/17/19 09/18/19 21:00 23:45 04:25 Temperature 37.2 C 37 C 37.3 C Heart Rate Heart Rate [ Activity] Heart Rate [ 59 L 103 H 74 Brachial] Heart Rate [ Monitoring electrodes] Heart Rate [ Radial] Heart Rate [ Supine] Respiratory 23 20 20 Rate Blood Pressure [Activity] Blood Pressure 98/70 114/84 H 112/80 [Right Brachial artery] Blood Pressure [Supine] O2 Saturation 98 94 96 09/18/19 08:32 Temperature 37.2 C Heart Rate Heart Rate [ Activity] Heart Rate [ 80 Brachial] Heart Rate [ Monitoring electrodes] Heart Rate [ Radial] Heart Rate [ Supine] Respiratory 16 Rate Blood Pressure [Activity] Blood Pressure 98/62 [Right Brachial artery] Blood Pressure [Supine] O2 Saturation 96 Oxygen O2 Source [Without Activity] Nasal cannula O2 Source Nasal cannula I&O (Last 24 Hrs): Intake and Output Totals x24h 09/16/19 09/17/19 09/18/19 23:59 23:59 23:59 Intake Total 4110.75 2108.667 1752.667 Output Total 150 850 350 Balance 3960.75 3355.478 1151.667 General: Alert, No acute distress HEENT: Atraumatic Neck: Supple Lymphatic: no adenopathy Neuro: Alert, Non Focal Cardiovascular: Normal S1, Normal S2 Respiratory: Chest non-tender, No respiratory distress Abdomen: Normal bowel sounds, Soft, No tenderness Extremities: Normal pulses - Results Results: Laboratory Results WBC 6.4 x10^3/uL (4.8-10.8) 09/18/19 05:33 RBC 4.35 10^6/uL (4.20-5.40) 09/18/19 05:33 Hgb 12.3 g/dL (12.0-16.0) 09/18/19 05:33 Hct 41.6 % (37.0-47.0) 09/18/19 05:33 MCV 95.6 fL (81.0-99.0) 09/18/19 05:33 MCH 28.3 pg (27.0-31.0) 09/18/19 05:33 MCHC 29.6 g/dL (32.0-36.0) L 09/18/19 05:33 RDW 15.9 % (12.0-15.0) H 09/18/19 05:33 Plt Count 129 10^3/uL (130-450) L 09/18/19 05:33 MPV 10.6 fL (7.9-10.8) 09/18/19 05:33 Neut # (Auto) 5.0 10^3/uL (1.5-6.6) 09/18/19 05:33 Lymph # (Auto) 0.5 10^3/uL (1.5-3.5) L 09/18/19 05:33 [place] # (Auto) 0.8 10^3/uL (0.0-1.0) 09/18/19 05:33 Eos # (Auto) 0.0 10^3/uL (0.0-0.7) 09/18/19 05:33 Baso # (Auto) 0.0 10^3/uL (0.0-0.1) 09/18/19 05:33 Absolute Nucleated RBC 0.00 x10^3/uL 09/18/19 05:33 Nucleated RBC % 0.0 /100WBC 09/18/19 05:33 PT 29.1 secs (9.9-12.6) H 09/18/19 05:33 INR 2.7 (0.8-1.2) H 09/18/19 05:33 Sodium 140 mmol/L (135-145) 09/18/19 05:33 Potassium 4.3 mmol/L (3.5-5.0) 09/18/19 05:33 Chloride 101 mmol/L (101-111) 09/18/19 05:33 Carbon Dioxide 34 mmol/L (21-32) H 09/18/19 05:33 Anion Gap 5.0 (6-13) L 09/18/19 05:33 BUN 14 mg/dL (6-20) 09/18/19 05:33 Creatinine 0.5 mg/dL (0.4-1.0) 09/18/19 05:33 Estimated GFR (MDRD) 121 (>89) 09/18/19 05:33 Glucose 107 mg/dL (70-100) H 09/18/19 05:33 Calcium 10.3 mg/dL (8.5-10.3) 09/18/19 05:33 Magnesium 1.7 mg/dL (1.7-2.8) 09/16/19 09:31 Total Bilirubin 1.7 mg/dL (0.2-1.0) H 09/16/19 09:31 AST < 10 IU/L (10-42) L 09/16/19 09:31 ALT < 10 IU/L (10-60) L 09/16/19 09:31 Alkaline Phosphatase 59 IU/L (42-121) 09/16/19 09:31 Troponin I High Sens 6.2 ng/L (2.3-14.8) 09/16/19 09:31 B-Natriuretic Peptide 381 pg/mL (5-100) H 09/16/19 09:31 Total Protein 5.9 g/dL (6.7-8.2) L 09/16/19 09:31 Albumin 3.8 g/dL (3.2-5.5) 09/16/19 09: Globulin 2.1 g/dL (2.1-4.2) 09/16/19 09: Albumin/Globulin Ratio 1.8 (1.0-2.2) 09/16/19 09: Lipase 25 U/L (22-51) 09/16/19 09: TSH 3.61 uIU/mL (0.34-5.60) 09/16/19 09:31 Urine Color YELLOW 09/16/19 11:00 Urine Clarity CLOUDY (CLEAR) 09/16/19 11:00 Urine pH 5.0 PH (5.0-7.5) 09/16/19 11:00 Ur Specific [place] 1.015 (1.002-1.030) 09/16/19 11:00 Urine Protein 100 mg/dL (NEGATIVE) H 09/16/19 11:00 Urine Glucose (UA) NEGATIVE mg/dL (NEGATIVE) 09/16/19 11:00 Urine Ketones 15 mg/dL (NEGATIVE) H 09/16/19 11:00 Urine Occult Blood MODERATE (NEGATIVE) H 09/16/19 11:00 Urine Nitrite NEGATIVE (NEGATIVE) 09/16/19 11:00 Urine Bilirubin NEGATIVE (NEGATIVE) 09/16/19 11:00 Urine Urobilinogen 1 (NORMAL) E.U./dL (NORMAL) 09/16/19 11:00 Ur Leukocyte Esterase MODERATE (NEGATIVE) H 09/16/19 11:00 Urine RBC 11-25 /HPF (0-5) H 09/16/19 11:00 Urine WBC >25 /HPF (0-5) H 09/16/19 11:00 Urine WBC Clumps PRESENT 09/16/19 11:00 Ur Squamous Epith Cells NONE SEEN (<= Few) 09/16/19 11:00 Urine Bacteria Few /HPF (None Seen) 09/16/19 11:00 Ur Microscopic Review INDICATED 09/16/19 11:00 Urine Culture Comments INDICATED 09/16/19 11:00 Nasal Screen MRSA (PCR) NEGATIVE (NEGATIVE) 09/16/19 13:00 - Procedures Procedures: Procedures INSERT GASTRIC TUBE NEC (03/25/13) PACKED CELL TRANSFUSION (03/25/13) Sepsis Event Note (H) - Evaluation Current Stage of Sepsis: Ruled out ABX Reporting Has patient been on IV antibiotics over the past 48 hours?: Yes Current Medications - Current Medications Current Medications: Active Medications Acetaminophen (Tylenol) 650 mg PO Q4HR PRN PRN Reason: Pain 1 to 4 Last Admin: 09/16/19 22:21 Dose: 650 mg Documented by: Carbidopa/Levodopa (Sinemet 25 Mg/100 Mg) 3 tab PO 0500 [facility] Last Admin: 09/18/19 10:26 Dose: 2 tab Documented by: Carbidopa/Levodopa (Sinemet 25 Mg/100 Mg) 2 tab PO 1000,1400,1900 [facility] Last Admin: 09/17/19 18:10 Dose: 2 tab Documented by: Cholecalciferol (Vitamin D3) 50 mcg PO DAILY [facility] Last Admin: 09/18/19 07:57 Dose: 50 mcg Documented by: Ciprofloxacin (Cipro) 500 mg PO BID [facility] Stop: 09/22/19 21:01 Last Admin: 09/18/19 07:57 Dose: 500 mg Documented by: Diltiazem HCl (Cardizem Cd) 120 mg PO DAILY [facility] Last Admin: 09/18/19 07:57 Dose: 120 mg Documented by: Levothyroxine Sodium (Synthroid) 100 mcg PO 1630 [facility] Last Admin: 09/17/19 15:56 Dose: 100 mcg Documented by: Metoprolol Succinate (Toprol Xl) 25 mg PO 1200 [facility] Last Admin: 09/17/19 12:13 Dose: 25 mg Documented by: Multi-Ingredient Ointment (Zinc Oxide) 1 applic TOP PRN PRN PRN Reason: Skin Care Last Admin: 09/17/19 01:59 Dose: 1 applic Documented by: Nystatin (Nystop) 1 applic TOP BID [facility] Last Admin: 09/18/19 08:01 Dose: 1 applic Documented by: Ondansetron HCl (Zofran Odt) 4 mg TL Q6HR PRN PRN Reason: Nausea / Vomiting Ondansetron HCl (Zofran Inj) 4 mg IVP Q6HR PRN PRN Reason: Nausea / Vomiting Last Admin: 09/17/19 23:40 Dose: 4 mg Documented by: Oxycodone HCl (Roxicodone) 5 mg PO Q4HR PRN PRN Reason: Pain 5 to 7 Last Admin: 09/17/19 01:44 Dose: 5 mg Documented by: Pantoprazole Sodium (Protonix) 40 mg PO QDAC [facility] Last Admin: 09/18/19 06:29 Dose: 40 mg Documented by: Saccharomyces Alejandradii (Florastor) 250 mg PO BIDWM [facility] Last Admin: 09/18/19 07:57 Dose: 250 mg Documented by: Sodium Chloride (Normal Saline Flush 0.9%) 10 ml IVP PRN PRN PRN Reason: NEEDED PER PROVIDER ORDERS Sodium Chloride (Normal Saline Flush 0.9%) 10 ml IVP 0100,0900,1700 [facility] Last Admin: 09/18/19 08:01 Dose: Not Given Documented by: Carbidopa/Levodopa 25/100 [Sinemet 25 mg/100 mg] 3 tab PO 0500 04/08/14 Furosemide 40 mg PO DAILY 04/08/14 Cholecalciferol (Vitamin D3) [Vitamin D3] 2,000 units PO DAILY 03/04/18 Levothyroxine Sodium 100 mcg PO 1630 03/04/18 Lisinopril [Prinivil] 2.5 mg PO DAILY 06/12/18 Metoprolol Succinate [Toprol Xl] 25 mg PO 1200 06/12/18 Diltiazem HCl [Diltiazem 24Hr ER] 120 mg PO DAILY 09/16/19 Omeprazole 20 mg PO QPM 09/16/19 Potassium Chloride [Klor-Con 10] 10 meq PO 1200 09/16/19 Warfarin Sodium [Coumadin] 4 mg PO 1700 09/16/19 Carbidopa/Levodopa [Carbidopa-Levodopa 25-100 Tab] 2 tab PO 1000,1400,1900 09/17/19
[2019-09-18] MEDS: METOPROLOL SUCCINATE 50 MG TABLET PO SCH (14:13)
[2019-09-18] MEDS: FUROSEMIDE 20 MG TABLET PO SCH (14:41)
[2019-09-18] MEDS ORDERED: FUROSEMIDE 20 MG TABLET PO SCH (15:00)
--- NOTE | 2019-09-18 15:12 | XRAY Report ---
PROCEDURE: Chest 1 View X-Ray INDICATIONS: SOB TECHNIQUE: One view of the chest was acquired. COMPARISON: 09/16/2019 and 06/07/2019 FINDINGS: Surgical changes and devices: None. Lungs and pleura: No pleural effusions or pneumothorax. Consolidation noted in the left lung base wh ich likely represents compressive atelectasis related to hiatal hernia, however aspiration pneumonia cannot be excluded by imaging alone. Mediastinum: Mediastinal contours appear normal. Heart is enlarged large hiatal hernia is redemonst rated. Bones and chest wall: No suspicious bony lesions. Overlying soft tissues appear unremarkable. IMPRESSION: Increased opacification left lung base likely representing compressive atelectasis related to large h iatal hernia, however correlation with clinical and laboratory data is recommended to exclude aspira tion or pneumonia. Reviewed by: Leny Zapata MD, PhD on 09/18/2019 3:10 PM PDT Approved by: Leny Zapata MD, PhD on 09/18/2019 3:10 PM PDT Station ID: [id number]
[2019-09-18] MEDS: ACETAMINOPHEN 325 MG TABLET PO PRN (16:53)
[2019-09-18] MEDS: LEVOTHYROXINE 100 MCG TABLET PO SCH (16:53)
[2019-09-19] MEDS: SODIUM CHLORIDE FLUSH 0.9% 10 ML SYRINGE IVP SCH ×3 (02:00→17:17)
[2019-09-19] MEDS: ACETAMINOPHEN 325 MG TABLET PO PRN (04:04)
[2019-09-19 04:58] LABS: BASOPHILS % (AUTO) 0.4 %; EOSINOPHILS # (AUTO) 0.1 10^3/uL (0.0-0.7); EOSINOPHILS % (AUTO) 1.1 %; HGB - HEMOGLOBIN 11.7 g/dL (12.0-16.0); LYMPHOCYTES # (AUTO) 0.5 10^3/uL (1.5-3.5); LYMPHOCYTES % (AUTO) 10.4 %; MEAN CORPUSCULAR HEMOGLOBIN 27.9 pg (27.0-31.0); MEAN CORPUSCULAR HGB CONC 29.2 g/dL (32.0-36.0); MEAN CORPUSCULAR VOLUME 95.5 fL (81.0-99.0); MEAN PLATELET VOLUME 10.5 fL (7.9-10.8); MONOCYTES # (AUTO) 0.6 10^3/uL (0.0-1.0); MONOCYTES % (AUTO) 13.5 %; NEUTROPHILS # (AUTO) 3.4 10^3/uL (1.5-6.6); NEUTROPHILS % (AUTO) 74.2 %; PLT - PLATELET COUNT 119 10^3/uL (130-450); RED CELL DISTRIBUTION WIDTH 15.5 % (12.0-15.0); WHITE BLOOD COUNT 4.6 x10^3/uL (4.8-10.8)
[2019-09-19 05:01] LABS: INR 1.6 (0.8-1.2); PT - PROTHROMBIN TIME 18.2 secs (9.9-12.6)
[2019-09-19 05:11] LABS: ALBUMIN 3.2 g/dL (3.2-5.5); ALBUMIN/GLOBULIN RATIO 1.2 (1.0-2.2); ALKALINE PHOSPHATASE 47 IU/L (42-121); ALT ALANINE AMINOTRANSFERASE < 10 IU/L (10-60); AST ASPARTATE AMINOTRANSFERASE < 10 IU/L (10-42); BUN - BLOOD UREA NITROGEN 12 mg/dL (6-20); CALCIUM 10.4 mg/dL (8.5-10.3); CARBON DIOXIDE - CO2 36 mmol/L (21-32); CHLORIDE 99 mmol/L (101-111); CREATININE 0.5 mg/dL (0.4-1.0); GLUCOSE 119 mg/dL (70-100); SODIUM 139 mmol/L (135-145); TOTAL PROTEIN 5.8 g/dL (6.7-8.2)
[2019-09-19] MEDS: PANTOPRAZOLE 40 MG TABLET PO SCH (06:35)
[2019-09-19] MEDS: FUROSEMIDE 20 MG TABLET PO SCH (06:37)
[2019-09-19] MEDS: CHOLECALCIFEROL 25 MCG TABLET PO SCH (08:26)
[2019-09-19] MEDS: SACCHAROMYCES BOULARDII 250 MG CAPSULE PO SCH ×2 (08:27→18:51)
[2019-09-19] MEDS: CIPROFLOXACIN 250 MG TABLET PO SCH ×2 (08:57→20:39)
[2019-09-19] MEDS: NYSTATIN POWDER 15 GM TOP SCH ×2 (08:57→20:38)
[2019-09-19] MEDS: diltiaZEM CD 120 MG CAPSULE PO SCH (08:57)
[2019-09-19] MEDS: CARBIDOPA/LEVODOPA 25 MG/100 MG TABLET PO SCH ×3 (09:46→18:53)
[2019-09-19] MEDS: oxyCODONE 5 MG TABLET PO PRN (12:06)
--- NOTE | 2019-09-19 12:26 | PROVIDER PROGRESS NOTE ---
Assessment/Plan - Problem List (1) General weakness Assessment/Plan: (1) General weakness Assessment/Plan: Patient still present generalized weakness, it could be combination of patient has systolic heart failure, acute urinary tract infection and atrial fibrillation with RVR. We will hold intravenous IV fluids, we will do echo study today, we will continue physical therapist and occupational therapist, We will treat urinary tract infection with antibiotics. per physical therapist and occupational therapist recommendation patient to have home health physical/Occupation therapist and director home, patient declined for d/c to SNF. (2)diastolic heart failure Patient had an echo study on 2018 which show patient had 35% of EF with mild right heart abnormal pressure. We will do a new echo study. We will continue metoprolol, We will hold intravenous IV fluids,We will continue quality assurance monitor body patient. Since the patient does not present respiratory distress now, And patient blood pressure is slightly low, then we will hold lisinopril and L asix. (3) Atrial fibrillation with RVR Impression: Heart rate is relatively controlled after Resume of home medication Cardizem and metoprolol. She will be lowest HR 50 but as high as 90. We will order telemetry. Patient had a troponin test which was negative, and the EKG was stable (4) UTI (urinary tract infection) Impression: UA culture shows gram-negative jamie. continue Day #2 of Cipro 500 mg twice daily p.o. (5) Supratherapeutic INR Impression: Coumadin being held. Recheck INR tomorrow morning.Today INR in high is 2.7, we will continue hold Coumadin, we will check PT and and INR daily (6) Parkinson disease, symptomatic Impression: Continue home medication Sinemet, I agree patient would be seen palliative care in the outpatient setting. we will put in the discharge summary and PCP referral to be follow-up by palliative care - Current Meds Current Meds: Current Medications Generic Name Dose Route Start Last Admin Trade Name Freq PRN Reason Stop Dose Admin Acetaminophen 650 mg 09/16/19 11:44 09/19/19 04:04 Tylenol PO 650 mg Q4HR PRN Administration Pain 1 to 4 Carbidopa/Levodopa 3 tab 09/17/19 10:16 09/18/19 10:26 Sinemet 25 Mg/100 Mg PO 2 tab 0500 RICHIE Administration Carbidopa/Levodopa 2 tab 09/17/19 10:00 09/19/19 09:46 Sinemet 25 Mg/100 Mg PO 2 tab 1000,1400,1900 RICHIE Administration Cholecalciferol 50 mcg 09/17/19 09:00 09/19/19 08:26 Vitamin D3 PO 50 mcg DAILY RICHIE Administration Ciprofloxacin 500 mg 09/16/19 12:00 09/19/19 08:57 Cipro PO 09/22/19 21:01 500 mg BID RICHIE Administration Diltiazem HCl 120 mg 09/16/19 17:15 09/19/19 08:57 Cardizem Cd PO 120 mg DAILY RICHIE Administration Furosemide 20 mg 09/18/19 15:00 09/19/19 06:37 Lasix PO Not Given BIDDIURETIC RICHIE Levothyroxine Sodium 100 mcg 09/17/19 16:30 09/18/19 16:53 Synthroid PO 100 mcg 1630 RICHIE Administration Metoprolol Succinate 25 mg 09/17/19 12:00 09/18/19 14:13 Toprol Xl PO 25 mg 1200 RICHIE Administration Multi-Ingredient Ointment 1 applic 09/16/19 19:12 09/17/19 01:59 Zinc Oxide TOP 1 applic PRN PRN Administration Skin Care Nystatin 1 applic 09/16/19 21:00 09/19/19 08:57 Nystop TOP 1 applic BID RICHIE Administration Ondansetron HCl 4 mg 09/16/19 11:44 09/17/19 23:40 Zofran Inj IVP 4 mg Q6HR PRN Administration Nausea / Vomiting Oxycodone HCl 5 mg 09/16/19 11:44 09/19/19 12:06 Roxicodone PO 5 mg Q4HR PRN Administration Pain 5 to 7 Pantoprazole Sodium 40 mg 09/16/19 17:00 09/19/19 06:35 Protonix PO 40 mg QDAC RICHIE Administration Saccharomyces Boulardii 250 mg 09/16/19 17:00 09/19/19 08:27 Florastor PO 250 mg BIDWM RICHIE Administration Sodium Chloride 10 ml 09/16/19 17:00 09/19/19 08:57 Normal Saline Flush 0.9% IVP 10 ml 0100,0900,1700 RICHIE Administration - Lab Result Fish Bone Diagrams: 09/19/19 04:35 09/19/19 04:35 - Additional Planning My Orders: My Active Orders 09/18/19 15:00 Furosemide [Lasix] 20 mg PO BIDDIURETIC 09/19/19 07:33 Out of bed 4+ hours [RC] QID 09/19/19 13:00 polyethylene glycoL 3350 [Miralax] 17 gm PO DAILY 09/19/19 17:00 Warfarin [Coumadin] 4 mg PO DAILY@1700 09/20/19 05:00 BNP - B-NATRIURETIC PEPTIDE [IAI] DAILYLAB CBC - COMP BLD CT W/AUTO DIFF [HEME] DAILYLAB CMP [COMPREHENSIVE METABOLIC PANEL] [CHEM] DAILYLAB PT WITH INR [COAG] DAILYLAB 09/21/19 05:00 BNP - B-NATRIURETIC PEPTIDE [IAI] DAILYLAB CBC - COMP BLD CT W/AUTO DIFF [HEME] DAILYLAB CMP [COMPREHENSIVE METABOLIC PANEL] [CHEM] DAILYLAB PT WITH INR [COAG] DAILYLAB 09/22/19 05:00 BNP - B-NATRIURETIC PEPTIDE [IAI] DAILYLAB CBC - COMP BLD CT W/AUTO DIFF [HEME] DAILYLAB CMP [COMPREHENSIVE METABOLIC PANEL] [CHEM] DAILYLAB PT WITH INR [COAG] DAILYLAB 09/23/19 05:00 CBC - COMP BLD CT W/AUTO DIFF [HEME] DAILYLAB Objective Vital Signs: Vital Signs - 24 hr 09/18/19 09/18/19 09/18/19 12:31 14:00 14:41 Temperature 36.7 C Heart Rate [ 62 96 73 Brachial] Respiratory 17 Rate Blood Pressure 110/55 L 108/70 115/69 [Right Brachial artery] O2 Saturation 94 92 09/18/19 09/18/19 09/19/19 15:26 20:04 00:48 Temperature 37.0 C 37.3 C 37.3 C Heart Rate [ 97 88 80 Brachial] Respiratory 20 24 20 Rate Blood Pressure 118/89 H 113/79 96/66 [Right Brachial artery] O2 Saturation 96 95 99 09/19/19 09/19/19 09/19/19 03:54 06:36 08:40 Temperature 36.6 C 37.0 C Heart Rate [ 74 67 65 Brachial] Respiratory 20 18 Rate Blood Pressure 103/56 L 99/59 L 100/60 [Right Brachial artery] O2 Saturation 97 96 09/19/19 09:11 Temperature Heart Rate [ Brachial] Respiratory Rate Blood Pressure [Right Brachial artery] O2 Saturation 85 L Oxygen O2 Source [Without Activity] Nasal cannula O2 Source Room air I&O (Last 24 Hrs): Intake and Output Totals x24h 09/17/19 09/18/19 09/19/19 23:59 23:59 23:59 Intake Total 2108.667 2402.667 240 Output Total 850 700 250 Balance 9026.044 6170.667 -10 - Results Results: Laboratory Results WBC 4.6 x10^3/uL (4.8-10.8) L 09/19/19 04:35 RBC 4.20 10^6/uL (4.20-5.40) 09/19/19 04:35 Hgb 11.7 g/dL (12.0-16.0) L 09/19/19 04:35 Hct 40.1 % (37.0-47.0) 09/19/19 04:35 MCV 95.5 fL (81.0-99.0) 09/19/19 04:35 MCH 27.9 pg (27.0-31.0) 09/19/19 04:35 MCHC 29.2 g/dL (32.0-36.0) L 09/19/19 04:35 RDW 15.5 % (12.0-15.0) H 09/19/19 04:35 Plt Count 119 10^3/uL (130-450) L 09/19/19 04:35 MPV 10.5 fL (7.9-10.8) 09/19/19 04:35 Neut # (Auto) 3.4 10^3/uL (1.5-6.6) 09/19/19 04:35 Lymph # (Auto) 0.5 10^3/uL (1.5-3.5) L 09/19/19 04:35 [place] # (Auto) 0.6 10^3/uL (0.0-1.0) 09/19/19 04:35 Eos # (Auto) 0.1 10^3/uL (0.0-0.7) 09/19/19 04:35 Baso # (Auto) 0.0 10^3/uL (0.0-0.1) 09/19/19 04:35 Absolute Nucleated RBC 0.00 x10^3/uL 09/19/19 04:35 Nucleated RBC % 0.0 /100WBC 09/19/19 04:35 PT 18.2 secs (9.9-12.6) H 09/19/19 04:35 INR 1.6 (0.8-1.2) H 09/19/19 04:35 Sodium 139 mmol/L (135-145) 09/19/19 04:35 Potassium 4.2 mmol/L (3.5-5.0) 09/19/19 04:35 Chloride 99 mmol/L (101-111) L 09/19/19 04:35 Carbon Dioxide 36 mmol/L (21-32) H 09/19/19 04:35 Anion Gap 4.0 (6-13) L 09/19/19 04:35 BUN 12 mg/dL (6-20) 09/19/19 04:35 Creatinine 0.5 mg/dL (0.4-1.0) 09/19/19 04:35 Estimated GFR (MDRD) 121 (>89) 09/19/19 04:35 Glucose 119 mg/dL (70-100) H 09/19/19 04:35 Calcium 10.4 mg/dL (8.5-10.3) H 09/19/19 04:35 Magnesium 1.7 mg/dL (1.7-2.8) 09/16/19 09:31 Total Bilirubin 1.0 mg/dL (0.2-1.0) 09/19/19 04:35 AST < 10 IU/L (10-42) L 09/19/19 04:35 ALT < 10 IU/L (10-60) L 09/19/19 04:35 Alkaline Phosphatase 47 IU/L (42-121) 09/19/19 04:35 Troponin I High Sens 6.2 ng/L (2.3-14.8) 09/16/19 09:31 B-Natriuretic Peptide 684 pg/mL (5-100) H 09/19/19 04:35 Total Protein 5.8 g/dL (6.7-8.2) L 09/19/19 04:35 Albumin 3.2 g/dL (3.2-5.5) 09/19/19 04:35 Globulin 2.6 g/dL (2.1-4.2) 09/19/19 04:35 Albumin/Globulin Ratio 1.2 (1.0-2.2) 09/19/19 04:35 Lipase 25 U/L (22-51) 09/16/19 09:31 TSH 3.61 uIU/mL (0.34-5.60) 09/16/19 09:31 Urine Color YELLOW 09/16/19 11:00 Urine Clarity CLOUDY (CLEAR) 09/16/19 11:00 Urine pH 5.0 PH (5.0-7.5) 09/16/19 11:00 Ur Specific [place] 1.015 (1.002-1.030) 09/16/19 11:00 Urine Protein 100 mg/dL (NEGATIVE) H 09/16/19 11:00 Urine Glucose (UA) NEGATIVE mg/dL (NEGATIVE) 09/16/19 11:00 Urine Ketones 15 mg/dL (NEGATIVE) H 09/16/19 11:00 Urine Occult Blood MODERATE (NEGATIVE) H 09/16/19 11:00 Urine Nitrite NEGATIVE (NEGATIVE) 09/16/19 11:00 Urine Bilirubin NEGATIVE (NEGATIVE) 09/16/19 11:00 Urine Urobilinogen 1 (NORMAL) E.U./dL (NORMAL) 09/16/19 11:00 Ur Leukocyte Esterase MODERATE (NEGATIVE) H 09/16/19 11:00 Urine RBC 11-25 /HPF (0-5) H 09/16/19 11:00 Urine WBC >25 /HPF (0-5) H 09/16/19 11:00 Urine WBC Clumps PRESENT 09/16/19 11:00 Ur Squamous Epith Cells NONE SEEN (<= Few) 09/16/19 11:00 Urine Bacteria Few /HPF (None Seen) 09/16/19 11:00 Ur Microscopic Review INDICATED 09/16/19 11:00 Urine Culture Comments INDICATED 09/16/19 11:00 Nasal Screen MRSA (PCR) NEGATIVE (NEGATIVE) 09/16/19 13:00 - Procedures Procedures: Procedures INSERT GASTRIC TUBE NEC (03/25/13) PACKED CELL TRANSFUSION (03/25/13) Sepsis Event Note (H) - Evaluation Current Stage of Sepsis: Ruled out ABX Reporting Has patient been on IV antibiotics over the past 48 hours?: Yes
[2019-09-19] MEDS: METOPROLOL SUCCINATE 50 MG TABLET PO SCH (12:46)
[2019-09-19] MEDS: polyethylene glycoL 3350 17 GM PACKET PO SCH (12:46)
[2019-09-19 14:28] LABS: MAGNESIUM 2.1 mg/dL (1.7-2.8); PHOSPHORUS 1.9 mg/dL (2.5-4.6)
--- NOTE | 2019-09-19 16:09 | PROVIDER PROGRESS NOTE ---
Subjective - Prog Note Date Prog Note Date: 09/19/19 - Subjective Pt reports feeling: Improved Subjective: pt feel better, She denies fever, chill, chest pain. nurse report pt had 45 second, seem likely V-T/Flutter tele strip. repeat EKG just show it is as before, it is afib without V-T/Flutter. pt is asymptomatic at all. troponin is in the normal arrange. pt's electrolytic is in the normal arrange. Because tele strip show 45 second abnormal EKG. I reported to Dr Mcfadden if pt need to be transfer to ICU. Dr. Mcfadden help to call [employer] . We fax all strip and EKG to and report her medical conditions to him. he did not believe pt had V-T or V-flutter, he think it is A-flutter. Dr. Lam did recommend pt need followup with her director of catering Dr. Hayes after d/c from hospital. I updated these conditions to pt and pt's and answer their questions. I did discuss with pt and pt's about pt's code status. Pt has hx of significant weakness, physical deconditioning, and kyphosis deformity, and severe right heart failure. but pt want to continue to have full code and want to have "try CPR" if clinic needed. Current Medications - Current Medications Current Medications: Active Medications Acetaminophen (Tylenol) 650 mg PO Q4HR PRN PRN Reason: Pain 1 to 4 Last Admin: 09/19/19 04:04 Dose: 650 mg Documented by: Carbidopa/Levodopa (Sinemet 25 Mg/100 Mg) 3 tab PO 0500 [facility] Last Admin: 09/18/19 10:26 Dose: 2 tab Documented by: Carbidopa/Levodopa (Sinemet 25 Mg/100 Mg) 2 tab PO 1000,1400,1900 [facility] Last Admin: 09/19/19 13:48 Dose: 2 tab Documented by: Cholecalciferol (Vitamin D3) 50 mcg PO DAILY [facility] Last Admin: 09/19/19 08:26 Dose: 50 mcg Documented by: Ciprofloxacin (Cipro) 500 mg PO BID [facility] Stop: 09/22/19 21:01 Last Admin: 09/19/19 08:57 Dose: 500 mg Documented by: Diltiazem HCl (Cardizem Cd) 120 mg PO DAILY [facility] Last Admin: 09/19/19 08:57 Dose: 120 mg Documented by: Furosemide (Lasix) 20 mg PO BIDDIURETIC [facility] Last Admin: 09/19/19 06:37 Dose: Not Given Documented by: Levothyroxine Sodium (Synthroid) 100 mcg PO 1630 [facility] Last Admin: 09/18/19 16:53 Dose: 100 mcg Documented by: Metoprolol Succinate (Toprol Xl) 25 mg PO 1200 [facility] Last Admin: 09/19/19 12:46 Dose: 25 mg Documented by: Multi-Ingredient Ointment (Zinc Oxide) 1 applic TOP PRN PRN PRN Reason: Skin Care Last Admin: 09/17/19 01:59 Dose: 1 applic Documented by: Nystatin (Nystop) 1 applic TOP BID [facility] Last Admin: 09/19/19 08:57 Dose: 1 applic Documented by: Ondansetron HCl (Zofran Odt) 4 mg TL Q6HR PRN PRN Reason: Nausea / Vomiting Ondansetron HCl (Zofran Inj) 4 mg IVP Q6HR PRN PRN Reason: Nausea / Vomiting Last Admin: 09/17/19 23:40 Dose: 4 mg Documented by: Oxycodone HCl (Roxicodone) 5 mg PO Q4HR PRN PRN Reason: Pain 5 to 7 Last Admin: 09/19/19 12:06 Dose: 5 mg Documented by: Pantoprazole Sodium (Protonix) 40 mg PO QDAC [facility] Last Admin: 09/19/19 06:35 Dose: 40 mg Documented by: Polyethylene Glycol (Miralax) 17 gm PO DAILY [facility] Last Admin: 09/19/19 12:46 Dose: 17 gm Documented by: Saccharomyces Boulardii (Florastor) 250 mg PO BIDWM [facility] Last Admin: 09/19/19 08:27 Dose: 250 mg Documented by: Sodium Chloride (Normal Saline Flush 0.9%) 10 ml IVP PRN PRN PRN Reason: NEEDED PER PROVIDER ORDERS Sodium Chloride (Normal Saline Flush 0.9%) 10 ml IVP 0100,0900,1700 [facility] Last Admin: 09/19/19 08:57 Dose: 10 ml Documented by: Sodium Phosphate (K-Phos Neutral) 250 mg PO TIDWM [facility] Warfarin Sodium (Coumadin) 4 mg PO DAILY@1700 [facility] Carbidopa/Levodopa 25/100 [Sinemet 25 mg/100 mg] 3 tab PO 0500 04/08/14 Furosemide 40 mg PO DAILY 04/08/14 Cholecalciferol (Vitamin D3) [Vitamin D3] 2,000 units PO DAILY 03/04/18 Levothyroxine Sodium 100 mcg PO 1630 03/04/18 Lisinopril [Prinivil] 2.5 mg PO DAILY 06/12/18 Metoprolol Succinate [Toprol Xl] 25 mg PO 1200 06/12/18 Diltiazem HCl [Diltiazem 24Hr ER] 120 mg PO DAILY 09/16/19 Omeprazole 20 mg PO QPM 09/16/19 Potassium Chloride [Klor-Con 10] 10 meq PO 1200 09/16/19 Warfarin Sodium [Coumadin] 4 mg PO 1700 09/16/19 Carbidopa/Levodopa [Carbidopa-Levodopa 25-100 Tab] 2 tab PO 1000,1400,1900 09/17/19 Objective - Vital Signs/Intake & Output Vital Signs: Vital Signs x48h Temp Pulse Pulse Resp BP Pulse Ox 09/19/19 15:47 36.6 C 71 24 103/67 98 09/19/19 12:31 37.0 C 86 16 114/65 97 09/19/19 09:11 85 L 09/19/19 08:40 37.0 C 65 18 100/60 96 Intake & Output: Intake & Output 09/16/19 09/17/19 09/18/19 09/19/19 23:59 23:59 23:59 23:59 Intake Total 4110.75 2108.667 2402.667 390 Output Total 150 850 700 650 Balance 3960.75 2837.604 1891.667 -260 - Objective General Appearance: positive: No acute distress, Alert. negative: Lethargic Eyes Bilateral: positive: Normal inspection, PERRL, No lid inflammation ENT: positive: ENT inspection nml, Pharynx nml, No signs of dehydration. negative: Purulent nasal drainage Neck: positive: Nml inspection, Thyroid nml. negative: Thyromegaly, Stiff neck, Tracheal deviation Respiratory: positive: Chest non-tender, No respiratory distress. negative: Wheezes, Rales Cardiovascular: positive: No murmur, No gallop, Irregularly irregular. negative: Tachycardia, Bradycardia, Systolic murmur, Diastolic murmur Peripheral Pulses: 2+ Radial (R), 2+ Radial (L), 2+ Dorsalis pedis (R), 2+ Dorsalis pedis (L) Abdomen: positive: Non-tender, No organomegaly, Nml bowel sounds, No distention. negative: Tenderness, Guarding, Rebound Back: positive: Other (severe kyphosis) Skin: positive: Color nml, No rash, Warm, Dry. negative: Cyanosis, Diaphoresis, Pallor Extremities: positive: Non-tender, Full ROM, Nml appearance. negative: Calf tenderness, Darnell's sign/cords Neurologic/Psychiatric: positive: Oriented x3, Motor nml, Sensation nml. negative: Weakness, Sensory loss, Facial droop, Slurred/abnml speech, Depressed mood/affect - Lab Results Fish Bones: 09/19/19 04:35 09/19/19 04:35 Other Labs: Lab Results x24hrs 09/19/19 09/19/19 09/19/19 Range/Units 13:50 13:50 04:35 WBC (4.8-10.8) x10^3/uL RBC (4.20-5.40) 10^6/uL Hgb (12.0-16.0) g/dL Hct (37.0-47.0) % MCV (81.0-99.0) fL MCH (27.0-31.0) pg MCHC (32.0-36.0) g/dL RDW (12.0-15.0) % Plt Count (130-450) 10^3/uL MPV (7.9-10.8) fL Neut # (Auto) (1.5-6.6) 10^3/uL Lymph # (Auto) (1.5-3.5) 10^3/uL [place] # (Auto) (0.0-1.0) 10^3/uL Eos # (Auto) (0.0-0.7) 10^3/uL Baso # (Auto) (0.0-0.1) 10^3/uL Absolute Nucleated RBC x10^3/uL Nucleated RBC % /100WBC PT (9.9-12.6) secs INR (0.8-1.2) Sodium (135-145) mmol/L Potassium (3.5-5.0) mmol/L Chloride (101-111) mmol/L Carbon Dioxide (21-32) mmol/L Anion Gap (6-13) BUN (6-20) mg/dL Creatinine (0.4-1.0) mg/dL Estimated GFR (MDRD) (>89) Glucose (70-100) mg/dL Calcium (8.5-10.3) mg/dL Phosphorus 1.9 L (2.5-4.6) mg/dL Magnesium 2.1 (1.7-2.8) mg/dL Total Bilirubin (0.2-1.0) mg/dL AST (10-42) IU/L ALT (10-60) IU/L Alkaline Phosphatase (42-121) IU/L Troponin I High Sens 9.6 (2.3-14.8) ng/L B-Natriuretic Peptide 684 H (5-100) pg/mL Total Protein (6.7-8.2) g/dL Albumin (3.2-5.5) g/dL Globulin (2.1-4.2) g/dL Albumin/Globulin Ratio (1.0-2.2) 09/19/19 09/19/19 09/19/19 Range/Units 04:35 04:35 04:35 WBC 4.6 L (4.8-10.8) x10^3/uL RBC 4.20 (4.20-5.40) 10^6/uL Hgb 11.7 L (12.0-16.0) g/dL Hct 40.1 (37.0-47.0) % MCV 95.5 (81.0-99.0) fL MCH 27.9 (27.0-31.0) pg MCHC 29.2 L (32.0-36.0) g/dL RDW 15.5 H (12.0-15.0) % Plt Count 119 L (130-450) 10^3/uL MPV 10.5 (7.9-10.8) fL Neut # (Auto) 3.4 (1.5-6.6) 10^3/uL Lymph # (Auto) 0.5 L (1.5-3.5) 10^3/uL [place] # (Auto) 0.6 (0.0-1.0) 10^3/uL Eos # (Auto) 0.1 (0.0-0.7) 10^3/uL Baso # (Auto) 0.0 (0.0-0.1) 10^3/uL Absolute Nucleated RBC 0.00 x10^3/uL Nucleated RBC % 0.0 /100WBC PT 18.2 H (9.9-12.6) secs INR 1.6 H (0.8-1.2) Sodium 139 (135-145) mmol/L Potassium 4.2 (3.5-5.0) mmol/L Chloride 99 L (101-111) mmol/L Carbon Dioxide 36 H (21-32) mmol/L Anion Gap 4.0 L (6-13) BUN 12 (6-20) mg/dL Creatinine 0.5 (0.4-1.0) mg/dL Estimated GFR (MDRD) 121 (>89) Glucose 119 H (70-100) mg/dL Calcium 10.4 H (8.5-10.3) mg/dL Phosphorus (2.5-4.6) mg/dL Magnesium (1.7-2.8) mg/dL Total Bilirubin 1.0 (0.2-1.0) mg/dL AST < 10 L (10-42) IU/L ALT < 10 L (10-60) IU/L Alkaline Phosphatase 47 (42-121) IU/L Troponin I High Sens (2.3-14.8) ng/L B-Natriuretic Peptide (5-100) pg/mL Total Protein 5.8 L (6.7-8.2) g/dL Albumin 3.2 (3.2-5.5) g/dL Globulin 2.6 (2.1-4.2) g/dL Albumin/Globulin Ratio 1.2 (1.0-2.2) ABX Reporting Has patient been on IV antibiotics over the past 48 hours?: Yes Sepsis Event Note (H) - Evaluation Current Stage of Sepsis: Ruled out Assessment/Plan - Problem List (1) General weakness Impression: Improved. order out of the bed 4 time to the chair, Continue physical and occupational therapist Evaluation and treatment. Patient already had home health physical therapist and occupational therapist and county home demonstrator ordered. (2)diastolic heart failure Patient had a new echo done yesterday which show patient had a normal EF, but with severe right heart abnormal pressure with RVSP 75mmHg. Advised patient follow-up with patient's director of catering Dr. Hayes as out-pt. Patient had not see her director of catering for 5 yrs. Patient's BNP is slightly increases today. We will continue metoprolol and intravenous Lasix. Patient has a home lisinopril, will hold it because her blood pressure slightly low. Continue telemetry and vital signs monitor. (3) Atrial fibrillation with RVR Impression: pt's heart rate is controlled now it is 71. Patient denies any chest pain, palpitation, dizziness. Will continue patient home medication Cardizem and m etoprolol, Continue telemetry (4) UTI (urinary tract infection) Impression: UA culture shows gram-negative jamie. continue Day #3 of Cipro 500 mg twice daily p.o. (5) Supratherapeutic INR Impression: Patient INR is 1.7 today, will resume home Coumadin, continue check PT/INR (6) Parkinson disease, symptomatic Impression: Continue home medication Sinemet, I agree patient would be seen palliative care in the outpatient setting. we will put in the discharge summary and PCP referra keller to be follow-up by palliative care (7) Kyphosis deformity of spine Conclusion/Plan: This is probably increasing her probability of aspiration but unfortunately there is not a great solution for this. Aspiration precaution, Patient will remain to be at high risk for aspiration pneumonia.Sample Driller recommended patient had speech therapist to have evaluation of the risk of aspiration. Aspiration precaution to patient. patient had dysphagia diet before. We will resume dysphagia diet until patient was evaluated by speech therapist
[2019-09-19] MEDS ORDERED: FUROSEMIDE 20 MG/2 ML VIAL IVP SCH (17:00)
[2019-09-19] MEDS: FUROSEMIDE 20 MG/2 ML VIAL IVP SCH (17:13)
[2019-09-19] MEDS: LEVOTHYROXINE 100 MCG TABLET PO SCH (18:52)
[2019-09-19] MEDS: NEUTRA-PHOS 250 MG TABLET PO SCH (18:52)
[2019-09-19] MEDS: WARFARIN 1 MG TABLET PO SCH (18:52)
[2019-09-19] MEDS: ZINC OXIDE 20% OINT 30 GM TUBE TOP PRN (20:38)
[2019-09-20] MEDS: SODIUM CHLORIDE FLUSH 0.9% 10 ML SYRINGE IVP SCH ×3 (01:37→17:09)
[2019-09-20] MEDS: oxyCODONE 5 MG TABLET PO PRN (01:40)
[2019-09-20] MEDS: FUROSEMIDE 20 MG/2 ML VIAL IVP SCH (06:00)
[2019-09-20] MEDS: PANTOPRAZOLE 40 MG TABLET PO SCH (06:02)
[2019-09-20] MEDS: CARBIDOPA/LEVODOPA 25 MG/100 MG TABLET PO SCH ×4 (06:02→19:19)
[2019-09-20 06:24] LABS: BASOPHILS % (AUTO) 0.5 %; EOSINOPHILS # (AUTO) 0.1 10^3/uL (0.0-0.7); EOSINOPHILS % (AUTO) 1.4 %; HGB - HEMOGLOBIN 11.6 g/dL (12.0-16.0); LYMPHOCYTES # (AUTO) 0.6 10^3/uL (1.5-3.5); LYMPHOCYTES % (AUTO) 13.8 %; MEAN CORPUSCULAR HEMOGLOBIN 28.2 pg (27.0-31.0); MEAN CORPUSCULAR HGB CONC 29.6 g/dL (32.0-36.0); MEAN CORPUSCULAR VOLUME 95.4 fL (81.0-99.0); MEAN PLATELET VOLUME 10.4 fL (7.9-10.8); MONOCYTES # (AUTO) 0.4 10^3/uL (0.0-1.0); MONOCYTES % (AUTO) 9.7 %; NEUTROPHILS # (AUTO) 3.2 10^3/uL (1.5-6.6); NEUTROPHILS % (AUTO) 74.4 %; PLT - PLATELET COUNT 146 10^3/uL (130-450); RED BLOOD COUNT 4.11 10^6/uL (4.20-5.40); WHITE BLOOD COUNT 4.3 x10^3/uL (4.8-10.8)
[2019-09-20 06:37] LABS: INR 1.4 (0.8-1.2); PT - PROTHROMBIN TIME 15.6 secs (9.9-12.6)
[2019-09-20 06:48] LABS: ALBUMIN/GLOBULIN RATIO 1.3 (1.0-2.2); ALKALINE PHOSPHATASE 47 IU/L (42-121); ALT ALANINE AMINOTRANSFERASE < 10 IU/L (10-60); AST ASPARTATE AMINOTRANSFERASE < 10 IU/L (10-42); BILIRUBIN,TOTAL 1.1 mg/dL (0.2-1.0); BUN - BLOOD UREA NITROGEN 9 mg/dL (6-20); CALCIUM 10.3 mg/dL (8.5-10.3); CHLORIDE 94 mmol/L (101-111); CREATININE 0.4 mg/dL (0.4-1.0); GLUCOSE 99 mg/dL (70-100); PHOSPHORUS 1.8 mg/dL (2.5-4.6); SODIUM 139 mmol/L (135-145); TOTAL PROTEIN 5.3 g/dL (6.7-8.2)
[2019-09-20 06:50] LABS: CARBON DIOXIDE - CO2 40 mmol/L (21-32)
[2019-09-20 07:50] LABS: ABG HCO3 38.4 mmol/L (22.0-26.0); ABG PH 7.37 (7.35-7.45)
[2019-09-20 07:51] LABS: ABG BASE EXCESS 10.5 mmol/L (-2.0-3.0); ALLEN TEST POSITIVE
[2019-09-20 07:55] LABS: ABG OXYGEN SATURATION 87 % (94-98); ABG PCO2 68 mmHg (34-45); ABG PO2 50 mmHg (80-100); ABG TCO2 40.5 MMOL/L (21.0-29.0)
[2019-09-20] MEDS: diltiaZEM CD 120 MG CAPSULE PO SCH (08:25)
[2019-09-20] MEDS: NEUTRA-PHOS 250 MG TABLET PO SCH ×3 (08:26→17:08)
[2019-09-20] MEDS: DOCUSATE SODIUM 250 MG CAPSULE PO SCH (08:26)
[2019-09-20] MEDS: SENNA 8.6 MG TABLET PO SCH (08:27)
[2019-09-20] MEDS: CIPROFLOXACIN 250 MG TABLET PO SCH ×2 (08:27→20:13)
[2019-09-20] MEDS: SACCHAROMYCES BOULARDII 250 MG CAPSULE PO SCH ×2 (08:27→17:08)
[2019-09-20] MEDS: polyethylene glycoL 3350 17 GM PACKET PO SCH (08:28)
[2019-09-20] MEDS: NYSTATIN POWDER 15 GM TOP SCH ×2 (08:28→21:24)
[2019-09-20] MEDS: CHOLECALCIFEROL 25 MCG TABLET PO SCH (08:28)
--- NOTE | 2019-09-20 11:15 | PROVIDER PROGRESS NOTE ---
Assessment/Plan - Problem List (1) Hypercapnia Assessment/Plan: Patient had PCO2 at 68 mmHg in ABG test. However patient is still alert and orientated. It indicated this might be a patient chronic condition. But patient's PO2 is also low at 50. Patient was drowsy yesterday afternoon and night. We will hold patient pain medication, will use Tylenol for patient pain. We also will increase 3 liter of O2 by NC. Patient always keep her neck at down- direct position Which will not good for the airway. We will order soft C-collar To help pt's neck in the good position as her tolerated. Will also hold Lasix medication. We will test ABG To monitor patient's respiratory status. Patient has a history of severe kyphosis, And scoliosis. (2) General weakness Impression: pt is Still weak. We will encourage the patient out of be and go to the chair, Continue have physical therapist and occupational therapist treat and evaluation (3)diastolic heart failure 09/19 Patient has slight low blood pressure, we will hold Lasix, And reduce metoprolol. She also have a one-time 3.2 pause On last night. continue tele and diana monitor pt. Patient had a new echo done yesterday which show patient had a normal EF, but with severe right heart abnormal pressure with RVSP 75mmHg. 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 Hayes as out-pt. Patient had not see her farm crew member for 5 yrs. Patient's BNP is slightly increases today. We will continue metoprolol and intravenous Lasix. Patient has a home lisinopril, will hold it because her blood pressure slightly low. Continue telemetry and vital signs monitor. (4) Atrial fibrillation with RVR Impression: 09/19 Patient has slight low blood pressure, Reduce metoprolol, We will continue Coumadin and check PT/INR pt's heart rate is controlled now it is 71. Patient denies any chest pain, palpitation, dizziness. Will continue patient home medication Cardizem and metoprolol, Continue telemetry (5) UTI (urinary tract infection) Impression: UA culture shows gram-negative jamie. continue Day #3 of Cipro 500 mg twice daily p.o. (6) Supratherapeutic INR Impression: Patient INR is 1.7 today, will resume home Coumadin, continue check PT/INR (7) Parkinson disease, symptomatic Impression: Continue home medication Sinemet, I agree patient would be seen palliative care in the outpatient setting. we will put in the discharge summary and PCP referral to be follow-up by palliative care (8) Kyphosis deformity of spine Conclusion/Plan: 09/19 soft C-Collar for pt to keep Straight neck position at the patient tolerated to keep airway smooth. This is probably increasing her probability of aspiration but unfortunately there is not a great solution for this. Aspiration precaution, Patient will r emain to be at high risk for aspiration pneumonia.Pug Mill Operator recommended patient had speech therapist to have evaluation of the risk of aspiration. Aspiration precaution to patient. patient had dysphagia diet before. We will resume dysphagia diet until patient was evaluated by speech therapist (9)physical deconditioning 09/19 patient has physical deconditioning. pt has hx of diastolic heart failure, parkinson, severe kyphosis deformity, afib with RVR, low blood pressure, frequent UTI infection and profound weakness. but pt continue to keep full code. plan to refer pt to palliative care by her PCP as out-pt - Current Meds Current Meds: Current Medications Generic Name Dose Route Start Last Admin Trade Name Freq PRN Reason Stop Dose Admin Acetaminophen 650 mg 09/16/19 11:44 09/19/19 04:04 Tylenol PO 650 mg Q4HR PRN Administration Pain 1 to 4 Carbidopa/Levodopa 3 tab 09/17/19 10:16 09/20/19 06:02 Sinemet 25 Mg/100 Mg PO 3 tab 0500 RICHIE Administration Carbidopa/Levodopa 2 tab 09/17/19 10:00 09/19/19 18:53 Sinemet 25 Mg/100 Mg PO 2 tab 1000,1400,1900 RICHIE Administration Cholecalciferol 50 mcg 09/17/19 09:00 09/20/19 08:28 Vitamin D3 PO 50 mcg DAILY RICHIE Administration Ciprofloxacin 500 mg 09/16/19 12:00 09/20/19 08:27 Cipro PO 09/22/19 21:01 500 mg BID RICHIE Administration Diltiazem HCl 120 mg 09/16/19 17:15 09/20/19 08:25 Cardizem Cd PO Not Given DAILY RICHIE Docusate Sodium 250 - 500 mg 09/20/19 09:00 09/20/19 08:26 Colace 250mg Capsule PO 500 mg DAILY RICHIE Administration Levothyroxine Sodium 100 mcg 09/17/19 16:30 09/19/19 18:52 Synthroid PO 100 mcg 1630 RICHIE Administration Multi-Ingredient Ointment 1 applic 09/16/19 19:12 09/19/19 20:38 Zinc Oxide TOP 1 applic PRN PRN Administration Skin Care Nystatin 1 applic 09/16/19 21:00 09/20/19 08:28 Nystop TOP 1 applic BID RICHIE Administration Ondansetron HCl 4 mg 09/16/19 11:44 09/17/19 23:40 Zofran Inj IVP 4 mg Q6HR PRN Administration Nausea / Vomiting Pantoprazole Sodium 40 mg 09/16/19 17:00 09/20/19 06:02 Protonix PO 40 mg QDAC RICHIE Administration Polyethylene Glycol 17 gm 09/19/19 13:00 09/20/19 08:28 Miralax PO 17 gm DAILY [facility] Administration Saccharomyces Boulardii 250 mg 09/16/19 17:00 09/20/19 08:27 Florastor PO 250 mg BIDWM [facility] Administration Senna 8.6 - 17.2 mg 09/20/19 09:00 09/20/19 08:27 Senokot PO 17.2 mg DAILY RICHIE Administration Sodium Chloride 10 ml 09/16/19 17:00 09/20/19 08:39 Normal Saline Flush 0.9% IVP 10 ml 0100,0900,1700 [facility] Administration Sodium Phosphate 250 mg 09/19/19 17:00 09/20/19 08:26 K-Phos Neutral PO 250 mg TIDWM RICHIE Administration Warfarin Sodium 4 mg 09/19/19 17:00 09/19/19 18:52 Coumadin PO 4 mg DAILY@1700 [facility] Administration - Lab Result Fish Bone Diagrams: 09/20/19 05:35 09/20/19 05:35 - Additional Planning My Orders: My Active Orders 09/19/19 13:00 polyethylene glycoL 3350 [Miralax] 17 gm PO DAILY 09/19/19 16:09 Miscellaenous Nursing Order [RC] PRN 09/19/19 Dinner Dysphagia Mechanically Altered Diet [DIET] 09/19/19 17:00 Neutra-Phos [K-Phos Neutral] 250 mg PO TIDWM Warfarin [Coumadin] 4 mg PO DAILY@1700 09/20/19 09:00 Docusate Sodium 250Mg Capsule [Colace 250Mg Capsule] 250 - 500 mg PO DAILY Senna [Senokot] 8.6 - 17.2 mg PO DAILY 09/20/19 11:01 ED C-Collar Application ONCE 09/20/19 11:03 Miscellaenous Nursing Order [RC] DAILY 09/20/19 12:00 Metoprolol Succinate [Toprol Xl] 12.5 mg PO 1200 09/21/19 05:00 CBC - COMP BLD CT W/AUTO DIFF [HEME] DAILYLAB CMP [COMPREHENSIVE METABOLIC PANEL] [CHEM] DAILYLAB PHOSPHORUS [CHEM] DAILYLAB PT WITH INR [COAG] DAILYLAB 09/22/19 05:00 CBC - COMP BLD CT W/AUTO DIFF [HEME] DAILYLAB CMP [COMPREHENSIVE METABOLIC PANEL] [CHEM] DAILYLAB PT WITH INR [COAG] DAILYLAB 09/23/19 05:00 CBC - COMP BLD CT W/AUTO DIFF [HEME] DAILYLAB Subjective - Subjective Nursing Reports: No Complaints Objective Vital Signs: Vital Signs - 24 hr 09/19/19 09/19/19 09/19/19 12:31 15:47 20:41 Temperature 37.0 C 36.6 C 37.3 C Heart Rate [ 71 93 Brachial] Heart Rate [ 86 Monitoring electrodes] Respiratory 16 24 26 H Rate Blood Pressure [Left Brachial artery] Blood Pressure 114/65 103/67 149/61 H [Right Brachial artery] O2 Saturation 97 98 93 09/20/19 09/20/19 09/20/19 01:00 04:15 06:00 Temperature 36.3 C L 36.3 C L Heart Rate [ 87 66 73 Brachial] Heart Rate [ Monitoring electrodes] Respiratory 22 18 Rate Blood Pressure 102/68 95/67 [Left Brachial artery] Blood Pressure 101/69 [Right Brachial artery] O2 Saturation 95 97 Oxygen O2 Source [Without Activity] Nasal cannula O2 Source Nasal cannula I&O (Last 24 Hrs): Intake and Output Totals x24h 09/18/19 09/19/19 09/20/19 23:59 23:59 23:59 Intake Total 2402.667 440 120 Output Total 700 1650 225 Balance 1702.667 -1210 -105 General: Alert, No acute distress HEENT: Atraumatic Neck: Supple Lymphatic: no adenopathy Neuro: Alert, Non Focal Cardiovascular: Normal S1, Normal S2 Respiratory: Chest non-tender, No respiratory distress Abdomen: Normal bowel sounds, Soft, No tenderness Extremities: Normal pulses - Results Results: Laboratory Results WBC 4.3 x10^3/uL (4.8-10.8) L 09/20/19 05:35 RBC 4.11 10^6/uL (4.20-5.40) L 09/20/19 05:35 Hgb 11.6 g/dL (12.0-16.0) L 09/20/19 05:35 Hct 39.2 % (37.0-47.0) 09/20/19 05:35 MCV 95.4 fL (81.0-99.0) 09/20/19 05:35 MCH 28.2 pg (27.0-31.0) 09/20/19 05:35 MCHC 29.6 g/dL (32.0-36.0) L 09/20/19 05:35 RDW 15.0 % (12.0-15.0) 09/20/19 05:35 Plt Count 146 10^3/uL (130-450) 09/20/19 05:35 MPV 10.4 fL (7.9-10.8) 09/20/19 05:35 Neut # (Auto) 3.2 10^3/uL (1.5-6.6) 09/20/19 05:35 Lymph # (Auto) 0.6 10^3/uL (1.5-3.5) L 09/20/19 05:35 [place] # (Auto) 0.4 10^3/uL (0.0-1.0) 09/20/19 05:35 Eos # (Auto) 0.1 10^3/uL (0.0-0.7) 09/20/19 05:35 Baso # (Auto) 0.0 10^3/uL (0.0-0.1) 09/20/19 05:35 Absolute Nucleated RBC 0.00 x10^3/uL 09/20/19 05:35 Nucleated RBC % 0.0 /100WBC 09/20/19 05:35 PT 15.6 secs (9.9-12.6) H 09/20/19 05:35 INR 1.4 (0.8-1.2) H 09/20/19 05:35 Bld Gas Analysis Time 0742 09/20/19 07:42 Sample Site LEFT RADIAL 09/20/19 07:42 ABG pH 7.37 (7.35-7.45) 09/20/19 07:42 ABG pCO2 68 mmHg (34-45) H* 09/20/19 07:42 ABG pO2 50 mmHg (80-100) L* 09/20/19 07:42 ABG HCO3 38.4 mmol/L (22.0-26.0) H 09/20/19 07:42 ABG Total CO2 40.5 MMOL/L (21.0-29.0) H* 09/20/19 07:42 ABG O2 Saturation 87 % (94-98) L* 09/20/19 07:42 ABG Base Excess 10.5 mmol/L (-2.0-3.0) H 09/20/19 07:42 Kevin Test POSITIVE 09/20/19 07:42 O2 Delivery Device NASAL CANNULA 09/20/19 07:42 O2 Liters/Min 0.50 LPM 09/20/19 07:42 Sodium 139 mmol/L (135-145) 09/20/19 05:35 Potassium 3.9 mmol/L (3.5-5.0) 09/20/19 05:35 Chloride 94 mmol/L (101-111) L 09/20/19 05:35 Carbon Dioxide 40 mmol/L (21-32) H* 09/20/19 05:35 Anion Gap 5.0 (6-13) L 09/20/19 05:35 BUN 9 mg/dL (6-20) 09/20/19 05:35 Creatinine 0.4 mg/dL (0.4-1.0) 09/20/19 05:35 Estimated GFR (MDRD) 157 (>89) 09/20/19 05:35 Glucose 99 mg/dL (70-100) 09/20/19 05:35 Calcium 10.3 mg/dL (8.5-10.3) 09/20/19 05:35 Phosphorus 1.8 mg/dL (2.5-4.6) L 09/20/19 05:35 Magnesium 2.1 mg/dL (1.7-2.8) 09/19/19 13:50 Total Bilirubin 1.1 mg/dL (0.2-1.0) H 09/20/19 05:35 AST < 10 IU/L (10-42) L 09/20/19 05:35 ALT < 10 IU/L (10-60) L 09/20/19 05:35 Alkaline Phosphatase 47 IU/L (42-121) 09/20/19 05:35 Troponin I High Sens 9.1 ng/L (2.3-14.8) 09/19/19 20:07 B-Natriuretic Peptide 451 pg/mL (5-100) H 09/20/19 05:35 Total Protein 5.3 g/dL (6.7-8.2) L 09/20/19 05:35 Albumin 3.0 g/dL (3.2-5.5) L 09/20/19 05:35 Globulin 2.3 g/dL (2.1-4.2) 09/20/19 05:35 Albumin/Globulin Ratio 1.3 (1.0-2.2) 09/20/19 05:35 Lipase 25 U/L (22-51) 09/16/19 09:31 TSH 3.61 uIU/mL (0.34-5.60) 09/16/19 09:31 Urine Color YELLOW 09/16/19 11:00 Urine Clarity CLOUDY (CLEAR) 09/16/19 11:00 Urine pH 5.0 PH (5.0-7.5) 09/16/19 11:00 Ur Specific [place] 1.015 (1.002-1.030) 09/16/19 11:00 Urine Protein 100 mg/dL (NEGATIVE) H 09/16/19 11:00 Urine Glucose (UA) NEGATIVE mg/dL (NEGATIVE) 09/16/19 11:00 Urine Ketones 15 mg/dL (NEGATIVE) H 09/16/19 11:00 Urine Occult Blood MODERATE (NEGATIVE) H 09/16/19 11:00 Urine Nitrite NEGATIVE (NEGATIVE) 09/16/19 11:00 Urine Bilirubin NEGATIVE (NEGATIVE) 09/16/19 11:00 Urine Urobilinogen 1 (NORMAL) E.U./dL (NORMAL) 09/16/19 11:00 Ur Leukocyte Esterase MODERATE (NEGATIVE) H 09/16/19 11:00 Urine RBC 11-25 /HPF (0-5) H 09/16/19 11:00 Urine WBC >25 /HPF (0-5) H 09/16/19 11:00 Urine WBC Clumps PRESENT 09/16/19 11:00 Ur Squamous Epith Cells NONE SEEN (<= Few) 09/16/19 11:00 Urine Bacteria Few /HPF (None Seen) 09/16/19 11:00 Ur Microscopic Review INDICATED 09/16/19 11:00 Urine Culture Comments INDICATED 09/16/19 11:00 Nasal Screen MRSA (PCR) NEGATIVE (NEGATIVE) 09/16/19 13:00 - Procedures Procedures: Procedures INSERT GASTRIC TUBE NEC (03/25/13) PACKED CELL TRANSFUSION (03/25/13) Sepsis Event Note (H) - Evaluation Current Stage of Sepsis: Ruled out ABX Reporting Has patient been on IV antibiotics over the past 48 hours?: Yes Current Medications - Current Medications Current Medications: Active Medications Acetaminophen (Tylenol) 650 mg PO Q4HR PRN PRN Reason: Pain 1 to 4 Last Admin: 09/19/19 04:04 Dose: 650 mg Documented by: Carbidopa/Levodopa (Sinemet 25 Mg/100 Mg) 3 tab PO 0500 [facility] Last Admin: 09/20/19 06:02 Dose: 3 tab Documented by: Carbidopa/Levodopa (Sinemet 25 Mg/100 Mg) 2 tab PO 1000,1400,1900 [facility] Last Admin: 09/20/19 12:19 Dose: 2 tab Documented by: Cholecalciferol (Vitamin D3) 50 mcg PO DAILY [facility] Last Admin: 09/20/19 08:28 Dose: 50 mcg Documented by: Ciprofloxacin (Cipro) 500 mg PO BID [facility] Stop: 09/22/19 21:01 Last Admin: 09/20/19 08:27 Dose: 500 mg Documented by: Diltiazem HCl (Cardizem Cd) 120 mg PO DAILY [facility] Last Admin: 09/20/19 08:25 Dose: Not Given Documented by: Docusate Sodium (Colace 250mg Capsule) 250 - 500 mg PO DAILY [facility] Last Admin: 09/20/19 08:26 Dose: 500 mg Documented by: Levothyroxine Sodium (Synthroid) 100 mcg PO 1630 [facility] Last Admin: 09/19/19 18:52 Dose: 100 mcg Documented by: Metoprolol Succinate (Toprol Xl) 12.5 mg PO 1200 [facility] Last Admin: 09/20/19 12:19 Dose: 12.5 mg Documented by: Multi-Ingredient Ointment (Zinc Oxide) 1 applic TOP PRN PRN PRN Reason: Skin Care Last Admin: 09/19/19 20:38 Dose: 1 applic Documented by: Nystatin (Nystop) 1 applic TOP BID [facility] Last Admin: 09/20/19 08:28 Dose: 1 applic Documented by: Ondansetron HCl (Zofran Odt) 4 mg TL Q6HR PRN PRN Reason: Nausea / Vomiting Ondansetron HCl (Zofran Inj) 4 mg IVP Q6HR PRN PRN Reason: Nausea / Vomiting Last Admin: 09/17/19 23:40 Dose: 4 mg Documented by: Pantoprazole Sodium (Protonix) 40 mg PO QDAC [facility] Last Admin: 09/20/19 06:02 Dose: 40 mg Documented by: Polyethylene Glycol (Miralax) 17 gm PO DAILY [facility] Last Admin: 09/20/19 08:28 Dose: 17 gm Documented by: Saccharomyces Boulardii (Florastor) 250 mg PO BIDWM [facility] Last Admin: 09/20/19 08:27 Dose: 250 mg Documented by: Senna (Senokot) 8.6 - 17.2 mg PO DAILY [facility] Last Admin: 09/20/19 08:27 Dose: 17.2 mg Documented by: Sodium Chloride (Normal Saline Flush 0.9%) 10 ml IVP PRN PRN PRN Reason: NEEDED PER PROVIDER ORDERS Sodium Chloride (Normal Saline Flush 0.9%) 10 ml IVP 0100,0900,1700 [facility] Last Admin: 09/20/19 08:39 Dose: 10 ml Documented by: Sodium Phosphate (K-Phos Neutral) 250 mg PO TIDWM [facility] Last Admin: 09/20/19 12:19 Dose: 250 mg Documented by: Warfarin Sodium (Coumadin) 4 mg PO DAILY@1700 [facility] Last Admin: 09/19/19 18:52 Dose: 4 mg Documented by: Carbidopa/Levodopa 25/100 [Sinemet 25 mg/100 mg] 3 tab PO 0500 04/08/14 Furosemide 40 mg PO DAILY 04/08/14 Cholecalciferol (Vitamin D3) [Vitamin D3] 2,000 units PO DAILY 03/04/18 Levothyroxine Sodium 100 mcg PO 1630 03/04/18 Lisinopril [Prinivil] 2.5 mg PO DAILY 06/12/18 Metoprolol Succinate [Toprol Xl] 25 mg PO 1200 06/12/18 Diltiazem HCl [Diltiazem 24Hr ER] 120 mg PO DAILY 09/16/19 Omeprazole 20 mg PO QPM 09/16/19 Potassium Chloride [Klor-Con 10] 10 meq PO 1200 09/16/19 Warfarin Sodium [Coumadin] 4 mg PO 1700 09/16/19 Carbidopa/Levodopa [Carbidopa-Levodopa 25-100 Tab] 2 tab PO 1000,1400,1900 09/17/19
[2019-09-20] MEDS: METOPROLOL SUCCINATE 50 MG TABLET PO SCH (12:19)
[2019-09-20] MEDS: WARFARIN 1 MG TABLET PO SCH (17:08)
[2019-09-20] MEDS: LEVOTHYROXINE 100 MCG TABLET PO SCH (17:09)
[2019-09-20] MEDS: ACETAMINOPHEN 325 MG TABLET PO PRN (20:22)
[2019-09-20] MEDS: ZINC OXIDE 20% OINT 30 GM TUBE TOP PRN (21:24)
[2019-09-21] MEDS ORDERED: CALCIUM CARBONATE CHEW 500 MG TABLET PO PRN (00:59)
[2019-09-21] MEDS: SODIUM CHLORIDE FLUSH 0.9% 10 ML SYRINGE IVP SCH ×3 (01:05→20:26)
[2019-09-21] MEDS: ONDANSETRON 4 MG/2 ML VIAL IVP PRN (04:45)
[2019-09-21] MEDS ORDERED: MAGNESIUM CITRATE 296 ML BOTTLE PO ONE (04:51)
[2019-09-21 05:30] LABS: BASOPHILS % (AUTO) 0.5 %; HGB - HEMOGLOBIN 12.2 g/dL (12.0-16.0); LYMPHOCYTES # (AUTO) 0.5 10^3/uL (1.5-3.5); MEAN CORPUSCULAR HEMOGLOBIN 28.3 pg (27.0-31.0); MEAN CORPUSCULAR VOLUME 94.2 fL (81.0-99.0); MEAN PLATELET VOLUME 9.5 fL (7.9-10.8); MONOCYTES # (AUTO) 0.4 10^3/uL (0.0-1.0); MONOCYTES % (AUTO) 10.1 %; NEUTROPHILS # (AUTO) 2.9 10^3/uL (1.5-6.6); NEUTROPHILS % (AUTO) 74.1 %; PLT - PLATELET COUNT 144 10^3/uL (130-450); RED BLOOD COUNT 4.31 10^6/uL (4.20-5.40); RED CELL DISTRIBUTION WIDTH 14.7 % (12.0-15.0); WHITE BLOOD COUNT 3.9 x10^3/uL (4.8-10.8)
[2019-09-21 05:34] LABS: INR 1.5 (0.8-1.2); PT - PROTHROMBIN TIME 16.9 secs (9.9-12.6)
[2019-09-21 05:49] LABS: ALBUMIN 3.4 g/dL (3.2-5.5); ALBUMIN/GLOBULIN RATIO 1.5 (1.0-2.2); ALKALINE PHOSPHATASE 47 IU/L (42-121); ALT ALANINE AMINOTRANSFERASE < 10 IU/L (10-60); AST ASPARTATE AMINOTRANSFERASE 10 IU/L (10-42); BILIRUBIN,TOTAL 1.5 mg/dL (0.2-1.0); BUN - BLOOD UREA NITROGEN 11 mg/dL (6-20); CALCIUM 10.8 mg/dL (8.5-10.3); CHLORIDE 93 mmol/L (101-111); CREATININE 0.4 mg/dL (0.4-1.0); GLUCOSE 104 mg/dL (70-100); PHOSPHORUS 3.1 mg/dL (2.5-4.6); SODIUM 141 mmol/L (135-145); TOTAL PROTEIN 5.7 g/dL (6.7-8.2)
[2019-09-21 05:50] LABS: CARBON DIOXIDE - CO2 42 mmol/L (21-32)
[2019-09-21] MEDS: PANTOPRAZOLE 40 MG TABLET PO SCH (06:22)
[2019-09-21] MEDS: CARBIDOPA/LEVODOPA 25 MG/100 MG TABLET PO SCH ×5 (06:22→20:26)
[2019-09-21 08:04] LABS: ABG BASE EXCESS 13.1 mmol/L (-2.0-3.0); ABG HCO3 41.4 mmol/L (22.0-26.0); ABG OXYGEN SATURATION 99 % (94-98); ABG PH 7.38 (7.35-7.45); ABG PO2 128 mmHg (80-100)
[2019-09-21 08:06] LABS: ABG PCO2 72 mmHg (34-45); ABG TCO2 43.6 MMOL/L (21.0-29.0)
--- NOTE | 2019-09-21 09:37 | XRAY Report ---
PROCEDURE: Chest 1 View X-Ray INDICATIONS: sob TECHNIQUE: One view of the chest was acquired. COMPARISON: Chest x-ray 09/18/2019 FINDINGS: Significantly limited exam secondary to patient positioning. Right lung cannot be evaluated secondary to overlying head shadow. Left upper lobe continues to demon strate a small appearance of consolidation. There is persistent elevation of the left hemidiaphragm. Osseous structures are intact. IMPRESSION: Significantly limited exam as above. Unchanged appearance of mild consolidation within the left base possibly representing compressive atelectasis secondary to large hiatal hernia. However, developing p neumonia cannot be excluded. Right lung cannot be evaluated. Reviewed by: Alka Lainez MD on 09/21/2019 9:35 AM PDT Approved by: Alka Lainez MD on 09/21/2019 9:35 AM PDT Station ID: [id number]
[2019-09-21] MEDS: SENNA 8.6 MG TABLET PO SCH (09:53)
[2019-09-21] MEDS: SACCHAROMYCES BOULARDII 250 MG CAPSULE PO SCH ×2 (09:53→16:41)
[2019-09-21] MEDS: DOCUSATE SODIUM 250 MG CAPSULE PO SCH (09:53)
[2019-09-21] MEDS: CHOLECALCIFEROL 25 MCG TABLET PO SCH (09:53)
[2019-09-21] MEDS: CIPROFLOXACIN 250 MG TABLET PO SCH ×2 (09:53→20:26)
[2019-09-21] MEDS: diltiaZEM CD 120 MG CAPSULE PO SCH (09:53)
[2019-09-21] MEDS: NEUTRA-PHOS 250 MG TABLET PO SCH ×2 (09:53→11:52)
[2019-09-21] MEDS: NYSTATIN POWDER 15 GM TOP SCH ×2 (09:54→22:10)
[2019-09-21] MEDS: polyethylene glycoL 3350 17 GM PACKET PO SCH (09:54)
[2019-09-21] MEDS: METOPROLOL SUCCINATE 50 MG TABLET PO SCH (11:52)
--- NOTE | 2019-09-21 11:57 | PROVIDER PROGRESS NOTE ---
Assessment/Plan - Problem List (1) Hypercapnia Assessment/Plan: 09/20 Patient had PCO2 at 72 mmHg in ABG test, increased from yesterday 68, but PH is still in the normal arrange. CO2 retention is likely acute on chronic condition. Clinically pt has a little of more drowsy. Pt's PO2 has significantly improved after pt was given 3 liter of O2. After discussed with Dr. Mcfadden, we will put pt on ICU and had BiPAP for pt. hopefully we can improve pt's CO2 retention condition. (2) General weakness Impression: 09/20, Continue work with PT/OT training for strength. pt is Still weak. We will encourage the patient out of be and go to the chair, Continue have physical therapist and occupational therapist treat and evaluation (3)diastolic heart failure 09/20 Patient has slight low blood pressure, continue hold Lasix, continue 12.5 mg metoprolol. pt has no abnormal pause reported as far. continue tele and diana monitor pt. (4) Atrial fibrillation with RVR Impression: 09/20 Patient has slight low blood pressure, Reduce metoprolol, We will continue Coumadin and check PT/INR pt's heart rate is controlled now it is 71. Patient denies any chest pain, palpitation, dizziness. Will continue patient home medication Cardizem and metoprolol, Continue telemetry (5) UTI (urinary tract infection) Impression: UA culture shows gram-negative jamie. continue Day #3 of Cipro 500 mg twice daily p.o. (6) Supratherapeutic INR Impression: Patient INR is 1.7 today, will resume home Coumadin, continue check PT/INR (7) Parkinson disease, symptomatic Impression: Continue home medication Sinemet, I agree patient would be seen palliative care in the outpatient setting. we will put in the discharge summary and PCP referral to be follow-up by palliative care (8) Kyphosis deformity of spine Conclusion/Plan: 09/20 hold soft C-Collar for pt to keep Straight neck position at the patient tolerated to keep airway smooth, since pt declined (9)physical deconditioning 09/20 patient has physical deconditioning. pt has hx of diastolic heart failure, parkinson, severe kyphosis deformity, afib with RVR, low blood pressure, frequent UTI infection and profound weakness. but pt continue to keep full code. plan to refer pt to palliative care by her PCP as out-pt - Current Meds Current Meds: Current Medications Generic Name Dose Route Start Last Admin Trade Name Yesenia PRN Reason Stop Dose Admin Acetaminophen 650 mg 09/16/19 11:44 09/20/19 20:22 Tylenol PO 650 mg Q4HR PRN Administration Pain 1 to 4 Calcium Carbonate/Glycine 500 mg 09/21/19 00:59 09/21/19 01:19 Tums PO 500 mg TID PRN Administration Heartburn Carbidopa/Levodopa 3 tab 09/17/19 10:16 09/21/19 06:22 Sinemet 25 Mg/100 Mg PO 3 tab 0500 RICHIE Administration Carbidopa/Levodopa 2 tab 09/17/19 10:00 09/21/19 09:58 Sinemet 25 Mg/100 Mg PO 2 tab 1000,1400,1900 RICHIE Administration Cholecalciferol 50 mcg 09/17/19 09:00 09/21/19 09:53 Vitamin D3 PO 50 mcg DAILY RICHIE Administration Ciprofloxacin 500 mg 09/16/19 12:00 09/21/19 09:53 Cipro PO 09/22/19 21:01 500 mg BID RICHIE Administration Diltiazem HCl 120 mg 09/16/19 17:15 09/21/19 09:53 Cardizem Cd PO 120 mg DAILY RICHIE Administration Docusate Sodium 250 - 500 mg 09/20/19 09:00 09/21/19 09:53 Colace 250mg Capsule PO 250 mg DAILY RICHIE Administration Levothyroxine Sodium 100 mcg 09/17/19 16:30 09/20/19 17:09 Synthroid PO 100 mcg 1630 RICHIE Administration Metoprolol Succinate 12.5 mg 09/20/19 12:00 09/20/19 12:19 Toprol Xl PO 12.5 mg 1200 RICHIE Administration Multi-Ingredient Ointment 1 applic 09/16/19 19:12 09/20/19 21:24 Zinc Oxide TOP 1 applic PRN PRN Administration Skin Care Nystatin 1 applic 09/16/19 21:00 09/21/19 09:54 Nystop TOP 1 applic BID RICHIE Administration Ondansetron HCl 4 mg 09/16/19 11:44 09/21/19 04:45 Zofran Inj IVP 4 mg Q6HR PRN Administration Nausea / Vomiting Pantoprazole Sodium 40 mg 09/16/19 17:00 09/21/19 06:22 Protonix PO 40 mg QDAC RICHIE Administration Polyethylene Glycol 17 gm 09/19/19 13:00 09/21/19 09:54 Miralax PO 17 gm DAILY RICHIE Administration Saccharomyces Boulardii 250 mg 09/16/19 17:00 09/21/19 09:53 Florastor PO 250 mg BIDWM RICHIE Administration Senna 8.6 - 17.2 mg 09/20/19 09:00 09/21/19 09:53 Senokot PO 8.6 mg DAILY RICHIE Administration Sodium Chloride 10 ml 09/16/19 11:44 09/21/19 04:45 Normal Saline Flush 0.9% IVP 10 ml PRN PRN Administration NEEDED PER PROVIDER ORDERS Sodium Chloride 10 ml 09/16/19 17:00 09/21/19 09:53 Normal Saline Flush 0.9% IVP 10 ml 0100,0900,1700 RICHIE Administration Sodium Phosphate 250 mg 09/19/19 17:00 09/21/19 09:53 K-Phos Neutral PO 250 mg TIDWM RICHIE Administration Warfarin Sodium 4 mg 09/19/19 17:00 09/20/19 17:08 Coumadin PO 4 mg DAILY@1700 RICHIE Administration - Lab Result Fish Bone Diagrams: 09/21/19 05:10 09/21/19 05:10 - Additional Planning My Orders: My Active Orders 09/20/19 11:01 ED C-Collar Application ONCE 09/20/19 11:03 Miscellaenous Nursing Order [RC] DAILY 09/20/19 12:00 Metoprolol Succinate [Toprol Xl] 12.5 mg PO 1200 09/22/19 05:00 CBC - COMP BLD CT W/AUTO DIFF [HEME] DAILYLAB CMP [COMPREHENSIVE METABOLIC PANEL] [CHEM] DAILYLAB PT WITH INR [COAG] DAILYLAB 09/23/19 05:00 CBC - COMP BLD CT W/AUTO DIFF [HEME] DAILYLAB Objective Vital Signs: Vital Signs - 24 hr 09/20/19 09/20/19 09/20/19 13:00 16:14 21:00 Temperature 36.5 C 37.0 C 36.4 C L Heart Rate [ 90 87 88 Brachial] Heart Rate [ Monitoring electrodes] Respiratory 24 23 22 Rate Blood Pressure 107/67 112/76 111/77 [Right Brachial artery] O2 Saturation 97 97 100 09/21/19 09/21/19 09/21/19 00:12 04:23 08:25 Temperature 36.9 C 37.0 C 37.0 C Heart Rate [ 83 104 H 98 Brachial] Heart Rate [ Monitoring electrodes] Respiratory 16 18 24 Rate Blood Pressure 123/64 119/77 102/73 [Right Brachial artery] O2 Saturation 99 99 94 09/21/19 10:57 Temperature 37.1 C Heart Rate [ Brachial] Heart Rate [ 93 Monitoring electrodes] Respiratory 30 H Rate Blood Pressure 98/69 [Right Brachial artery] O2 Saturation 92 Oxygen O2 Source [Without Activity] Nasal cannula O2 Source Nasal cannula I&O (Last 24 Hrs): Intake and Output Totals x24h 09/19/19 09/20/19 09/21/19 23:59 23:59 23:59 Intake Total 440 1120 120 Output Total 1650 375 200 Balance -1210 745 -80 General: Alert, No acute distress HEENT: Atraumatic Neck: Supple Lymphatic: no adenopathy Neuro: Alert, Non Focal Cardiovascular: Normal S1, Normal S2 Respiratory: Chest non-tender, No respiratory distress Abdomen: Normal bowel sounds, Soft, No tenderness Extremities: Normal pulses - Results Results: Laboratory Results WBC 3.9 x10^3/uL (4.8-10.8) L 09/21/19 05:10 RBC 4.31 10^6/uL (4.20-5.40) 09/21/19 05:10 Hgb 12.2 g/dL (12.0-16.0) 09/21/19 05:10 Hct 40.6 % (37.0-47.0) 09/21/19 05:10 MCV 94.2 fL (81.0-99.0) 09/21/19 05:10 MCH 28.3 pg (27.0-31.0) 09/21/19 05:10 MCHC 30.0 g/dL (32.0-36.0) L 09/21/19 05:10 RDW 14.7 % (12.0-15.0) 09/21/19 05:10 Plt Count 144 10^3/uL (130-450) 09/21/19 05:10 MPV 9.5 fL (7.9-10.8) 09/21/19 05:10 Neut # (Auto) 2.9 10^3/uL (1.5-6.6) 09/21/19 05:10 Lymph # (Auto) 0.5 10^3/uL (1.5-3.5) L 09/21/19 05:10 [place] # (Auto) 0.4 10^3/uL (0.0-1.0) 09/21/19 05:10 Eos # (Auto) 0.0 10^3/uL (0.0-0.7) 09/21/19 05:10 Baso # (Auto) 0.0 10^3/uL (0.0-0.1) 09/21/19 05:10 Absolute Nucleated RBC 0.00 x10^3/uL 09/21/19 05:10 Nucleated RBC % 0.0 /100WBC 09/21/19 05:10 PT 16.9 secs (9.9-12.6) H 09/21/19 05:10 INR 1.5 (0.8-1.2) H 09/21/19 05:10 Bld Gas Analysis Time 0804 09/21/19 07:52 Sample Site RIGHT BRACHIAL 09/21/19 07:52 ABG pH 7.38 (7.35-7.45) 09/21/19 07:52 ABG pCO2 72 mmHg (34-45) H* 09/21/19 07:52 ABG pO2 128 mmHg (80-100) H 09/21/19 07:52 ABG HCO3 41.4 mmol/L (22.0-26.0) H 09/21/19 07:52 ABG Total CO2 43.6 MMOL/L (21.0-29.0) H* 09/21/19 07:52 ABG O2 Saturation 99 % (94-98) H 09/21/19 07:52 ABG Base Excess 13.1 mmol/L (-2.0-3.0) H 09/21/19 07:52 Kevin Test NOT APPLICABLE 09/21/19 07:52 O2 Delivery Device NASAL CANNULA 09/21/19 07:52 O2 Liters/Min 2.50 LPM 09/21/19 07:52 Sodium 141 mmol/L (135-145) 09/21/19 05:10 Potassium 3.9 mmol/L (3.5-5.0) 09/21/19 05:10 Chloride 93 mmol/L (101-111) L 09/21/19 05:10 Carbon Dioxide 42 mmol/L (21-32) H* 09/21/19 05:10 Anion Gap 6.0 (6-13) 09/21/19 05:10 BUN 11 mg/dL (6-20) 09/21/19 05:10 Creatinine 0.4 mg/dL (0.4-1.0) 09/21/19 05:10 Estimated GFR (MDRD) 157 (>89) 09/21/19 05:10 Glucose 104 mg/dL (70-100) H 09/21/19 05:10 Calcium 10.8 mg/dL (8.5-10.3) H 09/21/19 05:10 Phosphorus 3.1 mg/dL (2.5-4.6) 09/21/19 05:10 Magnesium 2.1 mg/dL (1.7-2.8) 09/19/19 13:50 Total Bilirubin 1.5 mg/dL (0.2-1.0) H 09/21/19 05:10 AST 10 IU/L (10-42) 09/21/19 05:10 ALT < 10 IU/L (10-60) L 09/21/19 05:10 Alkaline Phosphatase 47 IU/L (42-121) 09/21/19 05:10 Troponin I High Sens 9.1 ng/L (2.3-14.8) 09/19/19 20:07 B-Natriuretic Peptide 451 pg/mL (5-100) H 09/20/19 05:35 Total Protein 5.7 g/dL (6.7-8.2) L 09/21/19 05:10 Albumin 3.4 g/dL (3.2-5.5) 09/21/19 05:10 Globulin 2.3 g/dL (2.1-4.2) 09/21/19 05:10 Albumin/Globulin Ratio 1.5 (1.0-2.2) 09/21/19 05:10 Lipase 25 U/L (22-51) 09/16/19 09:31 TSH 3.61 uIU/mL (0.34-5.60) 09/16/19 09:31 Urine Color YELLOW 09/16/19 11:00 Urine Clarity CLOUDY (CLEAR) 09/16/19 11:00 Urine pH 5.0 PH (5.0-7.5) 09/16/19 11:00 Ur Specific [place] 1.015 (1.002-1.030) 09/16/19 11:00 Urine Protein 100 mg/dL (NEGATIVE) H 09/16/19 11:00 Urine Glucose (UA) NEGATIVE mg/dL (NEGATIVE) 09/16/19 11:00 Urine Ketones 15 mg/dL (NEGATIVE) H 09/16/19 11:00 Urine Occult Blood MODERATE (NEGATIVE) H 09/16/19 11:00 Urine Nitrite NEGATIVE (NEGATIVE) 09/16/19 11:00 Urine Bilirubin NEGATIVE (NEGATIVE) 09/16/19 11:00 Urine Urobilinogen 1 (NORMAL) E.U./dL (NORMAL) 09/16/19 11:00 Ur Leukocyte Esterase MODERATE (NEGATIVE) H 09/16/19 11:00 Urine RBC 11-25 /HPF (0-5) H 09/16/19 11:00 Urine WBC >25 /HPF (0-5) H 09/16/19 11:00 Urine WBC Clumps PRESENT 09/16/19 11:00 Ur Squamous Epith Cells NONE SEEN (<= Few) 09/16/19 11:00 Urine Bacteria Few /HPF (None Seen) 09/16/19 11:00 Ur Microscopic Review INDICATED 09/16/19 11:00 Urine Culture Comments INDICATED 09/16/19 11:00 Nasal Screen MRSA (PCR) NEGATIVE (NEGATIVE) 09/16/19 13:00 - Procedures Procedures: Procedures INSERT GASTRIC TUBE NEC (03/25/13) PACKED CELL TRANSFUSION (03/25/13) Sepsis Event Note (H) - Evaluation Current Stage of Sepsis: Ruled out ABX Reporting Has patient been on IV antibiotics over the past 48 hours?: Yes Current Medications - Current Medications Current Medications: Active Medications Acetaminophen (Tylenol) 650 mg PO Q4HR PRN PRN Reason: Pain 1 to 4 Last Admin: 09/20/19 20:22 Dose: 650 mg Documented by: Bisacodyl (Dulcolax Supp) 10 mg MD DAILY PRN PRN Reason: Constipation Calcium Carbonate/Glycine (Tums) 500 mg PO TID PRN PRN Reason: Heartburn Last Admin: 09/21/19 01:19 Dose: 500 mg Documented by: Carbidopa/Levodopa (Sinemet 25 Mg/100 Mg) 3 tab PO 0500 [facility] Last Admin: 09/21/19 06:22 Dose: 3 tab Documented by: Carbidopa/Levodopa (Sinemet 25 Mg/100 Mg) 2 tab PO 1000,1400,1900 [facility] Last Admin: 09/21/19 09:58 Dose: 2 tab Documented by: Cholecalciferol (Vitamin D3) 50 mcg PO DAILY [facility] Last Admin: 09/21/19 09:53 Dose: 50 mcg Documented by: Ciprofloxacin (Cipro) 500 mg PO BID [facility] Stop: 09/22/19 21:01 Last Admin: 09/21/19 09:53 Dose: 500 mg Documented by: Diltiazem HCl (Cardizem Cd) 120 mg PO DAILY [facility] Last Admin: 09/21/19 09:53 Dose: 120 mg Documented by: Docusate Sodium (Colace 250mg Capsule) 250 - 500 mg PO DAILY [facility] Last Admin: 09/21/19 09:53 Dose: 250 mg Documented by: Levothyroxine Sodium (Synthroid) 100 mcg PO 1630 [facility] Last Admin: 09/20/19 17:09 Dose: 100 mcg Documented by: Metoprolol Succinate (Toprol Xl) 12.5 mg PO 1200 [facility] Last Admin: 09/21/19 11:52 Dose: 12.5 mg Documented by: Multi-Ingredient Ointment (Zinc Oxide) 1 applic TOP PRN PRN PRN Reason: Skin Care Last Admin: 09/20/19 21:24 Dose: 1 applic Documented by: Nystatin (Nystop) 1 applic TOP BID [facility] Last Admin: 09/21/19 09:54 Dose: 1 applic Documented by: Ondansetron HCl (Zofran Odt) 4 mg TL Q6HR PRN PRN Reason: Nausea / Vomiting Ondansetron HCl (Zofran Inj) 4 mg IVP Q6HR PRN PRN Reason: Nausea / Vomiting Last Admin: 09/21/19 04:45 Dose: 4 mg Documented by: Pantoprazole Sodium (Protonix) 40 mg PO QDAC [facility] Last Admin: 09/21/19 06:22 Dose: 40 mg Documented by: Polyethylene Glycol (Miralax) 17 gm PO DAILY [facility] Last Admin: 09/21/19 09:54 Dose: 17 gm Documented by: Saccharomyces Boulardii (Florastor) 250 mg PO BIDWM [facility] Last Admin: 09/21/19 09:53 Dose: 250 mg Documented by: Sandra (Senokot) 8.6 - 17.2 mg PO DAILY [facility] Last Admin: 09/21/19 09:53 Dose: 8.6 mg Documented by: Sodium Chloride (Normal Saline Flush 0.9%) 10 ml IVP PRN PRN PRN Reason: NEEDED PER PROVIDER ORDERS Last Admin: 09/21/19 04:45 Dose: 10 ml Documented by: Sodium Chloride (Normal Saline Flush 0.9%) 10 ml IVP 0100,0900,1700 [facility] Last Admin: 09/21/19 09:53 Dose: 10 ml Documented by: Sodium Phosphate (K-Phos Neutral) 250 mg PO TIDWM [facility] Last Admin: 09/21/19 11:52 Dose: 250 mg Documented by: Warfarin Sodium (Coumadin) 4 mg PO DAILY@1700 [facility] Last Admin: 09/20/19 17:08 Dose: 4 mg Documented by: Carbidopa/Levodopa 25/100 [Sinemet 25 mg/100 mg] 3 tab PO 0500 04/08/14 Furosemide 40 mg PO DAILY 04/08/14 Cholecalciferol (Vitamin D3) [Vitamin D3] 2,000 units PO DAILY 03/04/18 Levothyroxine Sodium 100 mcg PO 1630 03/04/18 Lisinopril [Prinivil] 2.5 mg PO DAILY 06/12/18 Metoprolol Succinate [Toprol Xl] 25 mg PO 1200 06/12/18 Diltiazem HCl [Diltiazem 24Hr ER] 120 mg PO DAILY 09/16/19 Omeprazole 20 mg PO QPM 09/16/19 Potassium Chloride [Klor-Con 10] 10 meq PO 1200 09/16/19 Warfarin Sodium [Coumadin] 4 mg PO 1700 09/16/19 Carbidopa/Levodopa [Carbidopa-Levodopa 25-100 Tab] 2 tab PO 1000,1400,1900 09/17/19
[2019-09-21] MEDS ORDERED: BISACODYL 10 MG SUPP PR ONE ×3 (13:00→18:00)
[2019-09-21 14:26] LABS: ABG HCO3 45.7 mmol/L (22.0-26.0); ABG PH 7.39 (7.35-7.45); ABG PO2 63 mmHg (80-100)
[2019-09-21 14:27] LABS: ABG BASE EXCESS 16.8 mmol/L (-2.0-3.0); ABG OXYGEN SATURATION 93 % (94-98)
[2019-09-21 14:29] LABS: ABG PCO2 78 mmHg (34-45)
[2019-09-21] MEDS: LEVOTHYROXINE 100 MCG TABLET PO SCH (16:36)
[2019-09-21] MEDS: WARFARIN 1 MG TABLET PO SCH (16:36)
[2019-09-21] MEDS ORDERED: acetaZOLAMIDE 250 MG TABLET PO ONE (17:00)
[2019-09-22] MEDS: SODIUM CHLORIDE FLUSH 0.9% 10 ML SYRINGE IVP SCH ×5 (00:23→23:49)
[2019-09-22 05:53] LABS: BASOPHILS % (AUTO) 0.8 %; EOSINOPHILS # (AUTO) 0.1 10^3/uL (0.0-0.7); EOSINOPHILS % (AUTO) 1.5 %; HGB - HEMOGLOBIN 11.2 g/dL (12.0-16.0); LYMPHOCYTES # (AUTO) 0.6 10^3/uL (1.5-3.5); LYMPHOCYTES % (AUTO) 14.7 %; MEAN CORPUSCULAR HEMOGLOBIN 27.1 pg (27.0-31.0); MEAN CORPUSCULAR HGB CONC 28.3 g/dL (32.0-36.0); MEAN CORPUSCULAR VOLUME 95.7 fL (81.0-99.0); MEAN PLATELET VOLUME 10.4 fL (7.9-10.8); MONOCYTES # (AUTO) 0.4 10^3/uL (0.0-1.0); MONOCYTES % (AUTO) 11.1 %; NEUTROPHILS # (AUTO) 2.8 10^3/uL (1.5-6.6); NEUTROPHILS % (AUTO) 71.6 %; PLT - PLATELET COUNT 143 10^3/uL (130-450); RED BLOOD COUNT 4.14 10^6/uL (4.20-5.40); RED CELL DISTRIBUTION WIDTH 14.9 % (12.0-15.0); WHITE BLOOD COUNT 3.9 x10^3/uL (4.8-10.8)
[2019-09-22] MEDS: ONDANSETRON 4 MG/2 ML VIAL IVP PRN (05:55)
[2019-09-22 05:56] LABS: INR 1.6 (0.8-1.2); PT - PROTHROMBIN TIME 17.9 secs (9.9-12.6)
[2019-09-22 06:03] LABS: ALBUMIN 3.5 g/dL (3.2-5.5); ALBUMIN/GLOBULIN RATIO 1.7 (1.0-2.2); ALKALINE PHOSPHATASE 49 IU/L (42-121); ALT ALANINE AMINOTRANSFERASE < 10 IU/L (10-60); AST ASPARTATE AMINOTRANSFERASE < 10 IU/L (10-42); BILIRUBIN,TOTAL 1.3 mg/dL (0.2-1.0); BUN - BLOOD UREA NITROGEN 11 mg/dL (6-20); CALCIUM 10.2 mg/dL (8.5-10.3); CHLORIDE 95 mmol/L (101-111); CREATININE 0.4 mg/dL (0.4-1.0); GLUCOSE 88 mg/dL (70-100); SODIUM 141 mmol/L (135-145); TOTAL PROTEIN 5.6 g/dL (6.7-8.2)
[2019-09-22 06:04] LABS: CARBON DIOXIDE - CO2 42 mmol/L (21-32)
[2019-09-22] MEDS: PANTOPRAZOLE 40 MG TABLET PO SCH (06:37)
--- NOTE | 2019-09-22 07:52 | PROVIDER PROGRESS NOTE ---
Subjective - Prog Note Date Prog Note Date: 09/22/19 - Subjective Subjective: She reports feeling relatively well overall. Still feels slightly short of breath. Reports no chest pain. She been trying to keep her neck she is much as possible. She states she is not been eating very much. Reports no lower extremity edema. Current Medications - Current Medications Current Medications: Active Medications Acetaminophen (Tylenol) 650 mg PO Q4HR PRN PRN Reason: Pain 1 to 4 Last Admin: 09/20/19 20:22 Dose: 650 mg Documented by: Carbidopa/Levodopa (Sinemet 25 Mg/100 Mg) 3 tab PO 0500 [facility] Last Admin: 09/21/19 13:42 Dose: 2 tab Documented by: Carbidopa/Levodopa (Sinemet 25 Mg/100 Mg) 2 tab PO 1000,1400,1900 [facility] Last Admin: 09/22/19 09:18 Dose: 2 tab Documented by: Ciprofloxacin (Cipro) 500 mg PO BID [facility] Stop: 09/22/19 21:01 Last Admin: 09/22/19 09:18 Dose: 500 mg Documented by: Diltiazem HCl (Cardizem Cd) 120 mg PO DAILY [facility] Last Admin: 09/21/19 09:53 Dose: 120 mg Documented by: Docusate Sodium (Colace 250mg Capsule) 250 - 500 mg PO DAILY [facility] Last Admin: 09/22/19 09:18 Dose: Not Given Documented by: Sodium Chloride (Normal Saline 0.9%) 1,000 mls @ 83.333 mls/hr IV .Q12H [facility] Last Admin: 09/22/19 09:25 Dose: 83.333 mls/hr Documented by: Levothyroxine Sodium (Synthroid) 100 mcg PO 1630 [facility] Last Admin: 09/21/19 16:36 Dose: 100 mcg Documented by: Metoprolol Succinate (Toprol Xl) 12.5 mg PO 1200 [facility] Last Admin: 09/21/19 11:52 Dose: 12.5 mg Documented by: Mineral Oil (Cavilon) 1 applic TOP PRN PRN PRN Reason: Skin Care Multi-Ingredient Ointment (Zinc Oxide) 1 applic TOP PRN PRN PRN Reason: Skin Care Last Admin: 09/20/19 21:24 Dose: 1 applic Documented by: Nystatin (Nystop) 1 applic TOP BID [facility] Last Admin: 09/22/19 09:19 Dose: 1 applic Documented by: Ondansetron HCl (Zofran Odt) 4 mg TL Q6HR PRN PRN Reason: Nausea / Vomiting Ondansetron HCl (Zofran Inj) 4 mg IVP Q6HR PRN PRN Reason: Nausea / Vomiting Last Admin: 09/22/19 05:55 Dose: 4 mg Documented by: Pantoprazole Sodium (Protonix) 40 mg PO QDAC [facility] Last Admin: 09/22/19 06:37 Dose: 40 mg Documented by: Polyethylene Glycol (Miralax) 17 gm PO DAILY [facility] Last Admin: 09/22/19 09:19 Dose: 17 gm Documented by: Saccharomyces Boulardii (Florastor) 250 mg PO BIDWM [facility] Last Admin: 09/22/19 09:18 Dose: 250 mg Documented by: Senna (Senokot) 8.6 - 17.2 mg PO DAILY [facility] Last Admin: 09/22/19 09:18 Dose: Not Given Documented by: Sodium Chloride (Normal Saline Flush 0.9%) 10 ml IVP PRN PRN PRN Reason: NEEDED PER PROVIDER ORDERS Last Admin: 09/21/19 04:45 Dose: 10 ml Documented by: Sodium Chloride (Normal Saline Flush 0.9%) 10 ml IVP 0100,0900,1700 [facility] Last Admin: 09/22/19 09:19 Dose: 10 ml Documented by: Warfarin Sodium (Coumadin) 4 mg PO DAILY@1700 [facility] Last Admin: 09/21/19 16:36 Dose: 4 mg Documented by: Carbidopa/Levodopa 25/100 [Sinemet 25 mg/100 mg] 3 tab PO 0500 04/08/14 Furosemide 40 mg PO DAILY 04/08/14 Cholecalciferol (Vitamin D3) [Vitamin D3] 2,000 units PO DAILY 03/04/18 Levothyroxine Sodium 100 mcg PO 1630 03/04/18 Lisinopril [Prinivil] 2.5 mg PO DAILY 06/12/18 Metoprolol Succinate [Toprol Xl] 25 mg PO 1200 06/12/18 Diltiazem HCl [Diltiazem 24Hr ER] 120 mg PO DAILY 09/16/19 Omeprazole 20 mg PO QPM 09/16/19 Potassium Chloride [Klor-Con 10] 10 meq PO 1200 09/16/19 Warfarin Sodium [Coumadin] 4 mg PO 1700 09/16/19 Carbidopa/Levodopa [Carbidopa-Levodopa 25-100 Tab] 2 tab PO 1000,1400,1900 09/17/19 Objective - Vital Signs/Intake & Output Reviewed Vital Signs: Yes Vital Signs: Vital Signs x48h Temp Pulse Pulse Resp BP Pulse Ox 09/22/19 05:00 36.5 C 85 20 129/74 100 09/21/19 23:57 36.6 C 65 28 H 85/59 L 93 Intake & Output: Intake & Output 09/19/19 09/20/19 09/21/19 09/22/19 23:59 23:59 23:59 23:59 Intake Total 440 1120 360 Output Total 1650 375 400 150 Balance -1210 745 -40 -150 - Objective General Appearance: positive: No acute distress, Alert Eyes Bilateral: positive: Normal inspection, Conjunctivae nml ENT: positive: ENT inspection nml, Other (Nasal cannula in place.) Neck: positive: Stiff neck, Other (Kyphosis noted. No cervical spine tenderness.) Respiratory: positive: No respiratory distress, Other (Diminished breath sounds bilaterally. She is not tachypnic.). negative: Wheezes, Rales Cardiovascular: positive: No murmur, Irregularly irregular. negative: Tachycardia, Bradycardia, Systolic murmur Abdomen: positive: Non-tender, No distention. negative: Tenderness Skin: positive: Warm, Dry Extremities: positive: Nml appearance, No pedal edema Neurologic/Psychiatric: positive: Other (No focal motor deficits on exam.). negative: Disoriented to person, Disoriented to place, Disoriented to time - Lab Results Fish Bones: 09/22/19 05:12 09/22/19 05:12 Other Labs: Lab Results x24hrs 09/22/19 09/22/19 09/22/19 Range/Units 05:12 05:12 05:12 WBC 3.9 L (4.8-10.8) x10^3/uL RBC 4.14 L (4.20-5.40) 10^6/uL Hgb 11.2 L (12.0-16.0) g/dL Hct 39.6 (37.0-47.0) % MCV 95.7 (81.0-99.0) fL MCH 27.1 (27.0-31.0) pg MCHC 28.3 L (32.0-36.0) g/dL RDW 14.9 (12.0-15.0) % Plt Count 143 (130-450) 10^3/uL MPV 10.4 (7.9-10.8) fL Neut # (Auto) 2.8 (1.5-6.6) 10^3/uL Lymph # (Auto) 0.6 L (1.5-3.5) 10^3/uL [place] # (Auto) 0.4 (0.0-1.0) 10^3/uL Eos # (Auto) 0.1 (0.0-0.7) 10^3/uL Baso # (Auto) 0.0 (0.0-0.1) 10^3/uL Absolute Nucleated RBC 0.00 x10^3/uL Nucleated RBC % 0.0 /100WBC PT 17.9 H (9.9-12.6) secs INR 1.6 H (0.8-1.2) Bld Gas Analysis Time Sample Site ABG pH (7.35-7.45) ABG pCO2 (34-45) mmHg ABG pO2 (80-100) mmHg ABG HCO3 (22.0-26.0) mmol/L ABG Total CO2 (21.0-29.0) MMOL/L ABG O2 Saturation (94-98) % ABG Base Excess (-2.0-3.0) mmol/L Kevin Test O2 Delivery Device O2 Liters/Min LPM Sodium 141 (135-145) mmol/L Potassium 3.7 (3.5-5.0) mmol/L Chloride 95 L (101-111) mmol/L Carbon Dioxide 42 H* (21-32) mmol/L Anion Gap 4.0 L (6-13) BUN 11 (6-20) mg/dL Creatinine 0.4 (0.4-1.0) mg/dL Estimated GFR (MDRD) 157 (>89) Glucose 88 (70-100) mg/dL Calcium 10.2 (8.5-10.3) mg/dL Total Bilirubin 1.3 H (0.2-1.0) mg/dL AST < 10 L (10-42) IU/L ALT < 10 L (10-60) IU/L Alkaline Phosphatase 49 (42-121) IU/L Total Protein 5.6 L (6.7-8.2) g/dL Albumin 3.5 (3.2-5.5) g/dL Globulin 2.1 (2.1-4.2) g/dL Albumin/Globulin Ratio 1.7 (1.0-2.2) Ur Random Chloride mmol/L Urine Sodium mmol/L 09/21/19 09/21/19 09/21/19 Range/Units 15:47 14:15 07:52 WBC (4.8-10.8) x10^3/uL RBC (4.20-5.40) 10^6/uL Hgb (12.0-16.0) g/dL Hct (37.0-47.0) % MCV (81.0-99.0) fL MCH (27.0-31.0) pg MCHC (32.0-36.0) g/dL RDW (12.0-15.0) % Plt Count (130-450) 10^3/uL MPV (7.9-10.8) fL Neut # (Auto) (1.5-6.6) 10^3/uL Lymph # (Auto) (1.5-3.5) 10^3/uL [place] # (Auto) (0.0-1.0) 10^3/uL Eos # (Auto) (0.0-0.7) 10^3/uL Baso # (Auto) (0.0-0.1) 10^3/uL Absolute Nucleated RBC x10^3/uL Nucleated RBC % /100WBC PT (9.9-12.6) secs INR (0.8-1.2) Bld Gas Analysis Time 1424 0804 Sample Site RIGHT BRACHIAL RIGHT BRACHIAL ABG pH 7.39 7.38 (7.35-7.45) ABG pCO2 78 H* 72 H* (34-45) mmHg ABG pO2 63 L 128 H (80-100) mmHg ABG HCO3 45.7 H 41.4 H (22.0-26.0) mmol/L ABG Total CO2 48.0 H* 43.6 H* (21.0-29.0) MMOL/L ABG O2 Saturation 93 L 99 H (94-98) % ABG Base Excess 16.8 H 13.1 H (-2.0-3.0) mmol/L Kevin Test NOT APPLICABLE NOT APPLICABLE O2 Delivery Device NASAL CANNULA NASAL CANNULA O2 Liters/Min 2.00 2.50 LPM Sodium (135-145) mmol/L Potassium (3.5-5.0) mmol/L Chloride (101-111) mmol/L Carbon Dioxide (21-32) mmol/L Anion Gap (6-13) BUN (6-20) mg/dL Creatinine (0.4-1.0) mg/dL Estimated GFR (MDRD) (>89) Glucose (70-100) mg/dL Calcium (8.5-10.3) mg/dL Total Bilirubin (0.2-1.0) mg/dL AST (10-42) IU/L ALT (10-60) IU/L Alkaline Phosphatase (42-121) IU/L Total Protein (6.7-8.2) g/dL Albumin (3.2-5.5) g/dL Globulin (2.1-4.2) g/dL Albumin/Globulin Ratio (1.0-2.2) Ur Random Chloride 43 mmol/L Urine Sodium 72.0 mmol/L - Diagnostic Imaging Diagnostic Imaging Results: positive: Final report reviewed ABX Reporting Has patient been on IV antibiotics over the past 48 hours?: No Sepsis Event Note (H) - Evaluation Current Stage of Sepsis: Ruled out Assessment/Plan - Problem List (1) Hypotension Impression: She is hypertensive again this morning with a blood pressure of 86/60. She does appear hypovolemic on exam with dry mucosa. She has no significant lower extremity edema. Suspect may be due to the diuresis she had received previously. We will gently hydrate her with normal saline and monitor her blood pressure. Qualifiers: Hypotension type: unspecified hypotension type Qualified Code(s): I95.9 - Hypotension, unspecified (2) Hypoxia Impression: I suspect she is requiring oxygen due to restrictive lung disease from her significant kyphosis. She is currently saturating 100% on 3 L of oxygen. Chest x-rays during his hospitalization did not show any obvious infiltrate although she does have a large hiatal hernia. She does not appear hypervolemic on exam so do not think she is in heart failure. We will wean her oxygen saturations to greater than 89%. I suspect she will likely need oxygen at home on discharge. (3) Hypercapnia with mixed acid-base disorder Impression: Her ABGs yesterday were suggestive of a chronic respiratory acidosis with a compensatory metabolic alkalosis. She was given a dose of Diamox once yesterday given her increased bicarbonate and she had received IV Lasix previously and her status may have a component of contraction alkalosis. I suspect her chronic hypercapnic respiratory failure secondary to her kyphosis. She shows no signs of CO2 narcosis and she is compensated. A urine chloride was checked which was elevated likely due to her being on diuretics. Given her hypotension, we will gently hydrated with normal saline. We will recheck her BMP tomorrow. I suspect her bicarbonate will decrease with the chloride load. (4) Atrial fibrillation with RVR Impression: She presented with atrial fibrillation and rapid ventricular response. She is currently rate controlled. She did have one pause during saltation of greater than 3 seconds and metoprolol dose was decreased. She remains rate controlled on the lower dose of metoprolol addition to the diltiazem. She will likely be discharged on this regimen and she can follow-up with her supervisor [employer] on an outpatient basis. We are continuing her Coumadin. (5) Kyphosis deformity of spine Impression: This is likely contributing to her chronic hypercapnic respiratory failure and her hypoxia due to restrictive lung disease. She has been trying a soft c- collar to assist in this but she has had minimal improvement. She will likely need oxygen on discharge given the hypoxia. She may also ultimately need noninvasive ventilation at night at home but she did not like using the BiPAP mask during this hospitalization. Qualifiers: Spinal region: cervical (6) Parkinson disease, symptomatic Impression: Stable. We are continuing her home Sinemet. (7) Hypothyroidism Impression: Stable. Continue home Synthroid.
[2019-09-22] MEDS ORDERED: acetaZOLAMIDE 250 MG TABLET PO SCH (09:00)
[2019-09-22] MEDS: CIPROFLOXACIN 250 MG TABLET PO SCH ×2 (09:18→19:35)
[2019-09-22] MEDS: SENNA 8.6 MG TABLET PO SCH (09:18)
[2019-09-22] MEDS: SACCHAROMYCES BOULARDII 250 MG CAPSULE PO SCH ×2 (09:18→16:18)
[2019-09-22] MEDS: CARBIDOPA/LEVODOPA 25 MG/100 MG TABLET PO SCH ×3 (09:18→19:35)
[2019-09-22] MEDS: DOCUSATE SODIUM 250 MG CAPSULE PO SCH (09:18)
[2019-09-22] MEDS: polyethylene glycoL 3350 17 GM PACKET PO SCH (09:19)
[2019-09-22] MEDS: NYSTATIN POWDER 15 GM TOP SCH ×2 (09:19→20:31)
[2019-09-22] MEDS: SODIUM CHLORIDE 0.9% 1,000 ML IV SCH ×2 (09:25→20:32)
[2019-09-22] MEDS: diltiaZEM CD 120 MG CAPSULE PO SCH (12:59)
[2019-09-22] MEDS: METOPROLOL SUCCINATE 50 MG TABLET PO SCH (12:59)
[2019-09-22] MEDS: WARFARIN 1 MG TABLET PO SCH (16:19)
[2019-09-22] MEDS: LEVOTHYROXINE 100 MCG TABLET PO SCH (16:19)
[2019-09-22] MEDS: MIN OIL/DIMETHICON/COCONUT OIL 92 GM TUBE TOP PRN ×2 (16:20→20:31)
[2019-09-22] MEDS: ACETAMINOPHEN 325 MG TABLET PO PRN (19:35)
[2019-09-23] MEDS: ACETAMINOPHEN 325 MG TABLET PO PRN (04:44)
[2019-09-23] MEDS: CARBIDOPA/LEVODOPA 25 MG/100 MG TABLET PO SCH ×4 (04:45→19:03)
[2019-09-23 05:34] LABS: BASOPHILS % (AUTO) 0.8 %; EOSINOPHILS # (AUTO) 0.1 10^3/uL (0.0-0.7); EOSINOPHILS % (AUTO) 2.2 %; HGB - HEMOGLOBIN 10.8 g/dL (12.0-16.0); LYMPHOCYTES # (AUTO) 0.5 10^3/uL (1.5-3.5); LYMPHOCYTES % (AUTO) 13.7 %; MEAN CORPUSCULAR HEMOGLOBIN 27.9 pg (27.0-31.0); MEAN CORPUSCULAR HGB CONC 29.4 g/dL (32.0-36.0); MEAN CORPUSCULAR VOLUME 94.8 fL (81.0-99.0); MEAN PLATELET VOLUME 10.1 fL (7.9-10.8); MONOCYTES # (AUTO) 0.4 10^3/uL (0.0-1.0); MONOCYTES % (AUTO) 9.8 %; NEUTROPHILS # (AUTO) 2.6 10^3/uL (1.5-6.6); NEUTROPHILS % (AUTO) 73.2 %; PLT - PLATELET COUNT 142 10^3/uL (130-450); RED BLOOD COUNT 3.87 10^6/uL (4.20-5.40); RED CELL DISTRIBUTION WIDTH 14.9 % (12.0-15.0); WHITE BLOOD COUNT 3.6 x10^3/uL (4.8-10.8)
[2019-09-23 05:47] LABS: CREATININE 0.5 mg/dL (0.4-1.0); MAGNESIUM 2.4 mg/dL (1.7-2.8); PHOSPHORUS 1.9 mg/dL (2.5-4.6)
[2019-09-23] MEDS: PANTOPRAZOLE 40 MG TABLET PO SCH (06:40)
[2019-09-23] MEDS ORDERED: NEUTRA-PHOS 250 MG TABLET PO ONE (08:00)
[2019-09-23] MEDS: polyethylene glycoL 3350 17 GM PACKET PO SCH (08:18)
[2019-09-23] MEDS: diltiaZEM CD 120 MG CAPSULE PO SCH (08:18)
[2019-09-23] MEDS: SACCHAROMYCES BOULARDII 250 MG CAPSULE PO SCH ×2 (08:18→16:39)
[2019-09-23] MEDS: SENNA 8.6 MG TABLET PO SCH (08:18)
[2019-09-23] MEDS: DOCUSATE SODIUM 250 MG CAPSULE PO SCH (08:18)
[2019-09-23] MEDS: NYSTATIN POWDER 15 GM TOP SCH ×2 (08:20→20:38)
[2019-09-23] MEDS: SODIUM CHLORIDE FLUSH 0.9% 10 ML SYRINGE IVP SCH ×3 (08:22→23:51)
--- NOTE | 2019-09-23 10:25 | PROVIDER PROGRESS NOTE ---
Subjective - Prog Note Date Prog Note Date: 09/23/19 - Subjective Subjective: She reports feeling a little short of breath still this morning. She was up in a chair for 30 minutes but did not tolerate it as she feels is not comfortable sitting position for her due to her kyphosis. Reports no chest pain or lower extremity edema. She did feel a little lightheaded at times. Current Medications - Current Medications Current Medications: Active Medications Acetaminophen (Tylenol) 650 mg PO Q4HR PRN PRN Reason: Pain 1 to 4 Last Admin: 09/23/19 04:44 Dose: 650 mg Documented by: Carbidopa/Levodopa (Sinemet 25 Mg/100 Mg) 3 tab PO 0500 [facility] Last Admin: 09/23/19 04:45 Dose: 3 tab Documented by: Carbidopa/Levodopa (Sinemet 25 Mg/100 Mg) 2 tab PO 1000,1400,1900 [facility] Last Admin: 09/23/19 14:16 Dose: 2 tab Documented by: Docusate Sodium (Colace 250mg Capsule) 250 - 500 mg PO DAILY [facility] Last Admin: 09/23/19 08:18 Dose: Not Given Documented by: Sodium Chloride (Normal Saline 0.9%) 1,000 mls @ 83.333 mls/hr IV .Q12H [facility] Last Admin: 09/23/19 10:43 Dose: 83.333 mls/hr Documented by: Levothyroxine Sodium (Synthroid) 100 mcg PO 1630 [facility] Last Admin: 09/22/19 16:19 Dose: 100 mcg Documented by: Metoprolol Tartrate (Lopressor) 25 mg PO BID [facility] Mineral Oil (Cavilon) 1 applic TOP PRN PRN PRN Reason: Skin Care Last Admin: 09/22/19 20:31 Dose: 1 applic Documented by: Multi-Ingredient Ointment (Zinc Oxide) 1 applic TOP PRN PRN PRN Reason: Skin Care Last Admin: 09/20/19 21:24 Dose: 1 applic Documented by: Nystatin (Nystop) 1 applic TOP BID [facility] Last Admin: 09/23/19 08:20 Dose: 1 applic Documented by: Ondansetron HCl (Zofran Odt) 4 mg TL Q6HR PRN PRN Reason: Nausea / Vomiting Ondansetron HCl (Zofran Inj) 4 mg IVP Q6HR PRN PRN Reason: Nausea / Vomiting Last Admin: 09/22/19 05:55 Dose: 4 mg Documented by: Pantoprazole Sodium (Protonix) 40 mg PO QDAC [facility] Last Admin: 09/23/19 06:40 Dose: 40 mg Documented by: Polyethylene Glycol (Miralax) 17 gm PO DAILY [facility] Last Admin: 09/23/19 08:18 Dose: 17 gm Documented by: Saccharomyces Boulardii (Florastor) 250 mg PO BIDWM [facility] Last Admin: 09/23/19 08:18 Dose: 250 mg Documented by: Sandra (Senokot) 8.6 - 17.2 mg PO DAILY [facility] Last Admin: 09/23/19 08:18 Dose: 8.6 mg Documented by: Sodium Chloride (Normal Saline Flush 0.9%) 10 ml IVP PRN PRN PRN Reason: NEEDED PER PROVIDER ORDERS Last Admin: 09/21/19 04:45 Dose: 10 ml Documented by: Sodium Chloride (Normal Saline Flush 0.9%) 10 ml IVP 0100,0900,1700 [facility] Last Admin: 09/23/19 08:22 Dose: 10 ml Documented by: Warfarin Sodium (Coumadin) 4 mg PO DAILY@1700 [facility] Last Admin: 09/22/19 16:19 Dose: 4 mg Documented by: Carbidopa/Levodopa 25/100 [Sinemet 25 mg/100 mg] 3 tab PO 0500 04/08/14 Furosemide 40 mg PO DAILY 04/08/14 Cholecalciferol (Vitamin D3) [Vitamin D3] 2,000 units PO DAILY 03/04/18 Levothyroxine Sodium 100 mcg PO 1630 03/04/18 Lisinopril [Prinivil] 2.5 mg PO DAILY 06/12/18 Metoprolol Succinate [Toprol Xl] 25 mg PO 1200 06/12/18 Diltiazem HCl [Diltiazem 24Hr ER] 120 mg PO DAILY 09/16/19 Omeprazole 20 mg PO QPM 09/16/19 Potassium Chloride [Klor-Con 10] 10 meq PO 1200 09/16/19 Warfarin Sodium [Coumadin] 4 mg PO 1700 09/16/19 Carbidopa/Levodopa [Carbidopa-Levodopa 25-100 Tab] 2 tab PO 1000,1400,1900 09/17/19 Objective - Vital Signs/Intake & Output Reviewed Vital Signs: Yes Vital Signs: Vital Signs x48h Temp Pulse Pulse Resp BP BP Pulse Ox 09/23/19 07:41 36.5 C 87 17 105/68 96 09/23/19 04:43 36.4 C L 80 16 108/68 100 Intake & Output: Intake & Output 09/20/19 09/21/19 09/22/19 09/23/19 23:59 23:59 23:59 23:59 Intake Total 9237 030 0221 1225 Output Total 375 400 850 200 Balance 745 -40 753 1025 - Objective General Appearance: positive: No acute distress, Alert Eyes Bilateral: positive: Normal inspection, Conjunctivae nml ENT: positive: ENT inspection nml, Other (Nasal cannula in place) Neck: positive: Nml inspection, Other Respiratory: positive: No respiratory distress, Other (Diminished breath souns bilaterally. Thoracic kyphosis noted.). negative: Wheezes, Rales Cardiovascular: positive: Irregularly irregular, Tachycardia. negative: Regular rate & rhythm, Bradycardia, Systolic murmur Abdomen: positive: Non-tender, No distention. negative: Tenderness Skin: positive: Warm, Dry Extremities: positive: Full ROM, No pedal edema Neurologic/Psychiatric: positive: Oriented x3. negative: Disoriented to person, Disoriented to place, Disoriented to time - Lab Results Fish Bones: 09/23/19 05:15 09/23/19 05:15 Other Labs: Lab Results x24hrs 09/23/19 09/23/19 09/23/19 Range/Units 05:15 05:15 05:15 WBC 3.6 L (4.8-10.8) x10^3/uL RBC 3.87 L (4.20-5.40) 10^6/uL Hgb 10.8 L (12.0-16.0) g/dL Hct 36.7 L (37.0-47.0) % MCV 94.8 (81.0-99.0) fL MCH 27.9 (27.0-31.0) pg MCHC 29.4 L (32.0-36.0) g/dL RDW 14.9 (12.0-15.0) % Plt Count 142 (130-450) 10^3/uL MPV 10.1 (7.9-10.8) fL Neut # (Auto) 2.6 (1.5-6.6) 10^3/uL Lymph # (Auto) 0.5 L (1.5-3.5) 10^3/uL [place] # (Auto) 0.4 (0.0-1.0) 10^3/uL Eos # (Auto) 0.1 (0.0-0.7) 10^3/uL Baso # (Auto) 0.0 (0.0-0.1) 10^3/uL Absolute Nucleated RBC 0.00 x10^3/uL Nucleated RBC % 0.0 /100WBC Sodium 139 (135-145) mmol/L Potassium 3.7 (3.5-5.0) mmol/L Chloride 98 L (101-111) mmol/L Carbon Dioxide 36 H (21-32) mmol/L Anion Gap 5.0 L (6-13) BUN 11 (6-20) mg/dL Creatinine 0.5 (0.4-1.0) mg/dL Estimated GFR (MDRD) 121 (>89) Glucose 88 (70-100) mg/dL Calcium 10.0 (8.5-10.3) mg/dL Phosphorus 1.9 L (2.5-4.6) mg/dL Magnesium 2.4 (1.7-2.8) mg/dL B-Natriuretic Peptide 246 H (5-100) pg/mL ABX Reporting Has patient been on IV antibiotics over the past 48 hours?: No Sepsis Event Note (H) - Evaluation Current Stage of Sepsis: Ruled out Assessment/Plan - Problem List (1) Hypotension Impression: She was hypotensive this morning with blood pressure of 75/54. Orthostatics were checked and her blood pressure actually improved to 90 systolic on standing. Her heart rate also increased but this is likely due to her underlying atrial fibrillation. She does appear hypervolemic on exam and so we will continue her on IV fluids and give her a 500 mL bolus of normal saline at this time. She does not appear septic at this time and she has been afebrile with no leukocytosis. She has completed antibiotics for her urinary tract infection. I suspect she is likely just hypovolemia from the diuresis she had received in the past. We will also hold her diltiazem she received this in the morning and may also be contributing to her hypotension. Qualifiers: Hypotension type: unspecified hypotension type Qualified Code(s): I95.9 - Hypotension, unspecified (2) Atrial fibrillation with RVR Impression: Her rates have been labile. She went as high as the 130s with exertion this morning but at rest her heart rate has been controlled in the 70s to 80s. She had received diltiazem this morning this will need to be held given her hypotension. We will discontinue the diltiazem and we will attempt to continue her metoprolol as tolerated. Her heart rate is difficult to control given her hypotension. We may need to consider digoxin if her blood pressure remains a problem. Continue to monitor on telemetry. (3) Hypoxia Impression: She desaturated to 86% on room air today. She improved on 2 L of oxygen via nasal cannula. I suspect is chronic respiratory failure due to her underlying pulmonary hypertension and restrictive lung disease due to her kyphosis. She likely needs oxygen at baseline. We will continue 2 L of oxygen at this time. Exercise desaturation test today showed she will need 2 L of oxygen at rest. (4) Hypercapnia with mixed acid-base disorder Impression: This is improving and her bicarbonate is down to 36 this morning. Does have chronic respiratory failure secondary to her restrictive lung disease due to kyphosis. We will continue with normal saline. Recheck labs in the morning. (5) Kyphosis deformity of spine Impression: This is causing her to have restrictive lung disease causing hypercapnia and hypoxia. We did try a soft c-collar without improvement. We will continue with supplemental oxygen as needed. Qualifiers: Spinal region: cervicothoracic (6) Parkinson disease, symptomatic Impression: Continue home Sinemet. (7) Hypothyroidism Impression: Continue Synthroid.
[2019-09-23] MEDS: SODIUM CHLORIDE 0.9% 1,000 ML IV SCH ×2 (10:43→22:21)
[2019-09-23] MEDS ORDERED: SODIUM CHLORIDE 0.9% 500 ML IV ONE (14:24)
[2019-09-23] MEDS: WARFARIN 1 MG TABLET PO SCH (16:39)
[2019-09-23] MEDS: LEVOTHYROXINE 100 MCG TABLET PO SCH (16:39)
[2019-09-23] MEDS: METOPROLOL TARTRATE 25 MG TABLET PO SCH (20:36)
[2019-09-23] MEDS: MIN OIL/DIMETHICON/COCONUT OIL 92 GM TUBE TOP PRN (20:38)
[2019-09-23] MEDS: ONDANSETRON 4 MG/2 ML VIAL IVP PRN (22:20)
[2019-09-24] MEDS: ACETAMINOPHEN 325 MG TABLET PO PRN (01:13)
[2019-09-24] MEDS: CARBIDOPA/LEVODOPA 25 MG/100 MG TABLET PO SCH ×4 (05:09→19:54)
[2019-09-24 05:13] LABS: BASOPHILS % (AUTO) 0.7 %; EOSINOPHILS # (AUTO) 0.1 10^3/uL (0.0-0.7); LYMPHOCYTES # (AUTO) 0.5 10^3/uL (1.5-3.5); LYMPHOCYTES % (AUTO) 12.2 %; MEAN CORPUSCULAR HGB CONC 29.6 g/dL (32.0-36.0); MEAN CORPUSCULAR VOLUME 94.7 fL (81.0-99.0); MEAN PLATELET VOLUME 9.6 fL (7.9-10.8); MONOCYTES # (AUTO) 0.3 10^3/uL (0.0-1.0); MONOCYTES % (AUTO) 7.5 %; NEUTROPHILS # (AUTO) 3.4 10^3/uL (1.5-6.6); NEUTROPHILS % (AUTO) 76.5 %; PLT - PLATELET COUNT 154 10^3/uL (130-450); RED BLOOD COUNT 3.93 10^6/uL (4.20-5.40); RED CELL DISTRIBUTION WIDTH 15.1 % (12.0-15.0); WHITE BLOOD COUNT 4.4 x10^3/uL (4.8-10.8)
[2019-09-24 05:27] LABS: CALCIUM 9.7 mg/dL (8.5-10.3); CREATININE 0.5 mg/dL (0.4-1.0); MAGNESIUM 2.2 mg/dL (1.7-2.8); PHOSPHORUS 2.1 mg/dL (2.5-4.6)
[2019-09-24 05:36] LABS: INR 2.3 (0.8-1.2); PT - PROTHROMBIN TIME 24.9 secs (9.9-12.6)
[2019-09-24] MEDS: PANTOPRAZOLE 40 MG TABLET PO SCH (06:18)
[2019-09-24] MEDS ORDERED: NEUTRA-PHOS 250 MG TABLET PO ONE (08:00)
[2019-09-24] MEDS: SENNA 8.6 MG TABLET PO SCH (08:31)
[2019-09-24] MEDS: polyethylene glycoL 3350 17 GM PACKET PO SCH (08:31)
[2019-09-24] MEDS: SACCHAROMYCES BOULARDII 250 MG CAPSULE PO SCH ×2 (08:31→16:49)
[2019-09-24] MEDS: DOCUSATE SODIUM 250 MG CAPSULE PO SCH (08:32)
[2019-09-24] MEDS: NYSTATIN POWDER 15 GM TOP SCH ×2 (08:32→20:44)
[2019-09-24] MEDS: SODIUM CHLORIDE FLUSH 0.9% 10 ML SYRINGE IVP SCH ×2 (08:32→16:50)
[2019-09-24] MEDS ORDERED: SODIUM CHLORIDE 0.9% 500 ML IV ONE ×3 (09:23→10:37)
[2019-09-24] MEDS: METOPROLOL TARTRATE 25 MG TABLET PO SCH ×3 (10:50→20:44)
--- NOTE | 2019-09-24 15:38 | PROVIDER PROGRESS NOTE ---
Subjective - Prog Note Date Prog Note Date: 09/24/19 - Subjective Subjective: She denies feeling short of breath. She do not want to work with physical therapy very much today. Denies any chest pain. Reports mild abdominal pain but that this has improved after she had lunch. Current Medications - Current Medications Current Medications: Active Medications Acetaminophen (Tylenol) 650 mg PO Q4HR PRN PRN Reason: Pain 1 to 4 Last Admin: 09/24/19 01:13 Dose: 650 mg Documented by: Carbidopa/Levodopa (Sinemet 25 Mg/100 Mg) 3 tab PO 0500 [facility] Last Admin: 09/24/19 05:09 Dose: 3 tab Documented by: Carbidopa/Levodopa (Sinemet 25 Mg/100 Mg) 2 tab PO 1000,1400,1900 [facility] Last Admin: 09/24/19 14:51 Dose: 2 tab Documented by: Docusate Sodium (Colace 250mg Capsule) 250 - 500 mg PO DAILY [facility] Last Admin: 09/24/19 08:32 Dose: 250 mg Documented by: Levothyroxine Sodium (Synthroid) 100 mcg PO 1630 [facility] Last Admin: 09/23/19 16:39 Dose: 100 mcg Documented by: Metoprolol Tartrate (Lopressor) 25 mg PO BID [facility] Last Admin: 09/24/19 12:32 Dose: 25 mg Documented by: Mineral Oil (Cavilon) 1 applic TOP PRN PRN PRN Reason: Skin Care Last Admin: 09/23/19 20:38 Dose: 1 applic Documented by: Multi-Ingredient Ointment (Zinc Oxide) 1 applic TOP PRN PRN PRN Reason: Skin Care Last Admin: 09/20/19 21:24 Dose: 1 applic Documented by: Nystatin (Nystop) 1 applic TOP BID [facility] Last Admin: 09/24/19 08:32 Dose: 1 applic Documented by: Ondansetron HCl (Zofran Odt) 4 mg TL Q6HR PRN PRN Reason: Nausea / Vomiting Ondansetron HCl (Zofran Inj) 4 mg IVP Q6HR PRN PRN Reason: Nausea / Vomiting Last Admin: 09/23/19 22:20 Dose: 4 mg Documented by: Pantoprazole Sodium (Protonix) 40 mg PO QDAC [facility] Last Admin: 09/24/19 06:18 Dose: 40 mg Documented by: Polyethylene Glycol (Miralax) 17 gm PO DAILY [facility] Last Admin: 09/24/19 08:31 Dose: 17 gm Documented by: Saccharomyces Boulardii (Florastor) 250 mg PO BIDWM [facility] Last Admin: 09/24/19 08:31 Dose: 250 mg Documented by: Sandra (Senokot) 8.6 - 17.2 mg PO DAILY [facility] Last Admin: 09/24/19 08:31 Dose: 8.6 mg Documented by: Sodium Chloride (Normal Saline Flush 0.9%) 10 ml IVP PRN PRN PRN Reason: NEEDED PER PROVIDER ORDERS Last Admin: 09/21/19 04:45 Dose: 10 ml Documented by: Sodium Chloride (Normal Saline Flush 0.9%) 10 ml IVP 0100,0900,1700 [facility] Last Admin: 09/24/19 08:32 Dose: 10 ml Documented by: Warfarin Sodium (Coumadin) 4 mg PO DAILY@1700 [facility] Last Admin: 09/23/19 16:39 Dose: 4 mg Documented by: Carbidopa/Levodopa 25/100 [Sinemet 25 mg/100 mg] 3 tab PO 0500 04/08/14 Furosemide 40 mg PO DAILY 04/08/14 Cholecalciferol (Vitamin D3) [Vitamin D3] 2,000 units PO DAILY 03/04/18 Levothyroxine Sodium 100 mcg PO 1630 03/04/18 Lisinopril [Prinivil] 2.5 mg PO DAILY 06/12/18 Metoprolol Succinate [Toprol Xl] 25 mg PO 1200 06/12/18 Diltiazem HCl [Diltiazem 24Hr ER] 120 mg PO DAILY 09/16/19 Omeprazole 20 mg PO QPM 09/16/19 Potassium Chloride [Klor-Con 10] 10 meq PO 1200 09/16/19 Warfarin Sodium [Coumadin] 4 mg PO 1700 09/16/19 Carbidopa/Levodopa [Carbidopa-Levodopa 25-100 Tab] 2 tab PO 1000,1400,1900 09/17/19 Objective - Vital Signs/Intake & Output Reviewed Vital Signs: Yes Vital Signs: Vital Signs x48h Temp Pulse Resp BP BP BP Pulse Ox 09/24/19 15:17 36.5 C 93 24 101/64 102/69 95 09/24/19 13:48 79 99/65 105/64 09/24/19 12:32 126/93 H 09/24/19 12:28 97 126/93 H 116/76 96 09/24/19 10:08 79 110/66 09/24/19 10:07 77 92/62 09/24/19 09:19 76 95/71 09/24/19 09:18 86 89/58 L 09/24/19 07:39 37.0 C 68 20 90/55 L 100 Intake & Output: Intake & Output 09/21/19 09/22/19 09/23/19 09/24/19 23:59 23:59 23:59 23:59 Intake Total 360 1603 3334.441 2153.05 Output Total 400 850 500 200 Balance -40 753 2834.441 1953.05 - Objective General Appearance: positive: No acute distress, Alert Eyes Bilateral: positive: Normal inspection, Conjunctivae nml ENT: positive: ENT inspection nml, Other (Nasal cannula in place) Respiratory: positive: Other (She is tachypnic but not in distress. Diminished breath sounds throghout. No rales or wheezes. Thoracokyphosis noted.) Cardiovascular: positive: No murmur, Irregularly irregular. negative: Tachycardia, Systolic murmur Abdomen: positive: Non-tender, Nml bowel sounds, No distention. negative: Tenderness, Guarding, Rebound Skin: positive: No rash, Warm, Dry Extremities: positive: Full ROM, No pedal edema Neurologic/Psychiatric: positive: Oriented x3. negative: Disoriented to person, Disoriented to place, Disoriented to time - Lab Results Fish Bones: 09/24/19 04:59 09/24/19 04:59 Other Labs: Lab Results x24hrs 09/24/19 09/24/19 09/24/19 Range/Units 04:59 04:59 04:59 WBC 4.4 L (4.8-10.8) x10^3/uL RBC 3.93 L (4.20-5.40) 10^6/uL Hgb 11.0 L (12.0-16.0) g/dL Hct 37.2 (37.0-47.0) % MCV 94.7 (81.0-99.0) fL MCH 28.0 (27.0-31.0) pg MCHC 29.6 L (32.0-36.0) g/dL RDW 15.1 H (12.0-15.0) % Plt Count 154 (130-450) 10^3/uL MPV 9.6 (7.9-10.8) fL Neut # (Auto) 3.4 (1.5-6.6) 10^3/uL Lymph # (Auto) 0.5 L (1.5-3.5) 10^3/uL [place] # (Auto) 0.3 (0.0-1.0) 10^3/uL Eos # (Auto) 0.1 (0.0-0.7) 10^3/uL Baso # (Auto) 0.0 (0.0-0.1) 10^3/uL Absolute Nucleated RBC 0.00 x10^3/uL Nucleated RBC % 0.0 /100WBC PT 24.9 H (9.9-12.6) secs INR 2.3 H (0.8-1.2) Sodium 140 (135-145) mmol/L Potassium 3.6 (3.5-5.0) mmol/L Chloride 102 (101-111) mmol/L Carbon Dioxide 33 H (21-32) mmol/L Anion Gap 5.0 L (6-13) BUN 10 (6-20) mg/dL Creatinine 0.5 (0.4-1.0) mg/dL Estimated GFR (MDRD) 121 (>89) Glucose 93 (70-100) mg/dL Calcium 9.7 (8.5-10.3) mg/dL Phosphorus 2.1 L (2.5-4.6) mg/dL Magnesium 2.2 (1.7-2.8) mg/dL ABX Reporting Has patient been on IV antibiotics over the past 48 hours?: No Sepsis Event Note (H) - Evaluation Current Stage of Sepsis: Ruled out Assessment/Plan - Problem List (1) Hypotension Impression: Her pressures have remained soft this morning with a systolic of 89 and a diasto lic of 58. She was given 500 mL of normal saline with improvement of her blood pressures to the 110s systolic. Orthostatics were negative yesterday and her diltiazem has been discontinued. She does remain on metoprolol 25 mg twice daily given her age fibrillation and the fact that she presented with rapid ventricular response. Despite her being hypotensive at times, she shows no signs of endorgan damage. Suspect she may have been hypotensive due to diuresis she received and she is intravascularly hypovolemic. She has responded well to IV fluids. We will give another 500 mL of normal saline today. We will check an a.m. cortisol to rule out adrenal insufficiency but this is less likely. We will keep her hospitalized 1 more night to ensure her blood pressure stable on the oral metoprolol given we have discontinued her diltiazem and she initially presented with A. fib and rapid ventricular response. If her blood pressure remains in the 90s to low 100s and she is rate controlled then we can likely discharge her tomorrow morning on metoprolol 20 mg twice daily with outpatient follow-up. Qualifiers: Hypotension type: unspecified hypotension type Qualified Code(s): I95.9 - Hypotension, unspecified (2) Atrial fibrillation with RVR Impression: She is now rate controlled metoprolol 25 mg twice daily. We have discontinued her diltiazem given the hypotension. We will monitor her closely on this new regimen. If there is any evidence of tachybradycardia syndrome then she will ne ed a pacemaker. She did present with rapid ventricular response and has had occasional pauses at times but these have resolved since adjusting her rate control medications. We will plan to discharge her on metoprolol 20 mg twice daily as long as she remains rate controlled overnight and her blood pressure tolerates this. Otherwise we will need to consider digoxin. (3) Hypoxia Impression: She desaturates to 87% on room air but this improves on 1 L of oxygen via nasal cannula. Suspect she likely has chronic hypoxic respiratory failure due to her pulmonary hypertension as well as her kyphosis causing restrictive lung disease. Exercise desaturation test today showed the patient was hypoxic at rest with oxygen saturation of 87% on room air. At rest on 1 L/min, her oxygen saturations improved to 93%. With exertion on 2 L/min, her oxygen saturations were 95%. I am ordering home oxygen at 1 L/min continuously at 2 L/min with exertion to help treat her pulmonary hypertension, and restrictive lung disease due to her kyphosis. I am also ordering a portable oxygen unit for portability so patient may go outside of the home. (4) Pulmonary hypertension Impression: Her echo revealed a right ventricular systolic pressure of 78 mmHg. Suspect this is contributing to her hypoxia as well as his restrictive lung disease due to her kyphosis. She will require oxygen at home as mentioned above. She would benefit from outpatient follow-up with pulmonology. (5) Hypercapnia with mixed acid-base disorder Impression: She is a chronic hypercapnic respiratory failure due to her restrictive lung disease from kyphosis. Her metabolic alkalosis was a compensatory mechanism as well as likely contraction alkalosis given the diuresis she received. Her bicarbonate has decreased with IV saline. (6) Kyphosis deformity of spine Impression: This is chronic and at baseline. Unfortunately, this is causing restrictive lung disease and she will need oxygen as mentioned above. Qualifiers: Spinal region: cervicothoracic (7) Parkinson disease, symptomatic Impression: Continue Sinemet. (8) Hypothyroidism Impression: Continue Synthroid.
[2019-09-24] MEDS: WARFARIN 1 MG TABLET PO SCH (16:49)
[2019-09-24] MEDS: LEVOTHYROXINE 100 MCG TABLET PO SCH (16:49)
[2019-09-25] MEDS: SODIUM CHLORIDE FLUSH 0.9% 10 ML SYRINGE IVP SCH ×2 (00:23→09:12)
[2019-09-25] MEDS: CARBIDOPA/LEVODOPA 25 MG/100 MG TABLET PO SCH ×2 (05:34→09:15)
[2019-09-25] MEDS: PANTOPRAZOLE 40 MG TABLET PO SCH (06:11)
[2019-09-25 08:09] LABS: BASOPHILS % (AUTO) 0.8 %; EOSINOPHILS # (AUTO) 0.1 10^3/uL (0.0-0.7); EOSINOPHILS % (AUTO) 1.9 %; HGB - HEMOGLOBIN 11.6 g/dL (12.0-16.0); LYMPHOCYTES # (AUTO) 0.5 10^3/uL (1.5-3.5); LYMPHOCYTES % (AUTO) 12.9 %; MEAN CORPUSCULAR HEMOGLOBIN 27.6 pg (27.0-31.0); MEAN CORPUSCULAR HGB CONC 28.9 g/dL (32.0-36.0); MEAN CORPUSCULAR VOLUME 95.7 fL (81.0-99.0); MEAN PLATELET VOLUME 10.6 fL (7.9-10.8); MONOCYTES # (AUTO) 0.4 10^3/uL (0.0-1.0); MONOCYTES % (AUTO) 10.2 %; NEUTROPHILS # (AUTO) 2.7 10^3/uL (1.5-6.6); NEUTROPHILS % (AUTO) 72.6 %; PLT - PLATELET COUNT 175 10^3/uL (130-450); RED CELL DISTRIBUTION WIDTH 15.8 % (12.0-15.0); WHITE BLOOD COUNT 3.7 x10^3/uL (4.8-10.8)
[2019-09-25 08:20] LABS: INR 2.4 (0.8-1.2); PT - PROTHROMBIN TIME 25.9 secs (9.9-12.6)
[2019-09-25 08:21] LABS: CALCIUM 9.9 mg/dL (8.5-10.3); CREATININE 0.4 mg/dL (0.4-1.0); MAGNESIUM 2.1 mg/dL (1.7-2.8); PHOSPHORUS 1.8 mg/dL (2.5-4.6)
[2019-09-25] MEDS ORDERED: NEUTRA-PHOS 250 MG TABLET PO SCH (08:26)
[2019-09-25 08:52] LABS: PLATELET ESTIMATE, MANUAL NORMAL (130-450,000) (NORMAL); PLATELET MORPHOLOGY NORMAL APPEARANCE (NORMAL)
[2019-09-25] MEDS: METOPROLOL TARTRATE 25 MG TABLET PO SCH (09:10)
[2019-09-25] MEDS: SENNA 8.6 MG TABLET PO SCH (09:11)
[2019-09-25] MEDS: DOCUSATE SODIUM 250 MG CAPSULE PO SCH (09:11)
[2019-09-25] MEDS: SACCHAROMYCES BOULARDII 250 MG CAPSULE PO SCH (09:11)
[2019-09-25] MEDS: polyethylene glycoL 3350 17 GM PACKET PO SCH (09:11)
[2019-09-25] MEDS: NYSTATIN POWDER 15 GM TOP SCH (09:20)
[2019-09-25 10:40] VITALS: BP 117/91
--- NOTE | 2019-09-25 10:47 | Discharge Plan ---
Discharge Plan Problem Reviewed?: Yes Disposition: 06 Home Health Service Condition: Poor Diet: Regular Activity Restrictions: Activity as Tolerated Shower Restrictions: No (fall precaution) Instruction Topics: Care Palliative, Heart Failure, Life Support Tx Choices, Oxygen Home Use, Hypotension Dc, Oxygen Home Dc Health Concerns: hypotension, heart failure with pulmonary hypertension, hypoxia, physical deconditioning, aftrial fibrillation with rapid ventricular response. Plan of Treatment: you were found to have hypotensive in the hospital, now your blood pressure is stable. your home blood pressure medications: Lisinopril, Cardizem and Lasix are hold now. advise you followup with your PCP and air tester continue to manage You were found to have diastolic heart failure with pulmonary hypertension. advise you continue Your home meds Metoprolol, followup with air tester to manage your medical issue. you were found to have Hypoxia. You were found to need Oxygen. Home oxygen was ordered, advise you followup with RT instruction for safely usage of home oxygen. Keep home oxygen at 1 L/min continuously at 2 L/min with exertion. You present physical deconditioning with weakness and severe kyphosis deformity. You declined to be discharged to [facility]. home health PT/OT/Aide was ordered to help you. advise you followup with your PCP to have palliative care consult. you has history of Atrial fibrillation with rapid ventricular response, advise you resume your home medication Metoprolol, and followup with air tester Care Goals: stabilization and improvement of your medical conditions Assessment: discussed with you and your , you understood and agreed. Additional Instructions or Follow Up instructions: You may followup with your PCP in one week, followup with air tester as out- patient. Should your symptoms return or worsen, you may present ER or call 911 for help. Follow-Up Care: [facility] - CHF Classes, Home Health - PT, Home Health - OT No Smoking: If you smoke, Please STOP! Call for help. Follow-up with: Mitul Grier MD [Primary Care Provider] -
--- NOTE | 2019-09-25 11:11 | DISCHARGE SUMMARY ---
Discharge Summary Admit Date: 09/16/19 Discharge Date: 09/25/19 Discharging Provider: Juliano Cota Primary Care Provider: Dr. Mitul Grier Condition at Discharge: Poor Discharge Disposition: Home Health Service Discharge Facility Name: home - DIAGNOSES Admission Diagnoses: (1) Atrial fibrillation with RVR (2) Hypotension (3) UTI (urinary tract infection) (4) General weakness (5) Supratherapeutic INR (6) Hypothyroid (7) Chronic back pain Discharge Diagnoses with Status of Each Condition: (1) Hypotension Resolved and stable. Orthostatics were negative.Patient's home medication lisinopril, Cardizem, Lasix was hold because of hypotension. Continue home metoprolol, follow-up with PCP and windshield wiper repairer as outpatient (2) Atrial fibrillation with RVR Controlled. Continue home medication metoprolol and Coumadin. Continue follow-up with PCP and windshield wiper repairer as outpatient (3) Hypoxia Patient was required to have oxygen in the hospital, desat study show patient need oxygen. pt was ordered home oxygen at 1 L/min continuously at 2 L/min with exertion to help treat her pulmonary hypertension, and restrictive lung disease due to her kyphosis. pt was ordered a portable oxygen unit for portability so patient may go outside of the home. (4) Pulmonary hypertension pt's echo revealed a right ventricular systolic pressure of 78 mmHg. Suspect th is is contributing to her hypoxia as well as his restrictive lung disease due to her kyphosis. She will require oxygen at home as mentioned above. She would benefit from outpatient follow-up with windshield wiper repairer and manager of revenue. (5) Hypercapnia with mixed acid-base disorder improved and stable. She has been a chronic hypercapnic respiratory failure due to her restrictive lung disease from kyphosis. (6) Kyphosis deformity of spine This is chronic and at baseline. Unfortunately, this is causing restrictive lung disease and she will need oxygen.Follow-up with patient's PCP and may referral to orthopedics surgeon consult (7) Parkinson disease, symptomatic stable and Continue Sinemet. (8) Hypothyroidism chronic and stable, Resume home Synthroid (9)UTI pt Finished treatment course in the hospital (10)physical deconditioning Patient presented physical decondition in the hospital. pt declince to have SNF. physical therapy and Occupational Therapy evaluated and treated the patient and patient was ordered to have home health with physical therapy and Occupational Therapy and Aide, patient is advised to follow-up with patient's PCP to have palliative care referral. - HPI History of Present Illness: refer from 's HPI on 09/16/2019 The patient is a 74 yo female admitted via ED for severe weakness, afib w/ RVR, hypotension and UTI confirmed via UA. The pt received 2 doses of 10mg diltiazem in ED for Afib with RVR, HR in 150s. The pt reports feeling generalized weakness which has been progressively worsening for approximately one week. This morning she sat on the toilet, noted feeling dizzy and was unable to get up, despite assistance from her . She reports feeling as though she wants to sleep all day for several days and has noted worsening weakness while ambulating. She lives at home with her , son, and mother. Mother has a significant medical history of CHF and Afib. Her son and assist her daily with dressing, ambulating and other self-care tasks. She reports feeling SOB upon exertion, general dyspnea, wheezing, and occasional palpitations. Past hx significant for PNA w/ hospital admission x2 in Feb 2018. PE significant for generalized pale, cold skin throughout with poor turgor on extremities, arrhythmic heart sounds, and weak peripheral pulses. At the time of admission she is reporting generalized pain from EMS travel and movement from gurney to bed. - HOSPITAL COURSE Hospital Course: Patient was admitted for profound weakness. Patient was found to have UTI and atrial fibrillation with rapid ventricular response, also patient was found to have supra therapeutic anticoagulation.Patient had physical and occupation evaluation and treatment. Patient was initially recommended to [facility] nurse facility but patient declined. Patient's rapid ventricular response was controlled but patient also developed hypotension and hypercapnia. Patient Was transfer to ICU for BiPAP for patient's hypercapnia. Patient's new echo show patient has severe pulmonary hypertension and right-sided heart failure. After the patient home blood pressure medication was hold, and gentle hydration, patient's hypotensive blood pressure is controlled, Also patient hypercapnia is controlled and stable. Hypercapnia is likely restriction of lung disease from her severe kyphosis and Pulmonary hypertension. Desat study show patient needed home oxygen. Patient was ordered for portable home oxygen. [place] patient present physical deconditioning, palliative care was advised for patient to follow-up with PCP to referral. - ALLERGIES Allergies/Adverse Reactions: Allergies Allergy/AdvReac Type Severity Reaction Status Date / Time strawberry [[place]] AdvReac Intermediate Rash Verified 06/07/19 17:25 hydrocodone bitartrate * AdvReac Emesis Verified 06/07/19 17:25 [From Vicodin] - MEDICATIONS Home Medications: Ambulatory Orders Medication Instructions Recorded Confirmed Carbidopa/Levodopa 25/100 [Sinemet 3 tab PO 0500 04/08/14 09/17/19 25 mg/100 mg] Cholecalciferol (Vitamin D3) 2,000 units PO DAILY 03/04/18 09/16/19 [Vitamin D3] Levothyroxine Sodium 100 mcg PO 1630 03/04/18 09/16/19 Metoprolol Succinate [Toprol Xl] 25 mg PO 1200 06/12/18 09/16/19 Omeprazole 20 mg PO QPM 09/16/19 09/16/19 Warfarin Sodium [Coumadin] 4 mg PO 1700 09/16/19 09/16/19 Carbidopa/Levodopa 2 tab PO 1000,1400,1900 09/17/19 09/17/19 [Carbidopa-Levodopa 25-100 Tab] - PHYSICAL EXAM AT DISCHARGE General Appearance: positive: No acute distress, Alert. negative: Lethargic Eyes Bilateral: positive: Normal inspection, PERRL, No lid inflammation ENT: positive: ENT inspection nml, Pharynx nml, No signs of dehydration. negative: Purulent nasal drainage, Dry mucous membranes Neck: positive: Thyroid nml, Trachea midline, Other (severe kyphosis). negative: Thyromegaly, Stiff neck, Tracheal deviation Respiratory: positive: Chest non-tender, No respiratory distress. negative: Wheezes, Rales, Rhonchi Cardiovascular: positive: Irregularly irregular. negative: No murmur, Tachycardia, Bradycardia, Systolic murmur, Diastolic murmur Peripheral Pulses: positive: 2+ Abdomen: positive: Non-tender, No organomegaly, Nml bowel sounds, No distention. negative: Tenderness, Guarding, Rebound Back: positive: Nml inspection. negative: CVA tenderness (R), CVA tenderness (L) Skin: positive: Color nml, No rash, Warm, Dry. negative: Cyanosis, Diaphoresis, Pallor Extremities: positive: Non-tender, Nml appearance. negative: Calf tenderness, Darnell's sign/cords Neurologic/Psychiatric: positive: Oriented x3, Sensation nml, Mood/affect nml. negative: Weakness, Sensory loss, Facial droop, Slurred/abnml speech, Depressed mood/affect - LABS Result Diagrams: 09/25/19 08:01 09/25/19 08:01 - SEPSIS Current Stage of Sepsis: Ruled out - FOLLOW UP Follow Up: you were found to have hypotensive in the hospital, now your blood pressure is stable. your home blood pressure medications: Lisinopril, Cardizem and Lasix are hold now. advise you followup with your PCP and windshield wiper repairer continue to manage You were found to have diastolic heart failure with pulmonary hypertension. advise you continue Your home meds Metoprolol, followup with windshield wiper repairer to manage your medical issue. you were found to have Hypoxia. You were found to need Oxygen. Home oxygen was ordered, advise you followup with RT instruction for safely usage of home oxygen. Keep home oxygen at 1 L/min continuously at 2 L/min with exertion. You present physical deconditioning with weakness and severe kyphosis deformity. You declined to be discharged to [facility]. home health PT/OT/Aide was ordered to help you. advise you followup with your PCP to have palliative care consult. you has history of Atrial fibrillation with rapid ventricular response, advise you resume your home medication Metoprolol, and followup with windshield wiper repairer You may followup with your PCP in one week, followup with windshield wiper repairer as out- patient. Should your symptoms return or worsen, you may present ER or call 911 for help. - TIME SPENT Time Spent in Discharge (Minutes): 30
== END 2019-09-25 12:07 | disposition home health service (06) | DRG 309 ==
LOC: EDUNIT# → ED 08:58 → MS2 11:44 → ICU 12:18 → MS2 09-17 10:34 → ICU 09-21 10:57 → MS2 09-21 16:32
PROVIDERS: ADMIT Specialist; ATTEND Nurse Practitioner Gerontology
DX: I48.91 Unspecified atrial fibrillation (principal); I48.20 Chronic atrial fibrillation, unspecified; N39.0 Urinary tract infection, site not specified; N30.00 Acute cystitis without hematuria; R42 Dizziness and giddiness; R11.0 Nausea; R32 Unspecified urinary incontinence; I50.32 Chronic diastolic (congestive) heart failure; J96.12 Chronic respiratory failure with hypercapnia; I50.9 Heart failure, unspecified; J96.11 Chronic respiratory failure with hypoxia; E87.4 Mixed disorder of acid-base balance; E87.3 Alkalosis; E03.9 Hypothyroidism, unspecified; E86.1 Hypovolemia; I95.9 Hypotension, unspecified; I27.20 Pulmonary hypertension, unspecified; R53.1 Weakness; R26.2 Difficulty in walking, not elsewhere classified; R13.10 Dysphagia, unspecified; G20 Parkinson's disease; G89.29 Other chronic pain; M54.9 Dorsalgia, unspecified; M40.202 Unspecified kyphosis, cervical region; M40.203 Unspecified kyphosis, cervicothoracic region; B96.20 Unspecified Escherichia coli [E. coli] as the cause of diseases classified elsewhere; K21.9 Gastro-esophageal reflux disease without esophagitis; K44.9 Diaphragmatic hernia without obstruction or gangrene; Z79.01 Long term (current) use of anticoagulants; Z79.890 Hormone replacement therapy; Z79.899 Other long term (current) drug therapy; Z82.49 Family history of ischemic heart disease and other diseases of the circulatory system; Z88.5 Allergy status to narcotic agent
CPT/HCPCS: 36415; 36600; 51701; 71045; 80048; 80053; 81001; 82306; 82436; 82533; 82803; 83690; 83735; 83880; 84100; 84300; 84443; 84484; 85025; 85610; 87077; 87086; 87150; 87181; 92610; 93005; 93306; 94660; 94761; 96361; 96374; 96375; 97110; 97116; 97161; 97166; 97530; 99284; 99285; A6250; A9270; J7120; 81003

== ENCOUNTER 2019-09-30 16:43 | Outpatient (CLI) | payer MEDICARE | END 2019-09-30 16:44 | disposition critical access hospital (66) | LOC: EMS 16:43 | PROVIDERS: ATTEND Surgery | DX: R10.9 Unspecified abdominal pain (principal); R53.83 Other fatigue; R53.1 Weakness; R09.89 Other specified symptoms and signs involving the circulatory and respiratory systems | CPT/HCPCS: A0425; A0428 ==